=== PATIENT | male | born 1970 | race Caucasian/White ===

== ENCOUNTER 2016-07-23 12:21 | Inpatient (IN) | payer OTHER ==
[~2016-07-23] VITALS: Ht 167.6 cm; Wt 62.0 kg
[~2016-07-23 12:21] MED LIST: ALBINS INH; ASPCH81 PO; CHOLTAB3 PO; LORA10TA5 PO
[2016-07-23] MEDS ORDERED: SODIUM CHLORIDE 0.9% 1000ML 1,000 ML IV ONE (13:20)
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
--- NOTE | 2016-07-23 13:47 | DIAGNOSTIC IMAGING REPORT ---
CHEST ONE VIEW PORTABLE CLINICAL HISTORY: Fever. Sepsis. COMPARISON STUDY: Chest radiograph March 19, 2016. FINDINGS: A tracheostomy tube is noted. The patient is rotated. There is no pneumothorax or pleural effusion. Cardiac size is normal. Mediastinal contours are likely stable when allowing for differences in technique. The left hemidiaphragm is obscured. There may be left basilar opacity. There is possible right infrahilar opacity. IMPRESSION: 1. Obscuration of the left hemidiaphragm which suggests left basilar opacity. This may reflect atelectasis or consolidation. Right hilar fullness and right infrahilar opacity which can assessed on subsequent chest radiographs. 2. Rotated study. 3. No evidence of pulmonary edema. Electronically signed by: Scott Garibay M.D. 07/23/2016 1:45 PM
[2016-07-23] MEDS ORDERED: AZEL1POW NAE (13:49)
[2016-07-23] MEDS ORDERED: IPRASOL4 INH (13:49)
[2016-07-23] MEDS ORDERED: PIPERACILLIN/TAZOBACTAM 4.5 GM/100ML D5W IV STA (14:02)
[2016-07-23 14:49] LABS: VEN BLD GAS O2 SATURATION 82.7 %; VEN BLOOD GAS BASE EXCESS 4.5 mmol/L
[2016-07-23 14:54] LABS: BASO % 0.2 %; BASO ABS # 0.02 K/uL (0-0.2); COMPLETE YES; EOS % 1.1 %; HEMATOCRIT 40.8 % (42-52); IG% 0.2 %; LYMPH % 12.7 %; LYMPH ABS # 1.58 K/uL (1.2-3.4); MEAN CELL VOLUME 90.5 fL (80-100); MEAN CORPUSCULAR HEMOGLOBIN 30.4 pg (25-34); MEAN CORPUSCULAR HGB CONC 33.6 g/dl (32-36); MONO % 5.9 %; NEUT % 79.9 %; PLATELET COUNT 334 K/uL (130-400); RED BLOOD COUNT 4.51 M/uL (4.7-6.1); WHITE BLOOD COUNT 12.41 K/uL (4.8-10.8)
[2016-07-23 15:01] LABS: PARTIAL THROMBOPLASTIN RATIO 1.1; PROTHROMBIN TIME (PATIENT) 10.7 SECONDS (9.0-12.0)
[2016-07-23 15:21] LABS: ALT/SGPT 23 U/L (12-78); BLOOD UREA NITROGEN 15 mg/dl (7-18); BUN/CREATININE RATIO 42.2 (10-20); C-REACTIVE PROTEIN 7.06 mg/dl (0-0.29); CALCIUM 9.9 mg/dl (8.5-10.1); CARBON DIOXIDE 28 mmol/L (21-32); CHLORIDE 103 mmol/L (98-107); CREATININE 0.36 mg/dl (0.60-1.40); GLUCOSE 91 mg/dl (70-99); MAGNESIUM 2.2 mg/dl (1.8-2.4); POTASSIUM 3.7 mmol/L (3.5-5.1); SODIUM 139 mmol/L (136-145)
[2016-07-23 15:24] LABS: ALB/GLOB RATIO 0.8 (0.9-2); ALKALINE PHOSPHATASE 97 U/L (45-117); AST/SGOT 18 U/L (15-37); CKMB/CK RATIO 2.9 (0-3.0)
[2016-07-23 15:56] LABS: URINE APPEARANCE CLOUDY (CLEAR); URINE BILIRUBIN NEG (NEG); URINE COLOR YELLOW; URINE NITRITE POS (NEG); URINE PH 7.5 (4.5-7.5); URINE SPECIFIC GRAVITY 1.003 (1.000-1.030); UROBILINOGEN NEG (NEG); ZZURINE CULT IF INDIC CATH YES
[2016-07-23 15:58] LABS: MANUAL MICROSCOPIC REQUIRED? NO; REVIEW REQ? NO
[2016-07-23] MEDS ORDERED: LORAZEPAM 0.5 MG TAB PO PRN (18:00)
[2016-07-23] MEDS ORDERED: LEVOFLOXACIN / D5W 750 MG IV STA (18:12)
[2016-07-23] MEDS ORDERED: PIPERACILL/TAZOBAC CONSULT ACTIVE PRN (18:15)
--- NOTE | 2016-07-23 19:52 | History and Physical ---
History & Physical H&P dictated # [id number].
[2016-07-23 20:00] VITALS: BP 137/87; PULSE 79; TEMP 36.6; O2SAT 90
[2016-07-23] MEDS: AZELASTINE HCL 30 ML INH NAE SCH (20:00)
[2016-07-23] MEDS: BACLOFEN TAB 20 MG TAB PO SCH (20:00)
[2016-07-23] MEDS: CHOLECALCIFEROL 400 INTER.UNIT TAB PO SCH (20:00)
[2016-07-23 20:45] VITALS: Ht 167.6 cm; Wt 62.0 kg
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
[2016-07-23] MEDS: DANTROLENE SODIUM 25 MG CAP PO SCH (22:00)
[2016-07-23] MEDS: ENOXAPARIN 40 MG/0.4 ML SYR SQ SCH (22:00)
[2016-07-23 22:18] VITALS: PULSE 84; O2SAT 96
[2016-07-23 22:24] VITALS: PULSE 88; O2SAT 96
[2016-07-23 23:37] VITALS: BP 124/82; PULSE 65; TEMP 36.6; O2SAT 98
[2016-07-23] MEDS: LEVOFLOXACIN / D5W 750 MG in PREMIXED IN D5W 150 ML IV SCH (23:45)
[2016-07-24] VITALS (9 sets, daily range): BP systolic 94–144; BP diastolic 61–92; PULSE 56–93; TEMP 36.5–36.9; O2SAT 91–99
[2016-07-24] MEDS: PIPERACILL/TAZOBAC IV 4.5 GM in DEXTROSE 5% 100ML 100 ML IV SCH ×2 (00:50→13:44)
[2016-07-24 07:53] LABS: BASO % 0.1 %; BASO ABS # 0.01 K/uL (0-0.2); COMPLETE YES; EOS % 2.6 %; HEMATOCRIT 41.9 % (42-52); IG% 0.4 %; LYMPH % 17.2 %; LYMPH ABS # 1.79 K/uL (1.2-3.4); MEAN CELL VOLUME 91.1 fL (80-100); MEAN CORPUSCULAR HEMOGLOBIN 30.4 pg (25-34); MEAN CORPUSCULAR HGB CONC 33.4 g/dl (32-36); MEAN PLATELET VOLUME 10.2 fL (7.4-10.4); MONO % 6.6 %; NEUT % 73.1 %; PLATELET COUNT 303 K/uL (130-400); WHITE BLOOD COUNT 10.39 K/uL (4.8-10.8)
[2016-07-24] MEDS: ALBUT/IPRATROP 3MG/0.5MG NEB 3 ML VIAL INH SCH ×5 (08:00→19:08)
[2016-07-24] MEDS: AZELASTINE HCL 30 ML INH NAE SCH ×2 (08:00→20:13)
[2016-07-24 08:16] LABS: BLOOD UREA NITROGEN 15 mg/dl (7-18); BUN/CREATININE RATIO 44.5 (10-20); CALCIUM 8.8 mg/dl (8.5-10.1); CARBON DIOXIDE 25 mmol/L (21-32); CHLORIDE 103 mmol/L (98-107); CREATININE 0.33 mg/dl (0.60-1.40); GLUCOSE 73 mg/dl (70-99); POTASSIUM 3.8 mmol/L (3.5-5.1); SODIUM 137 mmol/L (136-145)
[2016-07-24] MEDS: ASPIRIN 81 MG ECTAB PO SCH (09:11)
[2016-07-24] MEDS: LORATADINE 10 MG TAB PO SCH (09:11)
[2016-07-24] MEDS: CHOLECALCIFEROL 400 INTER.UNIT TAB PO SCH ×2 (09:12→20:15)
[2016-07-24] MEDS: BACLOFEN TAB 20 MG TAB PO SCH ×4 (09:12→20:14)
--- NOTE | 2016-07-24 12:44 | Hospitalist Progress Note ---
Hospitalist Progress Note Date of Service Jul 24, 2016. Subjective Pt evaluation today including: conversation w/ patient, physical exam, chart review, lab review, review of studies, review of inpatient medication list Patient reports feeling better by 60% this am. He normally does not use oxygen at home and requests that this be weaned to off if he is maintaining oxygenation. He has no new issues or concerns. Care givers were present he just finished bathing. Additional Comments: A 10 system review was performed and all were negative. Positives were placed in the subjective section. Objective Vital Signs Date Time Temp Pulse Resp B/P Pulse Ox O2 Delivery O2 Flow Rate FiO2 07/24/16 08:08 66 22 98 BiPAP/CPAP 40 07/24/16 08:00 99 BiPAP 2.0 07/24/16 08:00 36.5 62 20 143/83 99 BiPAP 2.0 07/24/16 02:01 56 98 40 07/24/16 00:01 99 Room Air BiPAP Trach Collar 07/23/16 23:37 36.6 65 18 124/82 98 Trach Collar 07/23/16 22:24 88 96 40 07/23/16 22:18 84 22 96 BiPAP/CPAP 40 07/23/16 20:45 Trach Collar 07/23/16 20:00 36.6 79 19 137/87 90 Room Air 07/23/16 18:41 78 26 130/82 96 Room Air 07/23/16 18:08 78 34 130/82 93 Room Air 07/23/16 16:11 82 24 128/85 94 Room Air 07/23/16 14:50 93 Room Air 07/23/16 14:30 79 24 132/79 93 Room Air 07/23/16 14:03 79 Physical Exam Notes: GEN: Awake, alert, and oriented x 3. Not in acute distress HEENT: Tm's intact, no inflammation, EOMI, PERRLA, MMM Neck: Soft, supple Lungs: CTA b/l, no crackles or wheezes. A few scattered rhonchi noted b/l. Heart: REG, nrl S1S2 without murmurs, rubs or gallops Abdomen: Soft, NT, ND, + BS EXT: No C/C/E NEURO: Paraplegia with paralysis from shoulders down. Skin: warm, dry, no rashes PSYCH: pleasant, cooperative, no signs of significant anxiety or depression. Laboratory Results Last 24 Hours Test 07/23/16 14:30 07/23/16 14:45 07/23/16 15:25 07/24/16 07:15 White Blood Count 12.41 K/uL 10.39 K/uL Red Blood Count 4.51 M/uL 4.60 M/uL Hemoglobin 13.7 g/dL 14.0 g/dL Hematocrit 40.8 % 41.9 % Mean Corpuscular Volume 90.5 fL 91.1 fL Mean Corpuscular Hemoglobin 30.4 pg 30.4 pg Mean Corpuscular Hemoglobin Concent 33.6 g/dl 33.4 g/dl Platelet Count 334 K/uL 303 K/uL Mean Platelet Volume 10.0 fL 10.2 fL Neutrophils (%) (Auto) 79.9 % 73.1 % Lymphocytes (%) (Auto) 12.7 % 17.2 % Monocytes (%) (Auto) 5.9 % 6.6 % Eosinophils (%) (Auto) 1.1 % 2.6 % Basophils (%) (Auto) 0.2 % 0.1 % Neutrophils # (Auto) 9.91 K/uL 7.59 K/uL Lymphocytes # (Auto) 1.58 K/uL 1.79 K/uL Monocytes # (Auto) 0.73 K/uL 0.69 K/uL Eosinophils # (Auto) 0.14 K/uL 0.27 K/uL Basophils # (Auto) 0.02 K/uL 0.01 K/uL RDW Standard Deviation 42.1 fL 43.0 fL RDW Coefficient of Variation 12.8 % 12.9 % Immature Granulocyte % (Auto) 0.2 % 0.4 % Immature Granulocyte # (Auto) 0.03 K/uL 0.04 K/uL Erythrocyte Sedimentation Rate 55 mm/hr Prothrombin Time 10.7 SECONDS Prothromb Time International Ratio 1.0 Activated Partial Thromboplast Time 29.8 SECONDS Partial Thromboplastin Ratio 1.1 Venous Blood pH 7.44 Venous Blood Partial Pressure CO2 45 mmHg Venous Blood Partial Pressure O2 43 mmHg Venous Blood HCO3 29 mmol/L Venous Blood Oxygen Saturation 82.7 % Venous Blood Base Excess 4.5 mmol/L Sodium Level 139 mmol/L 137 mmol/L Potassium Level 3.7 mmol/L 3.8 mmol/L Chloride Level 103 mmol/L 103 mmol/L Carbon Dioxide Level 28 mmol/L 25 mmol/L Anion Gap 8.0 mmol/L 9.0 mmol/L Blood Urea Nitrogen 15 mg/dl 15 mg/dl Creatinine 0.36 mg/dl 0.33 mg/dl Est Creatinine Clear Calc Drug Dose 222.5 ml/min 242.7 ml/min Estimated GFR () > 150.0 > 150.0 Estimated GFR (Non- 147.7 > 150.0 BUN/Creatinine Ratio 42.2 44.5 Random Glucose 91 mg/dl 73 mg/dl Calcium Level 9.9 mg/dl 8.8 mg/dl Magnesium Level 2.2 mg/dl Total Bilirubin 0.5 mg/dl Aspartate Amino Transf (AST/SGOT) 18 U/L Alanine Aminotransferase (ALT/SGPT) 23 U/L Alkaline Phosphatase 97 U/L Total Creatine Kinase 95 U/L Creatine Kinase MB 2.8 ng/ml Creatine Kinase MB Ratio 2.9 Troponin I 0.016 ng/ml C-Reactive Protein 7.06 mg/dl Pro-B-Type Natriuretic Peptide 126 pg/ml Total Protein 8.3 gm/dl Albumin 3.7 gm/dl Globulin 4.6 gm/dl Albumin/Globulin Ratio 0.8 Bedside Lactic Acid Venous 0.89 mmol/L Urine Color YELLOW Urine Appearance CLOUDY Urine pH 7.5 Urine Specific [place] 1.003 Urine Protein NEG Urine Glucose (UA) NEG Urine Ketones NEG Urine Occult Blood NEG Urine Nitrite POS Urine Bilirubin NEG Urine Urobilinogen NEG Urine Leukocyte Esterase TRACE Urine WBC (Auto) 1-5 /hpf Urine RBC (Auto) >30 /hpf Urine Hyaline Casts (Auto) 0 /lpf Urine Epithelial Cells (Auto) 10-20 /lpf Urine Bacteria (Auto) 4+ Assessment and Plan 1) Pneumonia - On IV Zosyn and IV Levaquin. Levaquin was ordered due to his history of pseudomonas pneumonia. Looking fairly good today. Will wean oxygen to off if tolerated. Await pulmonology consult. 2) Bacteruria - with chronic knott will expect colonization, cultures pending. 3) Quadriplegia - Air bed. Requests daily bath. 4) Anxiety - stable, has prn Ativan ordered. DVT prophylaxis - TEDs, SCDs, Sub-q lovenox. Continued [facility] stay due to: multiple IV medications needed Discharge planning: home with home health
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
[2016-07-24] MEDS: PIPERACILL/TAZOBAC IV 3.375 GM in DEXTROSE 5% 100ML IV SCH ×2 (16:18→23:58)
[2016-07-24] MEDS: DANTROLENE SODIUM 25 MG CAP PO SCH (20:14)
[2016-07-24] MEDS: ENOXAPARIN 40 MG/0.4 ML SYR SQ SCH (20:15)
[2016-07-24] MEDS: LEVOFLOXACIN / D5W 750 MG in PREMIXED IN D5W 150 ML IV SCH (23:57)
[2016-07-25] VITALS (9 sets, daily range): BP systolic 114–135; BP diastolic 75–83; PULSE 51–88; TEMP 36.3–36.9; O2SAT 40–100
[2016-07-25 06:42] LABS: BASO % 0.3 %; BASO ABS # 0.02 K/uL (0-0.2); COMPLETE YES; EOS % 2.7 %; HEMATOCRIT 44.7 % (42-52); IG% 0.1 %; LYMPH % 21.6 %; LYMPH ABS # 1.66 K/uL (1.2-3.4); MEAN CELL VOLUME 92.5 fL (80-100); MEAN CORPUSCULAR HEMOGLOBIN 31.5 pg (25-34); MEAN PLATELET VOLUME 9.8 fL (7.4-10.4); MONO % 9.2 %; NEUT % 66.1 %; PLATELET COUNT 310 K/uL (130-400); RED BLOOD COUNT 4.83 M/uL (4.7-6.1); WHITE BLOOD COUNT 7.69 K/uL (4.8-10.8)
[2016-07-25 07:07] LABS: BLOOD UREA NITROGEN 11 mg/dl (7-18); BUN/CREATININE RATIO 23.3 (10-20); CALCIUM 8.8 mg/dl (8.5-10.1); CARBON DIOXIDE 31 mmol/L (21-32); CHLORIDE 100 mmol/L (98-107); CREATININE 0.48 mg/dl (0.60-1.40); GLUCOSE 91 mg/dl (70-99); POTASSIUM 4.2 mmol/L (3.5-5.1); SODIUM 138 mmol/L (136-145)
[2016-07-25] MEDS: ALBUT/IPRATROP 3MG/0.5MG NEB 3 ML VIAL INH SCH ×4 (07:28→19:40)
[2016-07-25] MEDS: PIPERACILL/TAZOBAC IV 3.375 GM in DEXTROSE 5% 100ML IV SCH ×2 (07:34→16:17)
[2016-07-25] MEDS: AZELASTINE HCL 30 ML INH NAE SCH ×2 (08:00→21:19)
[2016-07-25] MEDS: LORATADINE 10 MG TAB PO SCH (08:38)
[2016-07-25] MEDS: CHOLECALCIFEROL 400 INTER.UNIT TAB PO SCH ×2 (08:38→21:19)
[2016-07-25] MEDS: ASPIRIN 81 MG ECTAB PO SCH (08:38)
[2016-07-25] MEDS: BACLOFEN TAB 20 MG TAB PO SCH ×4 (08:39→21:19)
--- NOTE | 2016-07-25 09:54 | Progress Note ---
Subjective Date of Service: Jul 25, 2016. Problem List Medical Problems: (1) PNA (pneumonia) Status: Acute (2) Pneumonia Status: Acute (3) Productive cough Status: Acute (4) Ulcer of right heel Status: Acute Objective Vital Signs Date Time Temp Pulse Resp B/P Pulse Ox O2 Delivery O2 Flow Rate FiO2 07/25/16 07:34 36.3 63 18 135/81 97 BiPAP 2.5 07/25/16 07:28 62 28 98 BiPAP/CPAP 07/25/16 00:41 36.5 51 18 114/75 100 Room Air 07/25/16 00:00 BiPAP 07/24/16 21:43 97 40 07/24/16 19:16 79 32 97 Nasal Cannula 3.0 07/24/16 16:00 Nasal Cannula 3.0 07/24/16 15:33 36.9 73 20 94/61 97 Nasal Cannula 3.0 07/24/16 15:22 71 32 97 Nasal Cannula 3.0 40 07/24/16 10:40 93 32 91 Nasal Cannula 3.0 Laboratory Results Last 24 Hours Test 07/25/16 06:30 White Blood Count 7.69 K/uL Red Blood Count 4.83 M/uL Hemoglobin 15.2 g/dL Hematocrit 44.7 % Mean Corpuscular Volume 92.5 fL Mean Corpuscular Hemoglobin 31.5 pg Mean Corpuscular Hemoglobin Concent 34.0 g/dl Platelet Count 310 K/uL Mean Platelet Volume 9.8 fL Neutrophils (%) (Auto) 66.1 % Lymphocytes (%) (Auto) 21.6 % Monocytes (%) (Auto) 9.2 % Eosinophils (%) (Auto) 2.7 % Basophils (%) (Auto) 0.3 % Neutrophils # (Auto) 5.08 K/uL Lymphocytes # (Auto) 1.66 K/uL Monocytes # (Auto) 0.71 K/uL Eosinophils # (Auto) 0.21 K/uL Basophils # (Auto) 0.02 K/uL RDW Standard Deviation 43.6 fL RDW Coefficient of Variation 12.8 % Immature Granulocyte % (Auto) 0.1 % Immature Granulocyte # (Auto) 0.01 K/uL Sodium Level 138 mmol/L Potassium Level 4.2 mmol/L Chloride Level 100 mmol/L Carbon Dioxide Level 31 mmol/L Anion Gap 7.0 mmol/L Blood Urea Nitrogen 11 mg/dl Creatinine 0.48 mg/dl Est Creatinine Clear Calc Drug Dose 166.8 ml/min Estimated GFR () > 150.0 Estimated GFR (Non- 131.2 BUN/Creatinine Ratio 23.3 Random Glucose 91 mg/dl Calcium Level 8.8 mg/dl Assessment and Plan 1) Pneumonia - On IV Zosyn and IV Levaquin. Levaquin was ordered due to his history of pseudomonas pneumonia. Looking fairly good today. Will wean oxygen to off if tolerated. Await pulmonology consult. 2) Bacteruria - with chronic knott will expect colonization, cultures pending. 3) Quadriplegia - Air bed. Requests daily bath. 4) Anxiety - stable, has prn Ativan ordered. DVT prophylaxis - TEDs, SCDs, Sub-q lovenox. Continued [facility] stay due to: multiple IV medications needed Discharge planning: home with home health
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
--- NOTE | 2016-07-25 12:29 | Clinical Documentation Query ---
YESI Venegas : CLINICAL DOCUMENTATION QUERY Patient is a 45 year old male admitted with recurrent pneumonia in the setting of quadriplegia. Patient noted to have an E.Coli UTI. Documentation also makes note of chronic indwelling West catheter. As appropriate, consider documentation as below as this directly affects DRG assignment. Thank you. In your clinical opinion is this patient being managed for: ( x ) E.Coli UTI due to indwelling West catheter ( ) Other explanation of clinical findings (Please Explain) ( ) Unable to determine (Please Define) ( ) Need to Discuss ( ) Not Agree The medical record reflects the following clinical findings, treatment, and risk factors. Clinical Indicators: As above Treatment: IV antibiotics Risk Factors: Chronic indwelling West catheter Please clarify and document your clinical opinion in the progress notes and discharge summary. Terms such as "probable", "suspected", "likely", "questionable", "possible", or "still to be ruled out" are acceptable. IF IN AGREEMENT, YOU MUST DOCUMENT ABOVE DIAGNOSTIC STATEMENT IN DAILY PROGRESS NOTES AND DISCHARGE SUMMARY. This document is not part of the patient's record. Thank You, Vishal Mac, GABRIEL [phone]
[2016-07-25] MEDS ORDERED: ALBUTEROL 0.083% NEBU SOLN 3 ML VIAL INH PRN (14:45)
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
[2016-07-25] MEDS: ENOXAPARIN 40 MG/0.4 ML SYR SQ SCH (21:20)
[2016-07-25] MEDS: DANTROLENE SODIUM 25 MG CAP PO SCH (21:20)
[2016-07-26] VITALS (10 sets, daily range): BP systolic 94–111; BP diastolic 60–70; PULSE 56–83; TEMP 36.4–37; O2SAT 95–100
[2016-07-26] MEDS: PIPERACILL/TAZOBAC IV 3.375 GM in DEXTROSE 5% 100ML IV SCH (00:30)
[2016-07-26 06:33] LABS: BASO % 0.2 %; BASO ABS # 0.02 K/uL (0-0.2); COMPLETE YES; EOS % 2.3 %; IG% 0.2 %; LYMPH % 18.8 %; LYMPH ABS # 1.76 K/uL (1.2-3.4); MEAN CELL VOLUME 93.3 fL (80-100); MEAN CORPUSCULAR HEMOGLOBIN 30.4 pg (25-34); MEAN CORPUSCULAR HGB CONC 32.6 g/dl (32-36); MEAN PLATELET VOLUME 9.9 fL (7.4-10.4); MONO % 7.4 %; NEUT % 71.1 %; PLATELET COUNT 291 K/uL (130-400); WHITE BLOOD COUNT 9.38 K/uL (4.8-10.8)
[2016-07-26 07:26] LABS: BLOOD UREA NITROGEN 14 mg/dl (7-18); BUN/CREATININE RATIO 32.3 (10-20); CALCIUM 8.8 mg/dl (8.5-10.1); CARBON DIOXIDE 28 mmol/L (21-32); CHLORIDE 101 mmol/L (98-107); CREATININE 0.43 mg/dl (0.60-1.40); GLUCOSE 84 mg/dl (70-99); POTASSIUM 3.8 mmol/L (3.5-5.1); SODIUM 139 mmol/L (136-145)
[2016-07-26] MEDS: ALBUT/IPRATROP 3MG/0.5MG NEB 3 ML VIAL INH SCH ×4 (07:45→20:09)
[2016-07-26] MEDS: AZELASTINE HCL 30 ML INH NAE SCH ×2 (07:52→21:18)
[2016-07-26] MEDS: CHOLECALCIFEROL 400 INTER.UNIT TAB PO SCH ×2 (08:24→21:19)
[2016-07-26] MEDS: ASPIRIN 81 MG ECTAB PO SCH (08:24)
[2016-07-26] MEDS: LORATADINE 10 MG TAB PO SCH (08:25)
[2016-07-26] MEDS: BACLOFEN TAB 20 MG TAB PO SCH ×4 (08:25→21:20)
[2016-07-26] MEDS ORDERED: CEFTRIAXONE SOD INJ 1 GM in DEXTROSE 5% ADD-VANTAGE 50ML 50 ML IV SCH (09:00)
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
[2016-07-26] MEDS ORDERED: SOD PHOSPHATE/SOD BIPHOSPHATE ENEMA 132 ML BTL PR STA (09:55)
--- NOTE | 2016-07-26 14:40 | PULMONARY PROGRESS NOTE ---
DATE: 07/26/2016 DATE: 07/26/2016. TIME: 2:10 p.m. SUBJECTIVE: The patient is feeling a little better. He thinks his breathing is better. He feels less congestion in the chest. He did not sleep well last night. He states the room felt hot to him. Also, he has been nasally stuffy. OBJECTIVE: GENERAL: The patient looks in no distress, although he is breathing fast. He uses his accessory muscles of respiration in the neck area. This is related to his neuromuscular disorder. He is afebrile. The trach is in place. It has the adapter on the end so that he can verbalize. Respiratory rate is 30 breaths per minute. HEART: Rate is 83 beats per minute. Blood pressure 111/66. LUNGS: Esposito revealed mild rhonchi today. It was better than it had been previously. ABDOMEN: Soft. Bowel sounds are present. There was no tenderness to palpation. EXTREMITIES: Show no cyanosis, clubbing or edema. The patient cannot move the lower extremities at all and he can move the upper extremities only slightly in the area of the hands. LABORATORY DATA: White count today is 9.38. Hemoglobin 13.7. Platelets are 291,000. Sodium 139, potassium 3.8, chloride 101, bicarb 28. BUN 14, creatinine 0.43. IMPRESSIONS: 1. Pneumonia secondary to Streptococcus pneumoniae. 2. Quadriplegia with neuromuscular weakness. 3. Urinary tract infection with Escherichia coli and pseudomonas. COMMENTS AND RECOMMENDATIONS: The patient clinically is somewhat better. Yesterday we had concerns that he was not receiving enough suctioning, but he feels well with it today. The patient indicates he thinks he is being suctioned often enough. We will do a repeat chest x-ray tomorrow to see if the infiltrates have improved at all. I would continue with the neb treatments as current.
[2016-07-26] MEDS: AMOXICILLIN/CLAVULANATE TAB 875 MG TAB PO SCH (16:51)
[2016-07-26] MEDS: ENOXAPARIN 40 MG/0.4 ML SYR SQ SCH (21:19)
[2016-07-26] MEDS: DANTROLENE SODIUM 25 MG CAP PO SCH (21:20)
[2016-07-27 03:48] VITALS: PULSE 46; O2SAT 100
--- NOTE | 2016-07-27 07:15 | DIAGNOSTIC IMAGING REPORT ---
CHEST ONE VIEW PORTABLE CLINICAL HISTORY: Follow-up pneumonia. Cough. COMPARISON STUDY: Chest radiograph July 23, 2016. FINDINGS: A tracheostomy tube is in place. There is no pneumothorax. No definite pleural effusion is identified. Obscuration of the left hemidiaphragm is noted. There is also mild right lower lung opacity. There is no evidence of pulmonary edema. Right lower lung airspace opacity is slightly improved. IMPRESSION: Persistent bilateral lower lung opacities. Slight improvement since prior exam. The findings could reflect consolidation or atelectasis. Electronically signed by: Scott Garibay M.D. 07/27/2016 7:13 AM Dictated Date/Time: 07/27/2016 7:11 AM
[2016-07-27 07:19] VITALS: BP 123/79; PULSE 55; TEMP 36.4; O2SAT 100
[2016-07-27] MEDS: ALBUT/IPRATROP 3MG/0.5MG NEB 3 ML VIAL INH SCH (08:09)
[2016-07-27 08:10] VITALS: PULSE 60; O2SAT 100
[2016-07-27 08:18] VITALS: PULSE 60; O2SAT 100
[2016-07-27 09:05] VITALS: BP 123/79; PULSE 60; TEMP 36.4; O2SAT 100
[2016-07-27] MEDS ORDERED: IPRASOL4 INH (09:07)
[2016-07-27] MEDS ORDERED: AMOX1TAB43 PO (09:07)
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
[2016-07-27] MEDS: CHOLECALCIFEROL 400 INTER.UNIT TAB PO SCH (09:58)
[2016-07-27] MEDS: AZELASTINE HCL 30 ML INH NAE SCH (09:58)
[2016-07-27] MEDS: ASPIRIN 81 MG ECTAB PO SCH (09:59)
[2016-07-27] MEDS: LORATADINE 10 MG TAB PO SCH (09:59)
[2016-07-27] MEDS: BACLOFEN TAB 20 MG TAB PO SCH (09:59)
[2016-07-27] MEDS: AMOXICILLIN/CLAVULANATE TAB 875 MG TAB PO SCH (09:59)
[2016-09-14] MEDS ORDERED: LVQ750 PO ×2 (08:19→09:33)
[2016-11-01] MEDS ORDERED: DANT100C PO (11:29)
[2016-11-01] MEDS ORDERED: CHOL400T PO (11:45)
[2016-11-01] MEDS ORDERED: LORA-741 PO (13:03)
[2016-11-01] MEDS ORDERED: ALBINS/ NEB (13:03)
[2016-11-01] MEDS ORDERED: MULT-506 PO (13:03)
[2016-11-01] MEDS ORDERED: ASCO10003 PO (13:03)
[2016-11-01] MEDS ORDERED: BOTU200I SQ (13:56)
[2017-02-21] MEDS ORDERED: CEPH500C PO (10:22)
[2017-04-09] MEDS ORDERED: TYLOTC500 PO (11:29)
[2017-04-09] MEDS ORDERED: BACL20TA PO (11:29)
[2017-04-09] MEDS ORDERED: ALEN70TA4 PO (11:29)
[2017-04-09] MEDS ORDERED: LORA-741 PO ×2 (13:18→19:31)
[2017-04-09] MEDS ORDERED: CLR10 PO (13:18)
[2017-04-09] MEDS ORDERED: CALC1CHW2 PO (13:18)
[2017-04-09] MEDS ORDERED: IPRA0.03 NAE (13:18)
[2017-04-09] MEDS ORDERED: BISA10SU3 PR (13:49)
[2017-04-09] MEDS ORDERED: IBUP-1277 PO (14:23)
[2017-04-09] MEDS ORDERED: MULT-922 PO (14:46)
[2017-04-09] MEDS ORDERED: ASCO500C43 PO (14:49)
[2017-04-09] MEDS ORDERED: LACTTAB7 PO (14:49)
[2017-04-09] MEDS ORDERED: ASPI81TA28 PO (16:42)
== END 2016-07-27 10:27 | disposition home health service (06) | DRG 193 ==
LOC: ENRESERVTM → ENRESERVDT → EDBD 12:21 → C.EDC 12:23 → C.MS4W 17:38
PROVIDERS: ADMIT Hospitalist; ATTEND Hospitalist
DX: J13 Pneumonia due to Streptococcus pneumoniae (principal); G82.50 Quadriplegia, unspecified; T83.511A Infection and inflammatory reaction due to indwelling urethral catheter, initial encounter; N39.0 Urinary tract infection, site not specified; Y84.6 Urinary catheterization as the cause of abnormal reaction of the patient, or of later complication, without mention of misadventure at the time of the procedure; F41.9 Anxiety disorder, unspecified; Z93.0 Tracheostomy status; K59.00 Constipation, unspecified; B96.5 Pseudomonas (aeruginosa) (mallei) (pseudomallei) as the cause of diseases classified elsewhere; J01.90 Acute sinusitis, unspecified; B96.20 Unspecified Escherichia coli [E. coli] as the cause of diseases classified elsewhere; Z79.899 Other long term (current) drug therapy; Z79.82 Long term (current) use of aspirin

== ENCOUNTER 2016-08-07 10:57 | Emergency (ER) | payer OTHER ==
[~2016-08-07] VITALS: Ht 170.2 cm; Wt 63.8 kg
[~2016-08-07 10:57] MED LIST changes: -ALBINS INH; +AMOX1TAB43 PO; +AZEL1POW NAE; +IPRASOL4 INH
[2016-08-07 11:06] VITALS: Ht 170.2 cm; Wt 63.8 kg
[2016-08-07] MEDS ORDERED: ASPCH81X PO (11:45)
[2016-08-07 12:12] VITALS: O2SAT 95
--- NOTE | 2016-08-07 12:33 | DIAGNOSTIC IMAGING REPORT ---
CHEST ONE VIEW PORTABLE CLINICAL HISTORY: SOB COMPARISON STUDY: 07/27/2016 FINDINGS: The heart is normal in size. A tracheostomy tube is again visualized. There is nonspecific increased density of the right hilum. There are persistent airspace opacities in both medial lung bases..[ IMPRESSION: 1. Persistent airspace opacities at both medial lung bases 2. Nonspecific increased density of the right hilum Electronically signed by: Austin Bhatt M.D. 08/07/2016 12:31 PM Dictated Date/Time: 08/07/2016 12:29 PM
[2016-08-07] MEDS ORDERED: VANCOMYCIN INJ 1,000 MG in SODIUM CHLORIDE 0.9% 250ML 250 ML IV STA (12:36)
[2016-08-07] MEDS ORDERED: PIPERACILLIN/TAZOBACTAM 4.5 GM/100ML D5W IV STA (12:36)
[2016-08-07] MEDS ORDERED: LEVAQUIN 750MG / 150ML D5W IV ONE (12:45)
[2016-08-07] MEDS ORDERED: ALBUT/IPRATROP 3MG/0.5MG NEB 3 ML VIAL INH ONE (12:45)
[2016-08-07 13:21] VITALS: PULSE 78; O2SAT 95
[2016-08-07 13:24] LABS: BASO % 0.2 %; BASO ABS # 0.02 K/uL (0-0.2); COMPLETE YES; EOS % 1.7 %; HEMATOCRIT 42.7 % (42-52); IG% 0.2 %; LYMPH ABS # 1.65 K/uL (1.2-3.4); MEAN CELL VOLUME 92.2 fL (80-100); MEAN CORPUSCULAR HEMOGLOBIN 30.9 pg (25-34); MEAN CORPUSCULAR HGB CONC 33.5 g/dl (32-36); MEAN PLATELET VOLUME 10.4 fL (7.4-10.4); MONO % 5.3 %; NEUT % 77.6 %; PLATELET COUNT 271 K/uL (130-400); RED BLOOD COUNT 4.63 M/uL (4.7-6.1); WHITE BLOOD COUNT 11.01 K/uL (4.8-10.8)
[2016-08-07] MEDS ORDERED: BACLOFEN TAB 20 MG TAB PO STA (13:27)
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
[2016-08-07 13:33] LABS: PARTIAL THROMBOPLASTIN RATIO 1.1; PROTHROMBIN TIME (PATIENT) 10.7 SECONDS (9.0-12.0)
[2016-08-07 13:44] LABS: ALT/SGPT 21 U/L (12-78); AST/SGOT 16 U/L (15-37); BLOOD UREA NITROGEN 19 mg/dl (7-18); BUN/CREATININE RATIO 45.5 (10-20); CALCIUM 9.4 mg/dl (8.5-10.1); CARBON DIOXIDE 28 mmol/L (21-32); CHLORIDE 103 mmol/L (98-107); CREATININE 0.42 mg/dl (0.60-1.40); GLUCOSE 81 mg/dl (70-99); SODIUM 140 mmol/L (136-145)
[2016-08-07 13:49] LABS: ALB/GLOB RATIO 0.9 (0.9-2); ALKALINE PHOSPHATASE 84 U/L (45-117); CKMB/CK RATIO 2.3 (0-3.0)
[2016-08-07] MEDS ORDERED: LEVO-366 PO (14:34)
[2016-08-07 14:52] LABS: INFLUENZA A PCR Neg for Influ A (NEG); INFLUENZA B PCR Neg for Influ B (NEG)
[2016-08-07 14:53] VITALS: TEMP 36.7
[2016-08-07 19:37] VITALS: BP 111/75; PULSE 72; O2SAT 98
[2016-09-14] MEDS ORDERED: LVQ750 PO ×2 (08:19→09:33)
[2016-11-01] MEDS ORDERED: DANT100C PO (11:29)
[2016-11-01] MEDS ORDERED: CHOL400T PO (11:45)
[2016-11-01] MEDS ORDERED: LORA-741 PO (13:03)
[2016-11-01] MEDS ORDERED: ASCO10003 PO (13:03)
[2016-11-01] MEDS ORDERED: ALBINS/ NEB (13:03)
[2016-11-01] MEDS ORDERED: MULT-506 PO (13:03)
[2016-11-01] MEDS ORDERED: BOTU200I SQ (13:56)
[2017-02-21] MEDS ORDERED: CEPH500C PO (10:22)
[2017-04-09] MEDS ORDERED: TYLOTC500 PO (11:29)
[2017-04-09] MEDS ORDERED: ALEN70TA4 PO (11:29)
[2017-04-09] MEDS ORDERED: BACL20TA PO (11:29)
[2017-04-09] MEDS ORDERED: CALC1CHW2 PO (13:18)
[2017-04-09] MEDS ORDERED: LORA-741 PO ×2 (13:18→19:31)
[2017-04-09] MEDS ORDERED: CLR10 PO (13:18)
[2017-04-09] MEDS ORDERED: IPRA0.03 NAE (13:18)
[2017-04-09] MEDS ORDERED: BISA10SU3 PR (13:49)
[2017-04-09] MEDS ORDERED: IBUP-1277 PO (14:23)
[2017-04-09] MEDS ORDERED: MULT-922 PO (14:46)
[2017-04-09] MEDS ORDERED: LACTTAB7 PO (14:49)
[2017-04-09] MEDS ORDERED: ASCO500C43 PO (14:49)
[2017-04-09] MEDS ORDERED: ASPI81TA28 PO (16:42)
== END 2016-08-07 19:39 | disposition home or self-care (01) ==
LOC: EDBD 10:57 → C.EDC 10:59
DX: J18.9 Pneumonia, unspecified organism (principal); G82.50 Quadriplegia, unspecified; Z93.0 Tracheostomy status; F41.9 Anxiety disorder, unspecified; Z87.01 Personal history of pneumonia (recurrent); Z90.49 Acquired absence of other specified parts of digestive tract; Z83.3 Family history of diabetes mellitus; Z79.82 Long term (current) use of aspirin; Z79.899 Other long term (current) drug therapy

== ENCOUNTER 2016-09-10 12:40 | Inpatient (IN) | payer OTHER ==
[~2016-09-10] VITALS: Ht 170.2 cm; Wt 59.0 kg
[~2016-09-10 12:40] MED LIST changes: -AMOX1TAB43 PO; -ASPCH81 PO; +ASPCH81X PO; -CHOLTAB3 PO
[2016-09-10] MEDS ORDERED: VBRT100 PO (13:03)
[2016-09-10] MEDS ORDERED: MONT1TAB3 PO (13:03)
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
[2016-09-10 14:45] LABS: BASO % 0.2 %; BASO ABS # 0.02 K/uL (0-0.2); COMPLETE YES; EOS % 1.9 %; HEMATOCRIT 42.1 % (42-52); IG% 0.3 %; LYMPH % 12.2 %; LYMPH ABS # 1.49 K/uL (1.2-3.4); MEAN CORPUSCULAR HEMOGLOBIN 29.8 pg (25-34); MEAN CORPUSCULAR HGB CONC 33.5 g/dl (32-36); MEAN PLATELET VOLUME 10.5 fL (7.4-10.4); MONO % 7.2 %; NEUT % 78.2 %; PLATELET COUNT 269 K/uL (130-400); RED BLOOD COUNT 4.73 M/uL (4.7-6.1); WHITE BLOOD COUNT 12.23 K/uL (4.8-10.8)
[2016-09-10 14:53] LABS: BLOOD UREA NITROGEN 14 mg/dl (7-18); BUN/CREATININE RATIO 36.3 (10-20); CALCIUM 9.3 mg/dl (8.5-10.1); CARBON DIOXIDE 28 mmol/L (21-32); CHLORIDE 100 mmol/L (98-107); CREATININE 0.38 mg/dl (0.60-1.40); GLUCOSE 82 mg/dl (70-99); SODIUM 137 mmol/L (136-145)
[2016-09-10] MEDS ORDERED: PIPERACILLIN/TAZOBACTAM 4.5 GM/100ML D5W IV STA (15:54)
--- NOTE | 2016-09-10 15:55 | DIAGNOSTIC IMAGING REPORT ---
CHEST ONE VIEW PORTABLE CLINICAL HISTORY: Chest pain. COMPARISON STUDY: Chest radiograph August 07, 2016. FINDINGS: A tracheostomy tube is in place. There is no pneumothorax or evidence of pulmonary edema. No pleural effusion is present. Bibasilar opacities, left greater than right, persist. IMPRESSION: Persistent bibasilar opacities, left greater than right, which have been shown on multiple prior exams. This could reflect atelectasis or consolidation Electronically signed by: Scott Garibay M.D. 09/10/2016 3:53 PM Dictated Date/Time: 09/10/2016 3:52 PM
[2016-09-10] MEDS ORDERED: ONDANSETRON INJ 2 MG/ML 2 ML VIAL IV PRN (17:00)
[2016-09-10] MEDS ORDERED: MAGNESIUM HYDROXIDE SUSP 30 ML UDC PO PRN (17:00)
[2016-09-10] MEDS ORDERED: ACETAMINOPHEN 325 MG TAB PO PRN (17:00)
[2016-09-10] MEDS ORDERED: POLYETHYLENE (MIRALAX) 17 GM PACK PO PRN (17:00)
[2016-09-10] MEDS ORDERED: ALUMINUM/MAGNESIUM/SIMETH (MAALOX MAX) 30 ML UDC PO PRN (17:00)
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
[2016-09-10] MEDS ORDERED: LEVOFLOXACIN CONSULT ACTIVE PRN (17:45)
[2016-09-10] MEDS ORDERED: PIPERACILL/TAZOBAC CONSULT ACTIVE PRN (17:45)
[2016-09-10] MEDS ORDERED: LEVOFLOXACIN / D5W 750 MG in PREMIXED IN D5W 150 ML IV ONE (18:00)
[2016-09-10] MEDS: ALBUTEROL 0.083% NEBU SOLN 3 ML VIAL INH SCH (20:00)
[2016-09-10] MEDS: ASCORBIC ACID 500 MG TAB PO SCH (21:00)
[2016-09-10] MEDS: BACLOFEN TAB 20 MG TAB PO SCH (21:00)
[2016-09-10] MEDS: DANTROLENE SODIUM 25 MG CAP PO SCH (21:00)
[2016-09-10 21:30] VITALS: BP 112/80; PULSE 76; TEMP 36.9; O2SAT 96; Ht 170.2 cm; Wt 59.0 kg
[2016-09-10 22:56] VITALS: BP 112/80; PULSE 68; TEMP 36.9; O2SAT 95
[2016-09-10] MEDS: PIPERACILL/TAZOBAC IV 3.375 GM in DEXTROSE 5% 100ML 100 ML IV SCH (23:28)
[2016-09-11] VITALS (12 sets, daily range): BP systolic 110–134; BP diastolic 75–88; PULSE 64–84; TEMP 36.4–37.3; O2SAT 93–100
[2016-09-11] MEDS: PIPERACILL/TAZOBAC IV 3.375 GM in DEXTROSE 5% 100ML 100 ML IV SCH ×3 (05:56→20:53)
[2016-09-11 07:01] LABS: PROTHROMBIN TIME (PATIENT) 11.2 SECONDS (9.0-12.0)
[2016-09-11 07:26] LABS: BLOOD UREA NITROGEN 12 mg/dl (7-18); BUN/CREATININE RATIO 27.2 (10-20); CALCIUM 8.8 mg/dl (8.5-10.1); CARBON DIOXIDE 23 mmol/L (21-32); CHLORIDE 99 mmol/L (98-107); CREATININE 0.45 mg/dl (0.60-1.40); GLUCOSE 60 mg/dl (70-99); POTASSIUM 4.1 mmol/L (3.5-5.1); SODIUM 134 mmol/L (136-145)
[2016-09-11] MEDS: ASPIRIN 81 MG ECTAB PO SCH (07:50)
[2016-09-11] MEDS: BACLOFEN TAB 20 MG TAB PO SCH ×4 (07:51→20:53)
[2016-09-11] MEDS: MULTIVITAMIN TAB PO SCH (07:52)
[2016-09-11] MEDS: MONTELUKAST SOD 10 MG TAB PO SCH (07:52)
[2016-09-11] MEDS: CHOLECALCIFEROL 1000 INTER.UNIT TAB PO SCH (07:53)
[2016-09-11] MEDS: ALBUTEROL 0.083% NEBU SOLN 3 ML VIAL INH SCH ×4 (08:00→19:38)
[2016-09-11] MEDS: LORAZEPAM 0.5 MG TAB PO SCH (08:02)
[2016-09-11 09:23] LABS: BASO % 0.2 %; BASO ABS # 0.02 K/uL (0-0.2); EOS % 2.5 %; HEMATOCRIT 42.5 % (42-52); IG% 0.2 %; LYMPH % 15.3 %; LYMPH ABS # 1.42 K/uL (1.2-3.4); MEAN CELL VOLUME 91.2 fL (80-100); MEAN CORPUSCULAR HEMOGLOBIN 30.7 pg (25-34); MEAN PLATELET VOLUME 10.3 fL (7.4-10.4); MONO % 5.3 %; NEUT % 76.5 %; PLATELET COUNT 245 K/uL (130-400); RED BLOOD COUNT 4.66 M/uL (4.7-6.1); WHITE BLOOD COUNT 9.31 K/uL (4.8-10.8)
[2016-09-11 09:29] LABS: COMPLETE YES; MEAN CORPUSCULAR HGB CONC 33.6 g/dl (32-36)
[2016-09-11] MEDS: ENOXAPARIN 40 MG/0.4 ML SYR SQ SCH (13:03)
[2016-09-11] MEDS: LEVOFLOXACIN / D5W 750 MG in PREMIXED IN D5W 150 ML IV SCH (17:58)
--- NOTE | 2016-09-11 18:41 | Progress Note ---
Subjective Subjective Date of Service: Sep 11, 2016. Pt evaluation today including: conversation w/ patient, physical exam, chart review, review of studies, review of inpatient medication list Problem List Medical Problems: (1) Paraplegia Status: Acute (2) PNA (pneumonia) Status: Acute (3) PNA (pneumonia) Status: Acute (4) Pneumonia Status: Acute (5) Pneumonia Status: Acute (6) Productive cough Status: Acute (7) Ulcer of right heel Status: Acute Review of Systems Constitutional: No fever ENT: No hearing loss Respiratory: No cough Abdomen: No pain Male : No dysuria Neurologic: No memory loss Psychiatric: No depression symptoms Endo: No fatigue Physical Exam Vital Signs Vital Signs Past 24 Hours: Date Time Temp Pulse Resp B/P Pulse Ox O2 Delivery O2 Flow Rate FiO2 09/11/16 16:00 Room Air 09/11/16 15:35 80 16 96 BiPAP/CPAP 09/11/16 15:06 37.3 74 18 124/80 95 Room Air Trach Collar 09/11/16 12:19 70 20 96 Room Air 09/11/16 11:07 37.0 70 18 110/75 97 Room Air 09/11/16 10:44 BiPAP 09/11/16 10:44 94 09/11/16 08:36 82 20 96 BiPAP/CPAP 3.0 09/11/16 08:34 77 94 21 09/11/16 07:27 36.4 64 18 134/88 97 Room Air Trach Collar 09/11/16 03:54 77 93 21 09/11/16 00:15 76 100 21 09/11/16 00:00 BiPAP 09/10/16 22:56 36.9 68 18 112/80 95 Trach Collar 09/10/16 21:30 36.9 76 20 112/80 96 BiPAP 09/10/16 20:55 74 20 113/74 95 09/10/16 20:00 90 21 121/86 95 Room Air Physical Exam: General Appearance: WD/WN, no apparent distress Eyes: bilateral eyes normal inspection ENT: hearing grossly normal, pharynx normal Neck: supple, no JVD Respiratory/Chest: chest non-tender, + decreased breath sounds, + crackles Cardiovascular: regular rate, rhythm Abdomen: normal bowel sounds Extremities: no calf tenderness, + pertinent finding (paralysed) Neurologic/Psychiatric: alert, normal mood/affect, + motor weakness (paralyzed) Skin: normal color, warm/dry Medications Medications: Current Inpatient Medications Medications (Trade) Dose Ordered Sig/Ashanti Route Start Time Stop Time Status Last Admin Dose Admin Levofloxacin 750 mg/Prmx 150 ml @ 100 mls/hr DAILY@1800 IV 09/11/16 18:00 09/16/16 19:29 09/11/16 17:58 100 MLS/HR Piperacillin Sod/ Tazobactam Sod/ Dextrose (Zosyn Iv/D5 100ml) 115 ml @ 28.75 mls/ hr Q8H IV 09/10/16 22:00 09/17/16 21:59 09/11/16 14:40 28.75 MLS/HR Enoxaparin Sodium (Lovenox Inj) 40 mg Q24H SQ 09/11/16 11:00 10/11/16 10:59 09/11/16 13:03 40 MG Al Hydrox/Mg Hydrox/Simethicone (Maalox Max Susp) 15 ml Q4H PRN PO 09/10/16 17:00 10/10/16 16:59 Magnesium Hydroxide (Milk Of Magnesia Susp) 30 ml Q6H PRN PO 09/10/16 17:00 10/10/16 16:59 Polyethylene (Miralax Powder Packet) 17 gm DAILY PRN PO 09/10/16 17:00 10/10/16 16:59 Ondansetron HCl (Zofran Inj) 4 mg Q6H PRN IV 09/10/16 17:00 10/10/16 16:59 Acetaminophen (Tylenol Tab) 1,000 mg Q6 PRN PO 09/10/16 17:15 10/10/16 17:14 Albuterol Sulfate (Ventolin 0.083% 2.5MG/3ML Neb) 2.5 mg QIDR INH 09/10/16 20:00 10/10/16 19:59 09/11/16 16:07 2.5 MG Aspirin (Ecotrin Tab) 81 mg DAILY PO 09/11/16 08:00 10/11/16 08:59 09/11/16 07:50 81 MG Baclofen (Lioresal Tab) 40 mg QID PO 09/10/16 21:00 10/10/16 20:59 09/11/16 17:42 40 MG Cholecalciferol (Vitamin D Tab) 2,000 inter.unit DAILY PO 09/11/16 08:00 10/11/16 08:59 09/11/16 07:53 2,000 INTER.UNIT Lorazepam (Ativan Tab) 0.5 mg DAILY PO 09/11/16 08:00 10/11/16 08:59 09/11/16 08:02 0.5 MG Montelukast Sodium (Singulair Tab) 10 mg QAM PO 09/11/16 08:00 10/11/16 08:59 09/11/16 07:52 10 MG Multivitamins (Multivitamin Tab) 1 tab DAILY PO 09/11/16 08:00 10/11/16 08:59 09/11/16 07:52 1 TAB Ascorbic Acid (Vitamin C Tab) 1,000 mg QPM PO 09/10/16 21:00 10/10/16 20:59 09/10/16 21:00 1,000 MG Dantrolene Sodium (Dantrium Cap) 100 mg HS PO 09/10/16 21:00 10/10/16 20:59 09/10/16 21:00 100 MG Miscellaneous Information (Order Awaiting Action) 1 ea QS N/A 09/11/16 00:00 10/11/16 00:00 Piperacillin Sod/ Tazobactam Sod (Consult) 1 ea UD PRN N/A 09/10/16 17:45 10/10/16 17:44 Levofloxacin (Consult) 1 ea UD PRN N/A 09/10/16 17:45 10/10/16 17:44 Laboratory Data Labs: Last 24 Hours Test 09/11/16 05:30 09/11/16 09:07 Prothrombin Time 11.2 SECONDS Prothromb Time International Ratio 1.0 Sodium Level 134 mmol/L Potassium Level 4.1 mmol/L Chloride Level 99 mmol/L Carbon Dioxide Level 23 mmol/L Anion Gap 12.0 mmol/L Blood Urea Nitrogen 12 mg/dl Creatinine 0.45 mg/dl Est Creatinine Clear Calc Drug Dose 169.4 ml/min Estimated GFR () > 150.0 Estimated GFR (Non- 134.8 BUN/Creatinine Ratio 27.2 Random Glucose 60 mg/dl Calcium Level 8.8 mg/dl White Blood Count 9.31 K/uL Red Blood Count 4.66 M/uL Hemoglobin 14.3 g/dL Hematocrit 42.5 % Mean Corpuscular Volume 91.2 fL Mean Corpuscular Hemoglobin 30.7 pg Mean Corpuscular Hemoglobin Concent 33.6 g/dl Platelet Count 245 K/uL Mean Platelet Volume 10.3 fL Neutrophils (%) (Auto) 76.5 % Lymphocytes (%) (Auto) 15.3 % Monocytes (%) (Auto) 5.3 % Eosinophils (%) (Auto) 2.5 % Basophils (%) (Auto) 0.2 % Neutrophils # (Auto) 7.13 K/uL Lymphocytes # (Auto) 1.42 K/uL Monocytes # (Auto) 0.49 K/uL Eosinophils # (Auto) 0.23 K/uL Basophils # (Auto) 0.02 K/uL RDW Standard Deviation 43.4 fL RDW Coefficient of Variation 13.0 % Immature Granulocyte % (Auto) 0.2 % Immature Granulocyte # (Auto) 0.02 K/uL Assessment and Plan 45M with a PMHx of quadriplegia presents with fevers and increased respiratory secretions. 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 Chest X-ray showed bibasilar opacities , left greater than right, persist. Pt was placed on Pseudomonas in the ER. MRSA swab negative in January, will repeat. Pt was started on Zosyn and Levoquin for double Pseudomonas coverage. Health care associated Pneumonia Negative MRSA swab in January of last year. Will repeat, if positive consider MRSA coverage. cont iv Zosyn Levaquin for double Pseudomonas coverage. Follow up Blood Cultures. cont Singular QAM and Albuterol QID PRN. 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 Constipation cont Polyethene Glycol PRN. anxiety cont Ativan 0.5mg PRN for agitation. DVT Proph: Lovenox SQ Dispo: Med Surg, Reg Diet, Discharge Planning Eval ordered, FULL CODE.
[2016-09-11] MEDS: DANTROLENE SODIUM 25 MG CAP PO SCH (20:54)
[2016-09-11] MEDS: ASCORBIC ACID 500 MG TAB PO SCH (20:54)
[2016-09-12] VITALS (14 sets, daily range): BP systolic 97–120; BP diastolic 62–79; PULSE 57–114; TEMP 36.3–36.9; O2SAT 93–97
[2016-09-12] MEDS: PIPERACILL/TAZOBAC IV 3.375 GM in DEXTROSE 5% 100ML 100 ML IV SCH ×3 (05:02→21:23)
[2016-09-12 06:37] LABS: BASO % 0.2 %; BASO ABS # 0.02 K/uL (0-0.2); COMPLETE YES; EOS % 3.4 %; HEMATOCRIT 43.6 % (42-52); IG% 0.2 %; LYMPH ABS # 1.84 K/uL (1.2-3.4); MEAN CELL VOLUME 91.8 fL (80-100); MEAN CORPUSCULAR HEMOGLOBIN 30.1 pg (25-34); MEAN CORPUSCULAR HGB CONC 32.8 g/dl (32-36); MEAN PLATELET VOLUME 10.6 fL (7.4-10.4); MONO % 8.8 %; NEUT % 67.4 %; PLATELET COUNT 236 K/uL (130-400); RED BLOOD COUNT 4.75 M/uL (4.7-6.1); WHITE BLOOD COUNT 9.21 K/uL (4.8-10.8)
[2016-09-12 06:57] LABS: BUN/CREATININE RATIO 26.3 (10-20); CALCIUM 8.5 mg/dl (8.5-10.1); CREATININE 0.52 mg/dl (0.60-1.40); POTASSIUM 3.9 mmol/L (3.5-5.1)
[2016-09-12] MEDS: ALBUTEROL 0.083% NEBU SOLN 3 ML VIAL INH SCH ×4 (07:57→19:54)
[2016-09-12] MEDS: CHOLECALCIFEROL 1000 INTER.UNIT TAB PO SCH (08:54)
[2016-09-12] MEDS: LORAZEPAM 0.5 MG TAB PO SCH (08:54)
[2016-09-12] MEDS: MONTELUKAST SOD 10 MG TAB PO SCH (08:55)
[2016-09-12] MEDS: ASPIRIN 81 MG ECTAB PO SCH (08:55)
[2016-09-12] MEDS: MULTIVITAMIN TAB PO SCH (08:55)
[2016-09-12] MEDS: BACLOFEN TAB 20 MG TAB PO SCH ×4 (08:55→19:40)
[2016-09-12] MEDS: ENOXAPARIN 40 MG/0.4 ML SYR SQ SCH (11:46)
--- NOTE | 2016-09-12 15:18 | Progress Note ---
Subjective Subjective Date of Service: Sep 12, 2016. Pt evaluation today including: conversation w/ patient, physical exam, chart review, review of studies, review of inpatient medication list Notes: sound better, denies complains, improving Problem List Medical Problems: (1) Paraplegia Status: Acute (2) PNA (pneumonia) Status: Acute (3) PNA (pneumonia) Status: Acute (4) Pneumonia Status: Acute (5) Pneumonia Status: Acute (6) Productive cough Status: Acute (7) Ulcer of right heel Status: Acute Review of Systems Constitutional: No fever ENT: No hearing loss Cardiac: No chest pain Abdomen: No pain Male : No dysuria Neurologic: No memory loss Psychiatric: No depression symptoms Heme: No abnormal bleeding/bruising Endo: No fatigue Physical Exam Vital Signs Vital Signs Past 24 Hours: Date Time Temp Pulse Resp B/P Pulse Ox O2 Delivery O2 Flow Rate FiO2 09/12/16 12:07 84 16 97 BiPAP/CPAP 09/12/16 12:07 66 97 09/12/16 11:39 36.4 70 18 111/73 95 Room Air 09/12/16 08:30 Room Air 09/12/16 08:30 97 Room Air 09/12/16 07:57 87 16 97 BiPAP/CPAP 09/12/16 07:57 66 97 21 09/12/16 07:36 36.4 63 16 120/79 96 BiPAP 09/12/16 07:30 BiPAP 09/12/16 05:55 62 95 21 09/12/16 01:54 57 95 09/12/16 00:20 36.9 67 20 97/62 94 09/12/16 00:00 BiPAP 09/11/16 22:56 74 98 09/11/16 19:15 84 16 96 BiPAP/CPAP 09/11/16 16:00 Room Air 09/11/16 15:35 80 16 96 BiPAP/CPAP Physical Exam: General Appearance: WD/WN, no apparent distress Eyes: bilateral eyes normal inspection ENT: hearing grossly normal Neck: supple Respiratory/Chest: + rales Cardiovascular: regular rate, rhythm Abdomen: normal bowel sounds Extremities: + pertinent finding (quadroplegia) Neurologic/Psychiatric: alert Skin: normal color Medications Medications: Current Inpatient Medications Medications (Trade) Dose Ordered Sig/Ashanti Route Start Time Stop Time Status Last Admin Dose Admin Levofloxacin 750 mg/Prmx 150 ml @ 100 mls/hr DAILY@1800 IV 09/11/16 18:00 09/16/16 19:29 09/11/16 17:58 100 MLS/HR Piperacillin Sod/ Tazobactam Sod/ Dextrose (Zosyn Iv/D5 100ml) 115 ml @ 28.75 mls/ hr Q8H IV 09/10/16 22:00 09/17/16 21:59 09/12/16 14:31 28.75 MLS/HR Enoxaparin Sodium (Lovenox Inj) 40 mg Q24H SQ 09/11/16 11:00 10/11/16 10:59 09/12/16 11:46 40 MG Al Hydrox/Mg Hydrox/Simethicone (Maalox Max Susp) 15 ml Q4H PRN PO 09/10/16 17:00 10/10/16 16:59 Magnesium Hydroxide (Milk Of Magnesia Susp) 30 ml Q6H PRN PO 09/10/16 17:00 10/10/16 16:59 Polyethylene (Miralax Powder Packet) 17 gm DAILY PRN PO 09/10/16 17:00 10/10/16 16:59 Ondansetron HCl (Zofran Inj) 4 mg Q6H PRN IV 09/10/16 17:00 10/10/16 16:59 Acetaminophen (Tylenol Tab) 1,000 mg Q6 PRN PO 09/10/16 17:15 10/10/16 17:14 Albuterol Sulfate (Ventolin 0.083% 2.5MG/3ML Neb) 2.5 mg QIDR INH 09/10/16 20:00 10/10/16 19:59 09/12/16 12:06 2.5 MG Aspirin (Ecotrin Tab) 81 mg DAILY PO 09/11/16 08:00 10/11/16 08:59 09/12/16 08:55 81 MG Baclofen (Lioresal Tab) 40 mg QID PO 09/10/16 21:00 10/10/16 20:59 09/12/16 11:45 40 MG Cholecalciferol (Vitamin D Tab) 2,000 inter.unit DAILY PO 09/11/16 08:00 10/11/16 08:59 09/12/16 08:54 2,000 INTER.UNIT Lorazepam (Ativan Tab) 0.5 mg DAILY PO 09/11/16 08:00 10/11/16 08:59 09/12/16 08:54 0.5 MG Montelukast Sodium (Singulair Tab) 10 mg QAM PO 09/11/16 08:00 10/11/16 08:59 09/12/16 08:55 10 MG Multivitamins (Multivitamin Tab) 1 tab DAILY PO 09/11/16 08:00 10/11/16 08:59 09/12/16 08:55 1 TAB Ascorbic Acid (Vitamin C Tab) 1,000 mg QPM PO 09/10/16 21:00 10/10/16 20:59 09/11/16 20:54 1,000 MG Dantrolene Sodium (Dantrium Cap) 100 mg HS PO 09/10/16 21:00 10/10/16 20:59 09/11/16 20:54 100 MG Miscellaneous Information (Order Awaiting Action) 1 ea QS N/A 09/11/16 00:00 10/11/16 00:00 Piperacillin Sod/ Tazobactam Sod (Consult) 1 ea UD PRN N/A 09/10/16 17:45 10/10/16 17:44 Levofloxacin (Consult) 1 ea UD PRN N/A 09/10/16 17:45 10/10/16 17:44 Laboratory Data Labs: Last 24 Hours Test 09/12/16 06:00 White Blood Count 9.21 K/uL Red Blood Count 4.75 M/uL Hemoglobin 14.3 g/dL Hematocrit 43.6 % Mean Corpuscular Volume 91.8 fL Mean Corpuscular Hemoglobin 30.1 pg Mean Corpuscular Hemoglobin Concent 32.8 g/dl Platelet Count 236 K/uL Mean Platelet Volume 10.6 fL Neutrophils (%) (Auto) 67.4 % Lymphocytes (%) (Auto) 20.0 % Monocytes (%) (Auto) 8.8 % Eosinophils (%) (Auto) 3.4 % Basophils (%) (Auto) 0.2 % Neutrophils # (Auto) 6.21 K/uL Lymphocytes # (Auto) 1.84 K/uL Monocytes # (Auto) 0.81 K/uL Eosinophils # (Auto) 0.31 K/uL Basophils # (Auto) 0.02 K/uL RDW Standard Deviation 43.9 fL RDW Coefficient of Variation 13.1 % Immature Granulocyte % (Auto) 0.2 % Immature Granulocyte # (Auto) 0.02 K/uL Sodium Level 131 mmol/L Potassium Level 3.9 mmol/L Chloride Level 96 mmol/L Carbon Dioxide Level 30 mmol/L Anion Gap 5.0 mmol/L Blood Urea Nitrogen 14 mg/dl Creatinine 0.52 mg/dl Est Creatinine Clear Calc Drug Dose 146.6 ml/min Estimated GFR () 147.2 Estimated GFR (Non- 127.0 BUN/Creatinine Ratio 26.3 Random Glucose 86 mg/dl Calcium Level 8.5 mg/dl Assessment and Plan 45M with a PMHx of quadriplegia presents with fevers and increased respiratory secretions. 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 Chest X-ray showed bibasilar opacities , left greater than right, persist. Pt was placed on Pseudomonas in the ER. MRSA swab negative in January, will repeat. Pt was started on Zosyn and Levoquin for double Pseudomonas coverage. Health care associated Pneumonia Negative MRSA swab in January of last year. Will repeat, if positive consider MRSA coverage. cont iv Zosyn/levaquin Levaquin for double Pseudomonas coverage. Blood Cultures neg. cont Singular QAM and Albuterol QID PRN. 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 Constipation cont Polyethylene Glycol PRN. hyponatremia, noted, check urine NA, check BMP in am anxiety cont Ativan 0.5mg PRN for agitation. DVT Proph: Lovenox SQ Dispo: Med Surg, Reg Diet, Discharge Planning Eval ordered, FULL CODE.
[2016-09-12] MEDS: LEVOFLOXACIN / D5W 750 MG in PREMIXED IN D5W 150 ML IV SCH (19:37)
[2016-09-12] MEDS: ASCORBIC ACID 500 MG TAB PO SCH (21:23)
[2016-09-12] MEDS: DANTROLENE SODIUM 25 MG CAP PO SCH (21:23)
[2016-09-13] VITALS (11 sets, daily range): BP systolic 118–125; BP diastolic 75–83; PULSE 61–84; TEMP 36.4–36.6; O2SAT 94–97
[2016-09-13] MEDS: ACETAMINOPHEN 500 MG TAB PO PRN ×3 (05:16→22:44)
[2016-09-13] MEDS: PIPERACILL/TAZOBAC IV 3.375 GM in DEXTROSE 5% 100ML 100 ML IV SCH ×3 (05:46→22:33)
[2016-09-13] MEDS: ALBUTEROL 0.083% NEBU SOLN 3 ML VIAL INH SCH ×4 (07:49→20:04)
[2016-09-13 08:30] LABS: BASO % 0.3 %; BASO ABS # 0.02 K/uL (0-0.2); COMPLETE YES; EOS % 3.2 %; HEMATOCRIT 41.8 % (42-52); IG% 0.3 %; LYMPH % 17.6 %; LYMPH ABS # 1.36 K/uL (1.2-3.4); MEAN CELL VOLUME 90.5 fL (80-100); MEAN CORPUSCULAR HEMOGLOBIN 29.9 pg (25-34); MONO % 6.3 %; NEUT % 72.3 %; PLATELET COUNT 216 K/uL (130-400); RED BLOOD COUNT 4.62 M/uL (4.7-6.1); WHITE BLOOD COUNT 7.72 K/uL (4.8-10.8)
[2016-09-13 09:00] LABS: BLOOD UREA NITROGEN 10 mg/dl (7-18); BUN/CREATININE RATIO 32.5 (10-20); CALCIUM 8.6 mg/dl (8.5-10.1); CARBON DIOXIDE 26 mmol/L (21-32); CHLORIDE 96 mmol/L (98-107); CREATININE 0.32 mg/dl (0.60-1.40); GLUCOSE 87 mg/dl (70-99); SODIUM 130 mmol/L (136-145)
[2016-09-13] MEDS: ASPIRIN 81 MG ECTAB PO SCH (09:43)
[2016-09-13] MEDS: LORAZEPAM 0.5 MG TAB PO SCH (09:43)
[2016-09-13] MEDS: BACLOFEN TAB 20 MG TAB PO SCH ×4 (09:43→21:36)
[2016-09-13] MEDS: MONTELUKAST SOD 10 MG TAB PO SCH (09:43)
[2016-09-13] MEDS: CHOLECALCIFEROL 1000 INTER.UNIT TAB PO SCH (09:43)
[2016-09-13] MEDS: MULTIVITAMIN TAB PO SCH (09:43)
--- NOTE | 2016-09-13 10:42 | DIAGNOSTIC IMAGING REPORT ---
CHEST ONE VIEW PORTABLE HISTORY: Edema. Short of breath. COMPARISON: Chest 09/10/2016. FINDINGS: Tracheostomy tube is unchanged in position. Left basilar airspace opacity persists. The heart remains enlarged. There is a tortuous thoracic aorta. Patient is slightly rotated on this study. No pneumothorax. No evidence for pulmonary edema. No pleural effusions. The right lung is clear. IMPRESSION: 1. No change in the left basilar airspace opacity. This could represent a pneumonia. Recommend follow-up to ensure resolution. 2. No evidence for pulmonary edema at this time. Electronically signed by: Anselmo Hawley M.D. 09/13/2016 10:40 AM Dictated Date/Time: 09/13/2016 10:39 AM
--- NOTE | 2016-09-13 11:13 | Progress Note ---
Subjective Date of Service: Sep 13, 2016. (Gabriela Kemp PA-C) Date of Service: 09/13/16 agree with PA note pt improved (Ilan Garcia MD) Subjective Pt evaluation today including: conversation w/ patient, physical exam, chart review, lab review, review of studies, review of inpatient medication list Patient seen and evaluated. No acute events overnight. Patient is resting supine in bed with no complaints. Feels that respiratory secretions improved. Does require frequent suctioning. (Gabriela Kemp PA-C) Problem List Medical Problems: (1) Paraplegia Status: Acute (2) PNA (pneumonia) Status: Acute (3) PNA (pneumonia) Status: Acute (4) Pneumonia Status: Acute (5) Pneumonia Status: Acute (6) Productive cough Status: Acute (7) Ulcer of right heel Status: Acute (Gabriela Kemp PA-C) Review of Systems Constitutional: No chills, No fever Respiratory: + sputum, No cough, No shortness of breath Cardiac: No chest pain Abdomen: No nausea, No pain, No vomiting Male : No dysuria Endo: No fatigue (Gabriela Kemp PA-C) Constitutional: No fever ENT: No hearing loss Respiratory: No cough Cardiac: No chest pain Abdomen: No pain Male : No dysuria Psychiatric: No depression symptoms Endo: No fatigue (Ilan Garcia MD) Medications Current Inpatient Medications Medications (Trade) Dose Ordered Sig/Ashanti Route Start Time Stop Time Status Last Admin Dose Admin Levofloxacin 750 mg/Prmx 150 ml @ 100 mls/hr DAILY@1800 IV 09/11/16 18:00 09/16/16 19:29 09/12/16 19:37 100 MLS/HR Piperacillin Sod/ Tazobactam Sod/ Dextrose (Zosyn Iv/D5 100ml) 115 ml @ 28.75 mls/ hr Q8H IV 09/10/16 22:00 09/17/16 21:59 09/13/16 05:46 28.75 MLS/HR Enoxaparin Sodium (Lovenox Inj) 40 mg Q24H SQ 09/11/16 11:00 10/11/16 10:59 09/12/16 11:46 40 MG Al Hydrox/Mg Hydrox/Simethicone (Maalox Max Susp) 15 ml Q4H PRN PO 09/10/16 17:00 10/10/16 16:59 Magnesium Hydroxide (Milk Of Magnesia Susp) 30 ml Q6H PRN PO 09/10/16 17:00 10/10/16 16:59 Polyethylene (Miralax Powder Packet) 17 gm DAILY PRN PO 09/10/16 17:00 10/10/16 16:59 Ondansetron HCl (Zofran Inj) 4 mg Q6H PRN IV 09/10/16 17:00 10/10/16 16:59 Acetaminophen (Tylenol Tab) 1,000 mg Q6 PRN PO 09/10/16 17:15 10/10/16 17:14 09/13/16 05:16 1,000 MG Albuterol Sulfate (Ventolin 0.083% 2.5MG/3ML Neb) 2.5 mg QIDR INH 09/10/16 20:00 10/10/16 19:59 09/13/16 07:49 2.5 MG Aspirin (Ecotrin Tab) 81 mg DAILY PO 09/11/16 08:00 10/11/16 08:59 09/13/16 09:43 81 MG Baclofen (Lioresal Tab) 40 mg QID PO 09/10/16 21:00 10/10/16 20:59 09/13/16 09:43 40 MG Cholecalciferol (Vitamin D Tab) 2,000 inter.unit DAILY PO 09/11/16 08:00 10/11/16 08:59 09/13/16 09:43 2,000 INTER.UNIT Lorazepam (Ativan Tab) 0.5 mg DAILY PO 09/11/16 08:00 10/11/16 08:59 09/13/16 09:43 0.5 MG Montelukast Sodium (Singulair Tab) 10 mg QAM PO 09/11/16 08:00 10/11/16 08:59 09/13/16 09:43 10 MG Multivitamins (Multivitamin Tab) 1 tab DAILY PO 09/11/16 08:00 10/11/16 08:59 09/13/16 09:43 1 TAB Ascorbic Acid (Vitamin C Tab) 1,000 mg QPM PO 09/10/16 21:00 10/10/16 20:59 09/12/16 21:23 1,000 MG Dantrolene Sodium (Dantrium Cap) 100 mg HS PO 09/10/16 21:00 10/10/16 20:59 09/12/16 21:23 100 MG Miscellaneous Information (Order Awaiting Action) 1 ea QS N/A 09/11/16 00:00 10/11/16 00:00 Piperacillin Sod/ Tazobactam Sod (Consult) 1 ea UD PRN N/A 09/10/16 17:45 10/10/16 17:44 Levofloxacin 1 ea 1 ea UD PRN N/A 09/10/16 17:45 10/10/16 17:44 Sodium Chloride (Nss 1000ml) 1,000 ml @ 100 mls/hr Q10H IV 09/13/16 11:15 09/13/16 21:14 (Gabriela Kemp PA-C) Objective Vital Signs Date Time Temp Pulse Resp B/P Pulse Ox O2 Delivery O2 Flow Rate FiO2 09/13/16 08:30 Room Air 09/13/16 08:30 96 Room Air 09/13/16 07:49 84 16 97 BiPAP/CPAP 09/13/16 07:49 72 97 09/13/16 07:48 36.5 61 20 118/80 95 09/13/16 02:34 72 95 21 09/13/16 00:14 68 95 21 09/12/16 23:43 36.7 63 20 104/73 97 BiPAP 09/12/16 22:35 76 96 21 09/12/16 20:00 Room Air 09/12/16 19:55 84 16 97 BiPAP/CPAP 09/12/16 17:55 Room Air 09/12/16 16:25 81 97 21 09/12/16 16:11 81 16 96 BiPAP/CPAP 09/12/16 15:53 36.3 71 20 99/62 93 Room Air 09/12/16 12:07 84 16 97 BiPAP/CPAP 09/12/16 12:07 66 97 21 09/12/16 11:39 36.4 70 18 111/73 95 Room Air (Gabriela Kemp PA-C) Physical Exam General Appearance: WD/WN, no apparent distress, + thin Eyes: sclerae normal ENT: hearing grossly normal Neck: supple, no JVD, + pertinent finding (tracheostomy at midline) Respiratory/Chest: no respiratory distress, + rales (L base), + pertinent finding (utilizes upper respiratory muscles for breathing) Cardiovascular: regular rate, rhythm, no gallop, no murmur Abdomen: normal bowel sounds, non tender, soft Neurologic/Psychiatric: alert, oriented x 3 Skin: normal color, warm/dry (Gabriela Kemp, PA-C) General Appearance: no apparent distress Eyes: normal inspection ENT: hearing grossly normal Neck: supple Respiratory/Chest: + rales Cardiovascular: regular rate, rhythm Abdomen: normal bowel sounds Extremities: normal range of motion Neurologic/Psychiatric: alert (Ilan Garcia MD) Laboratory Results Last 24 Hours Test 09/12/16 18:10 09/13/16 08:20 Urine Random Sodium 16 mEq/L White Blood Count 7.72 K/uL Red Blood Count 4.62 M/uL Hemoglobin 13.8 g/dL Hematocrit 41.8 % Mean Corpuscular Volume 90.5 fL Mean Corpuscular Hemoglobin 29.9 pg Mean Corpuscular Hemoglobin Concent 33.0 g/dl Platelet Count 216 K/uL Mean Platelet Volume 10.0 fL Neutrophils (%) (Auto) 72.3 % Lymphocytes (%) (Auto) 17.6 % Monocytes (%) (Auto) 6.3 % Eosinophils (%) (Auto) 3.2 % Basophils (%) (Auto) 0.3 % Neutrophils # (Auto) 5.58 K/uL Lymphocytes # (Auto) 1.36 K/uL Monocytes # (Auto) 0.49 K/uL Eosinophils # (Auto) 0.25 K/uL Basophils # (Auto) 0.02 K/uL RDW Standard Deviation 42.5 fL RDW Coefficient of Variation 12.8 % Immature Granulocyte % (Auto) 0.3 % Immature Granulocyte # (Auto) 0.02 K/uL Sodium Level 130 mmol/L Potassium Level 4.0 mmol/L Chloride Level 96 mmol/L Carbon Dioxide Level 26 mmol/L Anion Gap 8.0 mmol/L Blood Urea Nitrogen 10 mg/dl Creatinine 0.32 mg/dl Est Creatinine Clear Calc Drug Dose 238.2 ml/min Estimated GFR () > 150.0 Estimated GFR (Non- > 150.0 BUN/Creatinine Ratio 32.5 Random Glucose 87 mg/dl Calcium Level 8.6 mg/dl (Gabriela Kemp PA-C) Assessment and Plan 45M with a PMHx of quadriplegia presents with fevers and increased respiratory secretions. Pt was on Doxycycline BOTTOM CAGER. Chest X-ray showed bibasilar opacities , left greater than right, persist. Pt was placed on Pseudomonas coverage in the ER. MRSA swab negative. Pt was started on Zosyn and Levaquin for double Pseudomonas coverage. 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 Anxiety: cont Ativan 0.5mg PRN for agitation. DVT Proph: Lovenox 40 mg SC daily Code Status: FULL RESUSCITATION Disposition: - Possible D/C tomorrow - will update sister later today - Rx placed on chart for new nebulizer (Gabriela Kemp PA-C) 45M with a PMHx of quadriplegia presents with fevers and increased respiratory secretions. Pt was on Doxycycline BOTTOM CAGER. Chest X-ray showed bibasilar opacities , left greater than right, persist. Pt was placed on Pseudomonas coverage in the ER. MRSA swab negative. Pt was started on Zosyn and Levaquin for double Pseudomonas coverage. 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
[2016-09-13] MEDS ORDERED: SODIUM CHLORIDE 0.9% 1000ML 1,000 ML IV SCH (11:15)
[2016-09-13] MEDS: ENOXAPARIN 40 MG/0.4 ML SYR SQ SCH (11:47)
--- NOTE | 2016-09-13 12:24 | Clinical Documentation Query ---
MS. JARQUINEDUARDO : CLINICAL DOCUMENTATION QUERY Patient is a 45 year old male admitted with healthcare associated pneumonia. Patient noted to be continued on IV Zosyn and IV Levaquin "for double Pseudomonas coverage". 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 Please clarify as clinically appropriate to avoid confusion at time of discharge. Thank you. In your clinical opinion is this patient being managed for: ( x ) (Possible/Suspected) Pneumonia Pseudomonas/other gram-negative bacteria ( ) Other explanation of clinical findings (Please Explain) ( ) Unable to determine (Please Define) ( ) Need to Discuss ( ) Not Agree The medical record reflects the following clinical findings, treatment, and risk factors. Clinical Indicators: As above Treatment: IV Levaquin, IV Zosyn Risk Factors: Quadriplegia, recent hospitalization, Doxycycline likely covered gram positives prior to admission. Please clarify and document your clinical opinion in the progress notes and discharge summary. Terms such as "probable", "suspected", "likely", "questionable", "possible", or "still to be ruled out" are acceptable. IF IN AGREEMENT, YOU MUST DOCUMENT ABOVE DIAGNOSTIC STATEMENT IN DAILY PROGRESS NOTES AND DISCHARGE SUMMARY. This document is not part of the patient's record. Thank You, Vishal Mac RN [phone]
[2016-09-13] MEDS: LEVOFLOXACIN / D5W 750 MG in PREMIXED IN D5W 150 ML IV SCH (17:42)
[2016-09-13] MEDS ORDERED: NURSING VERBAL MED ORDER ONE (18:45)
[2016-09-13] MEDS ORDERED: BISACODYL 10 MG SUPP PR SCH (20:00)
[2016-09-13] MEDS: ASCORBIC ACID 500 MG TAB PO SCH (21:35)
[2016-09-13] MEDS: DANTROLENE SODIUM 25 MG CAP PO SCH (21:36)
[2016-09-14 04:15] VITALS: PULSE 68; O2SAT 96
[2016-09-14 05:57] LABS: BASO % 0.1 %; BASO ABS # 0.01 K/uL (0-0.2); COMPLETE YES; EOS % 4.8 %; IG% 0.1 %; LYMPH % 25.1 %; LYMPH ABS # 1.78 K/uL (1.2-3.4); MEAN CELL VOLUME 89.2 fL (80-100); MEAN CORPUSCULAR HEMOGLOBIN 30.2 pg (25-34); MEAN CORPUSCULAR HGB CONC 33.8 g/dl (32-36); NEUT % 61.9 %; PLATELET COUNT 227 K/uL (130-400); RED BLOOD COUNT 4.37 M/uL (4.7-6.1)
[2016-09-14] MEDS: PIPERACILL/TAZOBAC IV 3.375 GM in DEXTROSE 5% 100ML 100 ML IV SCH (06:23)
[2016-09-14 06:37] LABS: BLOOD UREA NITROGEN 8 mg/dl (7-18); BUN/CREATININE RATIO 27.6 (10-20); CARBON DIOXIDE 27 mmol/L (21-32); CHLORIDE 100 mmol/L (98-107); CREATININE 0.28 mg/dl (0.60-1.40); GLUCOSE 86 mg/dl (70-99); POTASSIUM 3.8 mmol/L (3.5-5.1); SODIUM 135 mmol/L (136-145)
[2016-09-14 08:08] VITALS: PULSE 64; O2SAT 97
[2016-09-14] MEDS: ALBUTEROL 0.083% NEBU SOLN 3 ML VIAL INH SCH ×2 (08:08→11:15)
[2016-09-14 08:10] VITALS: BP 146/95; PULSE 62; TEMP 36.2; O2SAT 96
[2016-09-14] MEDS ORDERED: LVQ750 PO ×2 (08:19→09:33)
--- NOTE | 2016-09-14 08:26 | Discharge Instructions ---
Discharge Instructions Admission Reason for Admission: Pna, Quadriplegia, Unspecified Discharge Discharge Diagnosis / Problem: Healthcare Associated Pneumonia Discharge Goals Goal(s): Decrease discomfort, Improve function, Improve disease control Activity Recommendations Activity Limitations: resume your previous activity . Instructions / Follow-Up Instructions / Follow-Up Healthcare Associated Pneumonia: IMPROVING - You received antibiotics in the hospital for this pneumonia and will be continued on oral medications to finish out a 14 day course - Levofloxacin 750 mg daily for 10 more days - a prescription will be provided - You new nebulizer machine will be delivered to your home and you can use this as needed. Continue suctioning as previously scheduled at home. - Pneumonia can take some time to complete resolve and we would recommend following up with your family doctor in 7-10 days to monitor Hyponatremia: Low Salt - When you arrived your sodium level was low and this may be from some dehydration in the setting of your illness - This number has improved with hydration. Would recommend family doctor periodically monitoring this level Home Medications: - Continue home medications as prescribed. We did not make adjustments to them. - If you have any questions about your medications, please discuss with your family doctor Follow-Up: - Please see your family doctor in 7-10 days Current Hospital Diet Patient's current hospital diet: Regular Diet Discharge Diet Recommended Diet: Regular Diet Pending Studies Studies pending at discharge: no Medical Emergencies . Who to Call and When: Medical Emergencies: If at any time you feel your situation is an emergency, please call 911 immediately. . Non-Emergent Contact Non-Emergency issues call your: Primary Care Provider Call Non-Emergent contact if: you have a fever, you have any medication questions . . "Provider Documentation" section prepared by Gabriela Kemp. VTE Core Measure Inpt VTE Proph given/why not?: Enoxaparin (Lovenox)SQ
[2016-09-14] MEDS: LORAZEPAM 0.5 MG TAB PO SCH (09:20)
[2016-09-14] MEDS: MULTIVITAMIN TAB PO SCH (09:21)
[2016-09-14] MEDS: CHOLECALCIFEROL 1000 INTER.UNIT TAB PO SCH (09:21)
[2016-09-14] MEDS: BACLOFEN TAB 20 MG TAB PO SCH ×2 (09:21→12:35)
[2016-09-14] MEDS: ASPIRIN 81 MG ECTAB PO SCH (09:22)
[2016-09-14] MEDS: MONTELUKAST SOD 10 MG TAB PO SCH (09:22)
[2016-09-14 11:15] VITALS: PULSE 79; O2SAT 93
[2016-09-14] MEDS: ENOXAPARIN 40 MG/0.4 ML SYR SQ SCH (12:35)
[2016-09-14 13:03] VITALS: BP 146/95; PULSE 79; TEMP 36.2; O2SAT 93
--- NOTE | 2016-09-14 14:56 | Discharge Summary ---
Discharge Summary Date of Service Sep 14, 2016. Discharge Summary Admission Date: Sep 10, 2016 at 17:03 Discharge Date: Sep 14, 2016 Discharge Disposition: Home with services Principal Diagnosis: Healthcare Associated Pneumonia Immunizations: Have You Had Influenza Vaccine: Yes Influenza Vaccine Date: May 03, 2010 History of Tetanus Vaccine?: No History of Pneumococcal: YES 1998 History of Hepatitis B Vaccine: No Procedures: CHEST ONE VIEW PORTABLE HISTORY: Edema. Short of breath. COMPARISON: Chest 09/10/2016. FINDINGS: Tracheostomy tube is unchanged in position. Left basilar airspace opacity persists. The heart remains enlarged. There is a tortuous thoracic aorta. Patient is slightly rotated on this study. No pneumothorax. No evidence for pulmonary edema. No pleural effusions. The right lung is clear. IMPRESSION: 1. No change in the left basilar airspace opacity. This could represent a pneumonia. Recommend follow-up to ensure resolution. 2. No evidence for pulmonary edema at this time. Medication Reconciliation New Medications: Levofloxacin (Levofloxacin) 750 Mg Tab 750 MG PO DAILY, #10 TAB Start today (09/14) Continued Medications: Acetaminophen (Tylenol) 500 Mg Tab 1000 MG PO Q6 PRN for Pain, TAB do not exceed 3000mg in a day Albuterol Sulf (Proventil 0.083% 2.5MG/3ML) 2.5 Mg/3 Ml Nebu 2.5 MG INH QID, EA Alendronate Sodium (Fosamax) 70 Mg Tab 70 MG PO WK, #4 MON Ascorbic Acid (Vitamin C) 1,000 Mg Tab 1000 MG PO QPM AT 4PM Aspirin (Aspirin Chewable) 81 Mg Chew 81 MG PO DAILY Azelastine HCl (Bulk) (Azelastine HCl) 1 Pow Pow 1-2 SPRAYS URBAN BID Baclofen (Lioresal) 20 Mg Tab 40 MG PO QID, #240 Bisacodyl (Dulcolax) 10 Mg Sup 1 SUPP [place] 2XWK, SUP TUESDAYS AND FRIDAYS Cholecalciferol (Vitamin D) 400 Unit Tab 600 UNIT PO BID Dantrolene Sodium (Dantrolene Sodium) 100 Mg Cap 100 MG PO HS, #30 Lorazepam (Ativan) 0.5 Mg Tab 0.5 MG PO DAILY for Anxiety, TAB Montelukast Sodium (Singulair) 10 Mg Tab 10 MG PO QAM, TAB Multivitamin (Multivitamin) Tab 1 TAB PO DAILY, TAB Onabotulinumtoxina (Botox) 200 Unit Inj 600 UNITS SQ UD MUSCLE SPASMS Discontinued Medications: Doxycycline Hyclate (Doxycycline Hyclate) 100 Mg Tab 100 MG PO BID STARTED 09/07/16 FOR 7 DAYS Discharge Exam Review of Systems: Constitutional: No chills, No fever ENT: No nasal symptoms Respiratory: No shortness of breath, No sputum Cardiovascular: No chest pain Abdomen: No constipation, No diarrhea, No nausea, No vomiting Neurologic: + paralysis Endocrine: No fatigue Integumentary: No rash Physical Exam: General Appearance: no apparent distress, + cachetic Eyes: sclerae normal ENT: hearing grossly normal Neck: supple, no JVD, + pertinent finding (midline tracheostomy present) Respiratory/Chest: no respiratory distress, no accessory muscle use Cardiovascular: regular rate, rhythm, no gallop, no murmur Abdomen / GI: normal bowel sounds, non tender, soft Neurologic/Psychiatric: alert, oriented x 3 Skin: normal color, warm/dry Hospital Course ADMISSION: 45M with a PMHx of Quadraplegia presents to the ER for increased respiratory secretions and fevers, refractive to Doxycycline. The patient has had increased respiratory secretions beginning 1 week ago and has been taking PO doxycycline. Pt has had fevers for the past two days and according to his care givers he has been feeling hot. THe caregivers suction the pt's lung via a trach and have been getting 7-12 full tubes several times per day. Patient has had 3 respiratory infections in the past 3 months. Patient has no motor function of the LE and limited UE motor function. Patient's diaphragm doesn't move, pt uses the upper chest muscles to breath and has full speech ability but no coughing ability. Patient cannot lie on his left side for extended periods of time otherwise he will become tachycardic. Patient also has impaired thermoregulation and has intermittent fevers. The patient did receive the flu shot. HOSPITAL COURSE: Healthcare Associated Pneumonia Possible Pseudomonas: IMPROVING - CXR imaging with L > R bibasilar opacity that improved with repeat imaging however L opacity remained; no evidence of failure or pleural effusions - Utilized Zosyn IV per pharmacy dosing and Levaquin 750 mg IV daily for dual pseudomonas coverage -- Rx provided for Levaquin 750 mg po daily x 10 more days to finish a 14 day course and D/C'd home Doxycycline - MRSA swab negative and did therefore deferred Vancomycin use - Respiratory involved with suctioning and needs reduced as he improved. Hyponatremia: Dehydration - Urine Na at 16 and CXR without evidence of fluid overload with resolution with NSS x 1 L Home Medications: - All home medications continued without dosage adjustments. DVT Proph: Lovenox 40 mg SC daily Code Status: FULL RESUSCITATION Disposition: - Rx provided for home nebulizer and arrangements per case management for delivery - Patient with established caregivers setup prior to discharge home. - Recommend PCP follow-up in 7-10 days Total Time Spent: Greater than 30 minutes This includes examination of the patient, discharge planning, medication reconciliation, and communication with other providers. Discharge Instructions Please refer to the electronic Patient Visit Report (Discharge Instructions) for additional information. Additional Copies To Anna Blake MD
[2016-11-01] MEDS ORDERED: DANT100C PO (11:29)
[2016-11-01] MEDS ORDERED: CHOL400T PO (11:45)
[2016-11-01] MEDS ORDERED: ALBINS/ NEB (13:03)
[2016-11-01] MEDS ORDERED: MULT-506 PO (13:03)
[2016-11-01] MEDS ORDERED: ASCO10003 PO (13:03)
[2016-11-01] MEDS ORDERED: LORA-741 PO (13:03)
[2016-11-01] MEDS ORDERED: BOTU200I SQ (13:56)
[2017-02-21] MEDS ORDERED: CEPH500C PO (10:22)
[2017-04-09] MEDS ORDERED: BACL20TA PO (11:29)
[2017-04-09] MEDS ORDERED: TYLOTC500 PO (11:29)
[2017-04-09] MEDS ORDERED: ALEN70TA4 PO (11:29)
[2017-04-09] MEDS ORDERED: CLR10 PO (13:18)
[2017-04-09] MEDS ORDERED: CALC1CHW2 PO (13:18)
[2017-04-09] MEDS ORDERED: IPRA0.03 NAE (13:18)
[2017-04-09] MEDS ORDERED: LORA-741 PO ×2 (13:18→19:31)
[2017-04-09] MEDS ORDERED: BISA10SU3 PR (13:49)
[2017-04-09] MEDS ORDERED: IBUP-1277 PO (14:23)
[2017-04-09] MEDS ORDERED: MULT-922 PO (14:46)
[2017-04-09] MEDS ORDERED: ASCO500C43 PO (14:49)
[2017-04-09] MEDS ORDERED: LACTTAB7 PO (14:49)
[2017-04-09] MEDS ORDERED: ASPI81TA28 PO (16:42)
== END 2016-09-14 14:40 | disposition home or self-care (01) | DRG 177 ==
LOC: ENRESERVDT → ENRESERVTM → EDBD 12:40 → C.EDC 12:42 → C.4E 17:03
PROVIDERS: ADMIT Family Medicine; ATTEND Hospitalist
DX: J15.6 Pneumonia due to other Gram-negative bacteria (principal); G82.50 Quadriplegia, unspecified; E87.1 Hypo-osmolality and hyponatremia; E86.0 Dehydration; F41.9 Anxiety disorder, unspecified; K59.00 Constipation, unspecified; Z90.49 Acquired absence of other specified parts of digestive tract; Z83.3 Family history of diabetes mellitus; Z79.82 Long term (current) use of aspirin; Z79.899 Other long term (current) drug therapy

== ENCOUNTER → 2016-10-23 | Outpatient (CLI) | payer OTHER ==
[~2016-10-23] MED LIST changes: +ALBINS/ NEB; +ALEN70TA4 PO; +AMOX1TAB43 PO; +AMOX875T PO; +ASCO10003 PO; +ASCO500C43 PO; +ASPI81TA28 PO; +ASTN NAE; +ATV1 PO; +Artificial Tears OPB; +BACL20TA PO; +BISA10SU3 PR; +BOTU200I SQ; +CALC1CHW2 PO; +CEPH500C PO; +CFP2IV IV; +CHOL400T PO; +CLR10 PO; +DANT100C PO; +EMOLOIN3 TOP; +FLNIN; +GUAI1LIQ PO; +IBUP-1277 PO; +IPRA0.03 NAE; +KFL500 PO; +LACTTAB7 PO; +LEVO1TAB33 PO; +LEVO1TAB35 PO; +LORA-741 PO; -LORA10TA5 PO; +LVQ750 PO; +MONT1TAB5 PO; +MULT-506 PO; +MULT-922 PO; +NYST80OI TOP; +TYLOTC500 PO; +ZYR10 PO
--- NOTE | 2016-10-23 14:55 | DIAGNOSTIC IMAGING REPORT ---
RENAL ULTRASOUND HISTORY: Pain. Neurogenic bladder. N31.9 Neurogenic bladder F/u to neurogenic bladder. R/o hydro nep COMPARISON: 06/10/2013 FINDINGS: Right kidney: Maximum dimension 9.0 cm. No evidence for hydronephrosis. Normal corticomedullary differentiation and cortical thickness. Left kidney: Maximum dimension 10.1 cm. No evidence for hydronephrosis. Normal corticomedullary differentiation and cortical thickness. Bladder: Several bladder diverticuli IMPRESSION: Normal renal ultrasound. Several bladder diverticuli Electronically signed by: Geraldo Rosario M.D. 10/23/2016 2:54 PM Dictated Date/Time: 10/23/2016 2:53 PM
== END | disposition home or self-care (01) ==
LOC: C.ULTR 13:40
PROVIDERS: ATTEND Family Medicine
DX: N31.9 Neuromuscular dysfunction of bladder, unspecified (principal)

== ENCOUNTER 2016-11-01 15:36 | Emergency (ER) | payer OTHER ==
[~2016-11-01] VITALS: Ht 170.2 cm; Wt 59.8 kg
[~2016-11-01 15:36] MED LIST changes: -ALEN70TA4 PO; -AMOX1TAB43 PO; -AMOX875T PO; -ASCO500C43 PO; -ASPI81TA28 PO; -ASTN NAE; -ATV1 PO; -Artificial Tears OPB; -BACL20TA PO; -BISA10SU3 PR; -CALC1CHW2 PO; -CEPH500C PO; -CFP2IV IV; -CLR10 PO; -EMOLOIN3 TOP; -FLNIN; -GUAI1LIQ PO; -IBUP-1277 PO; -IPRA0.03 NAE; -IPRASOL4 INH; -KFL500 PO; -LACTTAB7 PO; -LEVO1TAB33 PO; -LEVO1TAB35 PO; -MONT1TAB5 PO; -MULT-922 PO; -NYST80OI TOP; -TYLOTC500 PO; -ZYR10 PO
[2016-11-01 15:46] VITALS: TEMP 36.8; Ht 170.2 cm; Wt 59.8 kg
[2016-11-01] MEDS: SODIUM CHLORIDE 0.9% 1000ML 1,000 ML IV SCH ×2 (16:30→17:14)
[2016-11-01 16:42] LABS: BASO % 0.2 %; BASO ABS # 0.02 K/uL (0-0.2); COMPLETE YES; EOS % 3.4 %; HEMATOCRIT 45.7 % (42-52); IG% 0.3 %; LYMPH % 13.4 %; LYMPH ABS # 1.59 K/uL (1.2-3.4); MEAN CELL VOLUME 88.7 fL (80-100); MEAN CORPUSCULAR HEMOGLOBIN 29.7 pg (25-34); MEAN CORPUSCULAR HGB CONC 33.5 g/dl (32-36); MEAN PLATELET VOLUME 10.2 fL (7.4-10.4); MONO % 5.8 %; NEUT % 76.9 %; PLATELET COUNT 252 K/uL (130-400); RED BLOOD COUNT 5.15 M/uL (4.7-6.1); WHITE BLOOD COUNT 11.89 K/uL (4.8-10.8)
[2016-11-01] MEDS ORDERED: LACTTAB7 PO (16:42)
[2016-11-01] MEDS ORDERED: ASTN NAE (16:42)
[2016-11-01 16:50] LABS: BLOOD UREA NITROGEN 17 mg/dl (7-18); BUN/CREATININE RATIO 39.6 (10-20); CALCIUM 9.3 mg/dl (8.5-10.1); CARBON DIOXIDE 31 mmol/L (21-32); CHLORIDE 103 mmol/L (98-107); CREATININE 0.43 mg/dl (0.60-1.40); GLUCOSE 82 mg/dl (70-99); POTASSIUM 4.2 mmol/L (3.5-5.1); SODIUM 139 mmol/L (136-145)
--- NOTE | 2016-11-01 16:52 | EMERGENCY ROOM VISIT NOTE ---
History First contact with patient: 16:01 Chief Complaint: CONGESTION Stated Complaint: FEVER/ CHEST CONGESTION Nursing Triage Summary: pt arrives via EMS reports chest congestion and fever X 3 days , denies sob or NV reports hx of sci in [address] History of Present Illness The patient is a 45 year old male BIBA w/ hx of quadriplegia s/p tracheostomy , with multiple recent admissions for Pneumonia ( Aug, , January) who presents to the Emergency Room with Lathe Setup Operator with complaints of increased tracheal secretion requiring suctioning, fatigue, episode of difficuluty breathing day before arrival. Per industrial boilermaker , she turned him over and gave him back percussion to clear his lungs. His breathing improved after pulmonary toilette. Pool saw Dr. Blake today who evaluated him and recommended he go directly to Emergency Dept. He reports getting Prevnar 13 and Influenza vaccinations. During Admission in August, He was given Zosyn, Levaquin, sent home with Levaquin. MRSA swab negative Review of Systems See HPI for pertinent positives & negatives. A total of 10 systems reviewed and were otherwise negative. Past Medical/Surgical History Medical Problems: (1) Acute And Chronic Respiratory Failure (2) Anxiety disorder (3) Chronic complete flaccid quadriplegia (4) Fb Trach/Bronch/Lung Nec (5) Hydronephrosis (6) Left lower lobe pneumonia (7) Quadriplegia, unspecified Surgical Problems: (1) H/O tracheostomy (2) History of cholecystectomy (3) History of herniorrhaphy Family History Cancer Diabetes mellitus Gallbladder disease Heart disease Social History Smoking Status: Never Smoker Drug Use: none Marital Status: single Housing Status: lives with family Occupation Status: disabled Current/Historical Medications Scheduled Albuterol Sulf (Proventil 0.083% 2.5MG/3ML), 2.5 MG NEB QID Alendronate Sodium (Fosamax), 70 MG PO WK Ascorbic Acid (Vitamin C), 1,000 MG PO QPM Aspirin (Aspirin Ec), 81 MG PO DAILY Baclofen (Lioresal), 40 MG PO QID Bisacodyl (Dulcolax), 1 SUPP [place] 2XWK Cholecalciferol (Vitamin D), 600 UNIT PO BID Dantrolene Sodium (Dantrolene Sodium), 100 MG PO HS Lactobacillus (Acidophilus), 1 TAB PO DAILY Levofloxacin (Levaquin), 750 MG PO DAILY Multivitamin (Multivitamin), 1 TAB PO DAILY Onabotulinumtoxina (Botox), 600 UNITS SQ Q3 MONTHS Scheduled PRN Acetaminophen (Tylenol), 1,000 MG PO Q6H PRN for Pain Azelastine Hcl (Astelin Nasal [place]), 1-2 SPRAYS URBAN BID PRN for Nasal Congestion Ibuprofen (Advil), 400-600 MG PO Q8 PRN for Pain or Fever Lorazepam (Ativan), 0.5 MG PO DAILY PRN for Anxiety Allergies Coded Allergies: Clarithromycin (Verified Allergy, Mild, 10/15/16) Sulfa Antibiotics (Verified Allergy, Unknown, ., 10/15/16) Physical Exam Vital Signs Date Time Temp Pulse Resp B/P Pulse Ox O2 Delivery O2 Flow Rate FiO2 11/01/16 19:45 84 20 133/88 95 11/01/16 19:02 88 20 134/89 96 Room Air 11/01/16 17:14 81 18 122/86 95 Room Air 11/01/16 16:21 82 11/01/16 15:46 36.8 79 20 135/91 95 Room Air Physical Exam GENERAL: alert, thin, quadriplegic, EYE EXAM: normal conjunctiva, PERRL and EOM's grossly intact OROPHARYNX: no exudate, no erythema, lips, buccal mucosa, and tongue normal and mucous membranes are moist NECK: supple, no nuchal rigidity, no adenopathy, non-tender, tracheostomy in place LUNGS:coarse breath sounds saqib, rhonchi at lung bases HEART: no murmurs, S1 normal and S2 normal ABDOMEN: abdomen soft, non-tender, normo-active bowel sounds, no masses, no rebound or guarding. BACK: Back is symmetrical on inspection and there is no deformity, no midline tenderness, SKIN: no rashes and no bruising UPPER EXTREMITIES: upper extremities are grossly normal. LOWER EXTREMITIES: No pitting edema. NEURO EXAM: Paraplegia with paralysis from shoulders down. Medical Decision & Procedures ER Provider Diagnostic Interpretation: SINGLE VIEW CHEST CLINICAL HISTORY: Increased tracheal secretions. FINDINGS: An AP, portable, upright chest radiograph is compared to study dated 09/13/2016. Correlation is made with chest CT dated 04/13/2007. The examination is significantly degraded by portable technique and patient rotation. A tracheostomy is unchanged in position. The heart is top normal in size and there is atherosclerotic calcification of the thoracic aorta. The pulmonary vasculature is noncongested. There is chronic and dense left basilar consolidation. This is been seen on prior examinations dating back to 2006. The left upper lobe and the right lung appear clear. There is no large pleural effusion or pneumothorax. The skeletal structures are osteopenic. Degenerative change is noted throughout the thoracic spine and in the shoulders. IMPRESSION: 1. Chronic left basilar consolidation has not significantly changed as compared to prior studies dating back to 2006 and likely corresponds to segmental atelectasis. Correlate clinically for evidence of superimposed pneumonia. 2. The lungs are otherwise clear. Laboratory Results 11/01/16 16:00 Red Blood Count 5.15, Mean Corpuscular Volume 88.7, Mean Corpuscular Hemoglobin 29.7, Mean Corpuscular Hemoglobin Concent 33.5, Mean Platelet Volume 10.2, Neutrophils (%) (Auto) 76.9, Lymphocytes (%) (Auto) 13.4, Monocytes (%) (Auto) 5.8, Eosinophils (%) (Auto) 3.4, Basophils (%) (Auto) 0.2, Neutrophils # (Auto) 9.16, Lymphocytes # (Auto) 1.59, Monocytes # (Auto) 0.69, Eosinophils # (Auto) 0.40, Basophils # (Auto) 0.02 11/01/16 16:00 Test 11/01/16 16:00 11/01/16 17:10 White Blood Count 11.89 K/uL (4.8-10.8) Red Blood Count 5.15 M/uL (4.7-6.1) Hemoglobin 15.3 g/dL (14.0-18.0) Hematocrit 45.7 % (42-52) Mean Corpuscular Volume 88.7 fL (80-100) Mean Corpuscular Hemoglobin 29.7 pg (25-34) Mean Corpuscular Hemoglobin Concent 33.5 g/dl (32-36) Platelet Count 252 K/uL (130-400) Mean Platelet Volume 10.2 fL (7.4-10.4) Neutrophils (%) (Auto) 76.9 % Lymphocytes (%) (Auto) 13.4 % Monocytes (%) (Auto) 5.8 % Eosinophils (%) (Auto) 3.4 % Basophils (%) (Auto) 0.2 % Neutrophils # (Auto) 9.16 K/uL (1.4-6.5) Lymphocytes # (Auto) 1.59 K/uL (1.2-3.4) Monocytes # (Auto) 0.69 K/uL (0.11-0.59) Eosinophils # (Auto) 0.40 K/uL (0-0.5) Basophils # (Auto) 0.02 K/uL (0-0.2) RDW Standard Deviation 43.3 fL (36.4-46.3) RDW Coefficient of Variation 13.2 % (11.5-14.5) Immature Granulocyte % (Auto) 0.3 % Immature Granulocyte # (Auto) 0.03 K/uL (0.00-0.02) Anion Gap 5.0 mmol/L (3-11) Est Creatinine Clear Calc Drug Dose 179.6 ml/min Estimated GFR () > 150.0 Estimated GFR (Non- 137.3 BUN/Creatinine Ratio 39.6 (10-20) Calcium Level 9.3 mg/dl (8.5-10.1) Influenza Type A Antigen Neg for Influ A (NEG) Influenza Type B Antigen Neg for Influ B (NEG) Date/Time Source Procedure Growth Status 11/01/16 17:10 Sputum Trans Trach Needle Asp. Gram Stain - Final Complete 11/01/16 17:10 Sputum Culture - Final Escherichia Coli Complete Medications Administered Medications (Trade) Dose Ordered Sig/Ashanti Route Start Time Stop Time Status Last Admin Dose Admin Sodium Chloride (Nss 1000ml) 1,000 ml @ 999 mls/hr Q1H1M IV 11/01/16 16:30 11/01/16 20:21 DC 11/01/16 17:14 999 MLS/HR Levofloxacin (Levaquin Tab) 750 mg NOW STAT PO 11/01/16 18:10 11/01/16 18:11 DC 11/01/16 19:00 750 MG Medical Decision 45 year old male BIBA w/ hx of quadriplegia s/p tracheostomy, with multiple recent admissions for Pneumonia , p/w hx of increased secretions, nasal congestion, afebrile on arrival, VSS Differential diagnoses includes but is not limited to pneumonia, bronchitis, COPD/Asthma exacerbation, pneumothorax, pulmonary embolism, congestive heart failure, acute coronary syndrome CBC: White ct 11.89 BMP unremarkable Blood Cx pending Tracheal Aspiration Gram stain/cx pending CXR:Chronic left basilar consolidation has not significantly changed as compared to prior studies dating back to 2006 and likely corresponds to segmental atelectasis. Correlate clinically for evidence of superimposed pneumonia -Increased secretions likely secondary to Pneumonia evidenced on CXR, in addition to frequent hx of pneumonia. This would also explain mild leukocytosis. Patient was however stable enough to discharge -Given 750 mg of Levaquin in ED Upon reevaluation, the patient is feeling well enough to go home. I discussed the findings and the treatment plan with the patient. He verbalizes agreement and understanding. He was discharged home with Levaquin 750 mg x 7 days Impression Primary Impression: Left lower lobe pneumonia Departure Information Dispostion Home / Self-Care Condition GOOD Prescriptions Levofloxacin (Levaquin) 750 Mg Tab 750 MG PO DAILY for 7 Days, #7 TAB Prov: Feng Burroughs MD 11/01/16 Referrals Anna Blake MD (PCP) Patient Instructions ED Pneumonia, My [facility] Additional Instructions -Please take antibiotic (Levofloxacin) as prescribed -If you experience worsening secretions, shortness of breath, fever > 100.4 , chest pain, or you feel concerned, Please return to Emergency Dept. -Follow up with Primary care provider within 48 hrs Resident Tracking Resident Involvement: Resident Care Provided Care Provided: Adult ED
--- NOTE | 2016-11-01 16:56 | DIAGNOSTIC IMAGING REPORT ---
SINGLE VIEW CHEST CLINICAL HISTORY: Increased tracheal secretions. FINDINGS: An AP, portable, upright chest radiograph is compared to study dated 09/13/2016. Correlation is made with chest CT dated 04/13/2007. The examination is significantly degraded by portable technique and patient rotation. A tracheostomy is unchanged in position. The heart is top normal in size and there is atherosclerotic calcification of the thoracic aorta. The pulmonary vasculature is noncongested. There is chronic and dense left basilar consolidation. This is been seen on prior examinations dating back to 2006. The left upper lobe and the right lung appear clear. There is no large pleural effusion or pneumothorax. The skeletal structures are osteopenic. Degenerative change is noted throughout the thoracic spine and in the shoulders. IMPRESSION: 1. Chronic left basilar consolidation has not significantly changed as compared to prior studies dating back to 2006 and likely corresponds to segmental atelectasis. Correlate clinically for evidence of superimposed pneumonia. 2. The lungs are otherwise clear. Electronically signed by: Kane Pritchett M.D. 11/01/2016 4:54 PM Dictated Date/Time: 11/01/2016 4:50 PM
[2016-11-01] MEDS ORDERED: LEVO1TAB35 PO (18:00)
[2016-11-01] MEDS ORDERED: LEVOFLOXACIN 250 MG TAB PO STA (18:10)
[2016-11-01 19:45] VITALS: BP 133/88; PULSE 84; O2SAT 95
--- NOTE | 2016-11-01 19:53 | EMERGENCY ROOM VISIT NOTE ---
History Report prepared by Sivakumar: Yahir Khan Under the Supervision of: Dr. Quan Lewis M.D. First contact with patient: 16:01 Chief Complaint: CONGESTION Stated Complaint: FEVER/ CHEST CONGESTION Nursing Triage Summary: pt arrives via EMS reports chest congestion and fever X 3 days , denies sob or NV reports hx of sci in [address] History of Present Illness The patient is a 45 year old male with a history of quadriplegia with a tracheostomy who presents to the Emergency Room via EMS with complaints of worsening chest congestion that started 5 days ago. He has had multiple admissions in the past for pneumonia, his last one being in August. The patient saw Dr. Blake [place] and was then brought here. Per the patient's assistive technology specialist, the patient has had increased nasal congestion and drainage over the past few days with increased mucous coloration from the tracheal aspirate. The patient had an episode of shortness of breath yesterday , and the assistive technology specialist had to perform pulmonary toilet, which helped the patient. The patient is also noted to have decreased appetite and thirst over the past few days. He has had a low-grade temperature, the highest being 99.9. The patient denies vomiting or abdominal pain. Source of History: patient, caregiver Onset: 5 days ago Position: chest (congestion) Timing: worsening Associated Symptoms: + SOB (episode yesterday), + fevers, No abdominal pain , No vomiting Note: Associated symptoms: Increased nasal congestion and drainage with increased mucous coloration. Decreased appetite and thirst. Review of Systems See HPI for pertinent positives & negatives. A total of 10 systems reviewed and were otherwise negative. Past Medical & Surgical Medical Problems: (1) Acute And Chronic Respiratory Failure (2) Anxiety disorder (3) Chronic complete flaccid quadriplegia (4) Fb Trach/Bronch/Lung Nec (5) Hydronephrosis (6) Left lower lobe pneumonia (7) Quadriplegia, unspecified Surgical Problems: (1) H/O tracheostomy (2) History of cholecystectomy (3) History of herniorrhaphy Family History Cancer Diabetes mellitus Gallbladder disease Heart disease Social History Smoking Status: Never Smoker Drug Use: none Marital Status: single Housing Status: lives with family Occupation Status: disabled Current/Historical Medications Scheduled Albuterol Sulf (Proventil 0.083% 2.5MG/3ML), 2.5 MG NEB QID Alendronate Sodium (Fosamax), 70 MG PO WK Ascorbic Acid (Vitamin C), 1,000 MG PO QPM Aspirin (Aspirin Ec), 81 MG PO DAILY Baclofen (Lioresal), 40 MG PO QID Bisacodyl (Dulcolax), 1 SUPP [place] 2XWK Cholecalciferol (Vitamin D), 600 UNIT PO BID Dantrolene Sodium (Dantrolene Sodium), 100 MG PO HS Lactobacillus (Acidophilus), 1 TAB PO DAILY Levofloxacin (Levaquin), 750 MG PO DAILY Multivitamin (Multivitamin), 1 TAB PO DAILY Onabotulinumtoxina (Botox), 600 UNITS SQ Q3 MONTHS Scheduled PRN Acetaminophen (Tylenol), 1,000 MG PO Q6H PRN for Pain Azelastine Hcl (Astelin Nasal [place]), 1-2 SPRAYS URBAN BID PRN for Nasal Congestion Ibuprofen (Advil), 400-600 MG PO Q8 PRN for Pain or Fever Lorazepam (Ativan), 0.5 MG PO DAILY PRN for Anxiety Allergies Coded Allergies: Clarithromycin (Verified Allergy, Mild, 10/15/16) Sulfa Antibiotics (Verified Allergy, Unknown, ., 10/15/16) Physical Exam Vital Signs Date Time Temp Pulse Resp B/P Pulse Ox O2 Delivery O2 Flow Rate FiO2 11/01/16 19:02 88 20 134/89 96 Room Air 11/01/16 17:14 81 18 122/86 95 Room Air 11/01/16 16:21 82 11/01/16 15:46 36.8 79 20 135/91 95 Room Air Physical Exam Constitutional: Vital signs reviewed. Eyes: Pupils are equal round reactive to light. Conjunctiva are noninjected. ENT: Has a tracheostomy. No erythema or discharge from stoma. Pharynx is clear without erythema or exudate. Mucous membranes are moist. Neck supple without meningeal signs. Respiratory: Breath sounds are equal bilaterally. Scattered rhonchi. Cardiovascular: Regular rate and rhythm. No rubs or gallops. GI: Soft, nondistended and nontender. Bowel sounds are present. Musculoskeletal: No peripheral edema. No lower extremity tenderness. Integumentary: No cyanosis. Neurological: The patient is awake and alert. Quadriplegic. Psychiatric: Normal affect. Medical Decision & Procedures ER Provider Diagnostic Interpretation: X-ray results as stated below per interpretation by me and the radiologist: SINGLE VIEW CHEST CLINICAL HISTORY: Increased tracheal secretions. FINDINGS: An AP, portable, upright chest radiograph is compared to study dated 09/13/2016. Correlation is made with chest CT dated 04/13/2007. The examination is significantly degraded by portable technique and patient rotation. A tracheostomy is unchanged in position. The heart is top normal in size and there is atherosclerotic calcification of the thoracic aorta. The pulmonary vasculature is noncongested. There is chronic and dense left basilar consolidation. This is been seen on prior examinations dating back to 2006. The left upper lobe and the right lung appear clear. There is no large pleural effusion or pneumothorax. The skeletal structures are osteopenic. Degenerative change is noted throughout the thoracic spine and in the shoulders. IMPRESSION: 1. Chronic left basilar consolidation has not significantly changed as compared to prior studies dating back to 2006 and likely corresponds to segmental atelectasis. Correlate clinically for evidence of superimposed pneumonia. 2. The lungs are otherwise clear. Electronically signed by: Kane Pritchett M.D. 11/01/2016 4:54 PM Dictated Date/Time: 11/01/2016 4:50 PM Laboratory Results 11/01/16 16:00 Red Blood Count 5.15, Mean Corpuscular Volume 88.7, Mean Corpuscular Hemoglobin 29.7, Mean Corpuscular Hemoglobin Concent 33.5, Mean Platelet Volume 10.2, Neutrophils (%) (Auto) 76.9, Lymphocytes (%) (Auto) 13.4, Monocytes (%) (Auto) 5.8, Eosinophils (%) (Auto) 3.4, Basophils (%) (Auto) 0.2, Neutrophils # (Auto) 9.16, Lymphocytes # (Auto) 1.59, Monocytes # (Auto) 0.69, Eosinophils # (Auto) 0.40, Basophils # (Auto) 0.02 11/01/16 16:00 Test 11/01/16 16:00 11/01/16 17:10 White Blood Count 11.89 K/uL (4.8-10.8) Red Blood Count 5.15 M/uL (4.7-6.1) Hemoglobin 15.3 g/dL (14.0-18.0) Hematocrit 45.7 % (42-52) Mean Corpuscular Volume 88.7 fL (80-100) Mean Corpuscular Hemoglobin 29.7 pg (25-34) Mean Corpuscular Hemoglobin Concent 33.5 g/dl (32-36) Platelet Count 252 K/uL (130-400) Mean Platelet Volume 10.2 fL (7.4-10.4) Neutrophils (%) (Auto) 76.9 % Lymphocytes (%) (Auto) 13.4 % Monocytes (%) (Auto) 5.8 % Eosinophils (%) (Auto) 3.4 % Basophils (%) (Auto) 0.2 % Neutrophils # (Auto) 9.16 K/uL (1.4-6.5) Lymphocytes # (Auto) 1.59 K/uL (1.2-3.4) Monocytes # (Auto) 0.69 K/uL (0.11-0.59) Eosinophils # (Auto) 0.40 K/uL (0-0.5) Basophils # (Auto) 0.02 K/uL (0-0.2) RDW Standard Deviation 43.3 fL (36.4-46.3) RDW Coefficient of Variation 13.2 % (11.5-14.5) Immature Granulocyte % (Auto) 0.3 % Immature Granulocyte # (Auto) 0.03 K/uL (0.00-0.02) Anion Gap 5.0 mmol/L (3-11) Est Creatinine Clear Calc Drug Dose 179.6 ml/min Estimated GFR () > 150.0 Estimated GFR (Non- 137.3 BUN/Creatinine Ratio 39.6 (10-20) Calcium Level 9.3 mg/dl (8.5-10.1) Influenza Type A Antigen Neg for Influ A (NEG) Influenza Type B Antigen Neg for Influ B (NEG) Laboratory results as reviewed by me. Medications Administered Medications (Trade) Dose Ordered Sig/Ashanti Route Start Time Stop Time Status Last Admin Dose Admin Sodium Chloride (Nss 1000ml) 1,000 ml @ 999 mls/hr Q1H1M IV 11/01/16 16:30 12/01/16 16:29 11/01/16 17:14 999 MLS/HR Levofloxacin (Levaquin Tab) 750 mg NOW STAT PO 11/01/16 18:10 11/01/16 18:11 DC 11/01/16 19:00 750 MG ECG Indication: other (congestion) Rate (beats per minute): 76 Rhythm: normal sinus Findings: no acute ischemic change, no ectopy ED Course 1629: The patient was evaluated in room C1A. A complete history and physical exam was performed. 1630: Ordered NSS 1000 ml @ 999 mls/hr IV. 1800: Upon reevaluation, the patient appeared to have improvement of his symptoms. I discussed tonight's findings with him. He verbalized agreement of the treatment plan. He will be discharged home. Medical Decision This is a 45-year-old male who presents with cough and fever. Differential diagnosis includes bronchitis, pneumonia, sepsis, URI, mucous plug. I did perform a limited focused review of portions of the patient's old chart on the electronic medical record. The patient was admitted in August for pneumonia and was discharged on Levaquin. Resident Physician Supervision Note: I did evaluate and examine this patient myself. I did guide management for the patient. I agree with the resident's ( ) assessment as discussed. Please see the resident's dictation for further details. I did evaluate the patient as noted above. IV access was established. I did personally review the patient's 12-lead EKG and chest x-ray as described above. There is a questionable infiltrate on the left side. I did review the patient's blood work as noted in the electronic medical record. His white count is slightly elevated. Influenza swab is negative. The test results were discussed with the patient. He is not hypoxic or short of breath. We will treat him as an outpatient with antibiotics. He was discharged with a prescription and given his first dose here. Impression Primary Impression: Pneumonia Scribe Attestation The scribe's documentation has been prepared under my direct and personally reviewed by me in its entirety. I confirm that the note above accurately reflects all work, treatment, procedures, and medical decision making performed by me. Departure Information Dispostion Home / Self-Care Prescriptions Levofloxacin (Levaquin) 750 Mg Tab 750 MG PO DAILY for 7 Days, #7 TAB Prov: Feng Burroughs MD 11/01/16 Referrals Anna Blake MD (PCP) Forms HOME CARE DOCUMENTATION FORM, IMPORTANT VISIT INFORMATION Patient Instructions ED Pneumonia, My [facility] Additional Instructions -Please take antibiotic (Levofloxacin) as prescribed -If you experience worsening secretions, shortness of breath, fever > 100.4 , chest pain, or you feel concerned, Please return to Emergency Dept. -Follow up with Primary care provider within 48 hrs Problem Qualifiers Primary Impression: Pneumonia Pneumonia type: due to unspecified organism Laterality: left Lung location : unspecified part of lung Qualified Codes: J18.9 - Pneumonia, unspecified organism
[2017-02-21] MEDS ORDERED: CEPH500C PO (10:22)
[2017-04-09] MEDS ORDERED: TYLOTC500 PO (11:29)
[2017-04-09] MEDS ORDERED: ALEN70TA4 PO (11:29)
[2017-04-09] MEDS ORDERED: BACL20TA PO (11:29)
[2017-04-09] MEDS ORDERED: CLR10 PO (13:18)
[2017-04-09] MEDS ORDERED: CALC1CHW2 PO (13:18)
[2017-04-09] MEDS ORDERED: LORA-741 PO ×2 (13:18→19:31)
[2017-04-09] MEDS ORDERED: IPRA0.03 NAE (13:18)
[2017-04-09] MEDS ORDERED: BISA10SU3 PR (13:49)
[2017-04-09] MEDS ORDERED: IBUP-1277 PO (14:23)
[2017-04-09] MEDS ORDERED: MULT-922 PO (14:46)
[2017-04-09] MEDS ORDERED: LACTTAB7 PO (14:49)
[2017-04-09] MEDS ORDERED: ASCO500C43 PO (14:49)
[2017-04-09] MEDS ORDERED: ASPI81TA28 PO (16:42)
== END 2016-11-01 19:45 | disposition home or self-care (01) ==
LOC: EDBD 15:36 → C.EDC 15:38
DX: J18.9 Pneumonia, unspecified organism (principal); G82.50 Quadriplegia, unspecified; Z93.0 Tracheostomy status; J96.20 Acute and chronic respiratory failure, unspecified whether with hypoxia or hypercapnia; F41.9 Anxiety disorder, unspecified; N13.30 Unspecified hydronephrosis; Z80.9 Family history of malignant neoplasm, unspecified; Z83.3 Family history of diabetes mellitus; Z83.79 Family history of other diseases of the digestive system; Z82.49 Family history of ischemic heart disease and other diseases of the circulatory system; Z79.82 Long term (current) use of aspirin; Z79.899 Other long term (current) drug therapy

== ENCOUNTER 2016-12-04 13:55 | Inpatient (IN) | payer OTHER ==
[2016-12-04] VITALS (7 sets, daily range): BP systolic 146; BP diastolic 87–105; PULSE 56–86; TEMP 35.9–36.7; O2SAT 93–96; Ht 170.2 cm; Wt 63.5 kg
[~2016-12-04] VITALS: Ht 170.2 cm; Wt 63.5 kg
[~2016-12-04 13:55] MED LIST changes: -ASPCH81X PO; +ASTN NAE; -AZEL1POW NAE; +LACTTAB7 PO; -LVQ750 PO
[2016-12-04] MEDS ORDERED: SODIUM CHLORIDE 0.9% 1000ML 1,000 ML IV STA (14:38)
[2016-12-04] MEDS ORDERED: SODIUM CHLORIDE 0.9% 1000ML 250 ML IV STA (14:38)
[2016-12-04] MEDS ORDERED: PIPERACILLIN/TAZOBACTAM 4.5 GM/100ML D5W IV STA (14:38)
[2016-12-04] MEDS ORDERED: VANCOMYCIN INJ 1,400 MG in SODIUM CHLORIDE 0.9% 500ML 500 ML IV STA (14:52)
[2016-12-04 15:25] LABS: BASO % 0.1 %; BASO ABS # 0.01 K/uL (0-0.2); COMPLETE YES; EOS % 2.3 %; HEMATOCRIT 44.9 % (42-52); IG% 0.1 %; LYMPH % 13.6 %; LYMPH ABS # 1.29 K/uL (1.2-3.4); MEAN CELL VOLUME 91.6 fL (80-100); MEAN CORPUSCULAR HEMOGLOBIN 30.4 pg (25-34); MEAN CORPUSCULAR HGB CONC 33.2 g/dl (32-36); MEAN PLATELET VOLUME 10.3 fL (7.4-10.4); MONO % 6.7 %; NEUT % 77.2 %; PLATELET COUNT 256 K/uL (130-400); WHITE BLOOD COUNT 9.46 K/uL (4.8-10.8)
--- NOTE | 2016-12-04 15:25 | DIAGNOSTIC IMAGING REPORT ---
CHEST ONE VIEW PORTABLE CLINICAL HISTORY: Respiratory distress COMPARISON STUDY: 11/01/2016 FINDINGS: The cardiac and mediastinal contours remain stable. Tracheostomy tube is again visualized. There are stable left basilar airspace opacities. The upper lung zones appear clear. There is no failure.[ No pleural effusions are visualized. IMPRESSION: Persistent left basilar airspace opacities. No evidence of failure. Electronically signed by: Austin Bhatt M.D. 12/04/2016 3:24 PM Dictated Date/Time: 12/04/2016 3:00 PM
[2016-12-04] MEDS ORDERED: MONT1TAB5 PO (15:26)
[2016-12-04] MEDS ORDERED: LEVO1TAB33 PO (15:26)
[2016-12-04 15:33] LABS: ARTERIAL BLD GAS O2 SATURATION 93.2 % (90-95); ARTERIAL BLOOD GAS BASE EXCESS 3.7 mEq/L (-9-1.8); ARTERIAL BLOOD GAS HCO3 30 mmol/L (19-24); ARTERIAL BLOOD GAS PO2 69 mm/Hg (80-95); ARTERIAL BLOOD GAS pH 7.37 (7.35-7.45)
[2016-12-04 15:34] LABS: BLOOD UREA NITROGEN 15 mg/dl (7-18); BUN/CREATININE RATIO 38.1 (10-20); CALCIUM 9.3 mg/dl (8.5-10.1); CARBON DIOXIDE 33 mmol/L (21-32); CHLORIDE 103 mmol/L (98-107); CREATININE 0.39 mg/dl (0.60-1.40); GLUCOSE 94 mg/dl (70-99); POTASSIUM 4.5 mmol/L (3.5-5.1); SODIUM 140 mmol/L (136-145)
[2016-12-04 15:34] LABS: ALLEN TEST POS (POS); O2 ADMINISTRATION 2 L
[2016-12-04 15:36] LABS: PARTIAL THROMBOPLASTIN RATIO 1.1; PROTHROMBIN TIME (PATIENT) 10.3 SECONDS (9.0-12.0)
[2016-12-04] MEDS ORDERED: AZITHROMYCIN 500 MG / D5W 250 ML IV STA ×2 (15:50)
[2016-12-04 16:32] LABS: URINE APPEARANCE CLEAR (CLEAR); URINE BILIRUBIN NEG (NEG); URINE COLOR YELLOW; URINE NITRITE POS (NEG); UROBILINOGEN NEG (NEG); ZZUR CULT IF INDIC CLEAN CATCH YES
[2016-12-04 16:34] LABS: MANUAL MICROSCOPIC REQUIRED? NO; REVIEW REQ? NO
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
[2016-12-04] MEDS ORDERED: MAGNESIUM HYDROXIDE SUSP 30 ML UDC PO PRN (17:15)
[2016-12-04] MEDS ORDERED: ONDANSETRON INJ 2 MG/ML 2 ML VIAL IV PRN (17:15)
[2016-12-04] MEDS ORDERED: ACETAMINOPHEN 325 MG TAB PO PRN (17:15)
[2016-12-04] MEDS ORDERED: ALUMINUM/MAGNESIUM/SIMETH (MAALOX MAX) 30 ML UDC PO PRN (17:15)
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
[2016-12-04] MEDS ORDERED: ALBUT/IPRATROP 3MG/0.5MG NEB 3 ML VIAL INH PRN (17:30)
[2016-12-04] MEDS ORDERED: ALBUT/IPRATROP 3MG/0.5MG NEB 3 ML VIAL INH ONE (17:45)
[2016-12-04] MEDS ORDERED: VANCOMYCIN CONSULT ACTIVE PRN (18:30)
[2016-12-04] MEDS ORDERED: PIPERACILL/TAZOBAC CONSULT ACTIVE PRN (18:30)
[2016-12-04] MEDS: ALBUT/IPRATROP 3MG/0.5MG NEB 3 ML VIAL INH SCH (19:10)
--- NOTE | 2016-12-04 19:18 | Pharmacy Progress Note ---
Pharmacy Abx Initial Consult Date of Service December 04, 2016. Pharmacy Dosing Scope Date of Consult: 12/04/16 Consultation requested by: Gabriela Ortiz PA-C Pharmacy is consulted to initiate Vancomycin IV dosing therapy, order appropriate labs and adjust drug dose/frequency. Subjective The patient is a 45 year old male admitted on 12/04/16 with worsening respiratory function/suspected pneumonia. Objective Height (Feet): 5 Height (Inches): 7.00 Weight (Kilograms): 58.700 Vital Signs (Past 12Hrs) Vital Signs Past 12 Hours Date Time Temp Pulse Resp B/P Pulse Ox O2 Delivery O2 Flow Rate FiO2 12/04/16 18:49 86 22 95 12/04/16 17:45 86 22 131/94 95 Nasal Cannula 4.0 12/04/16 17:07 Nasal Cannula 4.0 12/04/16 15:44 93 20 160/99 90 Room Air 12/04/16 15:42 Nasal Cannula 4.0 12/04/16 15:41 89 Nasal Cannula 4.0 12/04/16 14:07 91 12/04/16 14:06 92 Room Air Trach Collar 12/04/16 14:06 36.7 90 24 143/113 92 Room Air 12/04/16 14:06 92 Room Air Lab Results (24Hrs) Test 12/04/16 15:00 12/04/16 15:07 12/04/16 15:30 White Blood Count 9.46 K/uL (4.8-10.8) Red Blood Count 4.90 M/uL (4.7-6.1) Hemoglobin 14.9 g/dL (14.0-18.0) Hematocrit 44.9 % (42-52) Mean Corpuscular Volume 91.6 fL (80-100) Mean Corpuscular Hemoglobin 30.4 pg (25-34) Mean Corpuscular Hemoglobin Concent 33.2 g/dl (32-36) Platelet Count 256 K/uL (130-400) Mean Platelet Volume 10.3 fL (7.4-10.4) Neutrophils (%) (Auto) 77.2 % Lymphocytes (%) (Auto) 13.6 % Monocytes (%) (Auto) 6.7 % Eosinophils (%) (Auto) 2.3 % Basophils (%) (Auto) 0.1 % Neutrophils # (Auto) 7.30 K/uL (1.4-6.5) Lymphocytes # (Auto) 1.29 K/uL (1.2-3.4) Monocytes # (Auto) 0.63 K/uL (0.11-0.59) Eosinophils # (Auto) 0.22 K/uL (0-0.5) Basophils # (Auto) 0.01 K/uL (0-0.2) RDW Standard Deviation 45.5 fL (36.4-46.3) RDW Coefficient of Variation 13.5 % (11.5-14.5) Immature Granulocyte % (Auto) 0.1 % Immature Granulocyte # (Auto) 0.01 K/uL (0.00-0.02) Prothrombin Time 10.3 SECONDS (9.0-12.0) Prothromb Time International Ratio 1.0 (0.9-1.1) Activated Partial Thromboplast Time 29.5 SECONDS (21.0-31.0) Partial Thromboplastin Ratio 1.1 Sodium Level 140 mmol/L (136-145) Potassium Level 4.5 mmol/L (3.5-5.1) Chloride Level 103 mmol/L (98-107) Carbon Dioxide Level 33 mmol/L (21-32) Anion Gap 4.0 mmol/L (3-11) Blood Urea Nitrogen 15 mg/dl (7-18) Creatinine 0.39 mg/dl (0.60-1.40) Est Creatinine Clear Calc Drug Dose 194.4 ml/min Estimated GFR () > 150.0 Estimated GFR (Non- 142.9 BUN/Creatinine Ratio 38.1 (10-20) Random Glucose 94 mg/dl (70-99) Calcium Level 9.3 mg/dl (8.5-10.1) Troponin I < 0.015 ng/ml (0-0.045) Arterial Blood pH 7.37 (7.35-7.45) Arterial Blood Partial Pressure CO2 53 mmHg (35-46) Arterial Blood Partial Pressure O2 69 mm/Hg (80-95) Arterial Blood HCO3 30 mmol/L (19-24) Arterial Blood Oxygen Saturation 93.2 % (90-95) Arterial Blood Base Excess 3.7 mEq/L (-9-1.8) Arterial Blood Gas Delivery 2 L Robel Test POS (POS) Urine Color YELLOW Urine Appearance CLEAR (CLEAR) Urine pH 7.0 (4.5-7.5) Urine Specific [place] 1.010 (1.000-1.030) Urine Protein NEG (NEG) Urine Glucose (UA) NEG (NEG) Urine Ketones NEG (NEG) Urine Occult Blood NEG (NEG) Urine Nitrite POS (NEG) Urine Bilirubin NEG (NEG) Urine Urobilinogen NEG (NEG) Urine Leukocyte Esterase TRACE (NEG) Urine WBC (Auto) 1-5 /hpf (0-5) Urine RBC (Auto) 0-4 /hpf (0-4) Urine Hyaline Casts (Auto) 1-5 /lpf (0-5) Urine Epithelial Cells (Auto) 5-10 /lpf (0-5) Urine Bacteria (Auto) 2+ (NEG) Micro Results Date/Time Source Procedure Growth Status 12/04/16 15:07 Blood Blood Culture Pending Received 12/04/16 15:00 Blood Blood Culture Pending Received 12/04/16 16:00 Sputum Trans Trach Needle Asp. Gram Stain Pending Received 12/04/16 16:00 Sputum Trans Trach Needle Asp. Sputum Culture Pending Received 12/04/16 15:30 Urine , Clean Catch Urine Culture Pending Received Risk Factors for Resistance * Hospitalization for 48 hours or more within the past 90 days * History of infection with a multidrug-resistant organism: E. coli/sputum/R to FLQ's/ * Antimicrobial use within the last 90 days: Levaquin and Augmentin PO for E. Coli Assessment & Plan Assessment 45 year old male admitted with suspected pneumonia, initiated on broad spectrum antibiotics: Vancomycin, Zosyn, Levaquin IV PMH: Quadriplegia, chronic trach, recent antibiotic use, recent hospital admission, h/o MRSA infection (wound/bacteremia during previous admissions) Avoiding Levaquin this admission due to FLQ resistant E Coli from October 2016. Blood cultures, sputum, urine pending. MRSA nasal swab added to aid in deescalation of antibiotics, dependent on clinical status. Plan Vancomycin IV * Loading dose: 1400 mg (~24 mg/kg) * Maintenance dose: 1000 mg IV (17 mg/kg) every 8 hours * Goal trough level for pneumonia : 15 to 20 mcg/mL * Trough level ordered for 12/06/16 @0730 prior to the 0800 dose * Renal function difficult to assess in quadriplegic patients. Literature recommends using a correction factor of 0.6 in tetraplegics. If using this method, estimated CrCl for drug dosing would be ~120 mL/min. This would put the patient in a Q8 hour dosing interval which I believe is appropriate. I would prefer to use a higher than traditional mg/kg dose due to the possibility that I am evaluating the interval incorrectly. Piperacillin/tazobactam * 3.375 g bolus administered over 30 minutes, then 3.375 g IV extended infusion every 8 hours for CrCl greater than 20 mL/min Azithromycin * 500 mg IV X 1, then 250 mg IV every 24 hours Pharmacy will continue to follow and will adjust dose/frequency as necessary. Thank you.
[2016-12-04] MEDS: PIPERACILL/TAZOBAC IV 3.375 GM in DEXTROSE 5% 100ML 100 ML IV SCH (21:14)
[2016-12-04] MEDS: BACLOFEN TAB 20 MG TAB PO SCH (21:15)
[2016-12-04] MEDS: SODIUM CHLORIDE 0.9% 1000ML 1,000 ML IV SCH (21:15)
[2016-12-04] MEDS: DANTROLENE SODIUM 25 MG CAP PO SCH (21:15)
[2016-12-05] VITALS (24 sets, daily range): BP systolic 91–198; BP diastolic 55–107; PULSE 49–84; TEMP 35.6–36.9; O2SAT 95–100
[2016-12-05] MEDS: VANCOMYCIN INJ 1,000 MG in SODIUM CHLORIDE 0.9% 250ML 250 ML IV SCH ×3 (00:25→16:20)
[2016-12-05] MEDS: LORAZEPAM 0.5 MG TAB PO PRN (01:18)
[2016-12-05] MEDS: SODIUM CHLORIDE 0.9% 1000ML 1,000 ML IV SCH (05:27)
[2016-12-05] MEDS: PIPERACILL/TAZOBAC IV 3.375 GM in DEXTROSE 5% 100ML 100 ML IV SCH ×3 (05:27→22:22)
[2016-12-05 06:41] LABS: HEMATOCRIT 42.9 % (42-52); MEAN CELL VOLUME 93.3 fL (80-100); MEAN CORPUSCULAR HEMOGLOBIN 28.9 pg (25-34); MEAN PLATELET VOLUME 10.1 fL (7.4-10.4); PLATELET COUNT 213 K/uL (130-400); WHITE BLOOD COUNT 6.92 K/uL (4.8-10.8)
[2016-12-05 07:24] LABS: BLOOD UREA NITROGEN 8 mg/dl (7-18); BUN/CREATININE RATIO 31.1 (10-20); CALCIUM 8.4 mg/dl (8.5-10.1); CARBON DIOXIDE 30 mmol/L (21-32); CHLORIDE 102 mmol/L (98-107); CREATININE 0.27 mg/dl (0.60-1.40); GLUCOSE 68 mg/dl (70-99); POTASSIUM 4.2 mmol/L (3.5-5.1); SODIUM 138 mmol/L (136-145)
[2016-12-05] MEDS: ALBUT/IPRATROP 3MG/0.5MG NEB 3 ML VIAL INH SCH ×4 (07:25→19:51)
[2016-12-05] MEDS: BACLOFEN TAB 20 MG TAB PO SCH ×4 (08:39→21:08)
[2016-12-05] MEDS: MULTIVITAMIN TAB PO SCH (08:39)
[2016-12-05] MEDS: LACTOBACILLUS ACIDOPHILUS (FLORANEX) TAB PO SCH (08:40)
[2016-12-05] MEDS: MONTELUKAST SOD 10 MG TAB PO SCH (08:40)
[2016-12-05] MEDS: ASPIRIN 81 MG ECTAB PO SCH (08:40)
--- NOTE | 2016-12-05 09:11 | Clinical Documentation Query ---
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 This represents the third admission this calendar year for the same. He maintains a history of Pseudomonal pneumonia. In your clinical opinion is this patient being managed for: ( xx) (Possible/Suspected) Pseudomonal pneumonia ( ) Other explanation of clinical findings (Please Explain) ( ) Unable to determine (Please Define) ( ) Need to Discuss ( ) Not Agree The medical record reflects the following clinical findings, treatment, and risk factors. Clinical Indicators: Treatment: IV Zosyn, cultures, PiPAP, IVF, nebulizers, pulmonary consultation Risk Factors: Age, recent and recurrent hospitalizations, recent and recurrent antibiotic use, diaphragmatic paralysis, recurrent pneumonias QUERY 2 OF 2 Clinical documentation includes a diagnosis of: Acute Respiratory Failure. Documentation notes a history of chronic respiratory failure. ED provider notes "no acute distress". H&P notes "no respiratory distress" and notes "accessory muscle use" but notes "chronically utilizes upper chest and neck muscles for breathing 2/2 diaphragmatic paralysis" suggesting this to be only chronic in nature. An isolated SpO2 of 89% was documented and shortly improved without increase in O2. Due to stringent requirements by our coding department, multiple clinical indicators associated with this diagnosis must be present in order for this to be coded/captured within the medical record. If appropriate, please document 2 or more of the following clinical indicators in daily progress notes and the discharge summary. If you feel the diagnosis of acute respiratory failure was made in error, or do not agree with it, simply discontinue documentation thereof. Acute Respiratory Failure indicators include: * Respirations >28 * Air hunger * Use of accessory muscles of respiration * Inability to speak in full sentences * Cyanosis * Pulse ox <90% RA or <95% on O2 *pH <7.35 or >7.45 * pO2 < 60 mm Hg (or 10mm below COPD patient's baseline) * pCO2 >50mm Hg (or 10mm above COPD patient's baseline) * mechanical ventilation * Increased work of breathing * Tachypnea Please clarify and document your clinical opinion in the progress notes and discharge summary. Terms such as "probable", "suspected", "likely", "questionable", "possible", or "still to be ruled out" are acceptable. IF IN AGREEMENT, YOU MUST DOCUMENT ABOVE DIAGNOSTIC STATEMENT IN DAILY PROGRESS NOTES AND DISCHARGE SUMMARY. This document is not part of the patient's record. Thank You, Vishal Mac RN [phone]
[2016-12-05] MEDS: HEPARIN SOD 5000 UNIT/0.5 ML CARP SQ SCH ×2 (09:14→21:14)
--- NOTE | 2016-12-05 10:02 | Procedure Note ---
Pre-Mod Sedation Assessment General Date of Moderate Sedation: December 05, 2016. Vital Signs: Vital Signs Past 12 Hours Date Time Temp Pulse Resp B/P Pulse Ox O2 Delivery O2 Flow Rate FiO2 12/05/16 09:18 60 97 40 12/05/16 08:00 Nasal Cannula 6.0 Trach Collar 12/05/16 07:44 36.3 63 16 161/94 97 BiPAP 40 Trach Collar 12/05/16 07:25 68 20 96 BiPAP/CPAP 12/05/16 04:00 97 BiPAP 40 Trach Collar 12/05/16 03:19 35.6 49 19 135/86 97 BiPAP 40 Trach Collar 12/05/16 01:55 60 96 40 12/04/16 23:59 96 BiPAP 40 Trach Collar 12/04/16 23:45 35.9 62 23 146/87 96 BiPAP 40 Trach Collar 12/04/16 23:37 56 96 40 Review Cardiovascular: regular rate, rhythm, no edema, no gallop, no JVD, no murmur, normal peripheral pulses Abdomen: normal bowel sounds, non tender, soft, no organomegaly, no pulsatile mass, normal rectal exam, occult blood negative Lungs: + pertinent finding (decreased BS L>R posterior basilar subsegments ) Airway Class: II Pre-Sedation Airway Assessment Oral Cavity: WNL Able to Visualize Vocal Cords: No Short Thick Neck: No Hx of Sleep Apnea: No Smoking Status: Never Smoker ASA Classification: Class III Procedure Planning Contraindications-for Mod Sed: None Yes Notes The planned sedation has been discussed with the patient and consent obtained. I have identified the patient, determined the appropriateness of sedation and have assessed the patient immediately prior to the procedure. All medicine(s) and interventions are by my order.
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
--- NOTE | 2016-12-05 13:18 | Bronchoscopy Procedure Note ---
Bronchoscopy Procedure Note Procedure: Bronchoscopy, conscious sedation, bronchial washing LLL Consent: Obtained through the patient placed into the chart Pre-procedural diagnosis: pneumonia of the LLL Post-procedural diagnosis: pneumonia of the LLL with associated atelectasis of the left mainstem Start time: 1203 End time: 1215 Total time: 12 minutes Analgesia: 2% liquid lidocaine: Via nebulizer 4% gel lidocaine: Via right naris 2% liquid lidocaine: Via bronchoscopy Sedation: Versed IV: 0 mg Fentanyl IV: 0 g Procedure: The Olympus video bronchoscope was used for this procedure and passed down through the patient's size 6 Shiley tracheostomy tube Trachea/Zeenat: Anatomically within normal limits with the tracheostomy tube notable 7cm above the level of the zeenat Right bronchial tree: Right mainstem bronchus: Anatomically within normal limits Right upper lobe: Anatomically within normal limits Bronchus intermedius: Anatomically within normal limits Right middle lobe: Anatomically within normal limits Right lower lobe: Anatomically within normal limits Findings: minimal secretions noted through the right bronchial tree Left bronchial tree: Left mainstem bronchus: Anatomically within normal limits but 100% occlusion of the distal bronchus just proximal to the secondary zeenat Left upper lobe: Anatomically within normal limits Lingula: Anatomically within normal limits Left lower lobe: Anatomically within normal limits Findings: diffuse mucus plugs greatest in the LLL with all proximal subsegment cleared Bronchial washincc with 30cc returned of the LLL EBL: none Complications: None Follow-up: return to his inpatient room [id number]
[2016-12-05] MEDS ORDERED: AZITHROMYCIN IV 250 MG in DEXTROSE 5% 250ML 250 ML IV SCH (16:00)
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
[2016-12-05] MEDS: DANTROLENE SODIUM 25 MG CAP PO SCH (21:10)
[2016-12-06] VITALS (18 sets, daily range): BP systolic 91–153; BP diastolic 54–95; PULSE 50–86; TEMP 36.4–36.9; O2SAT 96–100
[2016-12-06] MEDS: VANCOMYCIN INJ 1,000 MG in SODIUM CHLORIDE 0.9% 250ML 250 ML IV SCH ×2 (00:28→08:00)
[2016-12-06] MEDS: PIPERACILL/TAZOBAC IV 3.375 GM in DEXTROSE 5% 100ML 100 ML IV SCH ×3 (05:45→21:19)
[2016-12-06] MEDS: ALBUT/IPRATROP 3MG/0.5MG NEB 3 ML VIAL INH SCH ×4 (07:25→19:23)
[2016-12-06] MEDS ORDERED: VANCOMYCIN TROUGH SCH (07:30)
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
[2016-12-06] MEDS: LACTOBACILLUS ACIDOPHILUS (FLORANEX) TAB PO SCH (08:04)
[2016-12-06] MEDS: MONTELUKAST SOD 10 MG TAB PO SCH (08:04)
[2016-12-06 08:05] LABS: HEMATOCRIT 42.9 % (42-52); MEAN CELL VOLUME 92.9 fL (80-100); MEAN CORPUSCULAR HEMOGLOBIN 29.9 pg (25-34); MEAN CORPUSCULAR HGB CONC 32.2 g/dl (32-36); MEAN PLATELET VOLUME 9.9 fL (7.4-10.4); PLATELET COUNT 248 K/uL (130-400); RED BLOOD COUNT 4.62 M/uL (4.7-6.1); WHITE BLOOD COUNT 7.81 K/uL (4.8-10.8)
[2016-12-06] MEDS: MULTIVITAMIN TAB PO SCH (08:05)
[2016-12-06] MEDS: BACLOFEN TAB 20 MG TAB PO SCH ×4 (08:05→21:20)
[2016-12-06] MEDS: ASPIRIN 81 MG ECTAB PO SCH (08:05)
[2016-12-06] MEDS: HEPARIN SOD 5000 UNIT/0.5 ML CARP SQ SCH ×2 (08:23→21:36)
[2016-12-06 08:32] LABS: BLOOD UREA NITROGEN 9 mg/dl (7-18); BUN/CREATININE RATIO 32.6 (10-20); CARBON DIOXIDE 32 mmol/L (21-32); CHLORIDE 98 mmol/L (98-107); CREATININE 0.27 mg/dl (0.60-1.40); GLUCOSE 77 mg/dl (70-99); POTASSIUM 4.2 mmol/L (3.5-5.1); SODIUM 136 mmol/L (136-145)
[2016-12-06 09:00] LABS: CALCIUM 8.8 mg/dl (8.5-10.1)
[2016-12-06] MEDS: LORAZEPAM 0.5 MG TAB PO PRN (10:03)
[2016-12-06] MEDS ORDERED: BISACODYL 10 MG SUPP PR PRN (10:15)
[2016-12-06] MEDS ORDERED: NURSING VERBAL MED ORDER ONE (10:15)
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
[2016-12-06] MEDS: SODIUM CHLORIDE 0.9% 1000ML 1,000 ML IV SCH (19:30)
[2016-12-06] MEDS: DANTROLENE SODIUM 25 MG CAP PO SCH (21:20)
[2016-12-07] VITALS (15 sets, daily range): BP systolic 107–137; BP diastolic 68–88; PULSE 53–89; TEMP 36.4–37.1; O2SAT 76–100
[2016-12-07] MEDS: PIPERACILL/TAZOBAC IV 3.375 GM in DEXTROSE 5% 100ML 100 ML IV SCH ×3 (05:36→21:38)
[2016-12-07] MEDS: ALBUT/IPRATROP 3MG/0.5MG NEB 3 ML VIAL INH SCH ×4 (06:50→19:45)
[2016-12-07 07:53] LABS: HEMATOCRIT 42.1 % (42-52); MEAN CELL VOLUME 92.1 fL (80-100); MEAN CORPUSCULAR HEMOGLOBIN 30.2 pg (25-34); MEAN CORPUSCULAR HGB CONC 32.8 g/dl (32-36); PLATELET COUNT 208 K/uL (130-400); RED BLOOD COUNT 4.57 M/uL (4.7-6.1); WHITE BLOOD COUNT 6.66 K/uL (4.8-10.8)
[2016-12-07 08:08] LABS: BLOOD UREA NITROGEN 8 mg/dl (7-18); BUN/CREATININE RATIO 30.4 (10-20); CALCIUM 8.1 mg/dl (8.5-10.1); CARBON DIOXIDE 30 mmol/L (21-32); CHLORIDE 103 mmol/L (98-107); CREATININE 0.27 mg/dl (0.60-1.40); GLUCOSE 87 mg/dl (70-99); POTASSIUM 4.2 mmol/L (3.5-5.1); SODIUM 140 mmol/L (136-145)
[2016-12-07] MEDS: MONTELUKAST SOD 10 MG TAB PO SCH (08:12)
[2016-12-07] MEDS: SODIUM CHLORIDE 0.9% 1000ML 1,000 ML IV SCH ×3 (08:12→21:39)
[2016-12-07] MEDS: ASPIRIN 81 MG ECTAB PO SCH (08:13)
[2016-12-07] MEDS: MULTIVITAMIN TAB PO SCH (08:13)
[2016-12-07] MEDS: BACLOFEN TAB 20 MG TAB PO SCH ×4 (08:13→20:23)
[2016-12-07] MEDS: LACTOBACILLUS ACIDOPHILUS (FLORANEX) TAB PO SCH (08:14)
[2016-12-07] MEDS: HEPARIN SOD 5000 UNIT/0.5 ML CARP SQ SCH ×2 (08:17→20:40)
[2016-12-07] MEDS: LORAZEPAM 0.5 MG TAB PO PRN (09:03)
--- NOTE | 2016-12-07 13:14 | DIAGNOSTIC IMAGING REPORT ---
CHEST ONE VIEW PORTABLE CLINICAL HISTORY: LLL collapse dyspnea COMPARISON STUDY: 12/04/2016 FINDINGS: Tracheostomy tube in good position. Mild persistent prominence of the pulmonary vasculature. Left subdiaphragmatic lucency felt to represent interposed gastric air bubble. Mild atelectasis left base slightly improved. IMPRESSION: Mild improvement in atelectasis left lung base. Mild stable cardiomegaly. Electronically signed by: Geraldo Rosario M.D. 12/07/2016 1:13 PM Dictated Date/Time: 12/07/2016 1:12 PM
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
[2016-12-07] MEDS: DANTROLENE SODIUM 25 MG CAP PO SCH (20:24)
[2016-12-08] VITALS (13 sets, daily range): BP systolic 108–156; BP diastolic 75–97; PULSE 59–80; TEMP 36.3–37.6; O2SAT 95–100
[2016-12-08] MEDS: PIPERACILL/TAZOBAC IV 3.375 GM in DEXTROSE 5% 100ML 100 ML IV SCH ×3 (06:09→21:44)
[2016-12-08] MEDS: ALBUT/IPRATROP 3MG/0.5MG NEB 3 ML VIAL INH SCH ×4 (07:06→19:37)
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
[2016-12-08] MEDS: MONTELUKAST SOD 10 MG TAB PO SCH (08:27)
[2016-12-08] MEDS: LACTOBACILLUS ACIDOPHILUS (FLORANEX) TAB PO SCH (08:27)
[2016-12-08] MEDS: ASPIRIN 81 MG ECTAB PO SCH (08:27)
[2016-12-08] MEDS: BACLOFEN TAB 20 MG TAB PO SCH ×4 (08:27→21:41)
[2016-12-08] MEDS: MULTIVITAMIN TAB PO SCH (08:28)
[2016-12-08] MEDS: HEPARIN SOD 5000 UNIT/0.5 ML CARP SQ SCH ×2 (08:33→21:43)
[2016-12-08] MEDS: SODIUM CHLORIDE 0.9% 1000ML 1,000 ML IV SCH ×2 (09:03→21:42)
[2016-12-08] MEDS: DANTROLENE SODIUM 25 MG CAP PO SCH (21:41)
[2016-12-09] VITALS (13 sets, daily range): BP systolic 104–148; BP diastolic 69–99; PULSE 52–78; TEMP 36.5–36.8; O2SAT 91–96
[2016-12-09] MEDS: PIPERACILL/TAZOBAC IV 3.375 GM in DEXTROSE 5% 100ML 100 ML IV SCH ×2 (06:00→13:24)
[2016-12-09] MEDS ORDERED: ALENDRONATE SODIUM 70 MG TAB PO SCH (07:00)
[2016-12-09] MEDS: ALBUT/IPRATROP 3MG/0.5MG NEB 3 ML VIAL INH SCH ×3 (07:37→17:10)
[2016-12-09] MEDS: ASPIRIN 81 MG ECTAB PO SCH (08:19)
[2016-12-09] MEDS: LACTOBACILLUS ACIDOPHILUS (FLORANEX) TAB PO SCH (08:19)
[2016-12-09] MEDS: MONTELUKAST SOD 10 MG TAB PO SCH (08:20)
[2016-12-09] MEDS: MULTIVITAMIN TAB PO SCH (08:20)
[2016-12-09] MEDS: BACLOFEN TAB 20 MG TAB PO SCH ×3 (08:20→16:57)
[2016-12-09] MEDS: HEPARIN SOD 5000 UNIT/0.5 ML CARP SQ SCH (08:22)
[2016-12-09] MEDS: SODIUM CHLORIDE 0.9% 1000ML 1,000 ML IV SCH (10:00)
--- NOTE | 2016-12-09 10:29 | Progress Note ---
Subjective Date of Service: December 09, 2016. Subjective pt on day #6 zosyn for uti with e coli and pseudomonas, all other abx stopped. tolerating abx. afebrile. blood and bronch cultures negative. afebrile. wbc 6.6. pseudomonas is resistant to quinolones, both sensitive to zosyn. Problem List Medical Problems: (1) Hypoxia Status: Acute (2) Paraplegia Status: Acute (3) PNA (pneumonia) Status: Acute (4) PNA (pneumonia) Status: Acute (5) Pneumonia Status: Acute (6) Pneumonia Status: Acute (7) Pneumonia Status: Acute (8) Pneumonia Status: Acute (9) Productive cough Status: Acute (10) Quadriplegia Status: Acute (11) SOB (shortness of breath) Status: Acute (12) Ulcer of right heel Status: Acute Objective Vital Signs Date Time Temp Pulse Resp B/P Pulse Ox O2 Delivery O2 Flow Rate FiO2 12/09/16 08:00 94 Room Air 12/09/16 07:38 66 20 93 Nasal Cannula 12/09/16 07:35 36.5 59 18 148/99 94 Trach Collar 12/09/16 05:25 67 91 21 12/09/16 04:00 BiPAP 21 12/09/16 03:44 36.6 63 16 104/69 92 CPAP 12/09/16 01:30 64 91 21 12/09/16 00:00 BiPAP 12/08/16 23:49 36.6 68 16 108/75 95 BiPAP 12/08/16 22:02 73 95 21 12/08/16 20:00 Nasal Cannula 0.5 12/08/16 19:37 74 20 97 Nasal Cannula 0.5 12/08/16 19:30 36.9 74 18 128/88 100 Nasal Cannula 0.5 12/08/16 16:27 76 20 96 Nasal Cannula 0.5 12/08/16 16:00 Nasal Cannula 1.0 Trach Collar 12/08/16 15:02 37.6 78 18 131/86 98 Nasal Cannula 2.0 12/08/16 12:42 36.9 80 18 147/97 98 Trach Collar 12/08/16 12:00 Nasal Cannula 0.5 Trach Collar 12/08/16 11:20 74 20 95 Nasal Cannula 0.5 Laboratory Results Item Value Date Time Gram Stain - Final Complete 12/04/16 1600 Sputum Trans Trach Needle Asp. Gram Stain - Final Complete 12/05/16 0000 Bronchial Washings Left Lower Lobe Blood Culture - Preliminary Resulted 12/04/16 1507 Blood NO GROWTH TO DATE. Blood Culture - Preliminary Resulted 12/04/16 1500 Blood NO GROWTH TO DATE. Urine Culture - Final Complete 12/04/16 1530 Urine , Clean Catch Escherichia Coli Assessment and Plan (1) UTI (urinary tract infection) Assessment & Plan: will need 7 days total zosyn. issue with continuous infusion at home, will only need to complete abx today and tomorrow. can stop after tomorrow's doses. No contraindication to d/c if able to finish abx at home. alternative is to complete therapy in hospital and d/c tomorrow. no po options available, unfortunately.
--- NOTE | 2016-12-09 11:24 | Discharge Instructions ---
Discharge Instructions Date of Service December 09, 2016. Admission Reason for Admission: Pneumonia Discharge Discharge Diagnosis / Problem: Pneumonia, urinary tract infection Discharge Goals Goal(s): Decrease discomfort, Improve function, Diagnostic testing, Therapeutic intervention Activity Recommendations Activity Limitations: resume your previous activity . Instructions / Follow-Up Instructions / Follow-Up You were admitted to the hospital after presenting with worsening shortness of breath and chest congestion. Pulmonology was consulted on your case. You underwent a bronchoscopy which did show diffuse mucus plugs in the left lower lobe, which was the area affected by the pneumonia. Cultures taken from the procedure were negative. The pathology report on samples from the procedure showed acute inflammation but did not show any malignant cells. Your sputum culture this admission was also negative. It is unclear if the pneumonia seen on admission is a new infection or if your previous infection persisted. You were also found to have a urinary tract infection that was positive for 2 different organisms. You were treated with IV antibiotics which did help to improve your symptoms. As your breathing has returned to baseline, you are now medically stable for discharge. Medications: *You will complete a 7 day course of IV Zosyn as an outpatient. This has been set up with your home health agency. The last day of your course is tomorrow, . *Please continue your other home medications as prescribed. Follow up: *Please follow up with your primary care provider within 1 week regarding your hospital stay. Please seek medical attention if you experience fevers, chills, sweats, chest pain, shortness of breath/difficulty breathing, lightheadedness, loss of consciousness, nausea, or vomiting. Current Hospital Diet Patient's current hospital diet: Regular Diet Discharge Diet Recommended Diet: Regular Diet Procedures Procedures Performed: Bronchoscopy Pending Studies Studies pending at discharge: no Medical Emergencies . Who to Call and When: Medical Emergencies: If at any time you feel your situation is an emergency, please call 911 immediately. . Non-Emergent Contact Non-Emergency issues call your: Primary Care Provider Call Non-Emergent contact if: you have a fever, you have any medication questions . Past History Medical & Surgical History: (1) Acute And Chronic Respiratory Failure (2) Pneumonia (3) UTI (urinary tract infection) . "Provider Documentation" section prepared by Lainey Ray. . VTE Core Measure Inpt VTE Proph given/why not?: Unfractionated heparin SQ, SCD's
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
[2016-12-09 14:27] LABS: ISTAT ALLEN TEST Pass; ISTAT ARTERIAL BLOOD GAS HCO3 33 meq/L (19-24); ISTAT ARTERIAL BLOOD GAS PCO2 42 mmHg (35-46); ISTAT ARTERIAL BLOOD GAS PO2 87 mmHg (80-95); ISTAT CARBON DIOXIDE 34 mEq/l (24-31); ISTAT DELIVERY SYSTEM Room Air; ISTAT SITE L Radial
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
[2016-12-09] MEDS ORDERED: LIDOCAINE HCL 2% LOCAL 50ML VIAL INFIL ONE (17:59)
[2016-12-09] MEDS ORDERED: LIDOCAINE 4% INH SOLN 4 ML BTL ONE (17:59)
[2017-02-21] MEDS ORDERED: CEPH500C PO (10:22)
[2017-04-09] MEDS ORDERED: ALEN70TA4 PO (11:29)
[2017-04-09] MEDS ORDERED: BACL20TA PO (11:29)
[2017-04-09] MEDS ORDERED: TYLOTC500 PO (11:29)
[2017-04-09] MEDS ORDERED: IPRA0.03 NAE (13:18)
[2017-04-09] MEDS ORDERED: CLR10 PO (13:18)
[2017-04-09] MEDS ORDERED: LORA-741 PO ×2 (13:18→19:31)
[2017-04-09] MEDS ORDERED: CALC1CHW2 PO (13:18)
[2017-04-09] MEDS ORDERED: BISA10SU3 PR (13:49)
[2017-04-09] MEDS ORDERED: IBUP-1277 PO (14:23)
[2017-04-09] MEDS ORDERED: MULT-922 PO (14:46)
[2017-04-09] MEDS ORDERED: LACTTAB7 PO (14:49)
[2017-04-09] MEDS ORDERED: ASCO500C43 PO (14:49)
[2017-04-09] MEDS ORDERED: ASPI81TA28 PO (16:42)
== END 2016-12-09 18:00 | disposition home health service (06) | DRG 177 ==
LOC: ENRESERVTM → ENRESERVDT → EDBD 13:55 → C.EDB 13:55 → EDBEDREQSVC 17:41 → C.2T 17:42
PROVIDERS: ADMIT Internal Medicine; ATTEND Family Medicine
PROC: 3E1F88X Irrigation of Respiratory Tract using Irrigating Substance, Via Natural or Artificial Opening Endoscopic, Diagnostic (ICD-10-PCS; principal; 2016-12-05)
PROC: 0BCB8ZZ Extirpation of Matter from Left Lower Lobe Bronchus, Via Natural or Artificial Opening Endoscopic (ICD-10-PCS; principal; 2016-12-05)
DX: J15.1 Pneumonia due to Pseudomonas (principal); J96.21 Acute and chronic respiratory failure with hypoxia; G82.50 Quadriplegia, unspecified; N39.0 Urinary tract infection, site not specified; B96.20 Unspecified Escherichia coli [E. coli] as the cause of diseases classified elsewhere; B96.5 Pseudomonas (aeruginosa) (mallei) (pseudomallei) as the cause of diseases classified elsewhere; S12.100S Unspecified displaced fracture of second cervical vertebra, sequela; V99.XXXS Unspecified transport accident, sequela; J98.6 Disorders of diaphragm; R19.7 Diarrhea, unspecified; F41.9 Anxiety disorder, unspecified; Z93.0 Tracheostomy status; Z87.01 Personal history of pneumonia (recurrent); Z51.81 Encounter for therapeutic drug level monitoring; Z79.899 Other long term (current) drug therapy; Z79.82 Long term (current) use of aspirin; Z83.3 Family history of diabetes mellitus; Z82.49 Family history of ischemic heart disease and other diseases of the circulatory system

== ENCOUNTER → 2016-12-19 | Day surgery (SDC) | payer OTHER ==
[~2016-12-19] VITALS: Ht 170.2 cm; Wt 62.0 kg
[~2016-12-19] MED LIST changes: +ALEN70TA4 PO; +AMOX1TAB43 PO; +AMOX875T PO; +ASCO500C43 PO; +ASPI81TA28 PO; +ATV1 PO; +Artificial Tears OPB; +BACL20TA PO; +BISA10SU3 PR; +CALC1CHW2 PO; +CEPH500C PO; +CFP2IV IV; +CLR10 PO; +EMOLOIN3 TOP; +FLNIN; +GUAI1LIQ PO; +IBUP-1277 PO; +IPRA0.03 NAE; +IPRASOL4 INH; +KFL500 PO; +MONT1TAB5 PO; +MULT-922 PO; +NYST80OI TOP; +TYLOTC500 PO; +ZYR10 PO
[2016-12-19 11:54] VITALS: BP 101/67; PULSE 62; TEMP 36.6; O2SAT 96; Ht 170.2 cm; Wt 62.0 kg
== END | disposition home or self-care (01) ==
LOC: C.MTU 11:44
PROVIDERS: ATTEND Internal Medicine Infectious Disease
DX: N39.0 Urinary tract infection, site not specified (principal)

== ENCOUNTER 2016-12-31 16:41 | Inpatient (IN) | payer OTHER ==
[~2016-12-31] VITALS: Ht 170.2 cm; Wt 58.4 kg
[~2016-12-31 16:41] MED LIST changes: -ALEN70TA4 PO; -AMOX1TAB43 PO; -AMOX875T PO; -ASCO500C43 PO; -ASPI81TA28 PO; -ATV1 PO; -Artificial Tears OPB; -BACL20TA PO; -BISA10SU3 PR; -BOTU200I SQ; -CALC1CHW2 PO; -CEPH500C PO; -CFP2IV IV; -CLR10 PO; -EMOLOIN3 TOP; -FLNIN; -GUAI1LIQ PO; -IBUP-1277 PO; -IPRA0.03 NAE; -IPRASOL4 INH; -KFL500 PO; -MULT-922 PO; -NYST80OI TOP; -TYLOTC500 PO; -ZYR10 PO
[2016-12-31] MEDS ORDERED: BOTU200I SQ (17:02)
[2016-12-31] MEDS ORDERED: ATV1 PO (17:02)
[2016-12-31] MEDS ORDERED: IPRATROPIUM BROMIDE NEB SOLN 0.02% 2.5 ML VIAL INH ONE (17:15)
[2016-12-31] MEDS ORDERED: LEVALBUTEROL 1.25MG/0.5ML NEB INH ONE (17:15)
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
[2016-12-31] MEDS ORDERED: PIPERACILLIN/TAZOBACTAM 4.5 GM/100ML D5W IV STA (17:33)
[2016-12-31 18:00] LABS: BASO % 0.3 %; BASO ABS # 0.03 K/uL (0-0.2); COMPLETE YES; EOS % 3.2 %; HEMATOCRIT 41.8 % (42-52); IG% 0.1 %; LYMPH ABS # 1.22 K/uL (1.2-3.4); MEAN CELL VOLUME 93.3 fL (80-100); MEAN CORPUSCULAR HEMOGLOBIN 30.6 pg (25-34); MEAN CORPUSCULAR HGB CONC 32.8 g/dl (32-36); MEAN PLATELET VOLUME 10.6 fL (7.4-10.4); MONO % 5.4 %; PLATELET COUNT 189 K/uL (130-400); RED BLOOD COUNT 4.48 M/uL (4.7-6.1); WHITE BLOOD COUNT 8.71 K/uL (4.8-10.8)
[2016-12-31 18:02] VITALS: PULSE 66; O2SAT 91
[2016-12-31 18:03] VITALS: PULSE 66; O2SAT 99
[2016-12-31 18:09] LABS: PARTIAL THROMBOPLASTIN RATIO 1.1; PROTHROMBIN TIME (PATIENT) 10.4 SECONDS (9.0-12.0)
[2016-12-31 18:15] LABS: POINT OF CARE PRO-BNP 76 pg/ml (0-450); POINT OF CARE TROPONIN I < 0.030 ng/ml (0-0.045)
[2016-12-31 18:22] LABS: ALT/SGPT 23 U/L (12-78); AST/SGOT 19 U/L (15-37); BLOOD UREA NITROGEN 20 mg/dl (7-18); BUN/CREATININE RATIO 59.3 (10-20); CALCIUM 8.6 mg/dl (8.5-10.1); CARBON DIOXIDE 29 mmol/L (21-32); CHLORIDE 104 mmol/L (98-107); CREATININE 0.34 mg/dl (0.60-1.40); GLUCOSE 94 mg/dl (70-99); POTASSIUM 3.9 mmol/L (3.5-5.1); SODIUM 140 mmol/L (136-145)
[2016-12-31 18:25] LABS: ALKALINE PHOSPHATASE 75 U/L (45-117)
[2016-12-31] MEDS ORDERED: ONDANSETRON INJ 2 MG/ML 2 ML VIAL IV PRN (18:30)
[2016-12-31] MEDS ORDERED: BISACODYL 10 MG SUPP PR PRN (18:30)
[2016-12-31] MEDS ORDERED: ACETAMINOPHEN 325 MG TAB PO PRN (18:30)
[2016-12-31] MEDS ORDERED: POLYETHYLENE (MIRALAX) 17 GM PACK PO PRN (18:30)
[2016-12-31] MEDS ORDERED: MAGNESIUM HYDROXIDE SUSP 30 ML UDC PO PRN (18:30)
[2016-12-31] MEDS ORDERED: ALUMINUM/MAGNESIUM/SIMETH (MAALOX MAX) 30 ML UDC PO PRN (18:30)
--- NOTE | 2016-12-31 18:54 | History and Physical ---
History & Physical Date & Time of Service: Dec 31, 2016 at 18:41 Chief Complaint: SOB Primary Care Physician: Anna Blake MD History of Present Illness 45 y/o male Hx of C2 quadriplegia and diaphragmatic paralysis with a tracheostomy who presents to the ED for worsening SOB/hypoxia. Recently the pt has had issues with pneumonias and mucous plugging. Suction and PT was tried in the outpt setting prior to presenting to the ER however he remained hypoxic. He was additionally suctioned on arrival, received a breathing treatment and percussion and has moderately improved. He denies a new productive cough, CP or fevers. The pt required a bronchoscopy for similar symptoms during a recent admission. Past Medical/Surgical History Medical Problems: (1) Acute And Chronic Respiratory Failure Status: Chronic (2) Anxiety disorder Status: Chronic (3) Fb Trach/Bronch/Lung Nec Status: Chronic (4) Hydronephrosis Status: Chronic (5) Quadriplegia, unspecified Status: Chronic Surgical Problems: (1) H/O tracheostomy Status: Resolved (2) History of cholecystectomy Status: Resolved (3) History of herniorrhaphy Status: Resolved Family History Cancer Diabetes mellitus Gallbladder disease Heart disease Social History Smoking Status: Never Smoker Drug Use: none Marital Status: single Occupational Status: disabled Immunizations History of Influenza Vaccine: Yes Influenza Vaccine Date: May 03, 2010 History of Tetanus Vaccine?: No History of Pneumococcal: YES 1998 History of Hepatitis B Vaccine: No Multi-Drug Resistant Organisms History of MDRO: No Allergies Coded Allergies: Sulfa Antibiotics (Verified Allergy, Unknown, ., 12/31/16) Clarithromycin (Verified Adverse Reaction, Mild, "Confusion, Psych problems" per [facility] records, 12/31/16) Confirmed with patient that he had confusion w/ Biaxin but he state he can take Biaxin XL without problem. Denies ever having a rash, pruritis. Home Medications Scheduled Albuterol Sulf (Proventil 0.083% 2.5MG/3ML), 2.5 MG NEB QID Alendronate Sodium (Fosamax), 70 MG PO WK Ascorbic Acid (Vitamin C), 1,000 MG PO QPM Aspirin (Aspirin Ec), 81 MG PO DAILY Baclofen (Lioresal), 40 MG PO QID Bisacodyl (Dulcolax), 1 SUPP CA 2XWK Cholecalciferol (Vitamin D), 600 UNIT PO BID Dantrolene Sodium (Dantrolene Sodium), 100 MG PO HS Lactobacillus (Acidophilus), 1 TAB PO DAILY Montelukast Sodium (Montelukast Sodium), 1 TAB PO DAILY Multivitamin (Multivitamin), 1 TAB PO DAILY Onabotulinumtoxina (Botox), 600 UNITS SQ [id number] Scheduled PRN Acetaminophen (Tylenol), 1,000 MG PO Q6H PRN for Pain Azelastine Hcl (Astelin Nasal [place]), 1-2 SPRAYS URBAN BID PRN for Nasal Congestion Ibuprofen (Advil), 400-600 MG PO Q8 PRN for Pain or Fever Lorazepam (Lorazepam), 1 MG PO DAILY PRN for Anxiety Review of Systems Constitutional: No fever, No chills, No sweats Eyes: No worsening of vision, No eye pain ENT: No hearing loss, No nasal symptoms Respiratory: + sputum, + shortness of breath, + dyspnea on exertion, + dyspnea at rest, No cough, No wheezing Cardiovascular: No chest pain, No orthopnea, No PND Abdomen: No pain, No nausea, No vomiting Musculoskeletal: + muscle pain (spasms are chronic), No joint pain Genitourinary - Male: + problem reported (chronic [place]), No hematuria, No dysuria Neurologic: + paralysis (chronic), No memory loss Psychiatric: No depression symptoms Endocrine: No fatigue Hematologic / Lymphatic: No abnormal bleeding/bruising Integumentary: No rash Allergic / Immunologic: No environmental allergies Physical Exam Vital Signs Date Time Temp Pulse Resp B/P (MAP) Pulse Ox O2 Delivery O2 Flow Rate FiO2 12/31/16 18:03 66 99 35 12/31/16 18:02 66 18 91 Nasal Cannula 6.0 12/31/16 17:59 74 26 153/95 97 BiPAP 12/31/16 17:16 75 12/31/16 16:53 Room Air 12/31/16 16:47 36.5 73 20 139/98 96 Room Air General Appearance: WD/WN, no apparent distress Head: normocephalic Eyes: normal inspection, PERRL, EOMI ENT: normal ENT inspection, pharynx normal Neck: supple, no JVD Respiratory/Chest: chest non-tender, + pertinent finding (decreased air at R base may be positional - no crackles or wheezing appreciated) Cardiovascular: regular rate, rhythm, no edema, no gallop Abdomen/GI: normal bowel sounds, non tender, soft Back: + pertinent finding (chronic sensory loss) Extremities/Musculoskelatal: + pertinent finding (chronic flaccid paralysis) Neurologic/Psych: oriented x 3 Skin: normal color, warm/dry, no rash Diagnostics Laboratory Results Results Past 24 Hours Test 12/31/16 17:45 12/31/16 17:53 12/31/16 17:55 Range/Units White Blood Count 8.71 4.8-10.8 K/uL Red Blood Count 4.48 4.7-6.1 M/uL Hemoglobin 13.7 14.0-18.0 g/dL Hematocrit 41.8 42-52 % Mean Corpuscular Volume 93.3 80-100 fL Mean Corpuscular Hemoglobin 30.6 25-34 pg Mean Corpuscular Hemoglobin Concent 32.8 32-36 g/dl Platelet Count 189 130-400 K/uL Mean Platelet Volume 10.6 7.4-10.4 fL Neutrophils (%) (Auto) 77.0 % Lymphocytes (%) (Auto) 14.0 % Monocytes (%) (Auto) 5.4 % Eosinophils (%) (Auto) 3.2 % Basophils (%) (Auto) 0.3 % Neutrophils # (Auto) 6.70 1.4-6.5 K/uL Lymphocytes # (Auto) 1.22 1.2-3.4 K/uL Monocytes # (Auto) 0.47 0.11-0.59 K/uL Eosinophils # (Auto) 0.28 0-0.5 K/uL Basophils # (Auto) 0.03 0-0.2 K/uL RDW Standard Deviation 46.8 36.4-46.3 fL RDW Coefficient of Variation 13.6 11.5-14.5 % Immature Granulocyte % (Auto) 0.1 % Immature Granulocyte # (Auto) 0.01 0.00-0.02 K/uL Prothrombin Time 10.4 9.0-12.0 SECONDS Prothromb Time International Ratio 1.0 0.9-1.1 Activated Partial Thromboplast Time 28.5 21.0-31.0 SECONDS Partial Thromboplastin Ratio 1.1 Sodium Level 140 136-145 mmol/L Potassium Level 3.9 3.5-5.1 mmol/L Chloride Level 104 98-107 mmol/L Carbon Dioxide Level 29 21-32 mmol/L Anion Gap 7.0 3-11 mmol/L Blood Urea Nitrogen 20 7-18 mg/dl Creatinine 0.34 0.60-1.40 mg/dl Est Creatinine Clear Calc Drug Dose 227.4 ml/min Estimated GFR () > 150.0 Estimated GFR (Non- > 150.0 BUN/Creatinine Ratio 59.3 10-20 Random Glucose 94 70-99 mg/dl Calcium Level 8.6 8.5-10.1 mg/dl Total Bilirubin 0.6 0.2-1 mg/dl Direct Bilirubin 0.2 0-0.2 mg/dl Aspartate Amino Transf (AST/SGOT) 19 15-37 U/L Alanine Aminotransferase (ALT/SGPT) 23 12-78 U/L Alkaline Phosphatase 75 45-117 U/L Total Protein 7.5 6.4-8.2 gm/dl Albumin 3.7 3.4-5.0 gm/dl Lipase 178 73-393 U/L Bedside Lactic Acid Venous < 0.30 0.90-1.70 mmol/L Bedside Troponin I < 0.030 0-0.045 ng/ml [id number] Natriuretic Peptide 76 0-450 pg/ml Microbiology Results 12/31/16 Blood Culture, Received Pending 12/31/16 Blood Culture, Received Pending Diagnostic Radiology CXR 1. Stable left lower lobe atelectasis/consolidation 2. Suspected mild pulmonary venous hypertension. Impression Assessment and Plan 45 y/o male Hx of C2 quadriplegia and diaphragmatic paralysis with a tracheostomy who presents to the ED for worsening SOB/hypoxia. Recently the pt has had issues with pneumonias and mucous plugging. Suction and PT was tried in the outpt setting prior to presenting to the ER however he remained hypoxic. He was additionally suctioned on arrival, received a breathing treatment and percussion and has moderately improved. 1) Mucous plugging, hypoxia - possible pneumonia - Pt received Zosyn in the ER and cultures were obtained. We will admit to telemetry and consult pulmonology as he may need an additional bronch to clear his secretions. Suction will be provided PRN in the interim. He will be placed on aspiration coverage with Unasyn however coverage should be broadened if he develops fevers. We will request a swallow eval as he does have some difficulty swallowing. 2) Quadriplegia - cont supportive treatment and prescribed medications. Full code - Heparin prophylaxis Total time for this admit including review of labs, meds, imaging - discussion with pt and ER attending 38 min Level of Care Telemetry Resuscitation Status FULL RESUSCITATION VTE Prophylaxis VTE Risk Assessment Done? Y/N: Yes Risk Level: Moderate Given or contraindicated: Unfractionated heparin SQ
[2016-12-31 19:57] VITALS: PULSE 70; O2SAT 97
[2016-12-31 20:05] VITALS: BP 151/96; PULSE 87; TEMP 36.4; O2SAT 98; Ht 170.2 cm; Wt 58.4 kg
[2016-12-31] MEDS ORDERED: D5NSS + 20MEQ KCL 1,000 ML IV SCH (20:30)
[2016-12-31 21:05] VITALS: PULSE 66; O2SAT 100
[2016-12-31] MEDS: BACLOFEN TAB 20 MG TAB PO SCH (21:46)
[2016-12-31] MEDS: HEPARIN SOD 5000 UNIT/0.5 ML CARP SQ SCH (21:47)
[2016-12-31 22:58] VITALS: BP 136/88; PULSE 75; TEMP 36.4; O2SAT 99
[2016-12-31] MEDS: LORAZEPAM 1 MG TAB PO PRN (23:17)
[2016-12-31] MEDS: AMPICILLIN/SULBACTAM SOD INJ 3,000 MG in SODIUM CHLORIDE 0.9% 100ML 100 ML IV SCH (23:17)
[2017-01-01] VITALS (16 sets, daily range): BP systolic 112–198; BP diastolic 64–108; PULSE 53–87; TEMP 36.2–36.8; O2SAT 93–100
[2017-01-01] MEDS: AMPICILLIN/SULBACTAM SOD INJ 3,000 MG in SODIUM CHLORIDE 0.9% 100ML 100 ML IV SCH ×3 (05:54→17:37)
[2017-01-01] MEDS: HEPARIN SOD 5000 UNIT/0.5 ML CARP SQ SCH ×3 (05:54→20:04)
[2017-01-01] MEDS: BACLOFEN TAB 20 MG TAB PO SCH ×4 (07:47→20:01)
[2017-01-01] MEDS: LACTOBACILLUS ACIDOPHILUS (FLORANEX) TAB PO SCH (07:48)
[2017-01-01] MEDS: ASPIRIN 81 MG ECTAB PO SCH (07:48)
--- NOTE | 2017-01-01 08:07 | Clinical Documentation Query ---
STEPHANIE Heredia : CLINICAL DOCUMENTATION QUERY Documentation includes: "Mucous plugging, hypoxia - possible pneumonia - Pt received Zosyn in the ER and cultures were obtained. We will admit to telemetry and consult pulmonology as he may need an additional bronch to clear his secretions. Suction will be provided PRN in the interim. He will be placed on aspiration coverage with Unasyn however coverage should be broadened if he develops fevers." In your clinical opinion is this patient being managed for: (x ) (Possible) Aspiration pneumonia ( ) Other explanation of clinical findings (Please Explain) ( ) Unable to determine (Please Define) ( ) Need to Discuss ( ) Not Agree The medical record reflects the following clinical findings, treatment, and risk factors. Please clarify and document your clinical opinion in the progress notes and discharge summary. Terms such as "probable", "suspected", "likely", "questionable", "possible", or "still to be ruled out" are acceptable. IF IN AGREEMENT, YOU MUST DOCUMENT ABOVE DIAGNOSTIC STATEMENT IN DAILY PROGRESS NOTES AND DISCHARGE SUMMARY. This document is not part of the patient's record. Thank You, Vishal Mac, GABRIEL [phone]
--- NOTE | 2017-01-01 08:08 | Clinical Documentation Query ---
Yesica MILKAEDUARDO : CLINICAL DOCUMENTATION QUERY Documentation includes: "Mucous plugging, hypoxia - possible pneumonia - Pt received Zosyn in the ER and cultures were obtained. We will admit to telemetry and consult pulmonology as he may need an additional bronch to clear his secretions. Suction will be provided PRN in the interim. He will be placed on aspiration coverage with Unasyn however coverage should be broadened if he develops fevers." In your clinical opinion is this patient being managed for: ( x ) (Possible) Aspiration pneumonia ( ) Other explanation of clinical findings (Please Explain) ( ) Unable to determine (Please Define) ( ) Need to Discuss ( ) Not Agree The medical record reflects the following clinical findings, treatment, and risk factors. Please clarify and document your clinical opinion in the progress notes and discharge summary. Terms such as "probable", "suspected", "likely", "questionable", "possible", or "still to be ruled out" are acceptable. IF IN AGREEMENT, YOU MUST DOCUMENT ABOVE DIAGNOSTIC STATEMENT IN DAILY PROGRESS NOTES AND DISCHARGE SUMMARY. This document is not part of the patient's record. Thank You, Vishal Mac, GABRIEL [phone]
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
[2017-01-01] MEDS: DORNASE ALFA (2500U) 2.5MG/2.5ML INH SCH ×2 (11:10→19:49)
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
[2017-01-01] MEDS: ALBUT/IPRATROP 3MG/0.5MG NEB 3 ML VIAL INH SCH ×3 (11:18→19:49)
[2017-01-01] MEDS: DANTROLENE SODIUM 25 MG CAP PO SCH (20:02)
[2017-01-01] MEDS: MONTELUKAST SOD 10 MG TAB PO SCH (20:03)
[2017-01-02] VITALS (12 sets, daily range): BP systolic 119–136; BP diastolic 79–85; PULSE 60–84; TEMP 36.5–36.7; O2SAT 95–100
[2017-01-02] MEDS: AMPICILLIN/SULBACTAM SOD INJ 3,000 MG in SODIUM CHLORIDE 0.9% 100ML 100 ML IV SCH ×4 (00:44→18:00)
[2017-01-02] MEDS: HEPARIN SOD 5000 UNIT/0.5 ML CARP SQ SCH ×3 (06:00→22:25)
[2017-01-02 06:21] LABS: HEMATOCRIT 39.9 % (42-52); MEAN CELL VOLUME 92.1 fL (80-100); MEAN CORPUSCULAR HGB CONC 32.6 g/dl (32-36); MEAN PLATELET VOLUME 10.2 fL (7.4-10.4); PLATELET COUNT 201 K/uL (130-400); RED BLOOD COUNT 4.33 M/uL (4.7-6.1); WHITE BLOOD COUNT 8.64 K/uL (4.8-10.8)
[2017-01-02 06:57] LABS: BLOOD UREA NITROGEN 10 mg/dl (7-18); BUN/CREATININE RATIO 33.2 (10-20); CALCIUM 8.2 mg/dl (8.5-10.1); CARBON DIOXIDE 28 mmol/L (21-32); CHLORIDE 103 mmol/L (98-107); CREATININE 0.29 mg/dl (0.60-1.40); GLUCOSE 72 mg/dl (70-99); POTASSIUM 4.2 mmol/L (3.5-5.1); SODIUM 137 mmol/L (136-145)
[2017-01-02] MEDS: DORNASE ALFA (2500U) 2.5MG/2.5ML INH SCH ×2 (07:34→19:37)
[2017-01-02] MEDS: ALBUT/IPRATROP 3MG/0.5MG NEB 3 ML VIAL INH SCH ×4 (07:34→19:37)
[2017-01-02] MEDS: BACLOFEN TAB 20 MG TAB PO SCH ×4 (08:13→22:24)
[2017-01-02] MEDS: ASPIRIN 81 MG ECTAB PO SCH (08:13)
[2017-01-02] MEDS: LACTOBACILLUS ACIDOPHILUS (FLORANEX) TAB PO SCH (08:13)
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
--- NOTE | 2017-01-02 12:06 | Hospitalist Progress Note ---
Hospitalist Progress Note Date of Service Jan 02, 2017. Subjective Pt evaluation today including: conversation w/ patient, physical exam, chart review, lab review, review of inpatient medication list Patient seen and evaluated. No acute events overnight. Did remove some mucus plugging on suctioning. Feels at baseline. Verbalizes no other complaints Constitutional: No fever, No chills Respiratory: + sputum (with suctioning) Cardiovascular: No chest pain Abdomen: No pain, No nausea, No vomiting, No diarrhea, No constipation Male : No dysuria Neurologic: + paralysis (paraplegic) Medications Current Inpatient Medications Medications (Trade) Dose Ordered Sig/Ashanti Route Start Time Stop Time Status Last Admin Dose Admin Aspirin (Ecotrin Tab) 81 mg DAILY PO 01/01/17 09:00 01/31/17 08:59 01/02/17 08:13 81 MG Baclofen (Lioresal Tab) 40 mg QID PO 12/31/16 21:00 01/30/17 20:59 01/02/17 08:13 40 MG Bisacodyl (Dulcolax Supp) 10 mg DAILY PRN [place] 12/31/16 18:30 01/30/17 18:29 Lactobacillus Acidophilus (Floranex Tab) 1 tab DAILY PO 01/01/17 09:00 01/31/17 08:59 01/02/17 08:13 1 TAB Lorazepam (Ativan Tab) 1 mg DAILY PRN PO 12/31/16 18:30 01/30/17 18:29 12/31/16 23:17 1 MG Montelukast Sodium (Singulair Tab) 10 mg HS PO 01/01/17 21:00 01/31/17 20:59 01/01/17 20:03 10 MG Dantrolene Sodium (Dantrium Cap) 100 mg HS PO 01/01/17 21:00 01/31/17 20:59 01/01/17 20:02 100 MG Heparin Sodium (Porcine) (Heparin Sq 5000 Unit/0.5ml) 5,000 unit Q8 SQ 12/31/16 22:00 01/30/17 21:59 01/02/17 06:00 5,000 UNIT Acetaminophen (Tylenol Tab) 650 mg Q4H PRN PO 12/31/16 18:30 01/30/17 18:29 Al Hydrox/Mg Hydrox/Simethicone (Maalox Max Susp) 15 ml Q4H PRN PO 12/31/16 18:30 01/30/17 18:29 Magnesium Hydroxide (Milk Of Magnesia Susp) 30 ml Q12H PRN PO 12/31/16 18:30 01/30/17 18:29 Ondansetron HCl (Zofran Inj) 4 mg Q6H PRN IV 12/31/16 18:30 01/30/17 18:29 Polyethylene (Miralax Powder Packet) 17 gm DAILY PRN PO 12/31/16 18:30 01/30/17 18:29 Ampicillin Sodium/ Sulbactam Sodium 3000 mg/Sodium Chloride 108 ml @ 200 mls/hr Q6H IV 01/01/17 00:00 01/08/17 00:00 01/02/17 06:02 200 MLS/HR Albuterol/ Ipratropium (Duoneb) 3 ml QIDR INH 01/01/17 12:00 01/31/17 11:59 01/02/17 11:26 3 ML Dornase Brayden (Pulmozyme Inhalation Soln 2.5ml Amp) 2.5 ml BIDR INH 01/01/17 09:00 01/31/17 08:59 01/02/17 07:34 2.5 ML Objective Vital Signs Date Time Temp Pulse Resp B/P (MAP) Pulse Ox O2 Delivery O2 Flow Rate FiO2 01/02/17 11:27 69 95 30 01/02/17 11:26 69 35 95 BiPAP/CPAP 01/02/17 07:50 36.5 63 20 126/83 (97) 97 01/02/17 07:35 62 30 96 BiPAP/CPAP 01/02/17 07:30 62 96 30 01/02/17 00:15 36.6 60 18 119/79 (92) 95 Room Air 01/02/17 00:00 BiPAP 01/01/17 20:00 72 98 30 01/01/17 19:49 78 20 95 Room Air 01/01/17 16:28 36.8 87 112/76 (88) 01/01/17 16:10 97 Room Air 01/01/17 15:40 78 30 93 Room Air 01/01/17 15:07 36.8 75 18 198/92 (127) 95 Room Air 01/01/17 13:50 Room Air 01/01/17 13:33 36.4 78 20 173/108 (129) 96 01/01/17 12:00 Room Air Physical Exam General Appearance: no apparent distress, + thin Eyes: sclerae normal ENT: hearing grossly normal Neck: supple, no JVD, trachea midline (tracheostomy present) Respiratory/Chest: lungs clear, no respiratory distress, no accessory muscle use, + decreased breath sounds Cardiovascular: regular rate, rhythm, no gallop, no murmur Abdomen: normal bowel sounds, non tender, soft Extremities: no pedal edema, + pertinent finding (mildly contractured) Neurologic/Psychiatric: alert, oriented x 3 Skin: normal color, warm/dry Laboratory Results Last 24 Hours Test 01/02/17 05:49 White Blood Count 8.64 K/uL Red Blood Count 4.33 M/uL Hemoglobin 13.0 g/dL Hematocrit 39.9 % Mean Corpuscular Volume 92.1 fL Mean Corpuscular Hemoglobin 30.0 pg Mean Corpuscular Hemoglobin Concent 32.6 g/dl RDW Standard Deviation 45.4 fL RDW Coefficient of Variation 13.4 % Platelet Count 201 K/uL Mean Platelet Volume 10.2 fL Sodium Level 137 mmol/L Potassium Level 4.2 mmol/L Chloride Level 103 mmol/L Carbon Dioxide Level 28 mmol/L Anion Gap 6.0 mmol/L Blood Urea Nitrogen 10 mg/dl Creatinine 0.29 mg/dl Est Creatinine Clear Calc Drug Dose 257.3 ml/min Estimated GFR () > 150.0 Estimated GFR (Non- > 150.0 BUN/Creatinine Ratio 33.2 Random Glucose 72 mg/dl Calcium Level 8.2 mg/dl Assessment and Plan Mr. Rai is a 45 y/o male with C2 Quadriplegia and Diaphragmatic Paralysis with Tracheostomy presenting for worsening SOB/Hypoxia. Previous admissions with pneumonias and mucous plugging and underwent bronchoscopy last admission. Acute Respiratory Failure 2/2 Likely Mucous Plugging vs Pneumonia vs Possible Aspiration PNA: IMPROVING - Received Zosyn in ED and currently on Unasyn 3 g IV Q6H - plan to convert to Augmentin tomorrow - DAY #3/-7 - [facility] - Speech therapy consultation - resume normal diet - no evidence of aspiration - Pulmonology following - recommendations reviewed C2 Quadriplegia and Diaphragmatic Paralysis S/P Tracheostomy: STABLE - Baclofen 40 mg QID DVT Prophylaxis: Heparin 5000 units SC Q8H Code Status: FULL RESUSCITATION Disposition: From home with 10/02 caregivers - plan for D/C tomorrow on oral Abx Continued [facility] stay due to: multiple IV medications needed Discharge planning: home
[2017-01-02] MEDS: LORAZEPAM 1 MG TAB PO PRN (14:00)
[2017-01-02] MEDS ORDERED: NURSING VERBAL MED ORDER ONE (22:00)
[2017-01-02] MEDS ORDERED: LORAZEPAM 1 MG TAB PO PRN (22:15)
[2017-01-02] MEDS: MONTELUKAST SOD 10 MG TAB PO SCH (22:25)
[2017-01-02] MEDS: DANTROLENE SODIUM 25 MG CAP PO SCH (22:25)
[2017-01-03] MEDS: AMPICILLIN/SULBACTAM SOD INJ 3,000 MG in SODIUM CHLORIDE 0.9% 100ML 100 ML IV SCH ×2 (00:07→06:27)
[2017-01-03] MEDS: HEPARIN SOD 5000 UNIT/0.5 ML CARP SQ SCH (06:27)
[2017-01-03 07:05] VITALS: PULSE 68; O2SAT 100
[2017-01-03 07:32] VITALS: BP 165/90; PULSE 63; TEMP 36.5; O2SAT 100
[2017-01-03 07:36] VITALS: PULSE 74; O2SAT 100
[2017-01-03] MEDS: DORNASE ALFA (2500U) 2.5MG/2.5ML INH SCH (07:40)
[2017-01-03] MEDS: ALBUT/IPRATROP 3MG/0.5MG NEB 3 ML VIAL INH SCH ×2 (07:40→11:23)
--- NOTE | 2017-01-03 07:53 | Discharge Instructions ---
Discharge Instructions Date of Service Jan 03, 2017. Admission Reason for Admission: Hypoxemia, Mucus Plugging Of Bronchi Discharge Discharge Diagnosis / Problem: Hypoxia Discharge Goals Goal(s): Decrease discomfort, Learn about illness, Therapeutic intervention Activity Recommendations Activity Limitations: resume your previous activity . Instructions / Follow-Up Instructions / Follow-Up Hypoxia (Low Oxygen Levels): - Continue antibiotics as prescribed. Take until completed even if you are feeling better. - Continue your home regimen with breathing treatments and suctioning as needed. -- Be mindful of over-suctioning as this can cause trauma to the lungs and cause swelling of the tissue - Use the pulse ox machine (oxygen levels) to help determine needs for suctioning. - If you develop shortness of breath or feel like there is more mucus you can use your BiPAP which can help with safe pressure in the lungs to help move secretions and keep the small airways open Follow-Up: - Please see your family doctor in 7-10 days for ongoing monitoring Current Hospital Diet Patient's current hospital diet: Regular Diet Discharge Diet Recommended Diet: Regular Diet Pending Studies Studies pending at discharge: no Medical Emergencies . Who to Call and When: Medical Emergencies: If at any time you feel your situation is an emergency, please call 911 immediately. . Non-Emergent Contact Non-Emergency issues call your: Primary Care Provider Call Non-Emergent contact if: you have a fever, your pain is concerning you, you have any medication questions . . "Provider Documentation" section prepared by Gabriela Kemp. . VTE Core Measure Inpt VTE Proph given/why not?: Unfractionated heparin SQ
[2017-01-03] MEDS ORDERED: AMOX1TAB43 PO (07:58)
[2017-01-03] MEDS ORDERED: AMOXICILLIN/CLAVULANATE TAB 875 MG TAB PO SCH (08:00)
[2017-01-03] MEDS: BACLOFEN TAB 20 MG TAB PO SCH ×2 (09:11→11:41)
[2017-01-03] MEDS: LACTOBACILLUS ACIDOPHILUS (FLORANEX) TAB PO SCH (09:11)
[2017-01-03] MEDS: ASPIRIN 81 MG ECTAB PO SCH (09:11)
[2017-01-03 11:23] VITALS: PULSE 76; O2SAT 100
[2017-01-03 11:31] VITALS: BP 165/90; PULSE 76; TEMP 36.5; O2SAT 100
--- NOTE | 2017-01-03 14:18 | Discharge Summary ---
Discharge Summary Date of Service Jan 03, 2017. Discharge Summary Admission Date: Dec 31, 2016 at 18:37 Discharge Date: Jan 03, 2017 Discharge Disposition: Home Principal Diagnosis: Hypoxia - Acute Respiratory Failure Problems/Secondary Diagnoses: 1. Quadriplegia 2. Diaphragmatic Paralysis S/P Tracheostomy Immunizations: Have You Had Influenza Vaccine: Yes Influenza Vaccine Date: May 03, 2010 History of Tetanus Vaccine?: No History of Pneumococcal: YES 1998 History of Hepatitis B Vaccine: No Procedures: 1. CHEST ONE VIEW PORTABLE FINDINGS: The cardiac and mediastinal contours remain stable. A tracheostomy tube is again visualized. There is mild prominence of the central pulmonary vasculature. Mild pulmonary venous hypertension is suspected. There is left lower lobe atelectasis/consolidation similar to the prior study.[ No pleural effusions are visualized. There is mild elevation left hemidiaphragm. IMPRESSION: 1. Stable left lower lobe atelectasis/consolidation 2. Suspected mild pulmonary venous hypertension. Consultations: 1. Pulmonology - Dr. Ervin and Estefany Hillman PA-C Medication Reconciliation New Medications: Amoxicillin & Pot Clavulanate (Amoxicillin/Clavulanate P) 1 Tab Tab 875 MG PO BIDM, #7 TAB Take one dose evening of 01/03 then resume twice a day on 01/04 Continued Medications: Acetaminophen (Tylenol) 500 Mg Tab 1000 MG PO Q6H PRN for Pain, TAB DO NOT EXCEED 3000 MG/DAY Albuterol Sulf (Proventil 0.083% 2.5MG/3ML) 2.5 Mg/3 Ml Nebu 2.5 MG NEB QID, EA Alendronate Sodium (Fosamax) 70 Mg Tab 70 MG PO WK TAKE THIS MEDICATION EVERY FRIDAY Ascorbic Acid (Vitamin C) 1,000 Mg Tab 1000 MG PO QPM Aspirin (Aspirin Ec) 81 Mg Tab 81 MG PO DAILY Azelastine Hcl (Astelin Nasal Downs) 200 Sprays/30 Ml Downs 1-2 SPRAYS URBAN BID PRN for Nasal Congestion, BTL Baclofen (Lioresal) 20 Mg Tab 40 MG PO QID Bisacodyl (Dulcolax) 10 Mg Sup [address] 2XWK, SUP ADMINISTER EVERY FRIDAY AND FRIDAY Cholecalciferol (Vitamin D) 400 Unit Tab 600 UNIT PO BID Dantrolene Sodium (Dantrolene Sodium) 100 Mg Cap 100 MG PO HS Ibuprofen (Advil) 200 Mg Tab 400-600 MG PO Q8 PRN for Pain or Fever, TAB Lactobacillus (Acidophilus) 1 Tab Tab 1 TAB PO DAILY Lorazepam (Lorazepam) 1 Mg Tab 1 MG PO DAILY PRN for Anxiety Montelukast Sodium (Montelukast Sodium) 10 Mg Tab 1 TAB PO DAILY for 30 Days, #30 TAB 5 Refills Multivitamin (Multivitamin) Tab 1 TAB PO DAILY, TAB Onabotulinumtoxina (Botox) 200 Unit Inj 600 UNITS SQ [id number] Discharge Exam REVIEW OF SYSTEMS Constitutional: No fever, No chills Respiratory: + sputum (with suctioning); Reports "rattling" secretions around trach Cardiovascular: No chest pain Abdomen: No pain, No nausea, No vomiting, No diarrhea, No constipation Male : No dysuria Neurologic: + paralysis (paraplegic) Physical Exam General Appearance: no apparent distress, + thin Eyes: sclerae normal ENT: hearing grossly normal Neck: supple, no JVD, trachea midline (tracheostomy present) currently closed without BiPAP use Respiratory/Chest: lungs clear, no respiratory distress, no accessory muscle use, + decreased breath sounds Cardiovascular: regular rate, rhythm, no gallop, no murmur Abdomen: normal bowel sounds, non tender, soft Extremities: no pedal edema, + pertinent finding (mildly contractured) Neurologic/Psychiatric: alert, oriented x 3 Skin: normal color, warm/dry Hospital Course ADMISSION: 45 y/o male Hx of C2 quadriplegia and diaphragmatic paralysis with a tracheostomy who presents to the ED for worsening SOB/hypoxia. Recently the pt has had issues with pneumonias and mucous plugging. Suction and PT was tried in the outpt setting prior to presenting to the ER however he remained hypoxic. He was additionally suctioned on arrival, received a breathing treatment and percussion and has moderately improved. He denies a new productive cough, CP or fevers. The pt required a bronchoscopy for similar symptoms during a recent admission. HOSPITAL COURSE: Mr. Patrick was admitted for acute respiratory failure with hypoxia that was unresponsive to his home routine of nebulizers and suctioning. He was initially placed on BiPAP which helped saturations. Pressure gradients assisted in a couple mucus plug removals during routine suctioning. He was weaned from supplemental O2 and placed on BiPAP at night which is his baseline. He was initially placed on Unasyn for concern of an aspiration component. Speech evaluations did not reveal aspiration. He was converted to Augmentin to complete a 7 day course of antibiotics. Pulmonology evaluated patient and no bronchoscopy was necessary during this admission. Of note, patient requests frequent suctioning and deep suctioning. Concern for barotrauma and too frequent suctioning at home. He does report getting anxious when he notices "rattling" in his chest and instantly wants suctioned. He also frequently asks to know his pulse ox saturations and multiple lung auscultation evaluations. He is afebrile, oxygenating adequately on room air, and is hemodynamically stable. He is optimal for D/C home with caregivers and outpatient follow-up. Total Time Spent: Greater than 30 minutes This includes examination of the patient, discharge planning, medication reconciliation, and communication with other providers. Discharge Instructions Please refer to the electronic Patient Visit Report (Discharge Instructions) for additional information. Additional Copies To Anna Blake MD
[2017-02-21] MEDS ORDERED: CEPH500C PO (10:22)
[2017-04-09] MEDS ORDERED: BACL20TA PO (11:29)
[2017-04-09] MEDS ORDERED: TYLOTC500 PO (11:29)
[2017-04-09] MEDS ORDERED: ALEN70TA4 PO (11:29)
[2017-04-09] MEDS ORDERED: CALC1CHW2 PO (13:18)
[2017-04-09] MEDS ORDERED: CLR10 PO (13:18)
[2017-04-09] MEDS ORDERED: LORA-741 PO ×2 (13:18→19:31)
[2017-04-09] MEDS ORDERED: IPRA0.03 NAE (13:18)
[2017-04-09] MEDS ORDERED: BISA10SU3 PR (13:49)
[2017-04-09] MEDS ORDERED: IBUP-1277 PO (14:23)
[2017-04-09] MEDS ORDERED: MULT-922 PO (14:46)
[2017-04-09] MEDS ORDERED: ASCO500C43 PO (14:49)
[2017-04-09] MEDS ORDERED: LACTTAB7 PO (14:49)
[2017-04-09] MEDS ORDERED: ASPI81TA28 PO (16:42)
== END 2017-01-03 12:51 | disposition home health service (06) | DRG 177 ==
LOC: EDBD 16:41 → C.EDC 16:42 → C.2T 18:37 → ENRESERV 18:49 → C.4E 01-01 13:27
PROVIDERS: ADMIT Internal Medicine; ATTEND Internal Medicine
DX: J69.0 Pneumonitis due to inhalation of food and vomit (principal); J96.21 Acute and chronic respiratory failure with hypoxia; G82.50 Quadriplegia, unspecified; F41.9 Anxiety disorder, unspecified; J39.8 Other specified diseases of upper respiratory tract; J98.6 Disorders of diaphragm; N31.9 Neuromuscular dysfunction of bladder, unspecified; Z86.14 Personal history of Methicillin resistant Staphylococcus aureus infection; Z93.0 Tracheostomy status; Z90.49 Acquired absence of other specified parts of digestive tract; Z88.2 Allergy status to sulfonamides; Z88.1 Allergy status to other antibiotic agents; Z79.82 Long term (current) use of aspirin; Z79.899 Other long term (current) drug therapy; Z80.9 Family history of malignant neoplasm, unspecified; Z83.3 Family history of diabetes mellitus; Z82.49 Family history of ischemic heart disease and other diseases of the circulatory system; Z83.79 Family history of other diseases of the digestive system

== ENCOUNTER 2017-01-22 12:27 | Emergency (ER) | payer OTHER ==
[~2017-01-22] VITALS: Ht 170.2 cm; Wt 57.0 kg
[~2017-01-22 12:27] MED LIST changes: +AMOX1TAB43 PO; +ATV1 PO; +BOTU200I SQ; -LORA-741 PO
[2017-01-22 12:36] VITALS: TEMP 37; Ht 170.2 cm; Wt 57.0 kg
[2017-01-22] MEDS ORDERED: NYST80OI TOP (13:18)
[2017-01-22] MEDS ORDERED: GUAI1LIQ PO (13:18)
[2017-01-22] MEDS ORDERED: EMOLOIN3 TOP (13:18)
--- NOTE | 2017-01-22 13:36 | EMERGENCY ROOM VISIT NOTE ---
ED Visit Note First contact with patient: 13:01 I have seen and examined this patient with Aliza Jacob and generally agree with the treatment plan as discussed. Problem List Medical Problems: (1) Acute And Chronic Respiratory Failure Status: Chronic (2) Anxiety disorder Status: Chronic (3) Fb Trach/Bronch/Lung Nec Status: Chronic (4) Hydronephrosis Status: Chronic (5) Quadriplegia, unspecified Status: Chronic Surgical Problems: (1) H/O tracheostomy Status: Resolved (2) History of cholecystectomy Status: Resolved (3) History of herniorrhaphy Status: Resolved Current/Historical Medications Scheduled Albuterol Sulf (Proventil 0.083% 2.5MG/3ML), 2.5 MG NEB QID Alendronate Sodium (Fosamax), 70 MG PO WK Aspirin (Aspirin Ec), 81 MG PO DAILY Baclofen (Lioresal), 40 MG PO QID Bisacodyl (Dulcolax), 1 SUPP NE 2XWK Calcium Carbonate-Vitamin D (Caltrate 600+D 600-400 mg-Unit), 1 TAB PO BID Dantrolene Sodium (Dantrolene Sodium), 100 MG PO HS Emollient (Aquaphor), 1 APPLN TOP NEEDED Nystatin (Topical) (Nystatin), 1 APPLN TOP BID Scheduled PRN Acetaminophen (Tylenol), 1,000 MG PO Q6H PRN for Pain Guaifenesin (Robitussin Mucus+Chest Co), 200-400 MG PO Q4H PRN for Cough Ibuprofen (Advil), 400-600 MG PO Q8 PRN for Pain or Fever Ipratropium [place] (Nasal) (Ipratropium [place]), 2 SPRAYS URBAN TID PRN for UNDECIDED Loratadine (Claritin), 10 MG PO DAILY PRN for ALLERGY SYMPTOMS Lorazepam (Ativan), 0.5 MG PO DAILY PRN for Anxiety Allergies Coded Allergies: Sulfa Antibiotics (Verified Allergy, Unknown, ., 12/31/16) Clarithromycin (Verified Adverse Reaction, Mild, "Confusion, Psych problems[facility] Confirmed with patient that he had confusion w/ Biaxin but he state he can take Biaxin XL without problem. Denies ever having a rash, pruritis. Vital Signs Date Time Temp Pulse Resp B/P (MAP) Pulse Ox O2 Delivery O2 Flow Rate FiO2 01/22/17 12:36 37.0 87 22 117/82 94 Room Air Departure Information Referrals Anna Blake MD (PCP) Patient Instructions My [facility]
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
[2017-01-22] MEDS ORDERED: OPTIRAY 320 IV PRN (14:00)
--- NOTE | 2017-01-22 14:00 | DIAGNOSTIC IMAGING REPORT ---
CHEST ONE VIEW PORTABLE CLINICAL HISTORY: increased secretions r/o PNA COMPARISON STUDY: 12/31/2016 FINDINGS: The study is mildly rotated. The tracheostomy tube is again visualized. The heart is the upper limits of normal in size. There is persistent left lower lobe atelectasis/consolidation. Bony venous hypertension is again suspected. There are possible lower lobe bronchiectatic changes of the right.[ IMPRESSION: 1. Persistent left lower lobe atelectasis/consolidation 2. Possible right lower lobe bronchiectasis 3. Stable pulmonary venous hypertension Electronically signed by: Austin Bhatt M.D. 01/22/2017 1:59 PM Dictated Date/Time: 01/22/2017 1:57 PM
[2017-01-22 14:37] LABS: BASO % 0.2 %; BASO ABS # 0.02 K/uL (0-0.2); COMPLETE YES; EOS % 2.8 %; HEMATOCRIT 42.8 % (42-52); IG% 0.2 %; LYMPH % 10.7 %; MEAN CORPUSCULAR HEMOGLOBIN 29.9 pg (25-34); MEAN CORPUSCULAR HGB CONC 32.5 g/dl (32-36); MONO % 5.4 %; NEUT % 80.7 %; PLATELET COUNT 244 K/uL (130-400); RED BLOOD COUNT 4.65 M/uL (4.7-6.1); WHITE BLOOD COUNT 12.13 K/uL (4.8-10.8)
[2017-01-22 14:58] LABS: BLOOD UREA NITROGEN 24 mg/dl (7-18); BUN/CREATININE RATIO 59.2 (10-20); CALCIUM 9.4 mg/dl (8.5-10.1); CARBON DIOXIDE 27 mmol/L (21-32); CHLORIDE 107 mmol/L (98-107); GLUCOSE 86 mg/dl (70-99); POTASSIUM 4.3 mmol/L (3.5-5.1); SODIUM 140 mmol/L (136-145)
--- NOTE | 2017-01-22 15:35 | DIAGNOSTIC IMAGING REPORT ---
CT PELVIS W/IV CONT ONLY (CT) CT DOSE: 695.78 mGycm CLINICAL HISTORY: Sacral wound. Possible abscess. TECHNIQUE: The patient was scanned in a dynamic helical fashion during intravenous administration of 117 cc of Optiray 320. COMPARISON STUDY: None. FINDINGS: There is a markedly trabeculated bladder. Several bladder diverticula are visualized. No free intraperitoneal air is visualized within the pelvis. There is no evidence of pathologic adenopathy. There are no fluid collections to indicate an abscess. The bones are severely osteopenic. No acute fractures are visualized. There is a midline sacral decubitus ulcer. There is absence of the sacrum distal to the fourth sacral segment. The findings could be secondary to either a prior sacral resection, or be secondary to sequela of osteomyelitis. Correlation with prior sacral surgery is recommended. If there is clinical concern of acute osteomyelitis, an MRI would be of benefit in follow-up. There is a 22 mm stippled sclerotic lesion within the proximal left femur, likely representing a chondroid lesion. There is partial ankylosis of the SI joints. IMPRESSION: 1. Markedly trabeculated bladder with bladder diverticula 2. Severe osteopenia 3. Sacral decubitus ulcer. No evidence of abscess 4. Absence of the sacrum distal to the fourth sacral segment. Diagnostic considerations include prior sacral resection, developmental absence, or the sequela of osteomyelitis. 5. Correlation with history of prior sacral surgery is recommended 6. If there is clinical concern over the presence of osteomyelitis, an MRI could be obtained in follow-up. Electronically signed by: Austin Bhatt M.D. 01/22/2017 3:34 PM Dictated Date/Time: 01/22/2017 3:24 PM
[2017-01-22 19:56] VITALS: BP 110/79; PULSE 68; O2SAT 95
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
[2017-02-21] MEDS ORDERED: CEPH500C PO (10:22)
[2017-04-09] MEDS ORDERED: BACL20TA PO (11:29)
[2017-04-09] MEDS ORDERED: TYLOTC500 PO (11:29)
[2017-04-09] MEDS ORDERED: ALEN70TA4 PO (11:29)
[2017-04-09] MEDS ORDERED: LORA-741 PO ×2 (13:18→19:31)
[2017-04-09] MEDS ORDERED: CALC1CHW2 PO (13:18)
[2017-04-09] MEDS ORDERED: CLR10 PO (13:18)
[2017-04-09] MEDS ORDERED: IPRA0.03 NAE (13:18)
[2017-04-09] MEDS ORDERED: BISA10SU3 PR (13:49)
[2017-04-09] MEDS ORDERED: IBUP-1277 PO (14:23)
[2017-04-09] MEDS ORDERED: MULT-922 PO (14:46)
[2017-04-09] MEDS ORDERED: LACTTAB7 PO (14:49)
[2017-04-09] MEDS ORDERED: ASCO500C43 PO (14:49)
[2017-04-09] MEDS ORDERED: ASPI81TA28 PO (16:42)
== END 2017-01-22 19:57 | disposition home or self-care (01) ==
LOC: EDBD 12:27 → C.EDB 12:28
DX: L89.159 Pressure ulcer of sacral region, unspecified stage (principal); G82.50 Quadriplegia, unspecified; Z87.01 Personal history of pneumonia (recurrent); Z87.440 Personal history of urinary (tract) infections; Z93.0 Tracheostomy status; Z90.49 Acquired absence of other specified parts of digestive tract; Z98.890 Other specified postprocedural states; Z83.3 Family history of diabetes mellitus; Z79.82 Long term (current) use of aspirin

== ENCOUNTER → 2017-02-13 | Outpatient (CLI) | payer OTHER ==
[~2017-02-13] MED LIST changes: +ALEN70TA4 PO; -AMOX1TAB43 PO; +AMOX875T PO; -ASCO10003 PO; +ASCO500C43 PO; +ASPI81TA28 PO; -ASTN NAE; -ATV1 PO; +BACL20TA PO; +BISA10SU3 PR; -BOTU200I SQ; +CALC1CHW2 PO; +CEPH500C PO; +CFP2IV IV; -CHOL400T PO; +CLR10 PO; +EMOLOIN3 TOP; +GUAI1LIQ PO; +IBUP-1277 PO; +IPRA0.03 NAE; +IPRASOL4 INH; +LORA-741 PO; -MONT1TAB5 PO; -MULT-506 PO; +MULT-922 PO; +NYST80OI TOP; +TYLOTC500 PO
--- NOTE | 2017-02-13 13:26 | DIAGNOSTIC IMAGING REPORT ---
Study: Fusion CT of the sinuses. HISTORY:: Recurrent sinusitis. FINDINGS: All major sinuses are clear. Hypertrophic change of the nasal turbinates. There is a component of nasal occlusive change. The ostiomeatal units are patent bilaterally. No evidence for bony destructive process. Mild nasal septal displacement to the left. IMPRESSION: 1. Hypertrophic change of the nasal turbinates creating components of nasal occlusive change. 2. All major sinuses are clear with the ostiomeatal units patent. 3. No evidence for bony destructive process. Electronically signed by: Geraldo Rosario M.D. 02/13/2017 1:25 PM Dictated Date/Time: 02/13/2017 1:23 PM
== END | disposition home or self-care (01) ==
LOC: C.CTS 12:45
DX: J01.91 Acute recurrent sinusitis, unspecified (principal)

== ENCOUNTER 2017-03-02 14:15 | Emergency (ER) | payer OTHER ==
[~2017-03-02] VITALS: Ht 170.2 cm; Wt 60.9 kg
[~2017-03-02 14:15] MED LIST changes: -ALEN70TA4 PO; -AMOX875T PO; -ASCO500C43 PO; -ASPI81TA28 PO; -BACL20TA PO; -BISA10SU3 PR; -CALC1CHW2 PO; -CFP2IV IV; -CLR10 PO; -IBUP-1277 PO; -IPRA0.03 NAE; -IPRASOL4 INH; -LACTTAB7 PO; -LORA-741 PO; -MULT-922 PO; -TYLOTC500 PO
[2017-03-02 14:23] VITALS: TEMP 36.8; Ht 170.2 cm; Wt 60.9 kg
[2017-03-02] MEDS ORDERED: IPRASOL4 INH (14:55)
--- NOTE | 2017-03-02 15:13 | DIAGNOSTIC IMAGING REPORT ---
ADDENDUM Addendum: Note is made of apparent lateral mid right thigh soft tissue swelling, a nonspecific finding. Electronically signed by: Scott Garibay M.D. 03/02/2017 3:25 PM Dictated Date/Time: 03/02/2017 3:24 PM ORIGINAL REPORT RIGHT FEMUR 2 VIEWS ROUTINE CLINICAL HISTORY: Right femur pain. COMPARISON: CT of the pelvis January 22, 2017. FINDINGS: Osteopenia is noted. There is no acute fracture or suspicious osseous lesion within the right femur. There is mild joint space narrowing and moderate osteophytosis of the right hip. There is no right knee joint effusion. Chronic deformity of the proximal right tibia is noted. IMPRESSION: 1. No acute fracture, osseous lesion or evidence of osteomyelitis within the right femur. 2. Moderate osteoarthritis of the right hip. 3. Osteopenia. 4. Chronic deformity of the proximal right tibia. Electronically signed by: Scott Garibay M.D. 03/02/2017 3:12 PM Dictated Date/Time: 03/02/2017 3:10 PM
--- NOTE | 2017-03-02 15:18 | DIAGNOSTIC IMAGING REPORT ---
RIGHT KNEE 1 OR 2 VIEWS ROUTINE CLINICAL HISTORY: Right knee swelling. COMPARISON: None FINDINGS: There is no right knee joint effusion. No acute fracture is present. Osteopenia is noted. There is chronic deformity of the proximal right tibia, most pronounced within the lateral metaphysis which suggests an old, healed fracture. IMPRESSION: 1. No acute fracture or joint effusion of the right knee. 2. Osteopenia and mild to moderate arthritis right knee. 3. Chronic deformity of the proximal right tibia which suggests an old, healed fracture. Electronically signed by: Scott Garibay M.D. 03/02/2017 3:16 PM Dictated Date/Time: 03/02/2017 3:12 PM
--- NOTE | 2017-03-02 16:51 | DIAGNOSTIC IMAGING REPORT ---
RIGHT LOWER EXTREMITY VENOUS DOPPLER CLINICAL HISTORY: Right lower extremity swelling. COMPARISON STUDY: Bilateral lower extremity venous Doppler July 03, 2010. TECHNIQUE: Sonography of the deep venous system of the right lower extremity was performed. Compression and augmentation were evaluated. FINDINGS: The right common femoral, superficial femoral and popliteal veins were compressible. Augmentation was normal. Flow was shown within the deep calf vessels. Sonography of the tissues adjacent to the right knee demonstrated no abnormality. IMPRESSION: No evidence of deep venous thrombus within the right lower extremity. Electronically signed by: Scott Garibay M.D. 03/02/2017 4:49 PM Dictated Date/Time: 03/02/2017 4:49 PM
[2017-03-02 18:00] VITALS: BP 174/112; PULSE 65; O2SAT 95
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
[2017-04-09] MEDS ORDERED: ALEN70TA4 PO (11:29)
[2017-04-09] MEDS ORDERED: TYLOTC500 PO (11:29)
[2017-04-09] MEDS ORDERED: BACL20TA PO (11:29)
[2017-04-09] MEDS ORDERED: CALC1CHW2 PO (13:18)
[2017-04-09] MEDS ORDERED: CLR10 PO (13:18)
[2017-04-09] MEDS ORDERED: IPRA0.03 NAE (13:18)
[2017-04-09] MEDS ORDERED: LORA-741 PO ×2 (13:18→19:31)
[2017-04-09] MEDS ORDERED: BISA10SU3 PR (13:49)
[2017-04-09] MEDS ORDERED: IBUP-1277 PO (14:23)
[2017-04-09] MEDS ORDERED: MULT-922 PO (14:46)
[2017-04-09] MEDS ORDERED: LACTTAB7 PO (14:49)
[2017-04-09] MEDS ORDERED: ASCO500C43 PO (14:49)
[2017-04-09] MEDS ORDERED: ASPI81TA28 PO (16:42)
== END 2017-03-02 18:00 | disposition home or self-care (01) ==
LOC: EDBD 14:15 → C.EDC 14:16
DX: M79.89 Other specified soft tissue disorders (principal); F41.9 Anxiety disorder, unspecified; G82.51 Quadriplegia, C1-C4 complete; Z83.3 Family history of diabetes mellitus; Z82.49 Family history of ischemic heart disease and other diseases of the circulatory system; Z79.82 Long term (current) use of aspirin

== ENCOUNTER 2017-03-26 13:22 | Emergency (ER) | payer OTHER ==
[~2017-03-26] VITALS: Ht 170.2 cm; Wt 62.7 kg
[~2017-03-26 13:22] MED LIST changes: -CEPH500C PO; +IPRASOL4 INH
[2017-03-26] MEDS ORDERED: SODIUM CHLORIDE 0.9% 1000ML 1,000 ML IV ONE (13:35)
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
[2017-03-26 13:42] VITALS: Ht 170.2 cm; Wt 62.7 kg
[2017-03-26 13:58] LABS: BASO % 0.2 %; BASO ABS # 0.02 K/uL (0-0.2); COMPLETE YES; EOS % 3.9 %; HEMATOCRIT 43.3 % (42-52); IG% 0.1 %; LYMPH % 14.3 %; LYMPH ABS # 1.18 K/uL (1.2-3.4); MEAN CELL VOLUME 91.9 fL (80-100); MEAN CORPUSCULAR HEMOGLOBIN 29.9 pg (25-34); MEAN CORPUSCULAR HGB CONC 32.6 g/dl (32-36); MEAN PLATELET VOLUME 10.5 fL (7.4-10.4); MONO % 6.5 %; PLATELET COUNT 201 K/uL (130-400); RED BLOOD COUNT 4.71 M/uL (4.7-6.1); WHITE BLOOD COUNT 8.28 K/uL (4.8-10.8)
[2017-03-26 14:04] VITALS: O2SAT 94
[2017-03-26 14:07] LABS: PARTIAL THROMBOPLASTIN RATIO 1.1; PROTHROMBIN TIME (PATIENT) 10.4 SECONDS (9.0-12.0)
--- NOTE | 2017-03-26 14:11 | DIAGNOSTIC IMAGING REPORT ---
CHEST ONE VIEW PORTABLE CLINICAL HISTORY: Sepsis dyspnea COMPARISON STUDY: 01/22/2017 FINDINGS: Mild improvement in cardiac size. Tracheostomy tube remains in good position. Pulmonary vasculature prominence is somewhat diminished. IMPRESSION: 1. Improved exam. 2. Mild improvement in the pulmonary vascular congestion as well as left basilar infiltrative change. The above report was generated using voice recognition software. It may contain grammatical, syntax or spelling errors. Electronically signed by: Geraldo Rosario M.D. 03/26/2017 2:10 PM Dictated Date/Time: 03/26/2017 2:09 PM
[2017-03-26 14:13] LABS: ALT/SGPT 23 U/L (12-78); AST/SGOT 15 U/L (15-37); BLOOD UREA NITROGEN 20 mg/dl (7-18); BUN/CREATININE RATIO 45.3 (10-20); CALCIUM 9.1 mg/dl (8.5-10.1); CARBON DIOXIDE 30 mmol/L (21-32); CHLORIDE 105 mmol/L (98-107); CREATININE 0.45 mg/dl (0.60-1.40); GLUCOSE 100 mg/dl (70-99); MAGNESIUM 2.2 mg/dl (1.8-2.4); POTASSIUM 3.9 mmol/L (3.5-5.1); SODIUM 140 mmol/L (136-145)
[2017-03-26 14:21] LABS: ALB/GLOB RATIO 0.9 (0.9-2); ALKALINE PHOSPHATASE 91 U/L (45-117); C-REACTIVE PROTEIN 3.44 mg/dl (0-0.29); CKMB/CK RATIO 2.4 (0-3.0)
[2017-03-26 15:11] LABS: URINE APPEARANCE CLEAR (CLEAR); URINE BILIRUBIN NEG (NEG); URINE COLOR YELLOW; URINE NITRITE NEG (NEG); URINE SPECIFIC GRAVITY 1.014 (1.000-1.030); UROBILINOGEN NEG (NEG); ZZUR CULT IF INDIC CLEAN CATCH YES
[2017-03-26 15:12] LABS: MANUAL MICROSCOPIC REQUIRED? NO; REVIEW REQ? NO
[2017-03-26 15:22] LABS: VEN BLOOD GAS BASE EXCESS 1.4 mEq/L
[2017-03-26] MEDS ORDERED: AMPICILLIN/SULBACTAM SOD INJ 3,000 MG in SODIUM CHLORIDE 0.9% 100ML 100 ML IV ONE (15:45)
[2017-03-26] MEDS ORDERED: AMOX875T PO (16:02)
[2017-03-26 17:02] VITALS: BP 124/89; PULSE 77; TEMP 36.9; O2SAT 93
[2017-04-09] MEDS ORDERED: BACL20TA PO (11:29)
[2017-04-09] MEDS ORDERED: ALEN70TA4 PO (11:29)
[2017-04-09] MEDS ORDERED: TYLOTC500 PO (11:29)
[2017-04-09] MEDS ORDERED: LORA-741 PO ×2 (13:18→19:31)
[2017-04-09] MEDS ORDERED: CALC1CHW2 PO (13:18)
[2017-04-09] MEDS ORDERED: CLR10 PO (13:18)
[2017-04-09] MEDS ORDERED: IPRA0.03 NAE (13:18)
[2017-04-09] MEDS ORDERED: BISA10SU3 PR (13:49)
[2017-04-09] MEDS ORDERED: IBUP-1277 PO (14:23)
[2017-04-09] MEDS ORDERED: MULT-922 PO (14:46)
[2017-04-09] MEDS ORDERED: ASCO500C43 PO (14:49)
[2017-04-09] MEDS ORDERED: LACTTAB7 PO (14:49)
[2017-04-09] MEDS ORDERED: ASPI81TA28 PO (16:42)
== END 2017-03-26 19:10 | disposition home or self-care (01) ==
LOC: EDBD 13:22 → C.EDC 13:24
DX: J40 Bronchitis, not specified as acute or chronic (principal); J18.9 Pneumonia, unspecified organism; G82.50 Quadriplegia, unspecified; Z87.440 Personal history of urinary (tract) infections; Z93.0 Tracheostomy status; Z80.9 Family history of malignant neoplasm, unspecified; Z83.79 Family history of other diseases of the digestive system; Z82.49 Family history of ischemic heart disease and other diseases of the circulatory system; Z83.3 Family history of diabetes mellitus; Z79.82 Long term (current) use of aspirin; Z79.899 Other long term (current) drug therapy

== ENCOUNTER → 2017-04-03 | Outpatient (CLI) | payer OTHER ==
[~2017-04-03] MED LIST changes: +ALEN70TA4 PO; +AMOX875T PO; +ASCO500C43 PO; +ASPI81TA28 PO; +BACL20TA PO; +BISA10SU3 PR; +CALC1CHW2 PO; +CFP2IV IV; +CLR10 PO; -EMOLOIN3 TOP; -GUAI1LIQ PO; +IBUP-1277 PO; +IPRA0.03 NAE; -IPRASOL4 INH; +LACTTAB7 PO; +LORA-741 PO; +MULT-922 PO; -NYST80OI TOP; +TYLOTC500 PO
== END | disposition home or self-care (01) ==
LOC: C.LABSPEC 10:25
PROVIDERS: ATTEND Physician Assistant
DX: J18.9 Pneumonia, unspecified organism (principal)

== ENCOUNTER 2017-04-09 17:27 | Inpatient (IN) | payer OTHER ==
[~2017-04-09] VITALS: Ht 170.2 cm; Wt 61.0 kg
[~2017-04-09 17:27] MED LIST changes: -AMOX875T PO; -CFP2IV IV
[2017-04-09] MEDS ORDERED: PIPERACILLIN/TAZOBACTAM 4.5 GM/100ML D5W IV STA (18:12)
[2017-04-09] MEDS ORDERED: SODIUM CHLORIDE 0.9% 1000ML 1,000 ML IV STA (18:12)
--- NOTE | 2017-04-09 18:14 | EMERGENCY ROOM VISIT NOTE ---
History Report prepared by Sivakumar: Rosa Castro Under the Supervision of: Dr. Josef Worthy M.D. First contact with patient: 17:32 Stated Complaint: FLUID IN LUNGS History of Present Illness The patient is a 46 year old white male with a past medical history of pneumonia , quadriplegia, tracheostomy, decubitus ulcers who presents to the ED with a cc of worsening pneumonia beginning 1 week ago. He was referred to the ED by his doctor. Positive thick yellow sputum. Negative bleeding, fever, chills. He has been on an antibiotic for the past week for pneumonia. Source of History: patient Onset: 1 week ago Position: other (global) Quality: other (pneumonia) Timing: worsening Associated Symptoms: No fevers, No chills Note: Pt reports think yellow sputum from tracheostomy. Review of Systems See HPI for pertinent positives and negatives. A total of ten systems were reviewed and were otherwise negative. Past Medical & Surgical Medical Problems: (1) Acute And Chronic Respiratory Failure (2) Anxiety disorder (3) Bacterial infection due to Pseudomonas (4) Chronic complete flaccid quadriplegia (5) Fb Trach/Bronch/Lung Nec (6) Hydronephrosis (7) Left lower lobe pneumonia (8) Mucus plugging of bronchi (9) Quadriplegia, unspecified (10) Tracheostomy complication, unspecified (11) UTI (urinary tract infection) Surgical Problems: (1) H/O tracheostomy (2) History of cholecystectomy (3) History of herniorrhaphy Family History Cancer Diabetes mellitus Gallbladder disease Heart disease Social History Smoking Status: Never Smoker Drug Use: none Marital Status: single Housing Status: lives alone Occupation Status: disabled Current/Historical Medications Scheduled Alendronate Sodium (Fosamax), 70 MG PO WK Amoxicillin & Pot Clavulanate (Augmentin 875-125 mg), 1 TAB PO BID Ascorbic Acid (Vitamin C 500 mg), 1,000 MG PO 1600 Aspirin (Aspirin Ec), 81 MG PO QAM Baclofen (Lioresal), 40 MG PO QID Bisacodyl (Dulcolax), 1 SUPP NE 2XWK Calcium Carbonate-Vitamin D (Caltrate 600+D 600-400 mg-Unit), 1 TAB PO BID Dantrolene Sodium (Dantrolene Sodium), 100 MG PO QPM Ipratropium [place] (Nasal) (Ipratropium [place]), 2 SPRAYS URBAN TID Lactobacillus (Acidophilus), 1 TAB PO 1200 Loratadine (Claritin), 10 MG PO QAM Lorazepam (Ativan), 0.5 MG PO QAM Multiple Vitamins W/ Minerals (Multivitamin Adults), 1 TAB PO 1200 Scheduled PRN Acetaminophen (Tylenol), 1,000 MG PO Q6H PRN for Pain Albuterol Sulf (Proventil 0.083% 2.5MG/3ML), 2.5 MG NEB QID PRN for Wheezing Ibuprofen (Advil), 400-600 MG PO Q8 PRN for Pain or Fever Lorazepam (Ativan), 0.5 MG PO DAILY PRN for Anxiety Allergies Coded Allergies: Amoxicillin (Verified Allergy, Unknown, UNKNOWN, 04/09/17) Macrolides and Ketolides (Verified Allergy, Unknown, UNKNOWN, 04/09/17) Sulfa Antibiotics (Verified Allergy, Unknown, ., 03/26/17) Clarithromycin (Verified Adverse Reaction, Mild, "Confusion, Psych problems" per [facility] records, 03/26/17) Confirmed with patient that he had confusion w/ Biaxin but he state he can take Biaxin XL without problem. Denies ever having a rash, pruritis. Physical Exam Vital Signs Date Time Temp Pulse Resp B/P (MAP) Pulse Ox O2 Delivery O2 Flow Rate FiO2 04/09/17 20:11 71 21 135/98 96 Room Air 04/09/17 18:58 81 14 124/76 95 Room Air 04/09/17 17:36 37.1 78 14 147/92 93 Room Air Physical Exam GENERAL: Awake, alert, well-appearing, NAD, urinary catheter in place. HENT: Normocephalic, atraumatic. EYES: Normal conjunctiva. Sclera non-icteric. NECK: Supple. No nuchal rigidity. FROM. RESPIRATORY: CTAB, no rhonchi, wheezing, crackles, mildly tachypneic, 6 jordanian Shiley in anterior neck currently capped. CARDIAC: RRR, no MRG ABDOMEN: Soft, NTND, BS+ MSK: No chest wall TTP, no LE edema NEURO: GCS 15, CN 2-12 intact, moves all 4s on command SKIN: No rash or jaundice noted. No sacral decubitus ulcers. Medical Decision & Procedures ER Provider Diagnostic Interpretation: Radiology results as stated below per my review and radiologist interpretation: CHEST ONE VIEW PORTABLE CLINICAL HISTORY: Respiratory failure. Purulent sputum. COMPARISON STUDY: 03/26/2017 FINDINGS: The heart is borderline enlarged. A tracheostomy tube is again visualized. There is no overt failure. There are left basal airspace opacities, possibly representing a pneumonitis.[ No pleural effusions are visualized. IMPRESSION: Left basilar airspace opacities, possibly representing a pneumonitis. Electronically signed by: Austin Bhatt M.D. 04/09/2017 7:18 PM Dictated Date/Time: 04/09/2017 7:17 PM Laboratory Results 04/09/17 18:31 Red Blood Count 4.85, Mean Corpuscular Volume 92.4, Mean Corpuscular Hemoglobin 29.5, Mean Corpuscular Hemoglobin Concent 31.9, Mean Platelet Volume 10.8, Neutrophils (%) (Auto) 78.3, Lymphocytes (%) (Auto) 13.4, Monocytes (%) (Auto) 4.3, Eosinophils (%) (Auto) 3.4, Basophils (%) (Auto) 0.3, Neutrophils # (Auto) 7.71, Lymphocytes # (Auto) 1.32, Monocytes # (Auto) 0.42, Eosinophils # (Auto) 0.33, Basophils # (Auto) 0.03 04/09/17 18:31 Test 04/09/17 18:31 04/09/17 18:48 White Blood Count 9.84 K/uL (4.8-10.8) Red Blood Count 4.85 M/uL (4.7-6.1) Hemoglobin 14.3 g/dL (14.0-18.0) Hematocrit 44.8 % (42-52) Mean Corpuscular Volume 92.4 fL (80-100) Mean Corpuscular Hemoglobin 29.5 pg (25-34) Mean Corpuscular Hemoglobin Concent 31.9 g/dl (32-36) Platelet Count 245 K/uL (130-400) Mean Platelet Volume 10.8 fL (7.4-10.4) Neutrophils (%) (Auto) 78.3 % Lymphocytes (%) (Auto) 13.4 % Monocytes (%) (Auto) 4.3 % Eosinophils (%) (Auto) 3.4 % Basophils (%) (Auto) 0.3 % Neutrophils # (Auto) 7.71 K/uL (1.4-6.5) Lymphocytes # (Auto) 1.32 K/uL (1.2-3.4) Monocytes # (Auto) 0.42 K/uL (0.11-0.59) Eosinophils # (Auto) 0.33 K/uL (0-0.5) Basophils # (Auto) 0.03 K/uL (0-0.2) RDW Standard Deviation 45.8 fL (36.4-46.3) RDW Coefficient of Variation 13.5 % (11.5-14.5) Immature Granulocyte % (Auto) 0.3 % Immature Granulocyte # (Auto) 0.03 K/uL (0.00-0.02) Anion Gap 3.0 mmol/L (3-11) Est Creatinine Clear Calc Drug Dose 172.8 ml/min Estimated GFR () > 150.0 Estimated GFR (Non- 132.6 BUN/Creatinine Ratio 41.9 (10-20) Calcium Level 9.0 mg/dl (8.5-10.1) Venous Blood pH 7.36 (7.36-7.41) Venous Blood Partial Pressure CO2 57 mmHg (38.0-50.0) Venous Blood Partial Pressure O2 34 mmHg Venous Blood HCO3 32 mmol/L Venous Blood Oxygen Saturation 64.7 % Venous Blood Base Excess 4.6 mEq/L Laboratory results reviewed by me Medications Administered Medications (Trade) Dose Ordered Sig/Ashanti Route Start Time Stop Time Status Last Admin Dose Admin Sodium Chloride 1,000 ml @ 999 mls/hr Q1H1M STAT IV 04/09/17 18:12 04/09/17 19:12 DC 04/09/17 18:53 999 MLS/HR Cefepime HCl 2000 mg/Dextrose 112.5 ml @ 200 mls/hr ONE STAT IV 04/09/17 18:16 04/09/17 18:49 DC 04/09/17 18:51 200 MLS/HR ECG Indication: SOB/dyspnea Rate (beats per minute): 80 Rhythm: normal sinus Findings: other (normal intervals, no STS changes or TWI, right axis deviation) ED Course 1756: The patient was evaluated in room C10. A complete history and physical exam was performed. 1933: I discussed the patient's case with Dr. Middleton [facility] hospital[facility]. The patient will be evaluated for further treatment and disposition. 1950: Upon reexamination, the patient was stable. I discussed the test results and treatment plan with him. The patient will be evaluated for further management. Medical Decision Differential diagnosis: Etiologies such as infections, reactive airway disease, pneumonia, pneumothorax , COPD, CHF, cardiac ischemia, pulmonary embolism, musculoskeletal, gastrointestinal, as well as others were entertained. The patient is a 46 year old white male with a past medical history of pneumonia , quadriplegia, tracheostomy, decubitus ulcers who presents to the ED with a cc of worsening pneumonia beginning 1 week ago. Patient was seen and evaluated at the bedside. Patient had been having more productive.-appearing sputum when suctioned. Patient does have 24-hour care. Patient has complained of some mild increases in difficulty with breathing. Patient does see his primary loss prevention representative to call them and told her to return to the ER. Upon further evaluation of the electronic medical record patient did have a recent Pseudomonas positive Gram stain and culture. This was sensitive to cefepime as this was initiated. Patient's white blood cell count was 9000. Patient's lactate was within normal limits. Patient's gas fairly unremarkable. Patient was given IV fluids and was admitted to the medicine service. Medication Reconcilliation Current Medication List: was personally reviewed by me Blood Pressure Screening Patient's blood pressure: Normal blood pressure Blood pressure disposition: Did not require urgent referral Consults Time Called: 1929 Consulting Physician: Dr. Middleton [facility] hospitalist Returned Call: [phone] Discussed the patient's case. The patient will be evaluated for further treatment and disposition. Impression Primary Impression: Pneumonia Scribe Attestation The scribe's documentation has been prepared under my direction and personally reviewed by me in its entirety. I confirm that the note above accurately reflects all work, treatment, procedures, and medical decision making performed by me. Departure Information Dispostion Being Evaluated By Hospitalist Referrals Anna Blake MD (PCP) Problem Qualifiers Primary Impression: Pneumonia Pneumonia type: due to Pseudomonas Laterality: left Lung location: unspecified part of lung Qualified Codes: J15.1 - Pneumonia due to Pseudomonas
[2017-04-09] MEDS ORDERED: LEVAQUIN 750MG / 150ML D5W IV ONE (18:15)
[2017-04-09] MEDS ORDERED: CEFEPIME IV 2,000 MG in DEXTROSE 5% 100ML 100 ML IV STA (18:16)
[2017-04-09] MEDS ORDERED: DANT100C PO (18:48)
[2017-04-09 18:53] LABS: BASO % 0.3 %; BASO ABS # 0.03 K/uL (0-0.2); COMPLETE YES; EOS % 3.4 %; HEMATOCRIT 44.8 % (42-52); IG% 0.3 %; LYMPH % 13.4 %; LYMPH ABS # 1.32 K/uL (1.2-3.4); MEAN CELL VOLUME 92.4 fL (80-100); MEAN CORPUSCULAR HEMOGLOBIN 29.5 pg (25-34); MEAN CORPUSCULAR HGB CONC 31.9 g/dl (32-36); MEAN PLATELET VOLUME 10.8 fL (7.4-10.4); MONO % 4.3 %; NEUT % 78.3 %; PLATELET COUNT 245 K/uL (130-400); RED BLOOD COUNT 4.85 M/uL (4.7-6.1); WHITE BLOOD COUNT 9.84 K/uL (4.8-10.8)
[2017-04-09 19:00] LABS: VEN BLD GAS O2 SATURATION 64.7 %; VEN BLOOD GAS BASE EXCESS 4.6 mEq/L
[2017-04-09 19:13] LABS: BLOOD UREA NITROGEN 19 mg/dl (7-18); BUN/CREATININE RATIO 41.9 (10-20); CARBON DIOXIDE 32 mmol/L (21-32); CHLORIDE 103 mmol/L (98-107); CREATININE 0.46 mg/dl (0.60-1.40); GLUCOSE 92 mg/dl (70-99); POTASSIUM 4.1 mmol/L (3.5-5.1); SODIUM 138 mmol/L (136-145)
--- NOTE | 2017-04-09 19:19 | DIAGNOSTIC IMAGING REPORT ---
CHEST ONE VIEW PORTABLE CLINICAL HISTORY: Respiratory failure. Purulent sputum. COMPARISON STUDY: 03/26/2017 FINDINGS: The heart is borderline enlarged. A tracheostomy tube is again visualized. There is no overt failure. There are left basal airspace opacities, possibly representing a pneumonitis.[ No pleural effusions are visualized. IMPRESSION: Left basilar airspace opacities, possibly representing a pneumonitis. Electronically signed by: Austin Bhatt M.D. 04/09/2017 7:18 PM Dictated Date/Time: 04/09/2017 7:17 PM
[2017-04-09] MEDS ORDERED: AMOX875T PO (19:29)
[2017-04-09] MEDS ORDERED: LORA-741 PO (19:31)
[2017-04-09] MEDS ORDERED: ONDANSETRON INJ 2 MG/ML 2 ML VIAL IV PRN (20:15)
--- NOTE | 2017-04-09 20:20 | History and Physical ---
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 He was having increased secretions over the last week, saw his Transport Tank Technician Dr Goode, and was placed on Augmentin. He felt somewhat better, but still has lots of secretions. He denies fevers, chest pain, or worsening shortness of breath. He wears BiPAP at nighttime and uses nebulizers frequently. He is coping at home ok, but his sister requests extra help from home health nurses to evaluate his lung status more often. Past Medical/Surgical History Medical Problems: (1) Acute And Chronic Respiratory Failure Status: Chronic (2) Anxiety disorder Status: Chronic (3) Fb Trach/Bronch/Lung Nec Status: Chronic (4) Hydronephrosis Status: Chronic (5) Quadriplegia, unspecified Status: Chronic Surgical Problems: (1) H/O tracheostomy Status: Resolved (2) History of cholecystectomy Status: Resolved (3) History of herniorrhaphy Status: Resolved Family History Cancer Diabetes mellitus Gallbladder disease Heart disease Social History Smoking Status: Never Smoker Smokeless Tobacco Use: No Alcohol Use: none Drug Use: none Marital Status: single Occupational Status: disabled Immunizations History of Influenza Vaccine: Yes Influenza Vaccine Date: May 03, 2010 History of Tetanus Vaccine?: No History of Pneumococcal: YES 1998 History of Hepatitis B Vaccine: No Multi-Drug Resistant Organisms History of MDRO: No Allergies Coded Allergies: Amoxicillin (Verified Allergy, Unknown, UNKNOWN, 04/09/17) Macrolides and Ketolides (Verified Allergy, Unknown, UNKNOWN, 04/09/17) Sulfa Antibiotics (Verified Allergy, Unknown, ., 03/26/17) Clarithromycin (Verified Adverse Reaction, Mild, "Confusion, Psych problems" per [facility] records, 03/26/17) Confirmed with patient that he had confusion w/ Biaxin but he state he can take Biaxin XL without problem. Denies ever having a rash, pruritis. Home Medications Scheduled Alendronate Sodium (Fosamax), 70 MG PO WK Amoxicillin & Pot Clavulanate (Augmentin 875-125 mg), 1 TAB PO BID Ascorbic Acid (Vitamin C 500 mg), 1,000 MG PO 1600 Aspirin (Aspirin Ec), 81 MG PO QAM Baclofen (Lioresal), 40 MG PO QID Bisacodyl (Dulcolax), 1 SUPP DC 2XWK Calcium Carbonate-Vitamin D (Caltrate 600+D 600-400 mg-Unit), 1 TAB PO BID Dantrolene Sodium (Dantrolene Sodium), 100 MG PO QPM Ipratropium [place] (Nasal) (Ipratropium [place]), 2 SPRAYS URBAN TID Lactobacillus (Acidophilus), 1 TAB PO 1200 Loratadine (Claritin), 10 MG PO QAM Lorazepam (Ativan), 0.5 MG PO QAM Multiple Vitamins W/ Minerals (Multivitamin Adults), 1 TAB PO 1200 Scheduled PRN Acetaminophen (Tylenol), 1,000 MG PO Q6H PRN for Pain Albuterol Sulf (Proventil 0.083% 2.5MG/3ML), 2.5 MG NEB QID PRN for Wheezing Ibuprofen (Advil), 400-600 MG PO Q8 PRN for Pain or Fever Lorazepam (Ativan), 0.5 MG PO DAILY PRN for Anxiety Review of Systems See HPI for pertinent positives & negatives. A total of 10 systems reviewed and were otherwise negative. Physical Exam Vital Signs Date Time Temp Pulse Resp B/P (MAP) Pulse Ox O2 Delivery O2 Flow Rate FiO2 04/09/17 20:11 71 21 135/98 96 Room Air 04/09/17 18:58 81 14 124/76 95 Room Air 04/09/17 17:36 37.1 78 14 147/92 93 Room Air General Appearance: WD/WN, no apparent distress, + thin Head: normocephalic, atraumatic Eyes: normal inspection ENT: hearing grossly normal Neck: supple, no JVD Respiratory/Chest: + accessory muscle use, + pertinent finding (tracheostomy in place. able to speak in full sentences. intermittent wheeze.) Cardiovascular: regular rate, rhythm, no murmur, normal peripheral pulses Abdomen/GI: non tender, soft Back: no CVA tenderness, no muscle spasm Extremities/Musculoskelatal: no calf tenderness, no pedal edema, + pertinent finding (legs thin, flexed ) Neurologic/Psych: alert, normal mood/affect Skin: no rash Diagnostics Laboratory Results Results Past 24 Hours Test 04/09/17 18:31 04/09/17 18:48 Range/Units White Blood Count 9.84 4.8-10.8 K/uL Red Blood Count 4.85 4.7-6.1 M/uL Hemoglobin 14.3 14.0-18.0 g/dL Hematocrit 44.8 42-52 % Mean Corpuscular Volume 92.4 80-100 fL Mean Corpuscular Hemoglobin 29.5 25-34 pg Mean Corpuscular Hemoglobin Concent 31.9 32-36 g/dl Platelet Count 245 130-400 K/uL Mean Platelet Volume 10.8 7.4-10.4 fL Neutrophils (%) (Auto) 78.3 % Lymphocytes (%) (Auto) 13.4 % Monocytes (%) (Auto) 4.3 % Eosinophils (%) (Auto) 3.4 % Basophils (%) (Auto) 0.3 % Neutrophils # (Auto) 7.71 1.4-6.5 K/uL Lymphocytes # (Auto) 1.32 1.2-3.4 K/uL Monocytes # (Auto) 0.42 0.11-0.59 K/uL Eosinophils # (Auto) 0.33 0-0.5 K/uL Basophils # (Auto) 0.03 0-0.2 K/uL RDW Standard Deviation 45.8 36.4-46.3 fL RDW Coefficient of Variation 13.5 11.5-14.5 % Immature Granulocyte % (Auto) 0.3 % Immature Granulocyte # (Auto) 0.03 0.00-0.02 K/uL Sodium Level 138 136-145 mmol/L Potassium Level 4.1 3.5-5.1 mmol/L Chloride Level 103 98-107 mmol/L Carbon Dioxide Level 32 21-32 mmol/L Anion Gap 3.0 3-11 mmol/L Blood Urea Nitrogen 19 7-18 mg/dl Creatinine 0.46 0.60-1.40 mg/dl Est Creatinine Clear Calc Drug Dose 172.8 ml/min Estimated GFR () > 150.0 Estimated GFR (Non- 132.6 BUN/Creatinine Ratio 41.9 10-20 Random Glucose 92 70-99 mg/dl Calcium Level 9.0 8.5-10.1 mg/dl Venous Blood pH 7.36 7.36-7.41 Venous Blood Partial Pressure CO2 57 38.0-50.0 mmHg Venous Blood Partial Pressure O2 34 mmHg Venous Blood HCO3 32 mmol/L Venous Blood Oxygen Saturation 64.7 % Venous Blood Base Excess 4.6 mEq/L Microbiology Results 04/09/17 Blood Culture, Received Pending 04/09/17 Blood Culture, Received Pending Diagnostic Radiology CXR IMPRESSION: Left basilar airspace opacities, possibly representing a pneumonitis. Impression Assessment and Plan 46 yo patient s/p tracheostomy with increased secretions, found to have pseudomonas in his sputum Pseudomonas pneumonia Cefepime Vancomycin Pulm consulted [place] BiPAP at night Quadriplegia Continue Baclofen Case Mx consult for extra help at home Dispo: Tele Full code Attending Addendum: I have physically seen and examined this patient, have directed the resident's medical activities, and agree with the H&P as noted above with the following exceptions as noted. The patient is awake, alert and oriented 3, normocephalic and atraumatic, lying in bed and in no acute distress. HEENT--PERRL, EOMI, mucous membranes and oropharynx moist. Neck--supple, no JVD or bruits, thyroid normal, trached. no adenopathy. Heart--normal S1 and S2, no extra beats, no murmurs, rubs or gallops. Lungs-- few coarse breath sounds with scattered wheezes, decreased breath sounds left base, mild respiratory distress with accessory muscle use. Abdomen--normal bowel sounds and soft, nontender and nondistended, no hernias or masses, no organomegaly. Extremities--no cyanosis, clubbing or edema. There are good distal pulses b/l. Dermatologic--normal skin turgor, normal color, warm and dry, no abnormal lymph nodes, no rash. Neurologic--cranial nerves II through XII grossly intact. Rheumatologic--expected wasting, with flexion. Psychiatric--normal affect. Assessment and Plan: Left lower lobe pneumonia/history of Pseudomonas-- Admit to the telemetry unit for close oxygen monitoring and trach care. Vancomycin IV, cefepime IV. Duonebs every 4 hours while awake and every 2 hours when necessary. BiPAP at bedtime. Consult Dr. Goode his sales development manager. Quadriplegia-- Continue usual medications. Level of Care Telemetry Advanced Directives Existing Advance Directive: No Resuscitation Status FULL RESUSCITATION VTE Prophylaxis VTE Risk Assessment Done? Y/N: Yes Risk Level: Moderate Given or contraindicated: Contraindicated Resident Tracking Resident Involvement: Resident Care Provided Care Provided: Adult Hospital Medicine
[2017-04-09] MEDS ORDERED: VANCOMYCIN INJ 1,000 MG in SODIUM CHLORIDE 0.9% 250ML 250 ML IV SCH (21:00)
[2017-04-09] MEDS ORDERED: VANCOMYCIN CONSULT ACTIVE PRN (21:15)
[2017-04-09] MEDS ORDERED: VANCOMYCIN INJ 1,500 MG in SODIUM CHLORIDE 0.9% 500ML 500 ML IV SCH (21:30)
[2017-04-09 21:45] VITALS: BP 170/67; PULSE 79; TEMP 36.7; O2SAT 94; Ht 170.2 cm; Wt 61.0 kg
[2017-04-09 21:48] VITALS: PULSE 89; O2SAT 98
--- NOTE | 2017-04-09 21:51 | Pharmacy Progress Note ---
Pharmacy Abx Initial Consult Date of Service Apr 09, 2017. Pharmacy Dosing Scope Date of Consult: 04/09/17 Consultation requested by: Dr. Middleton Pharmacy is consulted to initiate Vancomycin IV dosing therapy for pneumonia in quadriplegic patient, order appropriate labs and adjust drug dose/frequency. Subjective The patient is a 46 year old male admitted on Apr 09, 2017 at 20:20. Objective Height (Feet): 5 Height (Inches): 7.00 Weight (Kilograms): 62.200 Vital Signs (Past 12Hrs) Vital Signs Past 12 Hours Date Time Temp Pulse Resp B/P (MAP) Pulse Ox O2 Delivery O2 Flow Rate FiO2 04/09/17 20:57 82 27 135/98 93 04/09/17 20:45 82 24 135/98 93 Room Air 04/09/17 20:11 71 21 135/98 96 Room Air 04/09/17 18:58 81 14 124/76 95 Room Air 04/09/17 17:36 37.1 78 14 147/92 93 Room Air Lab Results (24Hrs) Laboratory Tests (24 Hours) Test 04/09/17 18:31 White Blood Count 9.84 K/uL (4.8-10.8) Red Blood Count 4.85 M/uL (4.7-6.1) Hemoglobin 14.3 g/dL (14.0-18.0) Hematocrit 44.8 % (42-52) Mean Corpuscular Volume 92.4 fL (80-100) Mean Corpuscular Hemoglobin 29.5 pg (25-34) Mean Corpuscular Hemoglobin Concent 31.9 g/dl (32-36) L Platelet Count 245 K/uL (130-400) Mean Platelet Volume 10.8 fL (7.4-10.4) H Neutrophils (%) (Auto) 78.3 % Lymphocytes (%) (Auto) 13.4 % Monocytes (%) (Auto) 4.3 % Eosinophils (%) (Auto) 3.4 % Basophils (%) (Auto) 0.3 % Neutrophils # (Auto) 7.71 K/uL (1.4-6.5) H Lymphocytes # (Auto) 1.32 K/uL (1.2-3.4) Monocytes # (Auto) 0.42 K/uL (0.11-0.59) Eosinophils # (Auto) 0.33 K/uL (0-0.5) Basophils # (Auto) 0.03 K/uL (0-0.2) Micro Results Date/Time Source Procedure Growth Status 04/09/17 18:49 Blood Blood Culture Pending Received 04/09/17 18:31 Blood Blood Culture Pending Received Assessment & Plan Assessment 46 year old quadriplegic male Plan Pharmacy has been consulted for treatment of pneumonia Vancomycin IV * Loading dose: 1500 mg (25 mg/kg) * Maintenance dose: 1000 mg IV (15 mg/kg) every 12 hours * Goal trough level for pneumonia : 15 to 20 mcg/mL * Trough level ordered for 04/11/17 ~30 minutes before the 4th maintenance dose Pharmacy will continue to follow and will adjust dose/frequency as necessary. Thank you.
[2017-04-09] MEDS: DANTROLENE SODIUM 25 MG CAP PO SCH (22:09)
[2017-04-09] MEDS: BACLOFEN TAB 20 MG TAB PO SCH (22:09)
[2017-04-09] MEDS: IPRATROPIUM BROMIDE NASAL SPRAY 0.06% 15ML INH SCH (22:10)
[2017-04-09] MEDS: ALBUT/IPRATROP 3MG/0.5MG NEB 3 ML VIAL INH SCH (22:41)
[2017-04-09 22:42] VITALS: PULSE 74; O2SAT 99
[2017-04-10] VITALS (13 sets, daily range): BP systolic 92–155; BP diastolic 59–85; PULSE 54–80; TEMP 36.5–37.1; O2SAT 93–100
[2017-04-10] MEDS: CEFEPIME IV 2,000 MG in DEXTROSE 5% 100ML 100 ML IV SCH ×3 (01:52→18:17)
[2017-04-10 07:16] LABS: CREATININE 0.27 mg/dl (0.60-1.40)
[2017-04-10] MEDS: ALBUT/IPRATROP 3MG/0.5MG NEB 3 ML VIAL INH SCH ×4 (07:19→19:42)
[2017-04-10] MEDS: VANCOMYCIN INJ 1,000 MG in SODIUM CHLORIDE 0.9% 250ML 250 ML IV SCH ×2 (09:00→22:15)
[2017-04-10] MEDS: LORAZEPAM 0.5 MG TAB PO SCH (09:01)
[2017-04-10] MEDS: IPRATROPIUM BROMIDE NASAL SPRAY 0.06% 15ML INH SCH ×3 (09:01→22:21)
[2017-04-10] MEDS: LORATADINE 10 MG TAB PO SCH (09:03)
[2017-04-10] MEDS: ASPIRIN 81 MG ECTAB PO SCH (09:03)
[2017-04-10] MEDS: BACLOFEN TAB 20 MG TAB PO SCH ×4 (09:05→22:21)
[2017-04-10] MEDS: LACTOBACILLUS ACIDOPHILUS (FLORANEX) TAB PO SCH (11:52)
[2017-04-10] MEDS: CEROVITE ADV FORMULA TAB PO SCH (11:52)
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
--- NOTE | 2017-04-10 13:29 | Hospitalist Progress Note ---
Hospitalist Progress Note Date of Service Apr 10, 2017. Subjective Pt evaluation today including: conversation w/ patient, physical exam, chart review, lab review, review of studies, review of inpatient medication list Patient seen and evaluated. No acute events overnight. Reporting already having improvement in secretions. Oxygenating adequately. Expiratory wheezes noted. No fevers documented. Verbalizes no other issues. Constitutional: No fever, No chills Respiratory: + sputum, No shortness of breath Cardiovascular: No chest pain Abdomen: No pain, No nausea, No vomiting Medications Current Inpatient Medications Medications (Trade) Dose Ordered Sig/Ashanti Route Start Time Stop Time Status Last Admin Dose Admin Acetaminophen (Tylenol Tab) 650 mg Q4H PRN PO 04/09/17 20:15 05/09/17 20:14 Ondansetron HCl (Zofran Inj) 4 mg Q6H PRN IV 04/09/17 20:15 05/09/17 20:14 Acetaminophen (Tylenol Tab) 1,000 mg Q6H PRN PO 04/09/17 20:15 05/09/17 20:14 Aspirin (Ecotrin Tab) 81 mg QAM PO 04/10/17 09:00 05/10/17 08:59 04/10/17 09:03 81 MG Baclofen (Lioresal Tab) 40 mg QID PO 04/09/17 21:00 05/09/17 20:59 04/10/17 11:53 40 MG Ibuprofen (Advil Tab) 400 mg Q8 PRN PO 04/09/17 20:15 05/09/17 20:14 Lactobacillus Acidophilus (Floranex Tab) 4 tab 1200 PO 04/10/17 12:00 05/10/17 11:59 04/10/17 11:52 4 TAB Loratadine (Claritin Tab) 10 mg QAM PO 04/10/17 09:00 05/10/17 08:59 04/10/17 09:03 10 MG Lorazepam (Ativan Tab) 0.5 mg DAILY PRN PO 04/09/17 20:15 05/09/17 20:14 Lorazepam (Ativan Tab) 0.5 mg QAM PO 04/10/17 09:00 05/10/17 08:59 04/10/17 09:01 0.5 MG Multivitamins/ Minerals (Multivitamin W/ Minerals Tab) 1 tab 1200 PO 04/10/17 12:00 05/10/17 11:59 04/10/17 11:52 1 TAB Dantrolene Sodium (Dantrium Cap) 100 mg QPM PO 04/09/17 22:00 05/09/17 21:59 04/09/17 22:09 100 MG Ipratropium [place] (Atrovent Nasal [place] 0.06%) 2 sprays TID INH 04/09/17 22:00 05/09/17 21:59 04/10/17 09:01 2 SPRAYS Cefepime HCl 2000 mg/Dextrose 112.5 ml @ 200 mls/hr Q8H IV 04/10/17 02:00 04/16/17 17:59 04/10/17 11:47 200 MLS/HR Vancomycin HCl (Consult) 1 ea UD PRN N/A 04/09/17 21:15 05/09/17 21:14 Vancomycin HCl 1000 mg/Sodium Chloride 270 ml @ 125 mls/hr Q12H IV 04/10/17 08:00 04/16/17 19:59 04/10/17 09:00 125 MLS/HR Albuterol/ Ipratropium (Duoneb) 3 ml QIDR INH 04/10/17 08:00 05/10/17 07:59 04/10/17 11:22 3 ML Objective Vital Signs Date Time Temp Pulse Resp B/P (MAP) Pulse Ox O2 Delivery O2 Flow Rate FiO2 04/10/17 11:22 80 24 94 Room Air 30 04/10/17 09:00 Room Air 04/10/17 08:00 97 Room Air 04/10/17 07:22 68 31 98 BiPAP/CPAP 30 04/10/17 04:00 98 Room Air 30 04/10/17 04:00 36.5 59 22 155/85 (108) 98 BiPAP 04/10/17 00:00 36.8 69 22 130/83 (99) 99 BiPAP 30 04/10/17 00:00 99 Room Air 30 04/09/17 22:42 74 28 99 BiPAP/CPAP 30 04/09/17 21:48 89 98 30 04/09/17 21:45 36.7 79 18 170/67 94 BiPAP 04/09/17 20:57 82 27 135/98 93 04/09/17 20:45 82 24 135/98 93 Room Air 04/09/17 20:11 71 21 135/98 96 Room Air 04/09/17 18:58 81 14 124/76 95 Room Air 04/09/17 17:36 37.1 78 14 147/92 93 Room Air Physical Exam General Appearance: no apparent distress, + thin Eyes: sclerae normal ENT: hearing grossly normal Neck: supple, no JVD, trachea midline Respiratory/Chest: no respiratory distress, + wheezing (expiratory), + pertinent finding (Utilizes neck to assist with breathing - baseline) Cardiovascular: regular rate, rhythm, no gallop, no murmur Abdomen: normal bowel sounds, non tender, soft Extremities: no pedal edema Neurologic/Psychiatric: alert, oriented x 3 Skin: normal color, warm/dry Laboratory Results Last 24 Hours Test 04/09/17 18:31 04/09/17 18:48 04/10/17 06:30 04/10/17 12:05 White Blood Count 9.84 K/uL Red Blood Count 4.85 M/uL Hemoglobin 14.3 g/dL Hematocrit 44.8 % Mean Corpuscular Volume 92.4 fL Mean Corpuscular Hemoglobin 29.5 pg Mean Corpuscular Hemoglobin Concent 31.9 g/dl Platelet Count 245 K/uL Mean Platelet Volume 10.8 fL Neutrophils (%) (Auto) 78.3 % Lymphocytes (%) (Auto) 13.4 % Monocytes (%) (Auto) 4.3 % Eosinophils (%) (Auto) 3.4 % Basophils (%) (Auto) 0.3 % Neutrophils # (Auto) 7.71 K/uL Lymphocytes # (Auto) 1.32 K/uL Monocytes # (Auto) 0.42 K/uL Eosinophils # (Auto) 0.33 K/uL Basophils # (Auto) 0.03 K/uL RDW Standard Deviation 45.8 fL RDW Coefficient of Variation 13.5 % Immature Granulocyte % (Auto) 0.3 % Immature Granulocyte # (Auto) 0.03 K/uL Sodium Level 138 mmol/L Potassium Level 4.1 mmol/L Chloride Level 103 mmol/L Carbon Dioxide Level 32 mmol/L Anion Gap 3.0 mmol/L Blood Urea Nitrogen 19 mg/dl Creatinine 0.46 mg/dl 0.27 mg/dl Est Creatinine Clear Calc Drug Dose 172.8 ml/min 288.7 ml/min Estimated GFR () > 150.0 > 150.0 Estimated GFR (Non- 132.6 > 150.0 BUN/Creatinine Ratio 41.9 Random Glucose 92 mg/dl Calcium Level 9.0 mg/dl Venous Blood pH 7.36 Venous Blood Partial Pressure CO2 57 mmHg Venous Blood Partial Pressure O2 34 mmHg Venous Blood HCO3 32 mmol/L Venous Blood Oxygen Saturation 64.7 % Venous Blood Base Excess 4.6 mEq/L Assessment and Plan 46 yo patient s/p tracheostomy with increased secretions, found to have pseudomonas in his sputum Pseudomonas Pneumonia: - Cefepime 2 g IV Q8H and Vancomycin - Duonebs and Atrovent - Pulmonary consultation - await recommendations Quadriplegia: - Baclofen 40 mg QID DVT Prophylaxis: SCDs Code Status: FULL RESUSCITATION Disposition: - Await pulmonary recommendations - Case Management following for [facility] - [facility] D/C 1-2 days Continued [facility] [place] stay due to: multiple IV medications needed Discharge planning: home with home health
[2017-04-10] MEDS: DANTROLENE SODIUM 25 MG CAP PO SCH (22:21)
[2017-04-11] VITALS (10 sets, daily range): BP systolic 127–152; BP diastolic 74–91; PULSE 50–81; TEMP 36.4–36.8; O2SAT 92–100
[2017-04-11] MEDS: CEFEPIME IV 2,000 MG in DEXTROSE 5% 100ML 100 ML IV SCH ×3 (02:47→17:31)
[2017-04-11] MEDS: ALBUT/IPRATROP 3MG/0.5MG NEB 3 ML VIAL INH SCH ×4 (07:16→19:29)
[2017-04-11 07:27] LABS: HEMATOCRIT 39.8 % (42-52); MEAN CELL VOLUME 92.8 fL (80-100); MEAN CORPUSCULAR HEMOGLOBIN 30.8 pg (25-34); MEAN CORPUSCULAR HGB CONC 33.2 g/dl (32-36); MEAN PLATELET VOLUME 10.8 fL (7.4-10.4); PLATELET COUNT 186 K/uL (130-400); RED BLOOD COUNT 4.29 M/uL (4.7-6.1); WHITE BLOOD COUNT 6.27 K/uL (4.8-10.8)
[2017-04-11 08:00] LABS: BLOOD UREA NITROGEN 13 mg/dl (7-18); BUN/CREATININE RATIO 46.2 (10-20); CALCIUM 8.7 mg/dl (8.5-10.1); CARBON DIOXIDE 29 mmol/L (21-32); CHLORIDE 103 mmol/L (98-107); CREATININE 0.29 mg/dl (0.60-1.40); GLUCOSE 76 mg/dl (70-99); SODIUM 136 mmol/L (136-145)
[2017-04-11] MEDS: ASPIRIN 81 MG ECTAB PO SCH (08:55)
[2017-04-11] MEDS: LORAZEPAM 0.5 MG TAB PO SCH (08:56)
[2017-04-11] MEDS: BACLOFEN TAB 20 MG TAB PO SCH ×4 (08:56→20:43)
[2017-04-11] MEDS: LORATADINE 10 MG TAB PO SCH (08:56)
--- NOTE | 2017-04-11 10:50 | Pulmonology Progress Note ---
Pulmonary Progress Note Date of Service Apr 11, 2017. Attending Dr. Goode Subjective Patient is feeling much improved today. He states that his breathing is much easier this morning. MRSA nasal swab was negative, so Vancomycin was stopped. Patient continues on Cefepime. He states that his secretions as less, and he is hoping to go home soon. Labs reviewed 04/11: WBC 6.27 Hgb 13.2 Creatinine stable 0.29 BUN 13 Calcium 8.7 Flu negative Blood cultures showing NGTD. MRSA swab negative Objective General Appearance: thin, other (quadriplegic) Head: NORMOCEPHALIC Eyes: NO DISCHARGE, EOMI, SCLERAE NORMAL ENT: other (hearing intact) Neck: other (tracheostomy site) Respiratory: Decrease BS's right base. Better air movement today in left lung. Wheezes/coarse breath sounds heard slightly in right lower lobe Cardiovasular: REGULAR RATE/RHYTHM Lower Extremities: NO EDEMA Neuro: ALERT, ORIENTED x 3 Psychiatric: NORMAL AFFECT Assessment & Plan Probable Pseudomonas Pneumonia Quadriplegia Chronic tracheostomy -Patient is feeling improved since admission. He is breathing much easier and has had less secretions. -Discussed patient with Gabriela Kemp PA-C -Feel that patient would benefit from completion of at least 7 days of IV abx therapy. Will need at home IV abx to complete 7 days. -Feel patient would also benefit from at home Chest PT vest if able to get for him -Continue aggressive pulmonary toilet upon discharge -Patient is otherwise OK for discharge from a pulmonary standpoint. Pulm will sign off. He should follow up with me in the office next week. Thank you Patient seen and case reviewed agree with current plan. Data Medications: Current Inpatient Medications Medications (Trade) Dose Ordered Sig/[place] Route Start Time Stop Time Status Last Admin Dose Admin Acetaminophen (Tylenol Tab) 650 mg Q4H PRN PO 04/09/17 20:15 05/09/17 20:14 Ondansetron HCl (Zofran Inj) 4 mg Q6H PRN IV 04/09/17 20:15 05/09/17 20:14 Acetaminophen (Tylenol Tab) 1,000 mg Q6H PRN PO 04/09/17 20:15 05/09/17 20:14 Aspirin (Ecotrin Tab) 81 mg QAM PO 04/10/17 09:00 05/10/17 08:59 04/11/17 08:55 81 MG Baclofen (Lioresal Tab) 40 mg QID PO 04/09/17 21:00 05/09/17 20:59 04/11/17 08:56 40 MG Ibuprofen (Advil Tab) 400 mg Q8 PRN PO 04/09/17 20:15 05/09/17 20:14 Lactobacillus Acidophilus (Floranex Tab) 4 tab 1200 PO 04/10/17 12:00 05/10/17 11:59 04/10/17 11:52 4 TAB Loratadine (Claritin Tab) 10 mg QAM PO 04/10/17 09:00 05/10/17 08:59 04/11/17 08:56 10 MG Lorazepam (Ativan Tab) 0.5 mg DAILY PRN PO 04/09/17 20:15 05/09/17 20:14 Lorazepam (Ativan Tab) 0.5 mg QAM PO 04/10/17 09:00 05/10/17 08:59 04/11/17 08:56 0.5 MG Multivitamins/ Minerals (Multivitamin W/ Minerals Tab) 1 tab 1200 PO 04/10/17 12:00 05/10/17 11:59 04/10/17 11:52 1 TAB Dantrolene Sodium (Dantrium Cap) 100 mg QPM PO 04/09/17 22:00 05/09/17 21:59 04/10/17 22:21 100 MG Ipratropium [place] (Atrovent Nasal [place] 0.06%) 2 sprays TID INH 04/09/17 22:00 05/09/17 21:59 04/10/17 22:21 2 SPRAYS Cefepime HCl 2000 mg/Dextrose 112.5 ml @ 200 mls/hr Q8H IV 04/10/17 02:00 04/16/17 17:59 04/11/17 02:47 200 MLS/HR Albuterol/ Ipratropium (Duoneb) 3 ml QIDR INH 04/10/17 08:00 05/10/17 07:59 04/11/17 07:16 3 ML Vital Signs: Date Time Temp Pulse Resp B/P (MAP) Pulse Ox O2 Delivery O2 Flow Rate FiO2 04/11/17 08:00 97 Room Air Trach Collar 04/11/17 07:30 36.4 52 18 152/91 (111) 100 BiPAP 30 Trach Collar 04/11/17 07:16 50 22 100 BiPAP/CPAP 30 04/11/17 01:55 81 98 30 04/11/17 00:00 Room Air 04/10/17 23:05 36.6 54 18 107/69 (82) 100 Room Air 04/10/17 21:32 76 97 30 04/10/17 20:00 Room Air 04/10/17 19:43 76 24 97 Room Air 04/10/17 16:00 Room Air 04/10/17 14:55 37.0 80 18 110/70 (83) 96 Room Air 04/10/17 14:50 37.1 64 26 97 04/10/17 14:28 64 26 97 Room Air 04/10/17 14:02 Room Air Trach Collar 04/10/17 13:46 37.1 73 24 94/62 (73) 96 Nasal Cannula 92/59 (70) 04/10/17 12:00 93 Room Air 04/10/17 11:22 80 24 94 Room Air Laboratory Results: Last 24 Hours Test 04/10/17 12:05 04/11/17 06:52 Influenza Type A Antigen Neg for Influ A Influenza Type B Antigen Neg for Influ B White Blood Count 6.27 K/uL Red Blood Count 4.29 M/uL Hemoglobin 13.2 g/dL Hematocrit 39.8 % Mean Corpuscular Volume 92.8 fL Mean Corpuscular Hemoglobin 30.8 pg Mean Corpuscular Hemoglobin Concent 33.2 g/dl RDW Standard Deviation 45.4 fL RDW Coefficient of Variation 13.5 % Platelet Count 186 K/uL Mean Platelet Volume 10.8 fL Sodium Level 136 mmol/L Potassium Level 4.0 mmol/L Chloride Level 103 mmol/L Carbon Dioxide Level 29 mmol/L Anion Gap 4.0 mmol/L Blood Urea Nitrogen 13 mg/dl Creatinine 0.29 mg/dl Est Creatinine Clear Calc Drug Dose 268.8 ml/min Estimated GFR () > 150.0 Estimated GFR (Non- > 150.0 BUN/Creatinine Ratio 46.2 Random Glucose 76 mg/dl Calcium Level 8.7 mg/dl
[2017-04-11] MEDS ORDERED: CFP2IV IV (12:01)
--- NOTE | 2017-04-11 12:05 | Discharge Instructions ---
Discharge Instructions Date of Service Apr 11, 2017. Admission Reason for Admission: Bacterial Infection Due To Pseudomonas Discharge Discharge Diagnosis / Problem: Pseudomonas Pneumonia Discharge Goals Goal(s): Decrease discomfort, Improve disease control, Therapeutic intervention Activity Recommendations Activity Limitations: resume your previous activity . Instructions / Follow-Up Instructions / Follow-Up Pseudomonas Pneumonia: - You will complete Cefepime 2 g by your IV line to complete 6 more days of therapy - Follow-up with Pulmonology in 1 week - they will help set up to get you a vibratory vest - Continue your normal respiratory regimen with suctioning and chest therapy with breathing treatments Current Hospital Diet Patient's current hospital diet: Regular Diet Discharge Diet Recommended Diet: Regular Diet Pending Studies Studies pending at discharge: no Medical Emergencies . Who to Call and When: Medical Emergencies: If at any time you feel your situation is an emergency, please call 911 immediately. . Non-Emergent Contact Non-Emergency issues call your: Primary Care Provider Call Non-Emergent contact if: you have a fever, your pain is concerning you, you have any medication questions . . "Provider Documentation" section prepared by Gabriela Kemp. . VTE Core Measure Inpt VTE Proph given/why not?: Contraindicated
[2017-04-11] MEDS ORDERED: BISACODYL 10 MG SUPP PR SCH (12:15)
--- NOTE | 2017-04-11 12:28 | Hospitalist Progress Note ---
Hospitalist Progress Note Date of Service Apr 11, 2017. Subjective Pt evaluation today including: conversation w/ patient, physical exam, chart review, lab review, review of studies, review of inpatient medication list Patient seen and evaluated. No acute events overnight. Patient reporting less effort to breath and feeling baseline. Discussed with Mary Lawrence who recommends total [address] U/S guided peripheral line to do home medications. Discussed with Gomez Garvin PA-C that they will help arrange vibratory vest for home use. Constitutional: No fever, No chills Respiratory: + sputum, No shortness of breath Cardiovascular: No chest pain, No palpitations Abdomen: No pain, No nausea, No vomiting Heme: No abnormal bleeding/bruising Medications Current Inpatient Medications Medications (Trade) Dose Ordered Sig/Ashanti Route Start Time Stop Time Status Last Admin Dose Admin Acetaminophen (Tylenol Tab) 650 mg Q4H PRN PO 04/09/17 20:15 05/09/17 20:14 Ondansetron HCl (Zofran Inj) 4 mg Q6H PRN IV 04/09/17 20:15 05/09/17 20:14 Acetaminophen (Tylenol Tab) 1,000 mg Q6H PRN PO 04/09/17 20:15 05/09/17 20:14 Aspirin (Ecotrin Tab) 81 mg QAM PO 04/10/17 09:00 05/10/17 08:59 04/11/17 08:55 81 MG Baclofen (Lioresal Tab) 40 mg QID PO 04/09/17 21:00 05/09/17 20:59 04/11/17 08:56 40 MG Ibuprofen (Advil Tab) 400 mg Q8 PRN PO 04/09/17 20:15 05/09/17 20:14 Lactobacillus Acidophilus (Floranex Tab) 4 tab 1200 PO 04/10/17 12:00 05/10/17 11:59 04/10/17 11:52 4 TAB Loratadine (Claritin Tab) 10 mg QAM PO 04/10/17 09:00 05/10/17 08:59 04/11/17 08:56 10 MG Lorazepam (Ativan Tab) 0.5 mg DAILY PRN PO 04/09/17 20:15 05/09/17 20:14 Lorazepam (Ativan Tab) 0.5 mg QAM PO 04/10/17 09:00 05/10/17 08:59 04/11/17 08:56 0.5 MG Multivitamins/ Minerals (Multivitamin W/ Minerals Tab) 1 tab 1200 PO 04/10/17 12:00 05/10/17 11:59 04/10/17 11:52 1 TAB Dantrolene Sodium (Dantrium Cap) 100 mg QPM PO 04/09/17 22:00 05/09/17 21:59 04/10/17 22:21 100 MG Ipratropium Organ (Atrovent Nasal [place] 0.06%) 2 sprays TID INH 04/09/17 22:00 05/09/17 21:59 04/10/17 22:21 2 SPRAYS Cefepime HCl 2000 mg/Dextrose 112.5 ml @ 200 mls/hr Q8H IV 04/10/17 02:00 04/16/17 17:59 04/11/17 11:03 200 MLS/HR Albuterol/ Ipratropium (Duoneb) 3 ml QIDR INH 04/10/17 08:00 05/10/17 07:59 04/11/17 11:14 3 ML Bisacodyl (Dulcolax Supp) 10 mg TODAY@1215 [place] 04/11/17 12:15 04/11/17 14:00 Objective Vital Signs Date Time Temp Pulse Resp B/P (MAP) Pulse Ox O2 Delivery O2 Flow Rate FiO2 04/11/17 11:21 68 22 97 Room Air 04/11/17 08:00 97 Room Air Trach Collar 04/11/17 07:30 36.4 52 18 152/91 (111) 100 BiPAP 30 Trach Collar 04/11/17 07:16 50 22 100 BiPAP/CPAP 30 04/11/17 01:55 81 98 30 04/11/17 00:00 Room Air 04/10/17 23:05 36.6 54 18 107/69 (82) 100 Room Air 04/10/17 21:32 76 97 30 04/10/17 20:00 Room Air 04/10/17 19:43 76 24 97 Room Air 04/10/17 16:00 Room Air 04/10/17 14:55 37.0 80 18 110/70 (83) 96 Room Air 04/10/17 14:50 37.1 64 26 97 04/10/17 14:28 64 26 97 Room Air 04/10/17 14:02 Room Air Trach Collar 04/10/17 13:46 37.1 73 24 94/62 (73) 96 Nasal Cannula 92/59 (70) Physical Exam General Appearance: no apparent distress, + thin Eyes: sclerae normal ENT: hearing grossly normal Neck: supple, no JVD, trachea midline Respiratory/Chest: lungs clear, no respiratory distress, no accessory muscle use, + decreased breath sounds (diminished at bases ) Cardiovascular: regular rate, rhythm, no gallop, no murmur Abdomen: normal bowel sounds, non tender, soft Extremities: no pedal edema, no calf tenderness Neurologic/Psychiatric: alert, oriented x 3 Skin: normal color, warm/dry Laboratory Results Last 24 Hours Test 04/11/17 06:52 White Blood Count 6.27 K/uL Red Blood Count 4.29 M/uL Hemoglobin 13.2 g/dL Hematocrit 39.8 % Mean Corpuscular Volume 92.8 fL Mean Corpuscular Hemoglobin 30.8 pg Mean Corpuscular Hemoglobin Concent 33.2 g/dl RDW Standard Deviation 45.4 fL RDW Coefficient of Variation 13.5 % Platelet Count 186 K/uL Mean Platelet Volume 10.8 fL Sodium Level 136 mmol/L Potassium Level 4.0 mmol/L Chloride Level 103 mmol/L Carbon Dioxide Level 29 mmol/L Anion Gap 4.0 mmol/L Blood Urea Nitrogen 13 mg/dl Creatinine 0.29 mg/dl Est Creatinine Clear Calc Drug Dose 268.8 ml/min Estimated GFR () > 150.0 Estimated GFR (Non- > 150.0 BUN/Creatinine Ratio 46.2 Random Glucose 76 mg/dl Calcium Level 8.7 mg/dl Assessment and Plan 46 yo patient s/p tracheostomy with increased secretions, found to have pseudomonas in his sputum Pseudomonas Pneumonia: - Cefepime 2 g IV Q8H - will transition to BID dosing for ease at home - will have U/S guided peripheral line placed - Amauri - Pulmonary consultation - discussed with Mary herzog for D/C from their perspective with Cefepime for 7 total days and follow-up in one week Quadriplegia: - Baclofen 40 mg QID DVT Prophylaxis: SCDs Code Status: FULL RESUSCITATION Disposition: - If home Abx can be arranged he can be D/Cd today with follow-up in 1 week with Pulmonology Discharge planning: home with home health
[2017-04-11] MEDS: CEROVITE ADV FORMULA TAB PO SCH (13:46)
[2017-04-11] MEDS: LACTOBACILLUS ACIDOPHILUS (FLORANEX) TAB PO SCH (13:46)
[2017-04-11] MEDS ORDERED: VANCOMYCIN TROUGH SCH (19:30)
[2017-04-11] MEDS: IPRATROPIUM BROMIDE NASAL SPRAY 0.06% 15ML INH SCH ×2 (20:00→20:44)
[2017-04-11] MEDS: DANTROLENE SODIUM 25 MG CAP PO SCH (20:43)
[2017-04-12] VITALS (11 sets, daily range): BP systolic 104–123; BP diastolic 68–79; PULSE 55–96; TEMP 36.2–36.8; O2SAT 95–100
[2017-04-12] MEDS: CEFEPIME IV 2,000 MG in DEXTROSE 5% 100ML 100 ML IV SCH ×3 (02:16→17:32)
[2017-04-12] MEDS: ALBUT/IPRATROP 3MG/0.5MG NEB 3 ML VIAL INH SCH ×4 (07:13→19:18)
[2017-04-12] MEDS: LORATADINE 10 MG TAB PO SCH (08:35)
[2017-04-12] MEDS: ASPIRIN 81 MG ECTAB PO SCH (08:35)
[2017-04-12] MEDS: IPRATROPIUM BROMIDE NASAL SPRAY 0.06% 15ML INH SCH ×3 (08:36→20:12)
[2017-04-12] MEDS: BACLOFEN TAB 20 MG TAB PO SCH ×4 (08:36→20:11)
[2017-04-12] MEDS: LORAZEPAM 0.5 MG TAB PO SCH (08:39)
[2017-04-12] MEDS: CEROVITE ADV FORMULA TAB PO SCH (11:33)
[2017-04-12] MEDS: LACTOBACILLUS ACIDOPHILUS (FLORANEX) TAB PO SCH (11:33)
--- NOTE | 2017-04-12 15:45 | Progress Note ---
Subjective Date of Service: Apr 12, 2017. Subjective Pt evaluation today including: conversation w/ patient, physical exam, chart review, lab review, review of studies, review of inpatient medication list Patient is seen and examined. No acute events overnight. pt denies cp, sob, palpitation, nausea, vomiting and diarrhea. U/S guided peripheral line pending Problem List Medical Problems: (1) Bronchitis Status: Acute (2) Hypoxemia Status: Acute (3) Hypoxia Status: Acute (4) Knee pain, acute Status: Acute (5) Mucus plugging of bronchi Status: Acute (6) Paraplegia Status: Acute (7) PNA (pneumonia) Status: Acute (8) PNA (pneumonia) Status: Acute (9) Pneumonia Status: Acute (10) Pneumonia Status: Acute (11) Pneumonia Status: Acute (12) Pneumonia Status: Acute (13) Pneumonia Status: Acute (14) Pneumonia Status: Acute (15) Productive cough Status: Acute (16) Quadriplegia Status: Acute (17) Sacral decubitus ulcer Status: Acute (18) SOB (shortness of breath) Status: Acute (19) SOB (shortness of breath) Status: Acute (20) Ulcer of right heel Status: Acute Review of Systems Constitutional: No fever, No chills Respiratory: + sputum, No shortness of breath Cardiovascular: No chest pain, No palpitations Abdomen: No pain, No nausea, No vomiting Heme: No abnormal bleeding/bruising Objective Vital Signs Date Time Temp Pulse Resp B/P (MAP) Pulse Ox O2 Delivery O2 Flow Rate FiO2 04/12/17 15:35 Room Air Trach Collar 04/12/17 15:19 70 20 95 Room Air 04/12/17 11:27 72 20 96 Room Air 04/12/17 08:53 36.5 60 18 122/79 (93) 97 Room Air 04/12/17 08:00 97 Room Air Trach Collar 04/12/17 07:18 96 20 97 Room Air 04/12/17 00:19 36.8 55 24 104/68 (80) 100 Room Air 04/12/17 00:00 100 Ambu-Bag 04/11/17 19:30 76 96 30 04/11/17 19:29 76 20 96 Room Air 04/11/17 16:50 92 Room Air Trach Collar 04/11/17 15:43 36.8 70 20 127/74 (91) 96 Trach Collar Physical Exam Comments: General Appearance: no apparent distress, + thin Eyes: sclerae normal ENT: hearing grossly normal Neck: supple, no JVD, trachea midline Respiratory/Chest: lungs clear, no respiratory distress, no accessory muscle use, + decreased breath sounds (diminished at bases ) Cardiovascular: regular rate, rhythm, no gallop, no murmur Abdomen: normal bowel sounds, non tender, soft Extremities: no pedal edema, no calf tenderness Neurologic/Psychiatric: alert, oriented x 3 Skin: normal color, warm/dry Laboratory Results Last 24 Hours Test 04/12/17 07:49 Creatinine 0.30 mg/dl Est Creatinine Clear Calc Drug Dose 259.8 ml/min Estimated GFR () > 150.0 Estimated GFR (Non- > 150.0 Assessment and Plan Pt is cleared for discharge by pulmonary with vibratory vest and Cefepime IV for a week -- CM was arranging for home antibiotics -- family raised concerns that they could no longer care for patient at home even with aides, requested SNF placement -- CM tried to place but unable to do so on short notice - Pneumonia, pseudomonas: treat with Cefepime for total of 7days MRSA swab negative, will d/c Vanco vibratory vest set up for discharge and should continue indefinitely was set up for home discharge but family cannot take care of patient at home any longer will be here over the weekend to look for SNF placement Continued [facility] stay due to: multiple IV medications needed Discharge planning: home with home health
[2017-04-12] MEDS: DANTROLENE SODIUM 25 MG CAP PO SCH (20:11)
[2017-04-13] VITALS (14 sets, daily range): BP systolic 120–141; BP diastolic 62–91; PULSE 46–82; TEMP 36.6–36.9; O2SAT 95–100
[2017-04-13] MEDS: CEFEPIME IV 2,000 MG in DEXTROSE 5% 100ML 100 ML IV SCH ×3 (02:07→18:03)
[2017-04-13] MEDS: ALBUT/IPRATROP 3MG/0.5MG NEB 3 ML VIAL INH SCH ×4 (07:03→19:03)
[2017-04-13] MEDS: ASPIRIN 81 MG ECTAB PO SCH (08:37)
[2017-04-13] MEDS: LORATADINE 10 MG TAB PO SCH (08:37)
[2017-04-13] MEDS: IPRATROPIUM BROMIDE NASAL SPRAY 0.06% 15ML INH SCH ×3 (08:37→20:57)
[2017-04-13] MEDS: BACLOFEN TAB 20 MG TAB PO SCH ×4 (08:38→20:57)
[2017-04-13] MEDS: LORAZEPAM 0.5 MG TAB PO SCH (08:40)
[2017-04-13] MEDS: LACTOBACILLUS ACIDOPHILUS (FLORANEX) TAB PO SCH (11:51)
[2017-04-13] MEDS: CEROVITE ADV FORMULA TAB PO SCH (11:51)
--- NOTE | 2017-04-13 12:53 | Progress Note ---
Subjective Date of Service: Apr 13, 2017. Subjective Pt evaluation today including: conversation w/ patient, physical exam, chart review, review of inpatient medication list Pain: none Voiding: knott catheter in place pt is seen and examined by me. Pt is stable, and states he feels very good. pt denies cp, sob,dizziness, palpitation and LOC. Problem List Medical Problems: (1) Bronchitis Status: Acute (2) Hypoxemia Status: Acute (3) Hypoxia Status: Acute (4) Knee pain, acute Status: Acute (5) Mucus plugging of bronchi Status: Acute (6) Paraplegia Status: Acute (7) PNA (pneumonia) Status: Acute (8) PNA (pneumonia) Status: Acute (9) Pneumonia Status: Acute (10) Pneumonia Status: Acute (11) Pneumonia Status: Acute (12) Pneumonia Status: Acute (13) Pneumonia Status: Acute (14) Pneumonia Status: Acute (15) Productive cough Status: Acute (16) Quadriplegia Status: Acute (17) Sacral decubitus ulcer Status: Acute (18) SOB (shortness of breath) Status: Acute (19) SOB (shortness of breath) Status: Acute (20) Ulcer of right heel Status: Acute Review of Systems All Other Systems: Reviewed and Negative Objective Vital Signs Date Time Temp Pulse Resp B/P (MAP) Pulse Ox O2 Delivery O2 Flow Rate FiO2 04/13/17 11:38 72 95 30 04/13/17 11:37 72 20 95 BiPAP/CPAP 30 04/13/17 08:00 96 Room Air Trach Collar 04/13/17 07:11 36.6 53 18 141/91 (108) 99 Trach Collar 04/13/17 07:06 57 97 30 04/13/17 07:03 57 20 97 BiPAP/CPAP 30 04/13/17 00:00 100 BiPAP 04/12/17 23:08 36.8 67 19 123/77 (92) 100 Room Air 04/12/17 21:05 76 95 30 04/12/17 19:51 80 20 95 Room Air 04/12/17 16:17 36.2 73 18 119/77 (91) 96 Room Air 73 04/12/17 15:35 Room Air Trach Collar 04/12/17 15:19 70 20 95 Room Air Physical Exam Comments: General Appearance: no apparent distress, + thin Eyes: sclerae normal ENT: hearing grossly normal Neck: supple, no JVD, trachea midline Respiratory/Chest: lungs clear, no respiratory distress, no accessory muscle use, + decreased breath sounds (diminished at bases ) Cardiovascular: regular rate, rhythm, no gallop, no murmur Abdomen: normal bowel sounds, non tender, soft Extremities: no pedal edema, no calf tenderness Neurologic/Psychiatric: alert, oriented x 3 Skin: normal color, warm/dry Assessment and Plan Pt is cleared for discharge by pulmonary with vibratory vest and Cefepime IV for a week -- CM was arranging for home antibiotics -- family raised concerns that they could no longer care for patient at home even with aides, requested SNF placement -- CM tried to place but unable to do so on short notice - Pneumonia, pseudomonas: treat with Cefepime for total of 7days MRSA swab negative, will d/c Vanco vibratory vest set up for discharge and should continue indefinitely was set up for home discharge but family cannot take care of patient at home any longer will be here over the weekend to look for SNF placement Continued [facility] stay due to: multiple IV medications needed Discharge planning: home with home health
[2017-04-13] MEDS: DANTROLENE SODIUM 25 MG CAP PO SCH (20:57)
[2017-04-14] VITALS (8 sets, daily range): BP systolic 124–134; BP diastolic 74–87; PULSE 50–80; TEMP 36.4–36.9; O2SAT 93–100
[2017-04-14] MEDS: CEFEPIME IV 2,000 MG in DEXTROSE 5% 100ML 100 ML IV SCH ×3 (02:03→17:41)
[2017-04-14] MEDS: ALBUT/IPRATROP 3MG/0.5MG NEB 3 ML VIAL INH SCH ×4 (07:14→19:06)
[2017-04-14] MEDS: ASPIRIN 81 MG ECTAB PO SCH (08:31)
[2017-04-14] MEDS: LORATADINE 10 MG TAB PO SCH (08:33)
[2017-04-14] MEDS: IPRATROPIUM BROMIDE NASAL SPRAY 0.06% 15ML INH SCH ×3 (08:33→20:06)
[2017-04-14] MEDS: BACLOFEN TAB 20 MG TAB PO SCH ×4 (08:33→20:06)
[2017-04-14] MEDS: LORAZEPAM 0.5 MG TAB PO SCH (08:34)
[2017-04-14] MEDS: CEROVITE ADV FORMULA TAB PO SCH (12:35)
[2017-04-14] MEDS: LACTOBACILLUS ACIDOPHILUS (FLORANEX) TAB PO SCH (12:36)
--- NOTE | 2017-04-14 13:36 | Hospitalist Progress Note ---
Hospitalist Progress Note Date of Service Apr 14, 2017. (Zahra Godoy ., APOLLOC) Subjective Pt evaluation today including: conversation w/ patient, physical exam, lab review, review of studies, review of inpatient medication list Voiding: knott catheter in place Patient feeling well. Eating and drinking OK. Patient denies any fever, chills, sweats, lightheadedness, dizziness, vision changes, CP, palpitations, edema, SOB, wheezing, cough, abdominal pain, nausea, vomiting, diarrhea, urinary symptoms, melena, numbness/tingling, muscle/joint pain, anxiety/depression, active bleeding, or new skin discoloration/changes. Per RN, patient was unaware plan for SNF. Sisters were keeping it from him until he was accepted. He is refusing SNF placement. Sisters will be in later this evening to discuss. (Zahra Godoy ., APOLLOC) Medications Current Inpatient Medications Medications (Trade) Dose Ordered Sig/Ashanti Route Start Time Stop Time Status Last Admin Dose Admin Acetaminophen (Tylenol Tab) 650 mg Q4H PRN PO 04/09/17 20:15 05/09/17 20:14 Ondansetron HCl (Zofran Inj) 4 mg Q6H PRN IV 04/09/17 20:15 05/09/17 20:14 Acetaminophen (Tylenol Tab) 1,000 mg Q6H PRN PO 04/09/17 20:15 05/09/17 20:14 Aspirin (Ecotrin Tab) 81 mg QAM PO 04/10/17 09:00 05/10/17 08:59 04/14/17 08:31 81 MG Baclofen (Lioresal Tab) 40 mg QID PO 04/09/17 21:00 05/09/17 20:59 04/14/17 12:35 40 MG Ibuprofen (Advil Tab) 400 mg Q8 PRN PO 04/09/17 20:15 05/09/17 20:14 Lactobacillus Acidophilus (Floranex Tab) 4 tab 1200 PO 04/10/17 12:00 05/10/17 11:59 04/14/17 12:36 4 TAB Loratadine (Claritin Tab) 10 mg QAM PO 04/10/17 09:00 05/10/17 08:59 04/14/17 08:33 10 MG Lorazepam (Ativan Tab) 0.5 mg DAILY PRN PO 04/09/17 20:15 05/09/17 20:14 Lorazepam (Ativan Tab) 0.5 mg QAM PO 04/10/17 09:00 05/10/17 08:59 04/14/17 08:34 0.5 MG Multivitamins/ Minerals (Multivitamin W/ Minerals Tab) 1 tab 1200 PO 04/10/17 12:00 05/10/17 11:59 04/14/17 12:35 1 TAB Dantrolene Sodium (Dantrium Cap) 100 mg QPM PO 04/09/17 22:00 05/09/17 21:59 04/13/17 20:57 100 MG Ipratropium [place] (Atrovent Nasal [place] 0.06%) 2 sprays TID INH 04/09/17 22:00 05/09/17 21:59 04/14/17 08:33 2 SPRAYS Cefepime HCl 2000 mg/Dextrose 112.5 ml @ 200 mls/hr Q8H IV 04/10/17 02:00 04/16/17 17:59 04/14/17 09:59 200 MLS/HR Albuterol/ Ipratropium (Duoneb) 3 ml QIDR INH 04/10/17 08:00 05/10/17 07:59 04/14/17 11:11 3 ML (Zahra Godoy, PA-C) Objective Vital Signs Date Time Temp Pulse Resp B/P (MAP) Pulse Ox O2 Delivery O2 Flow Rate FiO2 04/14/17 11:12 62 20 97 Room Air 04/14/17 08:30 Room Air 04/14/17 07:38 36.4 57 16 134/87 (103) 100 Trach Collar 04/14/17 07:18 50 20 100 BiPAP/CPAP 30 04/14/17 00:00 100 BiPAP 04/13/17 22:31 36.9 46 20 120/62 (81) 99 04/13/17 21:36 68 97 30 04/13/17 19:14 82 20 97 BiPAP/CPAP 30 04/13/17 16:13 67 96 30 04/13/17 16:08 67 20 96 BiPAP/CPAP 30 04/13/17 15:45 96 Room Air Trach Collar 04/13/17 15:29 36.8 79 16 138/84 (102) 97 Room Air (Zahra Godoy, CAROLYN-C) Physical Exam General Appearance: no apparent distress Eyes: normal inspection, PERRL ENT: hearing grossly normal, + pertinent finding (trach site ) Neck: supple Respiratory/Chest: lungs clear, no respiratory distress, no accessory muscle use, + decreased breath sounds Cardiovascular: regular rate, rhythm Abdomen: normal bowel sounds, non tender, soft Extremities: no pedal edema, no calf tenderness Neurologic/Psychiatric: alert, normal mood/affect, oriented x 3 Skin: normal color, warm/dry, no rash (Zahra Godoy, CAROLYN-C) Laboratory Results Last 24 Hours Test 04/14/17 06:33 Creatinine 0.40 mg/dl Est Creatinine Clear Calc Drug Dose 194.9 ml/min Estimated GFR () > 150.0 Estimated GFR (Non- 140.5 (Zahra Godoy, CAROLYN-C) Assessment and Plan 46 y/o patient s/p tracheostomy with increased secretions, found to have pseudomonas in his sputum Pseudomonas Pneumonia- IMPROVING: - Cefepime 2 g IV Q8H- last day of treatment 04/16 - Continue Floranex - DuoNebs and Atrovent - IV Ativan PRN - BCx and MRSA swab negative - Pulmonary consultation, appreciate recommendations -- Cefepime for 7 total days and follow-up in one week -- Vibratory vest set-up for discharge and should continue indefinitely Quadriplegia: Baclofen 40 mg QID, Dantrium 100 mg HS DVT Prophylaxis: SCDs Code Status: FULL RESUSCITATION Dispo: Medically stable for discharge pending SNF placement- social media executive consulted (Zahra Godoy, CAROLYN-C) I confirmed above history with patient after examining patient, and discussing case with APC. General Appearance: no apparent distress Eyes: normal inspection, PERRL ENT: hearing grossly normal, + pertinent finding (trach site ) Neck: supple Respiratory/Chest: lungs clear, no respiratory distress, no accessory muscle use, + decreased breath sounds Cardiovascular: regular rate, rhythm Abdomen: normal bowel sounds, non tender, soft Extremities: no pedal edema, no calf tenderness Neurologic/Psychiatric: alert, normal mood/affect, oriented x 3 Skin: normal color, warm/dry, no rash I agree with plan. (Krishan Lewis
[2017-04-14] MEDS: LORAZEPAM 0.5 MG TAB PO PRN (20:06)
[2017-04-14] MEDS: DANTROLENE SODIUM 25 MG CAP PO SCH (20:06)
[2017-04-15] VITALS (7 sets, daily range): BP systolic 104–154; BP diastolic 70–93; PULSE 60–74; TEMP 36.6–37.1; O2SAT 94–99
[2017-04-15] MEDS: CEFEPIME IV 2,000 MG in DEXTROSE 5% 100ML 100 ML IV SCH ×3 (01:44→17:16)
[2017-04-15] MEDS: ALBUT/IPRATROP 3MG/0.5MG NEB 3 ML VIAL INH SCH ×4 (07:16→19:45)
[2017-04-15] MEDS: LORATADINE 10 MG TAB PO SCH (08:45)
[2017-04-15] MEDS: BACLOFEN TAB 20 MG TAB PO SCH ×4 (08:45→21:06)
[2017-04-15] MEDS: ASPIRIN 81 MG ECTAB PO SCH (08:45)
[2017-04-15] MEDS: IPRATROPIUM BROMIDE NASAL SPRAY 0.06% 15ML INH SCH ×3 (08:46→21:03)
[2017-04-15] MEDS: LORAZEPAM 0.5 MG TAB PO SCH (08:48)
--- NOTE | 2017-04-15 10:41 | Progress Note ---
Progress Note Date of Service Apr 15, 2017. Progress Note Had discussion with family yesterday. His immediate family are his 3 sisters who were all present. They states that they can no longer take care of patient due to the large amount of work that is involved. Patient has been refusing going to SNF. Risks and benefits were discussed but paient still wants to go home. Family states hat patient mentioned that he would rather than to go to SNF. Family would like to a psych consult given his anxiey and possible depression as well as capacity for decision making. Consult placed.
[2017-04-15] MEDS: CEROVITE ADV FORMULA TAB PO SCH (13:01)
[2017-04-15] MEDS: LACTOBACILLUS ACIDOPHILUS (FLORANEX) TAB PO SCH (13:01)
--- NOTE | 2017-04-15 13:32 | Hospitalist Progress Note ---
Hospitalist Progress Note Date of Service Apr 15, 2017. (Zahra Godoy ., PA-C) Subjective Pt evaluation today including: conversation w/ patient, conversation w/ family (sisters- Lakeshia and Liana), physical exam, lab review, review of inpatient medication list Patient feeling well this AM. Eating and drinking OK. Patient denies any fever, chills, sweats, lightheadedness, dizziness, vision changes, CP, palpitations, edema, SOB, wheezing, cough, abdominal pain, nausea, vomiting, diarrhea, urinary symptoms, melena, numbness/tingling, weakness, muscle/joint pain, anxiety/depression, active bleeding, or new skin discoloration/changes. Per patient, he is not 100% against SNF placement, but would like to go home and further look into future options before making a quick decision here in the hospital. Spoke w/ Veronique in psychiatry- states patient is ultimately capable of making own decision. Recommends family meeting to compromise and come to a group decision. Spoke w/ sister Lakeshia, states the issue w/ patient coming home is that their caretakers are unreliable and her/her sister live roughly an hour away from patient so coming in to fill for absence caretakers frequently is difficulty. They have discussed moving patient to an apartment w/ caretakers, but again, they cannot find reliable caretakers. Agreeable to group meeting. Spoke w/ sister, Liana, again stress issues as stated w/ Lakeshia. Agreeable to group meeting. (Zahra Godoy ., PA-C) Medications Current Inpatient Medications Medications (Trade) Dose Ordered Sig/Ashanti Route Start Time Stop Time Status Last Admin Dose Admin Acetaminophen (Tylenol Tab) 650 mg Q4H PRN PO 04/09/17 20:15 05/09/17 20:14 Ondansetron HCl (Zofran Inj) 4 mg Q6H PRN IV 04/09/17 20:15 05/09/17 20:14 Acetaminophen (Tylenol Tab) 1,000 mg Q6H PRN PO 04/09/17 20:15 05/09/17 20:14 Aspirin (Ecotrin Tab) 81 mg QAM PO 04/10/17 09:00 05/10/17 08:59 04/15/17 08:45 81 MG Baclofen (Lioresal Tab) 40 mg QID PO 04/09/17 21:00 05/09/17 20:59 04/15/17 13:01 40 MG Ibuprofen (Advil Tab) 400 mg Q8 PRN PO 04/09/17 20:15 05/09/17 20:14 Lactobacillus Acidophilus (Floranex Tab) 4 tab 1200 PO 04/10/17 12:00 05/10/17 11:59 04/15/17 13:01 4 TAB Loratadine (Claritin Tab) 10 mg QAM PO 04/10/17 09:00 05/10/17 08:59 04/15/17 08:45 10 MG Lorazepam (Ativan Tab) 0.5 mg DAILY PRN PO 04/09/17 20:15 05/09/17 20:14 04/14/17 20:06 0.5 MG Lorazepam (Ativan Tab) 0.5 mg QAM PO 04/10/17 09:00 05/10/17 08:59 04/15/17 08:48 0.5 MG Multivitamins/ Minerals (Multivitamin W/ Minerals Tab) 1 tab 1200 PO 04/10/17 12:00 05/10/17 11:59 04/15/17 13:01 1 TAB Dantrolene Sodium (Dantrium Cap) 100 mg QPM PO 04/09/17 22:00 05/09/17 21:59 04/14/17 20:06 100 MG Ipratropium [place] (Atrovent Nasal [place] 0.06%) 2 sprays TID INH 04/09/17 22:00 05/09/17 21:59 04/15/17 13:01 2 SPRAYS Cefepime HCl 2000 mg/Dextrose 112.5 ml @ 200 mls/hr Q8H IV 04/10/17 02:00 04/16/17 17:59 04/15/17 10:04 200 MLS/HR Albuterol/ Ipratropium (Duoneb) 3 ml QIDR INH 04/10/17 08:00 05/10/17 07:59 04/15/17 11:30 3 ML (Zahra Godoy PA-C) Objective Vital Signs Date Time Temp Pulse Resp B/P (MAP) Pulse Ox O2 Delivery O2 Flow Rate FiO2 04/15/17 11:30 70 20 95 Room Air 04/15/17 08:00 Room Air 04/15/17 07:59 37.1 63 20 154/93 (113) 96 Room Air 04/15/17 07:16 60 24 99 BiPAP/CPAP 30 04/15/17 00:01 BiPAP 04/15/17 00:00 36.8 65 18 118/70 (86) 94 04/14/17 22:14 62 95 30 04/14/17 20:00 Room Air 04/14/17 19:06 80 35 96 BiPAP/CPAP 04/14/17 16:00 Room Air 04/14/17 15:32 64 34 96 BiPAP/CPAP 04/14/17 15:32 64 96 30 04/14/17 15:14 36.9 68 18 124/74 (91) 93 Room Air (Zahra Godoy, PA-C) Physical Exam General Appearance: no apparent distress Eyes: PERRL ENT: hearing grossly normal, + pertinent finding (trach site ) Neck: supple Respiratory/Chest: lungs clear, no respiratory distress, no accessory muscle use Cardiovascular: regular rate, rhythm Abdomen: normal bowel sounds, non tender, no organomegaly Extremities: no pedal edema Neurologic/Psychiatric: alert, normal mood/affect, oriented x 3 Skin: normal color, warm/dry, no rash (Zahra Godoy, PA-C) Assessment and Plan 46 y/o patient s/p tracheostomy with increased secretions, found to have pseudomonas in his sputum Pseudomonas Pneumonia- IMPROVING: - Cefepime 2 g IV Q8H x7 days- last day of treatment 04/16 -- sputum culture positive despite 4 days IV antibiotics- consult ID, appreciate recommendations - Continue Floranex - DuoNebs and Atrovent - IV Ativan PRN - BCx and MRSA swab negative - Pulmonary consultation, appreciate recommendations -- Cefepime for 7 total days and follow-up in one week -- Vibratory vest set-up for discharge and should continue indefinitely Quadriplegia: Baclofen 40 mg QID, Dantrium 100 mg HS DVT prophylaxis: SCDs Code Status: FULL RESUSCITATION Dispo: Medically stable for discharge pending placement issue- social professionals consulted - Group meeting w/ sisters and patient at 1500 today- if patient still still not agreeable, will have to have protective services thru county come in to make SNF placement decision (Zahra Godoy, PA-C) I confirmed above history with patient after examining patient, and discussing case with APC. General Appearance: no apparent distress Eyes: normal inspection, PERRL ENT: hearing grossly normal, + pertinent finding (trach site ) Neck: supple Respiratory/Chest: lungs clear, no respiratory distress, no accessory muscle use, Cardiovascular: regular rate, rhythm Abdomen: normal bowel sounds, non tender, soft Extremities: no pedal edema, no calf tenderness Neurologic/Psychiatric: alert, normal mood/affect, oriented x 3 Skin: normal color, warm/dry, no rash I agree with plan. (Krishan Lewis M.D.)
[2017-04-15] MEDS ORDERED: BISACODYL 10 MG SUPP PR SCH (13:45)
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
--- NOTE | 2017-04-15 14:44 | Progress Note ---
Progress Note Date of Service Apr 15, 2017. Progress Note ID Consult Dictated #[id number] A/P: 1.Tracheobronchitis - pseudomonas -Would agree with pulm cefepime x 7 days -Thank you
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
[2017-04-15] MEDS ORDERED: NURSING VERBAL MED ORDER ONE (15:00)
[2017-04-15] MEDS: DANTROLENE SODIUM 25 MG CAP PO SCH (21:06)
[2017-04-15] MEDS: ACETAMINOPHEN 325 MG TAB PO PRN (21:06)
[2017-04-16] VITALS (11 sets, daily range): BP systolic 90–141; BP diastolic 60–91; PULSE 53–71; TEMP 36.4–37; O2SAT 96–99
[2017-04-16] MEDS: CEFEPIME IV 2,000 MG in DEXTROSE 5% 100ML 100 ML IV SCH ×2 (01:56→09:21)
[2017-04-16 07:11] LABS: HEMATOCRIT 40.3 % (42-52); MEAN CELL VOLUME 90.6 fL (80-100); MEAN CORPUSCULAR HEMOGLOBIN 30.1 pg (25-34); MEAN CORPUSCULAR HGB CONC 33.3 g/dl (32-36); MEAN PLATELET VOLUME 10.7 fL (7.4-10.4); PLATELET COUNT 202 K/uL (130-400); RED BLOOD COUNT 4.45 M/uL (4.7-6.1); WHITE BLOOD COUNT 7.69 K/uL (4.8-10.8)
[2017-04-16] MEDS: ALBUT/IPRATROP 3MG/0.5MG NEB 3 ML VIAL INH SCH ×4 (07:21→20:11)
[2017-04-16 07:41] LABS: BLOOD UREA NITROGEN 13 mg/dl (7-18); BUN/CREATININE RATIO 47.8 (10-20); CALCIUM 9.1 mg/dl (8.5-10.1); CARBON DIOXIDE 29 mmol/L (21-32); CHLORIDE 97 mmol/L (98-107); CREATININE 0.27 mg/dl (0.60-1.40); GLUCOSE 83 mg/dl (70-99); POTASSIUM 4.1 mmol/L (3.5-5.1); SODIUM 133 mmol/L (136-145)
[2017-04-16] MEDS: ASPIRIN 81 MG ECTAB PO SCH (09:22)
[2017-04-16] MEDS: LORATADINE 10 MG TAB PO SCH (09:22)
[2017-04-16] MEDS: IPRATROPIUM BROMIDE NASAL SPRAY 0.06% 15ML INH SCH ×3 (09:23→20:43)
[2017-04-16] MEDS: BACLOFEN TAB 20 MG TAB PO SCH ×4 (09:23→20:42)
[2017-04-16] MEDS: LORAZEPAM 0.5 MG TAB PO SCH (09:25)
[2017-04-16] MEDS: ACETAMINOPHEN 500 MG TAB PO PRN (09:26)
--- NOTE | 2017-04-16 13:21 | Hospitalist Progress Note ---
Hospitalist Progress Note Date of Service Apr 16, 2017. (Zahra Godoy ., JITENDRA) Subjective Pt evaluation today including: conversation w/ patient, physical exam, lab review, review of studies, review of inpatient medication list Voiding: knott catheter in place Patient feeling well. Eating and drinking OK. Agreeable to SNF placement. Patient denies any fever, chills, sweats, lightheadedness, dizziness, vision changes, CP, palpitations, edema, SOB, wheezing, cough, abdominal pain, nausea, vomiting, diarrhea, urinary symptoms, melena, numbness/tingling, weakness, muscle/joint pain, anxiety/depression, active bleeding, or new skin discoloration/changes. (Zahra Godoy ., APOLLOC) Medications Current Inpatient Medications Medications (Trade) Dose Ordered Sig/Ashanti Route Start Time Stop Time Status Last Admin Dose Admin Acetaminophen (Tylenol Tab) 650 mg Q4H PRN PO 04/09/17 20:15 05/09/17 20:14 04/15/17 21:06 650 MG Ondansetron HCl (Zofran Inj) 4 mg Q6H PRN IV 04/09/17 20:15 05/09/17 20:14 Acetaminophen (Tylenol Tab) 1,000 mg Q6H PRN PO 04/09/17 20:15 05/09/17 20:14 04/16/17 09:26 1,000 MG Aspirin (Ecotrin Tab) 81 mg QAM PO 04/10/17 09:00 05/10/17 08:59 04/16/17 09:22 81 MG Baclofen (Lioresal Tab) 40 mg QID PO 04/09/17 21:00 05/09/17 20:59 04/16/17 09:23 40 MG Ibuprofen (Advil Tab) 400 mg Q8 PRN PO 04/09/17 20:15 05/09/17 20:14 Lactobacillus Acidophilus (Floranex Tab) 4 tab 1200 PO 04/10/17 12:00 05/10/17 11:59 04/15/17 13:01 4 TAB Loratadine (Claritin Tab) 10 mg QAM PO 04/10/17 09:00 05/10/17 08:59 04/16/17 09:22 10 MG Lorazepam (Ativan Tab) 0.5 mg DAILY PRN PO 04/09/17 20:15 05/09/17 20:14 04/14/17 20:06 0.5 MG Lorazepam (Ativan Tab) 0.5 mg QAM PO 04/10/17 09:00 05/10/17 08:59 04/16/17 09:25 0.5 MG Multivitamins/ Minerals (Multivitamin W/ Minerals Tab) 1 tab 1200 PO 04/10/17 12:00 05/10/17 11:59 04/15/17 13:01 1 TAB Dantrolene Sodium (Dantrium Cap) 100 mg QPM PO 04/09/17 22:00 05/09/17 21:59 04/15/17 21:06 100 MG Ipratropium [place] (Atrovent Nasal [place] 0.06%) 2 sprays TID INH 04/09/17 22:00 05/09/17 21:59 04/16/17 09:23 2 SPRAYS Cefepime HCl 2000 mg/Dextrose 112.5 ml @ 200 mls/hr Q8H IV 04/10/17 02:00 04/16/17 17:59 04/16/17 09:21 200 MLS/HR Albuterol/ Ipratropium (Duoneb) 3 ml QIDR INH 04/10/17 08:00 05/10/17 07:59 04/16/17 11:21 3 ML Bisacodyl (Dulcolax Supp) 10 mg TuFr@DAILY [place] 04/18/17 09:00 05/15/17 13:44 (Zahra Godoy, APOLLOC) Objective Vital Signs Date Time Temp Pulse Resp B/P (MAP) Pulse Ox O2 Delivery O2 Flow Rate FiO2 04/16/17 11:21 71 26 97 Room Air 04/16/17 07:29 37.0 57 16 141/91 (108) 99 BiPAP Trach Collar 04/16/17 07:24 56 97 30 04/16/17 07:22 56 27 97 BiPAP/CPAP 30 04/16/17 01:05 36.4 53 20 90/60 (70) 98 Room Air 04/16/17 00:05 Room Air Trach Collar 04/15/17 21:25 70 20 97 Room Air 04/15/17 16:28 36.6 74 20 104/71 (82) 96 Room Air 04/15/17 15:45 70 20 97 Room Air 04/15/17 15:25 Room Air (Zahra Godoy PA-C) Physical Exam General Appearance: no apparent distress Eyes: PERRL ENT: hearing grossly normal, + pertinent finding (trach site ) Neck: supple Respiratory/Chest: lungs clear, no respiratory distress, no accessory muscle use Cardiovascular: regular rate, rhythm Abdomen: normal bowel sounds, non tender, soft Extremities: no pedal edema Neurologic/Psychiatric: alert, normal mood/affect, oriented x 3 Skin: normal color, warm/dry, no rash (Zahra Godoy, CAROLYN-C) Laboratory Results Last 24 Hours Test 04/16/17 06:48 White Blood Count 7.69 K/uL Red Blood Count 4.45 M/uL Hemoglobin 13.4 g/dL Hematocrit 40.3 % Mean Corpuscular Volume 90.6 fL Mean Corpuscular Hemoglobin 30.1 pg Mean Corpuscular Hemoglobin Concent 33.3 g/dl RDW Standard Deviation 43.0 fL RDW Coefficient of Variation 13.0 % Platelet Count 202 K/uL Mean Platelet Volume 10.7 fL Sodium Level 133 mmol/L Potassium Level 4.1 mmol/L Chloride Level 97 mmol/L Carbon Dioxide Level 29 mmol/L Anion Gap 7.0 mmol/L Blood Urea Nitrogen 13 mg/dl Creatinine 0.27 mg/dl Est Creatinine Clear Calc Drug Dose 288.7 ml/min Estimated GFR () > 150.0 Estimated GFR (Non- > 150.0 BUN/Creatinine Ratio 47.8 Random Glucose 83 mg/dl Calcium Level 9.1 mg/dl (Zahra Godoy PA-C) Assessment and Plan 46 y/o patient s/p tracheostomy with increased secretions, found to have pseudomonas in his sputum Pseudomonas Pneumonia- IMPROVING: - Cefepime 2 g IV Q8H x7 days- last day of treatment 04/16 -- sputum culture growing pseudomonas and serratia marcescens- ID consulted, recommend continuing 7 day course - Continue Floranex - DuoNebs and Atrovent - IV Ativan PRN - BCx and MRSA swab negative - Pulmonary consultation, appreciate recommendations -- Cefepime for 7 total days and follow-up in one week -- Vibratory vest set-up for discharge and should continue indefinitely Mild hyponatremia at 133: Follow PRP Quadriplegia: Baclofen 40 mg QID, Dantrium 100 mg HS DVT prophylaxis: SCDs Code Status: FULL RESUSCITATION Dispo: Medically stable for discharge pending SNF placement- social research assistant consulted (Zahra Godoy, PA-C) I confirmed above history with patient after examining patient, and discussing case with APC. General Appearance: no apparent distress Eyes: normal inspection, PERRL ENT: hearing grossly normal, + pertinent finding (trach site ) Neck: supple Respiratory/Chest: lungs clear, no respiratory distress, no accessory muscle use, Cardiovascular: regular rate, rhythm Abdomen: normal bowel sounds, non tender, soft Extremities: no pedal edema, no calf tenderness Neurologic/Psychiatric: alert, normal mood/affect, oriented x 3 Skin: normal color, warm/dry, no rash I agree with plan. (Krishan Lewis M.D.)
[2017-04-16] MEDS: CEROVITE ADV FORMULA TAB PO SCH (13:32)
[2017-04-16] MEDS: LACTOBACILLUS ACIDOPHILUS (FLORANEX) TAB PO SCH (13:32)
[2017-04-16] MEDS: DANTROLENE SODIUM 25 MG CAP PO SCH (20:42)
[2017-04-17] VITALS (13 sets, daily range): BP systolic 106–135; BP diastolic 69–92; PULSE 52–81; TEMP 36.7–36.9; O2SAT 95–100
[2017-04-17 07:05] LABS: BLOOD UREA NITROGEN 14 mg/dl (7-18); BUN/CREATININE RATIO 49.1 (10-20); CALCIUM 9.2 mg/dl (8.5-10.1); CARBON DIOXIDE 30 mmol/L (21-32); CHLORIDE 99 mmol/L (98-107); CREATININE 0.28 mg/dl (0.60-1.40); GLUCOSE 86 mg/dl (70-99); POTASSIUM 4.2 mmol/L (3.5-5.1); SODIUM 135 mmol/L (136-145)
[2017-04-17] MEDS: ALBUT/IPRATROP 3MG/0.5MG NEB 3 ML VIAL INH SCH ×4 (07:17→20:14)
[2017-04-17] MEDS: IPRATROPIUM BROMIDE NASAL SPRAY 0.06% 15ML INH SCH ×2 (09:18→20:00)
[2017-04-17] MEDS: ASPIRIN 81 MG ECTAB PO SCH (09:18)
[2017-04-17] MEDS: CEROVITE ADV FORMULA TAB PO SCH (09:19)
[2017-04-17] MEDS: LORATADINE 10 MG TAB PO SCH (09:19)
[2017-04-17] MEDS: BACLOFEN TAB 20 MG TAB PO SCH ×4 (09:19→20:21)
[2017-04-17] MEDS: LORAZEPAM 0.5 MG TAB PO SCH (09:21)
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
[2017-04-17] MEDS: LACTOBACILLUS ACIDOPHILUS (FLORANEX) TAB PO SCH (12:54)
[2017-04-17] MEDS: LORAZEPAM 0.5 MG TAB PO PRN (19:06)
[2017-04-17] MEDS: DANTROLENE SODIUM 25 MG CAP PO SCH (20:21)
[2017-04-18] VITALS (7 sets, daily range): BP systolic 135–152; BP diastolic 88–90; PULSE 53–78; TEMP 36.6–36.9; O2SAT 95–99
[2017-04-18] MEDS: ALBUT/IPRATROP 3MG/0.5MG NEB 3 ML VIAL INH SCH ×4 (07:34→19:16)
[2017-04-18] MEDS: LORAZEPAM 0.5 MG TAB PO SCH (08:50)
[2017-04-18] MEDS: IPRATROPIUM BROMIDE NASAL SPRAY 0.06% 15ML INH SCH ×3 (08:51→20:43)
[2017-04-18] MEDS: LORATADINE 10 MG TAB PO SCH (08:51)
[2017-04-18] MEDS: BACLOFEN TAB 20 MG TAB PO SCH ×4 (08:52→20:42)
[2017-04-18] MEDS: ASPIRIN 81 MG ECTAB PO SCH (08:52)
[2017-04-18] MEDS: CEROVITE ADV FORMULA TAB PO SCH (12:17)
[2017-04-18] MEDS: LACTOBACILLUS ACIDOPHILUS (FLORANEX) TAB PO SCH (12:17)
--- NOTE | 2017-04-18 12:18 | Progress Note ---
Subjective Date of Service: Apr 18, 2017. Subjective Pt evaluation today including: conversation w/ patient, physical exam, chart review Patient reports doing well. He has no complaints. He reports his sputum production has continued to decrease. Problem List Medical Problems: (1) Bronchitis Status: Acute (2) Hypoxemia Status: Acute (3) Hypoxia Status: Acute (4) Knee pain, acute Status: Acute (5) Mucus plugging of bronchi Status: Acute (6) Paraplegia Status: Acute (7) PNA (pneumonia) Status: Acute (8) PNA (pneumonia) Status: Acute (9) Pneumonia Status: Acute (10) Pneumonia Status: Acute (11) Pneumonia Status: Acute (12) Pneumonia Status: Acute (13) Pneumonia Status: Acute (14) Pneumonia Status: Acute (15) Productive cough Status: Acute (16) Quadriplegia Status: Acute (17) Sacral decubitus ulcer Status: Acute (18) SOB (shortness of breath) Status: Acute (19) SOB (shortness of breath) Status: Acute (20) Ulcer of right heel Status: Acute Review of Systems Constitutional: No fever, No chills ENT: No hearing loss, No unusual epistaxis Respiratory: No wheezing, No shortness of breath, No dyspnea on exertion Cardiac: No chest pain, No orthopnea Abdomen: No pain, No nausea Neurologic: No memory loss, No paralysis Heme: No abnormal bleeding/bruising All Other Systems: Reviewed and Negative Medications Current Inpatient Medications Medications (Trade) Dose Ordered Sig/Ashanti Route Start Time Stop Time Status Last Admin Dose Admin Acetaminophen (Tylenol Tab) 650 mg Q4H PRN PO 04/09/17 20:15 05/09/17 20:14 04/15/17 21:06 650 MG Ondansetron HCl (Zofran Inj) 4 mg Q6H PRN IV 04/09/17 20:15 05/09/17 20:14 Acetaminophen (Tylenol Tab) 1,000 mg Q6H PRN PO 04/09/17 20:15 05/09/17 20:14 04/16/17 09:26 1,000 MG Aspirin (Ecotrin Tab) 81 mg QAM PO 04/10/17 09:00 05/10/17 08:59 04/18/17 08:52 81 MG Baclofen (Lioresal Tab) 40 mg QID PO 04/09/17 21:00 05/09/17 20:59 04/18/17 08:52 40 MG Ibuprofen (Advil Tab) 400 mg Q8 PRN PO 04/09/17 20:15 05/09/17 20:14 Lactobacillus Acidophilus (Floranex Tab) 4 tab 1200 PO 04/10/17 12:00 05/10/17 11:59 04/17/17 12:54 4 TAB Loratadine (Claritin Tab) 10 mg QAM PO 04/10/17 09:00 05/10/17 08:59 04/18/17 08:51 10 MG Lorazepam (Ativan Tab) 0.5 mg DAILY PRN PO 04/09/17 20:15 05/09/17 20:14 04/17/17 19:06 0.5 MG Lorazepam (Ativan Tab) 0.5 mg QAM PO 04/10/17 09:00 05/10/17 08:59 04/18/17 08:50 0.5 MG Multivitamins/ Minerals (Multivitamin W/ Minerals Tab) 1 tab 1200 PO 04/10/17 12:00 05/10/17 11:59 04/17/17 09:19 1 TAB Dantrolene Sodium (Dantrium Cap) 100 mg QPM PO 04/09/17 22:00 05/09/17 21:59 04/17/17 20:21 100 MG Ipratropium [place] (Atrovent Nasal [place] 0.06%) 2 sprays TID INH 04/09/17 22:00 05/09/17 21:59 04/18/17 08:51 2 SPRAYS Albuterol/ Ipratropium (Duoneb) 3 ml QIDR INH 04/10/17 08:00 05/10/17 07:59 04/18/17 11:31 3 ML Bisacodyl (Dulcolax Supp) 10 mg TuFr@DAILY [place] 04/18/17 09:00 05/15/17 13:44 Objective Vital Signs Date Time Temp Pulse Resp B/P (MAP) Pulse Ox O2 Delivery O2 Flow Rate FiO2 04/18/17 11:35 69 27 97 Room Air 04/18/17 08:00 Room Air 04/18/17 07:41 36.6 53 18 135/88 (104) 97 Room Air 04/18/17 07:40 63 98 30 04/18/17 07:40 63 32 98 BiPAP/CPAP 30 04/18/17 00:00 BiPAP Trach Collar 04/17/17 23:07 36.8 52 20 128/87 (101) 99 BiPAP 04/17/17 22:36 72 96 30 04/17/17 20:15 74 95 30 04/17/17 20:14 74 32 95 BiPAP/CPAP 30 04/17/17 16:00 96 Room Air 30 04/17/17 15:48 72 28 96 Room Air 04/17/17 15:11 36.9 73 18 106/69 (81) 96 Physical Exam Comments: General Appearance: no apparent distress Eyes: PERRL ENT: hearing grossly normal, + pertinent finding (trach site) Neck: supple Respiratory/Chest: lungs clear, no respiratory distress, no accessory muscle use Cardiovascular: regular rate, rhythm Abdomen: normal bowel sounds, non tender, soft Extremities: no pedal edema Neurologic/Psychiatric: alert, normal mood/affect, oriented x 3 Skin: normal color, warm/dry, no rash Assessment and Plan 46 y/o patient s/p tracheostomy with increased secretions, found to have pseudomonas in his sputum Pseudomonas Pneumonia- RESOLVED: - ID and pulm recommended IV Cefepime x7 days- treatment completed - Continue Floranex - DuoNebs and Atrovent - IV Ativan PRN - BCx and MRSA swab negative - Pulmonary consultation, appreciate recommendations -- Cefepime for 7 total days and follow-up in one week -- Vibratory vest set-up for discharge and should continue indefinitely Mild hyponatremia at 135- IMPROVING: Follow PRP in AM Quadriplegia: Baclofen 40 mg QID, Dantrium 100 mg HS DVT prophylaxis: SCDs Code Status: FULL RESUSCITATION Dispo: Medically stable for discharge pending SNF placement- drug abuse social worker consulted Continued [facility] stay due to: multiple IV medications needed Discharge planning: home with home health
[2017-04-18] MEDS: BISACODYL 10 MG SUPP PR SCH (14:47)
[2017-04-18] MEDS: DANTROLENE SODIUM 25 MG CAP PO SCH (20:42)
[2017-04-19] VITALS (11 sets, daily range): BP systolic 116–135; BP diastolic 68–88; PULSE 50–82; TEMP 36.5–36.8; O2SAT 94–100
[2017-04-19 07:02] LABS: BLOOD UREA NITROGEN 17 mg/dl (7-18); BUN/CREATININE RATIO 66.2 (10-20); CALCIUM 8.9 mg/dl (8.5-10.1); CARBON DIOXIDE 24 mmol/L (21-32); CHLORIDE 101 mmol/L (98-107); CREATININE 0.26 mg/dl (0.60-1.40); GLUCOSE 80 mg/dl (70-99); SODIUM 133 mmol/L (136-145)
[2017-04-19] MEDS: ALBUT/IPRATROP 3MG/0.5MG NEB 3 ML VIAL INH SCH ×4 (07:21→19:38)
[2017-04-19] MEDS: LORAZEPAM 0.5 MG TAB PO SCH (08:25)
[2017-04-19] MEDS: IPRATROPIUM BROMIDE NASAL SPRAY 0.06% 15ML INH SCH ×3 (08:25→20:30)
[2017-04-19] MEDS: LORATADINE 10 MG TAB PO SCH (08:25)
[2017-04-19] MEDS: ASPIRIN 81 MG ECTAB PO SCH (08:25)
[2017-04-19] MEDS: BACLOFEN TAB 20 MG TAB PO SCH ×4 (08:26→20:30)
[2017-04-19] MEDS: CEROVITE ADV FORMULA TAB PO SCH (12:05)
[2017-04-19] MEDS: LACTOBACILLUS ACIDOPHILUS (FLORANEX) TAB PO SCH (12:05)
--- NOTE | 2017-04-19 12:30 | Hospitalist Progress Note ---
Hospitalist Progress Note Date of Service Apr 19, 2017. (Zahra Godoy ., JITENDRA) Subjective Pt evaluation today including: conversation w/ patient, physical exam, review of inpatient medication list Voiding: knott catheter in place Patient feeling well. Less secretions and suctioning required. Eating and drinking OK. Manually disimpacted/suppository with BM on 04/18. Patient denies any fever, chills, sweats, lightheadedness, dizziness, vision changes, CP, palpitations, edema, SOB, wheezing, cough, abdominal pain, nausea, vomiting, diarrhea, urinary symptoms, melena, numbness/tingling, weakness, muscle/joint pain, anxiety/depression, active bleeding, or new skin discoloration/changes. (Zahra Godoy ., APOLLOC) Medications Current Inpatient Medications Medications (Trade) Dose Ordered Sig/Ashanti Route Start Time Stop Time Status Last Admin Dose Admin Acetaminophen (Tylenol Tab) 650 mg Q4H PRN PO 04/09/17 20:15 05/09/17 20:14 04/15/17 21:06 650 MG Ondansetron HCl (Zofran Inj) 4 mg Q6H PRN IV 04/09/17 20:15 05/09/17 20:14 Acetaminophen (Tylenol Tab) 1,000 mg Q6H PRN PO 04/09/17 20:15 05/09/17 20:14 04/16/17 09:26 1,000 MG Aspirin (Ecotrin Tab) 81 mg QAM PO 04/10/17 09:00 05/10/17 08:59 04/19/17 08:25 81 MG Baclofen (Lioresal Tab) 40 mg QID PO 04/09/17 21:00 05/09/17 20:59 04/19/17 12:04 40 MG Ibuprofen (Advil Tab) 400 mg Q8 PRN PO 04/09/17 20:15 05/09/17 20:14 Lactobacillus Acidophilus (Floranex Tab) 4 tab 1200 PO 04/10/17 12:00 05/10/17 11:59 04/19/17 12:05 4 TAB Loratadine (Claritin Tab) 10 mg QAM PO 04/10/17 09:00 05/10/17 08:59 04/19/17 08:25 10 MG Lorazepam (Ativan Tab) 0.5 mg DAILY PRN PO 04/09/17 20:15 05/09/17 20:14 04/17/17 19:06 0.5 MG Lorazepam (Ativan Tab) 0.5 mg QAM PO 04/10/17 09:00 05/10/17 08:59 04/19/17 08:25 0.5 MG Multivitamins/ Minerals (Multivitamin W/ Minerals Tab) 1 tab 1200 PO 04/10/17 12:00 05/10/17 11:59 04/19/17 12:05 1 TAB Dantrolene Sodium (Dantrium Cap) 100 mg QPM PO 04/09/17 22:00 05/09/17 21:59 04/18/17 20:42 100 MG Ipratropium [place] (Atrovent Nasal [place] 0.06%) 2 sprays TID INH 04/09/17 22:00 05/09/17 21:59 04/19/17 12:05 2 SPRAYS Albuterol/ Ipratropium (Duoneb) 3 ml QIDR INH 04/10/17 08:00 05/10/17 07:59 04/19/17 11:19 3 ML Bisacodyl (Dulcolax Supp) 10 mg TuFr@DAILY [place] 04/18/17 09:00 05/15/17 13:44 04/18/17 14:47 10 MG (Zahra Godoy, APOLLOC) Objective Vital Signs Date Time Temp Pulse Resp B/P (MAP) Pulse Ox O2 Delivery O2 Flow Rate FiO2 04/19/17 11:20 57 28 95 Room Air 04/19/17 08:00 Room Air Trach Collar 04/19/17 07:21 52 28 98 Room Air 04/19/17 04:54 66 98 30 04/19/17 00:30 59 98 30 04/19/17 00:27 36.8 58 20 135/88 (104) 100 Trach Collar 04/19/17 00:00 Room Air 04/18/17 21:06 78 98 30 04/18/17 20:00 Room Air 04/18/17 19:30 77 24 96 Room Air 04/18/17 16:00 Room Air 04/18/17 15:44 36.9 69 18 152/90 (110) 95 Room Air 04/18/17 15:33 77 24 99 Room Air (Zahra Godoy, PA-C) Physical Exam General Appearance: no apparent distress Eyes: PERRL ENT: hearing grossly normal, + pertinent finding (trach site) Neck: supple Respiratory/Chest: lungs clear, no respiratory distress, no accessory muscle use Cardiovascular: regular rate, rhythm Abdomen: normal bowel sounds, non tender, soft Extremities: no pedal edema Neurologic/Psychiatric: alert, normal mood/affect, oriented x 3 Skin: normal color, warm/dry, no rash (Zahra Godoy, PA-C) Laboratory Results Last 24 Hours Test 04/19/17 06:09 Sodium Level 133 mmol/L Potassium Level 4.0 mmol/L Chloride Level 101 mmol/L Carbon Dioxide Level 24 mmol/L Anion Gap 8.0 mmol/L Blood Urea Nitrogen 17 mg/dl Creatinine 0.26 mg/dl Est Creatinine Clear Calc Drug Dose 299.8 ml/min Estimated GFR () > 150.0 Estimated GFR (Non- > 150.0 BUN/Creatinine Ratio 66.2 Random Glucose 80 mg/dl Calcium Level 8.9 mg/dl (Zahra Godoy, PA-C) Assessment and Plan 46 y/o patient s/p tracheostomy with increased secretions, found to have pseudomonas in his sputum Pseudomonas Pneumonia- RESOLVED: - ID and pulm recommended IV Cefepime x7 days- treatment completed - Continue Floranex - DuoNebs and Atrovent - IV Ativan PRN - BCx and MRSA swab negative - Pulmonary consultation, appreciate recommendations -- follow-up in one week -- Vibratory vest set-up for discharge and should continue indefinitely Mild hyponatremia at 133- STABLE: Follow PRP Quadriplegia: Baclofen 40 mg QID, Dantrium 100 mg HS DVT prophylaxis: SCDs Code Status: FULL RESUSCITATION Dispo: Medically stable for discharge pending SNF placement- director of social services consulted (Zahra Godoy, PA-C) I confirmed above history with patient after examining patient, and discussing case with APC. General Appearance: no apparent distress Eyes: normal inspection, PERRL ENT: hearing grossly normal, + pertinent finding (trach site ) Neck: supple Respiratory/Chest: lungs clear, no respiratory distress, no accessory muscle use, Cardiovascular: regular rate, rhythm Abdomen: normal bowel sounds, non tender, soft Extremities: no pedal edema, no calf tenderness Neurologic/Psychiatric: alert, normal mood/affect, oriented x 3 Skin: normal color, warm/dry, no rash I agree with plan. (Krishan Lewis M.D.)
[2017-04-19] MEDS: LORAZEPAM 0.5 MG TAB PO PRN (16:59)
[2017-04-19] MEDS: DANTROLENE SODIUM 25 MG CAP PO SCH (20:30)
[2017-04-20] VITALS (10 sets, daily range): BP systolic 98–108; BP diastolic 63–73; PULSE 50–85; TEMP 36.5–36.8; O2SAT 95–100
[2017-04-20] MEDS: ALBUT/IPRATROP 3MG/0.5MG NEB 3 ML VIAL INH SCH ×4 (07:30→20:25)
[2017-04-20] MEDS: LORAZEPAM 0.5 MG TAB PO SCH (07:48)
[2017-04-20] MEDS: BACLOFEN TAB 20 MG TAB PO SCH ×4 (07:48→21:22)
[2017-04-20] MEDS: IPRATROPIUM BROMIDE NASAL SPRAY 0.06% 15ML INH SCH ×3 (07:48→21:24)
[2017-04-20] MEDS: LORATADINE 10 MG TAB PO SCH (07:49)
[2017-04-20] MEDS: ASPIRIN 81 MG ECTAB PO SCH (07:49)
[2017-04-20] MEDS: LACTOBACILLUS ACIDOPHILUS (FLORANEX) TAB PO SCH (12:09)
[2017-04-20] MEDS: CEROVITE ADV FORMULA TAB PO SCH (12:09)
--- NOTE | 2017-04-20 12:16 | Hospitalist Progress Note ---
Hospitalist Progress Note Date of Service Apr 20, 2017. (Zahra Godoy ., JITENDRA) Subjective Pt evaluation today including: conversation w/ patient, physical exam, review of inpatient medication list Voiding: knott catheter in place Patient states he is feeling well. Eating and drinking OK. Discussed SNF placement still pending. Patient denies any fever, chills, sweats, lightheadedness, dizziness, vision changes, CP, palpitations, edema, SOB, wheezing, cough, abdominal pain, nausea, vomiting, diarrhea, urinary symptoms, melena, numbness/tingling, weakness, muscle/joint pain, anxiety/depression, active bleeding, or new skin discoloration/changes. (Zahra Godoy, APOLLOC) Medications Current Inpatient Medications Medications (Trade) Dose Ordered Sig/Ashanti Route Start Time Stop Time Status Last Admin Dose Admin Acetaminophen (Tylenol Tab) 650 mg Q4H PRN PO 04/09/17 20:15 05/09/17 20:14 04/15/17 21:06 650 MG Ondansetron HCl (Zofran Inj) 4 mg Q6H PRN IV 04/09/17 20:15 05/09/17 20:14 Acetaminophen (Tylenol Tab) 1,000 mg Q6H PRN PO 04/09/17 20:15 05/09/17 20:14 04/16/17 09:26 1,000 MG Aspirin (Ecotrin Tab) 81 mg QAM PO 04/10/17 09:00 05/10/17 08:59 04/20/17 07:49 81 MG Baclofen (Lioresal Tab) 40 mg QID PO 04/09/17 21:00 05/09/17 20:59 04/20/17 12:09 40 MG Ibuprofen (Advil Tab) 400 mg Q8 PRN PO 04/09/17 20:15 05/09/17 20:14 Lactobacillus Acidophilus (Floranex Tab) 4 tab 1200 PO 04/10/17 12:00 05/10/17 11:59 04/20/17 12:09 4 TAB Loratadine (Claritin Tab) 10 mg QAM PO 04/10/17 09:00 05/10/17 08:59 04/20/17 07:49 10 MG Lorazepam (Ativan Tab) 0.5 mg DAILY PRN PO 04/09/17 20:15 05/09/17 20:14 04/19/17 16:59 0.5 MG Lorazepam (Ativan Tab) 0.5 mg QAM PO 04/10/17 09:00 05/10/17 08:59 04/20/17 07:48 0.5 MG Multivitamins/ Minerals (Multivitamin W/ Minerals Tab) 1 tab 1200 PO 04/10/17 12:00 05/10/17 11:59 04/20/17 12:09 1 TAB Dantrolene Sodium (Dantrium Cap) 100 mg QPM PO 04/09/17 22:00 05/09/17 21:59 04/19/17 20:30 100 MG Ipratropium [place] (Atrovent Nasal [place] 0.06%) 2 sprays TID INH 04/09/17 22:00 05/09/17 21:59 04/20/17 07:48 2 SPRAYS Albuterol/ Ipratropium (Duoneb) 3 ml QIDR INH 04/10/17 08:00 05/10/17 07:59 04/20/17 11:15 3 ML Bisacodyl (Dulcolax Supp) 10 mg TuFr@DAILY [place] 04/18/17 09:00 05/15/17 13:44 04/18/17 14:47 10 MG (Zahra Godoy, JITENDRA) Objective Vital Signs Date Time Temp Pulse Resp B/P (MAP) Pulse Ox O2 Delivery O2 Flow Rate FiO2 04/20/17 11:15 60 30 95 Room Air 04/20/17 08:32 36.5 53 20 108/73 (85) 100 Trach Collar 9.0 04/20/17 08:00 Room Air Trach Collar 04/20/17 07:37 50 24 98 BiPAP/CPAP 04/20/17 00:00 Room Air 04/19/17 23:39 36.5 50 18 116/73 (87) 100 Room Air 04/19/17 21:33 77 97 30 04/19/17 20:00 Room Air 04/19/17 19:40 77 97 30 04/19/17 19:38 77 33 97 BiPAP/CPAP 30.0 04/19/17 17:46 36.8 82 22 135/68 (90) 94 Room Air 04/19/17 16:00 Room Air Trach Collar 04/19/17 14:53 69 34 99 BiPAP/CPAP 30.0 04/19/17 14:53 69 99 30 (Zahra Godoy PA-C) Physical Exam General Appearance: no apparent distress Eyes: normal inspection, PERRL ENT: hearing grossly normal, + pertinent finding (trach site) Neck: supple Respiratory/Chest: lungs clear, no respiratory distress, no accessory muscle use Cardiovascular: regular rate, rhythm Abdomen: normal bowel sounds, non tender, soft Extremities: no pedal edema Neurologic/Psychiatric: alert, normal mood/affect, oriented x 3 Skin: normal color, warm/dry, no rash (Zahra Godoy, APOLLOC) Assessment and Plan 46 y/o patient s/p tracheostomy with increased secretions, found to have pseudomonas in his sputum Pseudomonas Pneumonia- RESOLVED: - ID and pulm recommended IV Cefepime x7 days- treatment completed - Continue Floranex - DuoNebs and Atrovent - IV Ativan PRN - BCx and MRSA swab negative - Pulmonary consultation, appreciate recommendations -- Follow-up in one week -- Vibratory vest set-up for discharge and should continue indefinitely Mild hyponatremia at 133- STABLE: Follow PRP Quadriplegia: Baclofen 40 mg QID, Dantrium 100 mg HS Chronic constipation: Continue outpatient regimen of suppository and manual disimpaction on and Fri. DVT prophylaxis: SCDs Code Status: FULL RESUSCITATION Dispo: Medically stable for discharge pending SNF placement- social services aide consulted (Zahra Godoy, APOLLOC) I confirmed above history with patient after examining patient, and discussing case with APC. General Appearance: no apparent distress Eyes: normal inspection, PERRL ENT: hearing grossly normal, + pertinent finding (trach site ) Neck: supple Respiratory/Chest: lungs clear, no respiratory distress, no accessory muscle use, Cardiovascular: regular rate, rhythm Abdomen: normal bowel sounds, non tender, soft Extremities: no pedal edema, no calf tenderness Neurologic/Psychiatric: alert, normal mood/affect, oriented x 3 Skin: normal color, warm/dry, no rash I agree with plan. (Krishan Lewis M.D.)
[2017-04-20] MEDS: DANTROLENE SODIUM 25 MG CAP PO SCH (21:24)
[2017-04-21] VITALS (11 sets, daily range): BP systolic 106–118; BP diastolic 70–78; PULSE 50–77; TEMP 36.5–36.8; O2SAT 95–100
[2017-04-21] MEDS: ALBUT/IPRATROP 3MG/0.5MG NEB 3 ML VIAL INH SCH ×4 (07:46→19:33)
[2017-04-21] MEDS: LORATADINE 10 MG TAB PO SCH (08:47)
[2017-04-21] MEDS: IPRATROPIUM BROMIDE NASAL SPRAY 0.06% 15ML INH SCH ×3 (08:47→20:00)
[2017-04-21] MEDS: BACLOFEN TAB 20 MG TAB PO SCH ×4 (08:47→20:55)
[2017-04-21] MEDS: CEROVITE ADV FORMULA TAB PO SCH (08:47)
[2017-04-21] MEDS: ASPIRIN 81 MG ECTAB PO SCH (08:48)
[2017-04-21] MEDS: LORAZEPAM 0.5 MG TAB PO SCH (08:49)
--- NOTE | 2017-04-21 13:13 | Progress Note ---
Subjective Date of Service: Apr 21, 2017. Subjective Pt evaluation today including: conversation w/ patient, physical exam Pain: no pain PO Intake: adequate Voiding: knott catheter in place patient doing well, breathing stable awaiting placement no acute issues Problem List Medical Problems: (1) Bronchitis Status: Acute (2) Hypoxemia Status: Acute (3) Hypoxia Status: Acute (4) Knee pain, acute Status: Acute (5) Mucus plugging of bronchi Status: Acute (6) Paraplegia Status: Acute (7) PNA (pneumonia) Status: Acute (8) PNA (pneumonia) Status: Acute (9) Pneumonia Status: Acute (10) Pneumonia Status: Acute (11) Pneumonia Status: Acute (12) Pneumonia Status: Acute (13) Pneumonia Status: Acute (14) Pneumonia Status: Acute (15) Productive cough Status: Acute (16) Quadriplegia Status: Acute (17) Sacral decubitus ulcer Status: Acute (18) SOB (shortness of breath) Status: Acute (19) SOB (shortness of breath) Status: Acute (20) Ulcer of right heel Status: Acute Review of Systems Respiratory: + cough Neurologic: + paralysis All Other Systems: Reviewed and Negative Medications Current Inpatient Medications Medications (Trade) Dose Ordered Sig/Ashanti Route Start Time Stop Time Status Last Admin Dose Admin Acetaminophen (Tylenol Tab) 650 mg Q4H PRN PO 04/09/17 20:15 05/09/17 20:14 04/15/17 21:06 650 MG Ondansetron HCl (Zofran Inj) 4 mg Q6H PRN IV 04/09/17 20:15 05/09/17 20:14 Acetaminophen (Tylenol Tab) 1,000 mg Q6H PRN PO 04/09/17 20:15 05/09/17 20:14 04/16/17 09:26 1,000 MG Aspirin (Ecotrin Tab) 81 mg QAM PO 04/10/17 09:00 05/10/17 08:59 04/21/17 08:48 81 MG Baclofen (Lioresal Tab) 40 mg QID PO 04/09/17 21:00 05/09/17 20:59 04/21/17 08:47 40 MG Ibuprofen (Advil Tab) 400 mg Q8 PRN PO 04/09/17 20:15 05/09/17 20:14 Lactobacillus Acidophilus (Floranex Tab) 4 tab 1200 PO 04/10/17 12:00 05/10/17 11:59 04/20/17 12:09 4 TAB Loratadine (Claritin Tab) 10 mg QAM PO 04/10/17 09:00 05/10/17 08:59 04/21/17 08:47 10 MG Lorazepam (Ativan Tab) 0.5 mg DAILY PRN PO 04/09/17 20:15 05/09/17 20:14 04/19/17 16:59 0.5 MG Lorazepam (Ativan Tab) 0.5 mg QAM PO 04/10/17 09:00 05/10/17 08:59 04/21/17 08:49 0.5 MG Multivitamins/ Minerals (Multivitamin W/ Minerals Tab) 1 tab 1200 PO 04/10/17 12:00 05/10/17 11:59 04/21/17 08:47 1 TAB Dantrolene Sodium (Dantrium Cap) 100 mg QPM PO 04/09/17 22:00 05/09/17 21:59 04/20/17 21:24 100 MG Ipratropium [place] (Atrovent Nasal [place] 0.06%) 2 sprays TID INH 04/09/17 22:00 05/09/17 21:59 04/21/17 08:47 2 SPRAYS Albuterol/ Ipratropium (Duoneb) 3 ml QIDR INH 04/10/17 08:00 05/10/17 07:59 04/21/17 11:19 3 ML Bisacodyl (Dulcolax Supp) 10 mg TuFr@DAILY [place] 04/18/17 09:00 05/15/17 13:44 04/18/17 14:47 10 MG Objective Vital Signs Date Time Temp Pulse Resp B/P (MAP) Pulse Ox O2 Delivery O2 Flow Rate FiO2 04/21/17 11:24 77 30 98 BiPAP/CPAP 30 04/21/17 08:45 100 Room Air Trach Collar 04/21/17 08:04 36.5 50 20 118/78 (91) 100 04/21/17 07:46 52 27 98 BiPAP/CPAP 30.0 04/21/17 05:46 68 98 30 04/21/17 02:14 71 96 30 04/21/17 00:09 36.5 52 18 118/76 (90) 98 Trach Collar 04/20/17 23:16 64 97 30 04/20/17 21:35 74 97 30 04/20/17 20:26 73 99 30 04/20/17 20:25 73 31 99 BiPAP/CPAP 30.0 04/20/17 20:00 Room Air Trach Collar 04/20/17 16:16 36.8 85 20 98/63 (75) 95 Room Air 04/20/17 15:14 79 95 30 04/20/17 15:12 80 30 95 BiPAP/CPAP 30.0 Physical Exam General Appearance: no apparent distress, + thin Eyes: normal inspection, EOMI, sclerae normal ENT: normal ENT inspection, hearing grossly normal, pharynx normal Neck: supple, no adenopathy, no JVD, trachea midline Respiratory/Chest: chest non-tender, lungs clear, normal breath sounds, no respiratory distress, no accessory muscle use Cardiovascular: regular rate, rhythm, no edema, no gallop, no JVD, no murmur Abdomen: normal bowel sounds, non tender, soft, no organomegaly Extremities: normal range of motion, non-tender, normal inspection, no pedal edema, no calf tenderness, pelvis stable Neurologic/Psychiatric: hall cleaner II-XII nml as tested, alert, normal mood/affect, oriented x 3, + motor weakness (chronic paralysis) Skin: normal color, warm/dry, no rash Assessment and Plan 46 y/o patient s/p tracheostomy with increased secretions, found to have pseudomonas in his sputum Pseudomonas Pneumonia- RESOLVED: - ID and pulm recommended IV Cefepime x7 days- treatment completed - Continue Floranex - DuoNebs and Atrovent - IV Ativan PRN - BCx and MRSA swab negative - Pulmonary consultation, appreciate recommendations -- Vibratory vest set-up for discharge and should continue indefinitely Mild hyponatremia at 133- STABLE Quadriplegia: Baclofen 40 mg QID, Dantrium 100 mg HS Chronic constipation: Continue outpatient regimen of suppository and manual disimpaction on Tues and Fri. DVT prophylaxis: SCDs Code Status: FULL RESUSCITATION Dispo: Medically stable for discharge pending SNF placement- delinquency prevention social worker consulted, looking into [facility], still awaiting decision Continued [facility] stay due to: multiple IV medications needed Discharge planning: home with home health
[2017-04-21] MEDS: LACTOBACILLUS ACIDOPHILUS (FLORANEX) TAB PO SCH (14:01)
--- NOTE | 2017-04-21 16:07 | Medical Student: [facility] ---
Med Student Progress Note Date of Service Apr 21, 2017. Subjective Pt evaluation today including: conversation w/ patient, physical exam, chart review, lab review Pt notes that he is feeling well today. Is still "confused" about placement. Unsure if he will got to SNF or back home into [facility]. Notes some increased secretions today. Review of Systems Constitutional: No fever, No chills, No sweats Respiratory: + cough, + sputum, No wheezing, No shortness of breath Cardiac: No chest pain, No palpitations Abdomen: No pain, No nausea, No vomiting, No diarrhea, No constipation Male : No dysuria, No urinary frequency Skin: No rash, No itch Objective Vital Signs Date Time Temp Pulse Resp B/P (MAP) Pulse Ox O2 Delivery O2 Flow Rate FiO2 04/21/17 15:29 70 26 96 Room Air 04/21/17 15:04 Room Air Trach Collar 04/21/17 11:24 77 30 98 BiPAP/CPAP 30 04/21/17 08:45 100 Room Air Trach Collar 04/21/17 08:04 36.5 50 20 118/78 (91) 100 04/21/17 07:46 52 27 98 BiPAP/CPAP 30.0 04/21/17 05:46 68 98 30 04/21/17 02:14 71 96 30 04/21/17 00:09 36.5 52 18 118/76 (90) 98 Trach Collar 04/20/17 23:16 64 97 30 04/20/17 21:35 74 97 30 04/20/17 20:26 73 99 30 04/20/17 20:25 73 31 99 BiPAP/CPAP 30.0 04/20/17 20:00 Room Air Trach Collar 04/20/17 16:16 36.8 85 20 98/63 (75) 95 Room Air Physical Exam General Appearance: no apparent distress, + thin ENT: hearing grossly normal Respiratory/Chest: normal breath sounds, + rhonchi Cardiovascular: regular rate, rhythm, no edema, no murmur Abdomen: non tender, soft, no organomegaly Neurologic/Psychiatric: alert, normal mood/affect, oriented x 3 Skin: normal color, warm/dry, no rash Assessment and Plan Assessment and Plan: Pt is 46 yo male who is quadriplegic s/p tracheostomy. He was admitted for increased secretions that eventually grew Pseudomonas. Psuedomonas PNA -RESOLVED - IV Cefepime x 7 days completed -Blood Cxs remain negative -Duonebs and Atrovent PRN -Continue with vibratory vest -ISB ordered today. Hyponatremia -Stable at 133 DVT prophylaxis: SCDs Code Status: FULL RESUSCITATION Dispo: Medically stable for discharge pending placement Continued [facility] stay due to: other Discharge planning: home with home health, jail facility
[2017-04-21] MEDS: DANTROLENE SODIUM 25 MG CAP PO SCH (20:55)
[2017-04-22] VITALS (10 sets, daily range): BP systolic 101–131; BP diastolic 68–83; PULSE 50–74; TEMP 36.5–37; O2SAT 95–100
[2017-04-22] MEDS: ALBUT/IPRATROP 3MG/0.5MG NEB 3 ML VIAL INH SCH ×4 (07:23→19:29)
[2017-04-22] MEDS: LORATADINE 10 MG TAB PO SCH (08:19)
[2017-04-22] MEDS: ASPIRIN 81 MG ECTAB PO SCH (08:19)
[2017-04-22] MEDS: BACLOFEN TAB 20 MG TAB PO SCH ×4 (08:19→19:09)
[2017-04-22] MEDS: IPRATROPIUM BROMIDE NASAL SPRAY 0.06% 15ML INH SCH ×3 (08:20→19:11)
[2017-04-22] MEDS: LORAZEPAM 0.5 MG TAB PO SCH (08:20)
[2017-04-22] MEDS: BISACODYL 10 MG SUPP PR SCH (08:21)
[2017-04-22] MEDS: LACTOBACILLUS ACIDOPHILUS (FLORANEX) TAB PO SCH (12:38)
[2017-04-22] MEDS: CEROVITE ADV FORMULA TAB PO SCH (12:38)
--- NOTE | 2017-04-22 15:56 | Progress Note ---
Subjective Date of Service: Apr 22, 2017. Subjective Pt evaluation today including: conversation w/ patient, physical exam, review of inpatient medication list Pain: no pain PO Intake: adequate Voiding: knott catheter in place no new changes discussed with CM, getting vest approved, awaiting acceptance to SNF Problem List Medical Problems: (1) Bronchitis Status: Acute (2) Hypoxemia Status: Acute (3) Hypoxia Status: Acute (4) Knee pain, acute Status: Acute (5) Mucus plugging of bronchi Status: Acute (6) Paraplegia Status: Acute (7) PNA (pneumonia) Status: Acute (8) PNA (pneumonia) Status: Acute (9) Pneumonia Status: Acute (10) Pneumonia Status: Acute (11) Pneumonia Status: Acute (12) Pneumonia Status: Acute (13) Pneumonia Status: Acute (14) Pneumonia Status: Acute (15) Productive cough Status: Acute (16) Quadriplegia Status: Acute (17) Sacral decubitus ulcer Status: Acute (18) SOB (shortness of breath) Status: Acute (19) SOB (shortness of breath) Status: Acute (20) Ulcer of right heel Status: Acute Review of Systems All Other Systems: Reviewed and Negative Medications Current Inpatient Medications Medications (Trade) Dose Ordered Sig/Ashanti Route Start Time Stop Time Status Last Admin Dose Admin Acetaminophen (Tylenol Tab) 650 mg Q4H PRN PO 04/09/17 20:15 05/09/17 20:14 04/15/17 21:06 650 MG Ondansetron HCl (Zofran Inj) 4 mg Q6H PRN IV 04/09/17 20:15 05/09/17 20:14 Acetaminophen (Tylenol Tab) 1,000 mg Q6H PRN PO 04/09/17 20:15 05/09/17 20:14 04/16/17 09:26 1,000 MG Aspirin (Ecotrin Tab) 81 mg QAM PO 04/10/17 09:00 05/10/17 08:59 04/22/17 08:19 81 MG Baclofen (Lioresal Tab) 40 mg QID PO 04/09/17 21:00 05/09/17 20:59 04/22/17 12:38 40 MG Ibuprofen (Advil Tab) 400 mg Q8 PRN PO 04/09/17 20:15 05/09/17 20:14 Lactobacillus Acidophilus (Floranex Tab) 4 tab 1200 PO 04/10/17 12:00 05/10/17 11:59 04/22/17 12:38 4 TAB Loratadine (Claritin Tab) 10 mg QAM PO 04/10/17 09:00 05/10/17 08:59 04/22/17 08:19 10 MG Lorazepam (Ativan Tab) 0.5 mg DAILY PRN PO 04/09/17 20:15 05/09/17 20:14 04/19/17 16:59 0.5 MG Lorazepam (Ativan Tab) 0.5 mg QAM PO 04/10/17 09:00 05/10/17 08:59 04/22/17 08:20 0.5 MG Multivitamins/ Minerals (Multivitamin W/ Minerals Tab) 1 tab 1200 PO 04/10/17 12:00 05/10/17 11:59 04/22/17 12:38 1 TAB Dantrolene Sodium (Dantrium Cap) 100 mg QPM PO 04/09/17 22:00 05/09/17 21:59 04/21/17 20:55 100 MG Ipratropium [place] (Atrovent Nasal [place] 0.06%) 2 sprays TID INH 04/09/17 22:00 05/09/17 21:59 04/22/17 12:38 2 SPRAYS Albuterol/ Ipratropium (Duoneb) 3 ml QIDR INH 04/10/17 08:00 05/10/17 07:59 04/22/17 15:27 3 ML Bisacodyl (Dulcolax Supp) 10 mg TuFr@DAILY CT 04/18/17 09:00 05/15/17 13:44 04/22/17 08:21 10 MG Objective Vital Signs Date Time Temp Pulse Resp B/P (MAP) Pulse Ox O2 Delivery O2 Flow Rate FiO2 04/22/17 14:42 37.0 71 18 131/83 (99) 95 Room Air 04/22/17 11:35 74 100 30 04/22/17 11:33 74 27 100 BiPAP/CPAP 30 04/22/17 09:30 Room Air Trach Collar 04/22/17 07:46 36.8 50 18 117/68 (84) 100 BiPAP 04/22/17 07:25 51 100 30 04/22/17 07:23 51 26 100 BiPAP/CPAP 30 04/22/17 01:45 36.5 50 18 101/70 (80) 100 BiPAP 04/22/17 01:30 Room Air Trach Collar 04/21/17 21:27 72 97 30 04/21/17 19:51 Room Air Trach Collar 04/21/17 19:36 68 26 95 Room Air 04/21/17 16:13 36.8 68 20 106/70 (82) 95 Room Air Physical Exam General Appearance: no apparent distress, + thin Eyes: normal inspection, EOMI, sclerae normal ENT: normal ENT inspection, hearing grossly normal, pharynx normal Respiratory/Chest: chest non-tender, lungs clear, normal breath sounds, no respiratory distress, no accessory muscle use Cardiovascular: regular rate, rhythm, no edema, no gallop, no JVD, no murmur Abdomen: normal bowel sounds, non tender, soft, no organomegaly Extremities: normal range of motion, non-tender, normal inspection, no pedal edema, no calf tenderness, pelvis stable Neurologic/Psychiatric: scrub woman II-XII nml as tested, alert, normal mood/affect, oriented x 3, + motor weakness Skin: normal color, warm/dry, no rash Assessment and Plan 46 y/o patient s/p tracheostomy with increased secretions, found to have pseudomonas in his sputum Pseudomonas Pneumonia- RESOLVED: - ID and pulm recommended IV Cefepime x7 days- treatment completed - Continue Floranex - DuoNebs and Atrovent - IV Ativan PRN - BCx and MRSA swab negative - Pulmonary consultation, appreciate recommendations -- Vibratory vest set-up for discharge and should continue indefinitely -- chest compressions not sufficient due to patient's immobility, needs the vest to prevent further infections Mild hyponatremia at 133 on 04/19- STABLE Quadriplegia: Baclofen 40 mg QID, Dantrium 100 mg HS Chronic constipation: Continue outpatient regimen of suppository and manual disimpaction on and Fri. DVT prophylaxis: SCDs Code Status: FULL RESUSCITATION Dispo: Medically stable for discharge pending SNF placement- social work therapist consulted, looking into [facility], still awaiting decision, getting vibratory vest approved Continued [facility] stay due to: other Discharge planning: home with home health, intermediate facility
[2017-04-22] MEDS: DANTROLENE SODIUM 25 MG CAP PO SCH (19:09)
[2017-04-23] VITALS (13 sets, daily range): BP systolic 94–133; BP diastolic 58–82; PULSE 52–73; TEMP 36.4–36.9; O2SAT 96–100
[2017-04-23] MEDS: ALBUT/IPRATROP 3MG/0.5MG NEB 3 ML VIAL INH SCH ×4 (07:35→20:17)
[2017-04-23] MEDS: ASPIRIN 81 MG ECTAB PO SCH (08:42)
[2017-04-23] MEDS: LORAZEPAM 0.5 MG TAB PO SCH (08:42)
[2017-04-23] MEDS: BACLOFEN TAB 20 MG TAB PO SCH ×4 (08:42→20:20)
[2017-04-23] MEDS: LORATADINE 10 MG TAB PO SCH (08:42)
[2017-04-23] MEDS: IPRATROPIUM BROMIDE NASAL SPRAY 0.06% 15ML INH SCH ×3 (08:43→20:19)
[2017-04-23] MEDS: LACTOBACILLUS ACIDOPHILUS (FLORANEX) TAB PO SCH (12:49)
[2017-04-23] MEDS: CEROVITE ADV FORMULA TAB PO SCH (12:49)
--- NOTE | 2017-04-23 12:54 | Progress Note ---
Subjective Date of Service: Apr 23, 2017. Subjective Pt evaluation today including: conversation w/ patient, physical exam, review of inpatient medication list Pain: no pain PO Intake: adeqaute Voiding: knott catheter in place patient really wants to go home discussed this with case coordinator there were extensive conversations held last week with family and patient, family cannot take him home explained this to patient several times awaiting vibratory vest to arrive at SNF and then staff would need trained how to use it Problem List Medical Problems: (1) Bronchitis Status: Acute (2) Hypoxemia Status: Acute (3) Hypoxia Status: Acute (4) Knee pain, acute Status: Acute (5) Mucus plugging of bronchi Status: Acute (6) Paraplegia Status: Acute (7) PNA (pneumonia) Status: Acute (8) PNA (pneumonia) Status: Acute (9) Pneumonia Status: Acute (10) Pneumonia Status: Acute (11) Pneumonia Status: Acute (12) Pneumonia Status: Acute (13) Pneumonia Status: Acute (14) Pneumonia Status: Acute (15) Productive cough Status: Acute (16) Quadriplegia Status: Acute (17) Sacral decubitus ulcer Status: Acute (18) SOB (shortness of breath) Status: Acute (19) SOB (shortness of breath) Status: Acute (20) Ulcer of right heel Status: Acute Review of Systems Neurologic: + paralysis All Other Systems: Reviewed and Negative Medications Current Inpatient Medications Medications (Trade) Dose Ordered Sig/Ashanti Route Start Time Stop Time Status Last Admin Dose Admin Acetaminophen (Tylenol Tab) 650 mg Q4H PRN PO 04/09/17 20:15 05/09/17 20:14 04/15/17 21:06 650 MG Ondansetron HCl (Zofran Inj) 4 mg Q6H PRN IV 04/09/17 20:15 05/09/17 20:14 Acetaminophen (Tylenol Tab) 1,000 mg Q6H PRN PO 04/09/17 20:15 05/09/17 20:14 04/16/17 09:26 1,000 MG Aspirin (Ecotrin Tab) 81 mg QAM PO 04/10/17 09:00 05/10/17 08:59 04/23/17 08:42 81 MG Baclofen (Lioresal Tab) 40 mg QID PO 04/09/17 21:00 05/09/17 20:59 04/23/17 08:42 40 MG Ibuprofen (Advil Tab) 400 mg Q8 PRN PO 04/09/17 20:15 05/09/17 20:14 Lactobacillus Acidophilus (Floranex Tab) 4 tab 1200 PO 04/10/17 12:00 05/10/17 11:59 04/22/17 12:38 4 TAB Loratadine (Claritin Tab) 10 mg QAM PO 04/10/17 09:00 05/10/17 08:59 04/23/17 08:42 10 MG Lorazepam (Ativan Tab) 0.5 mg DAILY PRN PO 04/09/17 20:15 05/09/17 20:14 04/19/17 16:59 0.5 MG Lorazepam (Ativan Tab) 0.5 mg QAM PO 04/10/17 09:00 05/10/17 08:59 04/23/17 08:42 0.5 MG Multivitamins/ Minerals (Multivitamin W/ Minerals Tab) 1 tab 1200 PO 04/10/17 12:00 05/10/17 11:59 04/22/17 12:38 1 TAB Dantrolene Sodium (Dantrium Cap) 100 mg QPM PO 04/09/17 22:00 05/09/17 21:59 04/22/17 19:09 100 MG Ipratropium [place] (Atrovent Nasal [place] 0.06%) 2 sprays TID INH 04/09/17 22:00 05/09/17 21:59 04/23/17 08:43 2 SPRAYS Albuterol/ Ipratropium (Duoneb) 3 ml QIDR INH 04/10/17 08:00 05/10/17 07:59 04/23/17 11:27 3 ML Bisacodyl (Dulcolax Supp) 10 mg TuFr@DAILY [place] 04/18/17 09:00 05/15/17 13:44 04/22/17 08:21 10 MG Objective Vital Signs Date Time Temp Pulse Resp B/P (MAP) Pulse Ox O2 Delivery O2 Flow Rate FiO2 04/23/17 11:27 57 26 97 Room Air 04/23/17 08:30 100 Room Air Trach Collar 04/23/17 07:48 36.4 52 16 133/82 (99) 100 BiPAP 04/23/17 07:35 52 24 99 BiPAP/CPAP 30 04/23/17 00:21 36.9 53 18 98/62 (74) 100 Room Air 04/23/17 00:00 BiPAP Trach Collar 04/22/17 20:00 BiPAP Trach Collar 04/22/17 19:30 74 100 30 04/22/17 19:29 74 28 97 Room Air 30 04/22/17 16:34 Room Air Trach Collar 04/22/17 15:30 70 27 97 Room Air 30 04/22/17 14:42 37.0 71 18 131/83 (99) 95 Room Air Physical Exam General Appearance: WD/WN, no apparent distress Eyes: normal inspection, EOMI, sclerae normal ENT: normal ENT inspection, hearing grossly normal, pharynx normal Neck: supple, no adenopathy, no JVD, trachea midline Respiratory/Chest: chest non-tender, lungs clear, normal breath sounds, no respiratory distress, no accessory muscle use Cardiovascular: regular rate, rhythm, no edema, no gallop, no JVD, no murmur Abdomen: normal bowel sounds, non tender, soft, no organomegaly Extremities: normal range of motion, non-tender, normal inspection, no pedal edema, no calf tenderness, pelvis stable Neurologic/Psychiatric: paleontological helper II-XII nml as tested, alert, normal mood/affect, oriented x 3, + motor weakness (quadriplegia) Skin: normal color, warm/dry, no rash Lymphatic: no adenopathy Assessment and Plan 46 y/o patient s/p tracheostomy with increased secretions, found to have pseudomonas in his sputum Pseudomonas Pneumonia- RESOLVED: - ID and pulm recommended IV Cefepime x7 days- treatment completed - Continue Floranex - DuoNebs and Atrovent - IV Ativan PRN - BCx and MRSA swab negative - Pulmonary consultation, appreciate recommendations -- Vibratory vest set-up for discharge and should continue indefinitely -- chest compressions not sufficient due to patient's immobility, needs the vest to prevent further infections Mild hyponatremia at 133 on 04/19- STABLE Quadriplegia: Baclofen 40 mg QID, Dantrium 100 mg HS Chronic constipation: Continue outpatient regimen of suppository and manual disimpaction on and Fri. DVT prophylaxis: SCDs Code Status: FULL RESUSCITATION Dispo: Medically stable for discharge pending SNF placement- social worker delinquency prevention consulted, looking into [facility], still awaiting decision, getting vibratory vest approved again, confirmed with case management today that family cannot take care of patient at home Continued [facility] stay due to: other Discharge planning: home with home health, nursing home facility
[2017-04-23] MEDS: DANTROLENE SODIUM 25 MG CAP PO SCH (20:20)
[2017-04-24] VITALS (10 sets, daily range): BP systolic 109–133; BP diastolic 71–82; PULSE 48–77; TEMP 36.4–37; O2SAT 95–99
[2017-04-24] MEDS: ALBUT/IPRATROP 3MG/0.5MG NEB 3 ML VIAL INH SCH ×4 (07:28→19:58)
[2017-04-24] MEDS: ASPIRIN 81 MG ECTAB PO SCH (08:23)
[2017-04-24] MEDS: IPRATROPIUM BROMIDE NASAL SPRAY 0.06% 15ML INH SCH ×3 (08:23→21:26)
[2017-04-24] MEDS: BACLOFEN TAB 20 MG TAB PO SCH ×4 (08:24→21:26)
[2017-04-24] MEDS: LORATADINE 10 MG TAB PO SCH (08:24)
[2017-04-24] MEDS: LACTOBACILLUS ACIDOPHILUS (FLORANEX) TAB PO SCH (08:25)
[2017-04-24] MEDS: LORAZEPAM 0.5 MG TAB PO SCH (08:25)
[2017-04-24] MEDS: CEROVITE ADV FORMULA TAB PO SCH (08:25)
--- NOTE | 2017-04-24 21:01 | Progress Note ---
Subjective Date of Service: Apr 24, 2017. Subjective Pt evaluation today including: conversation w/ patient, physical exam Pain: no pain PO Intake: adequate Voiding: knott catheter in place no changes overnight patient still interested in going home d/w CM, looking into [facility] Problem List Medical Problems: (1) Bronchitis Status: Acute (2) Hypoxemia Status: Acute (3) Hypoxia Status: Acute (4) Knee pain, acute Status: Acute (5) Mucus plugging of bronchi Status: Acute (6) Paraplegia Status: Acute (7) PNA (pneumonia) Status: Acute (8) PNA (pneumonia) Status: Acute (9) Pneumonia Status: Acute (10) Pneumonia Status: Acute (11) Pneumonia Status: Acute (12) Pneumonia Status: Acute (13) Pneumonia Status: Acute (14) Pneumonia Status: Acute (15) Productive cough Status: Acute (16) Quadriplegia Status: Acute (17) Sacral decubitus ulcer Status: Acute (18) SOB (shortness of breath) Status: Acute (19) SOB (shortness of breath) Status: Acute (20) Ulcer of right heel Status: Acute Review of Systems All Other Systems: Reviewed and Negative Medications Current Inpatient Medications Medications (Trade) Dose Ordered Sig/Ashanti Route Start Time Stop Time Status Last Admin Dose Admin Acetaminophen (Tylenol Tab) 650 mg Q4H PRN PO 04/09/17 20:15 05/09/17 20:14 04/15/17 21:06 650 MG Ondansetron HCl (Zofran Inj) 4 mg Q6H PRN IV 04/09/17 20:15 05/09/17 20:14 Acetaminophen (Tylenol Tab) 1,000 mg Q6H PRN PO 04/09/17 20:15 05/09/17 20:14 04/16/17 09:26 1,000 MG Aspirin (Ecotrin Tab) 81 mg QAM PO 04/10/17 09:00 05/10/17 08:59 04/24/17 08:23 81 MG Baclofen (Lioresal Tab) 40 mg QID PO 04/09/17 21:00 05/09/17 20:59 04/24/17 18:02 40 MG Ibuprofen (Advil Tab) 400 mg Q8 PRN PO 04/09/17 20:15 05/09/17 20:14 Lactobacillus Acidophilus (Floranex Tab) 4 tab 1200 PO 04/10/17 12:00 05/10/17 11:59 04/24/17 08:25 4 TAB Loratadine (Claritin Tab) 10 mg QAM PO 04/10/17 09:00 05/10/17 08:59 04/24/17 08:24 10 MG Lorazepam (Ativan Tab) 0.5 mg DAILY PRN PO 04/09/17 20:15 05/09/17 20:14 04/19/17 16:59 0.5 MG Lorazepam (Ativan Tab) 0.5 mg QAM PO 04/10/17 09:00 05/10/17 08:59 04/24/17 08:25 0.5 MG Multivitamins/ Minerals (Multivitamin W/ Minerals Tab) 1 tab 1200 PO 04/10/17 12:00 05/10/17 11:59 04/24/17 08:25 1 TAB Dantrolene Sodium (Dantrium Cap) 100 mg QPM PO 04/09/17 22:00 05/09/17 21:59 04/23/17 20:20 100 MG Ipratropium [place] (Atrovent Nasal [place] 0.06%) 2 sprays TID INH 04/09/17 22:00 05/09/17 21:59 04/24/17 12:20 2 SPRAYS Albuterol/ Ipratropium (Duoneb) 3 ml QIDR INH 04/10/17 08:00 05/10/17 07:59 04/24/17 19:58 3 ML Bisacodyl (Dulcolax Supp) 10 mg TuFr@DAILY [place] 04/18/17 09:00 05/15/17 13:44 04/22/17 08:21 10 MG Objective Vital Signs Date Time Temp Pulse Resp B/P (MAP) Pulse Ox O2 Delivery O2 Flow Rate FiO2 04/24/17 20:07 75 20 95 Room Air 04/24/17 16:00 Room Air 04/24/17 16:00 37.0 73 16 120/77 (91) 96 Room Air 04/24/17 15:20 70 22 95 Room Air 04/24/17 11:11 77 28 96 Room Air 04/24/17 10:31 Room Air Trach Collar 04/24/17 07:31 72 28 99 BiPAP/CPAP 04/24/17 07:28 36.8 48 16 133/82 (99) 99 BiPAP Trach Collar 04/24/17 05:34 50 98 30 04/24/17 02:07 54 98 30 04/24/17 00:00 BiPAP Trach Collar 04/23/17 23:57 36.6 56 18 95/68 (77) 99 Room Air 04/23/17 23:23 68 99 30 04/23/17 21:30 97 Room Air 30.0 30 Physical Exam General Appearance: WD/WN, no apparent distress Neck: supple, no adenopathy, no JVD, + pertinent finding (tracheostomy) Respiratory/Chest: chest non-tender, lungs clear, normal breath sounds, no respiratory distress, no accessory muscle use Cardiovascular: regular rate, rhythm, no edema, no gallop, no JVD, no murmur Abdomen: normal bowel sounds, non tender, soft, no organomegaly Extremities: non-tender, normal inspection, no pedal edema, no calf tenderness , pelvis stable Neurologic/Psychiatric: alert, normal mood/affect, oriented x 3, + motor weakness (paralysis) Skin: normal color, warm/dry, no rash Assessment and Plan 46 y/o patient s/p tracheostomy with increased secretions, found to have pseudomonas in his sputum Pseudomonas Pneumonia- RESOLVED: - ID and pulm recommended IV Cefepime x7 days- treatment completed - Continue Floranex - DuoNebs and Atrovent - IV Ativan PRN - BCx and MRSA swab negative - Pulmonary consultation, appreciate recommendations -- Vibratory vest set-up for discharge and should continue indefinitely -- chest compressions not sufficient due to patient's immobility, needs the vest to prevent further infections Mild hyponatremia at 133 on 04/19- STABLE Quadriplegia: Baclofen 40 mg QID, Dantrium 100 mg HS Chronic constipation: Continue outpatient regimen of suppository and manual disimpaction on and Fri. DVT prophylaxis: SCDs Code Status: FULL RESUSCITATION Dispo: Medically stable for discharge pending SNF placement- addiction social worker consulted, looking into [facility] now, still awaiting decision, getting vibratory vest approved family cannot take patient home Continued [facility] stay due to: other Discharge planning: home with home health, nursing home facility
[2017-04-24] MEDS: DANTROLENE SODIUM 25 MG CAP PO SCH (21:27)
[2017-04-25] VITALS (9 sets, daily range): BP systolic 107–114; BP diastolic 69–73; PULSE 50–77; TEMP 36.6–36.9; O2SAT 95–100
[2017-04-25] MEDS: ALBUT/IPRATROP 3MG/0.5MG NEB 3 ML VIAL INH SCH ×4 (07:37→20:14)
[2017-04-25] MEDS: BACLOFEN TAB 20 MG TAB PO SCH ×4 (08:03→20:26)
[2017-04-25] MEDS: CEROVITE ADV FORMULA TAB PO SCH (08:03)
[2017-04-25] MEDS: LACTOBACILLUS ACIDOPHILUS (FLORANEX) TAB PO SCH (08:03)
[2017-04-25] MEDS: LORATADINE 10 MG TAB PO SCH (08:03)
[2017-04-25] MEDS: IPRATROPIUM BROMIDE NASAL SPRAY 0.06% 15ML INH SCH ×3 (08:03→20:26)
[2017-04-25] MEDS: ASPIRIN 81 MG ECTAB PO SCH (08:03)
[2017-04-25] MEDS: BISACODYL 10 MG SUPP PR SCH (08:07)
[2017-04-25] MEDS: LORAZEPAM 0.5 MG TAB PO SCH (08:07)
[2017-04-25] MEDS: DANTROLENE SODIUM 25 MG CAP PO SCH (20:26)
[2017-04-26] VITALS (13 sets, daily range): BP systolic 93–143; BP diastolic 61–87; PULSE 47–75; TEMP 36.5–36.6; O2SAT 94–100
[2017-04-26] MEDS: ALBUT/IPRATROP 3MG/0.5MG NEB 3 ML VIAL INH SCH ×4 (07:58→19:32)
[2017-04-26] MEDS: ASPIRIN 81 MG ECTAB PO SCH (09:01)
[2017-04-26] MEDS: BACLOFEN TAB 20 MG TAB PO SCH ×4 (09:01→20:30)
[2017-04-26] MEDS: LORATADINE 10 MG TAB PO SCH (09:01)
[2017-04-26] MEDS: IPRATROPIUM BROMIDE NASAL SPRAY 0.06% 15ML INH SCH ×3 (09:01→20:29)
[2017-04-26] MEDS: LORAZEPAM 0.5 MG TAB PO SCH (09:03)
[2017-04-26] MEDS: CEROVITE ADV FORMULA TAB PO SCH (12:10)
[2017-04-26] MEDS: LACTOBACILLUS ACIDOPHILUS (FLORANEX) TAB PO SCH (12:10)
--- NOTE | 2017-04-26 13:35 | Progress Note ---
Subjective Date of Service: Apr 26, 2017. Subjective Pt evaluation today including: conversation w/ patient, physical exam, review of inpatient medication list Pain: no pain PO Intake: adequate Voiding: knott catheter in place no new issues, waiting to go to SNF on Friday Problem List Medical Problems: (1) Bronchitis Status: Acute (2) Hypoxemia Status: Acute (3) Hypoxia Status: Acute (4) Knee pain, acute Status: Acute (5) Mucus plugging of bronchi Status: Acute (6) Paraplegia Status: Acute (7) PNA (pneumonia) Status: Acute (8) PNA (pneumonia) Status: Acute (9) Pneumonia Status: Acute (10) Pneumonia Status: Acute (11) Pneumonia Status: Acute (12) Pneumonia Status: Acute (13) Pneumonia Status: Acute (14) Pneumonia Status: Acute (15) Productive cough Status: Acute (16) Quadriplegia Status: Acute (17) Sacral decubitus ulcer Status: Acute (18) SOB (shortness of breath) Status: Acute (19) SOB (shortness of breath) Status: Acute (20) Ulcer of right heel Status: Acute Review of Systems All Other Systems: Reviewed and Negative Medications Current Inpatient Medications Medications (Trade) Dose Ordered Sig/Ashanti Route Start Time Stop Time Status Last Admin Dose Admin Acetaminophen (Tylenol Tab) 650 mg Q4H PRN PO 04/09/17 20:15 05/09/17 20:14 04/15/17 21:06 650 MG Ondansetron HCl (Zofran Inj) 4 mg Q6H PRN IV 04/09/17 20:15 05/09/17 20:14 Acetaminophen (Tylenol Tab) 1,000 mg Q6H PRN PO 04/09/17 20:15 05/09/17 20:14 04/16/17 09:26 1,000 MG Aspirin (Ecotrin Tab) 81 mg QAM PO 04/10/17 09:00 05/10/17 08:59 04/26/17 09:01 81 MG Baclofen (Lioresal Tab) 40 mg QID PO 04/09/17 21:00 05/09/17 20:59 04/26/17 12:10 40 MG Ibuprofen (Advil Tab) 400 mg Q8 PRN PO 04/09/17 20:15 05/09/17 20:14 Lactobacillus Acidophilus (Floranex Tab) 4 tab 1200 PO 04/10/17 12:00 05/10/17 11:59 04/26/17 12:10 4 TAB Loratadine (Claritin Tab) 10 mg QAM PO 04/10/17 09:00 05/10/17 08:59 04/26/17 09:01 10 MG Lorazepam (Ativan Tab) 0.5 mg DAILY PRN PO 04/09/17 20:15 05/09/17 20:14 04/19/17 16:59 0.5 MG Lorazepam (Ativan Tab) 0.5 mg QAM PO 04/10/17 09:00 05/10/17 08:59 04/26/17 09:03 0.5 MG Multivitamins/ Minerals (Multivitamin W/ Minerals Tab) 1 tab 1200 PO 04/10/17 12:00 05/10/17 11:59 04/26/17 12:10 1 TAB Dantrolene Sodium (Dantrium Cap) 100 mg QPM PO 04/09/17 22:00 05/09/17 21:59 04/25/17 20:26 100 MG Ipratropium [place] (Atrovent Nasal [place] 0.06%) 2 sprays TID INH 04/09/17 22:00 05/09/17 21:59 04/26/17 09:01 2 SPRAYS Albuterol/ Ipratropium (Duoneb) 3 ml QIDR INH 04/10/17 08:00 05/10/17 07:59 04/26/17 11:08 3 ML Bisacodyl (Dulcolax Supp) 10 mg TuFr@DAILY [place] 04/18/17 09:00 05/15/17 13:44 04/25/17 08:07 10 MG Objective Vital Signs Date Time Temp Pulse Resp B/P (MAP) Pulse Ox O2 Delivery O2 Flow Rate FiO2 04/26/17 11:08 64 28 100 BiPAP/CPAP 30.0 04/26/17 09:00 99 Room Air Trach Collar 04/26/17 08:03 36.5 47 19 105/68 (80) 100 BiPAP 04/26/17 08:00 54 100 30 04/26/17 07:58 54 30 100 BiPAP/CPAP 30.0 04/26/17 00:11 36.6 47 18 93/62 (72) 99 Trach Collar 04/26/17 00:00 98 BiPAP 30.0 30 04/25/17 20:14 71 30 95 Room Air 04/25/17 20:14 76 98 30 04/25/17 16:00 97 Room Air 30.0 30 04/25/17 15:11 36.9 61 16 114/69 (84) 97 Room Air 04/25/17 14:43 71 30 96 Room Air Physical Exam General Appearance: no apparent distress, + thin Neck: supple, no adenopathy, no JVD, trachea midline Respiratory/Chest: chest non-tender, lungs clear, normal breath sounds, no respiratory distress, no accessory muscle use Cardiovascular: regular rate, rhythm, no edema, no gallop, no JVD, no murmur Abdomen: normal bowel sounds, non tender, soft, no organomegaly Extremities: non-tender, normal inspection, no pedal edema, no calf tenderness , pelvis stable Neurologic/Psychiatric: alert, normal mood/affect, oriented x 3, + motor weakness (paralysis) Skin: normal color, warm/dry, no rash Assessment and Plan 46 y/o patient s/p tracheostomy with increased secretions, found to have pseudomonas in his sputum Pseudomonas Pneumonia- RESOLVED: - ID and pulm recommended IV Cefepime x7 days- treatment completed - Continue Floranex - DuoNebs and Atrovent - IV Ativan PRN - BCx and MRSA swab negative - Pulmonary consultation, appreciate recommendations -- Vibratory vest set-up for discharge and should continue indefinitely -- chest compressions not sufficient due to patient's immobility, needs the vest to prevent further infections Mild hyponatremia at 133 on 04/19- STABLE Quadriplegia: Baclofen 40 mg QID, Dantrium 100 mg HS Chronic constipation: Continue outpatient regimen of suppository and manual disimpaction on and Fri. DVT prophylaxis: SCDs Code Status: FULL RESUSCITATION Dispo: Medically stable for discharge pending SNF placement- psych social worker consulted, looking into [facility] now, still awaiting decision, getting vibratory vest approved family cannot take patient home likely to [facility] on Friday Continued [facility] stay due to: other Discharge planning: home with home health, [facility] facility
[2017-04-26] MEDS: DANTROLENE SODIUM 25 MG CAP PO SCH (20:29)
[2017-04-27] VITALS (13 sets, daily range): BP systolic 103–128; BP diastolic 67–80; PULSE 49–74; TEMP 36.5–37; O2SAT 94–100
[2017-04-27] MEDS: ALBUT/IPRATROP 3MG/0.5MG NEB 3 ML VIAL INH SCH ×4 (07:21→19:55)
[2017-04-27] MEDS: IPRATROPIUM BROMIDE NASAL SPRAY 0.06% 15ML INH SCH ×3 (08:44→20:29)
[2017-04-27] MEDS: BACLOFEN TAB 20 MG TAB PO SCH ×4 (08:44→20:29)
[2017-04-27] MEDS: LORATADINE 10 MG TAB PO SCH (08:44)
[2017-04-27] MEDS: ASPIRIN 81 MG ECTAB PO SCH (08:44)
[2017-04-27] MEDS: LORAZEPAM 0.5 MG TAB PO SCH (08:46)
[2017-04-27] MEDS: LACTOBACILLUS ACIDOPHILUS (FLORANEX) TAB PO SCH (12:33)
[2017-04-27] MEDS: CEROVITE ADV FORMULA TAB PO SCH (12:34)
[2017-04-27] MEDS: DANTROLENE SODIUM 25 MG CAP PO SCH (20:29)
[2017-04-28] VITALS (7 sets, daily range): BP systolic 95–128; BP diastolic 60–81; PULSE 52–72; TEMP 36.2–36.8; O2SAT 95–100
--- NOTE | 2017-04-28 06:14 | Progress Note ---
Subjective Date of Service: Apr 27, 2017. Subjective Pt evaluation today including: conversation w/ patient, conversation w/ family , physical exam Patient reports doing well. Patient has no complaints today. Problem List Medical Problems: (1) Bronchitis Status: Acute (2) Hypoxemia Status: Acute (3) Hypoxia Status: Acute (4) Knee pain, acute Status: Acute (5) Mucus plugging of bronchi Status: Acute (6) Paraplegia Status: Acute (7) PNA (pneumonia) Status: Acute (8) PNA (pneumonia) Status: Acute (9) Pneumonia Status: Acute (10) Pneumonia Status: Acute (11) Pneumonia Status: Acute (12) Pneumonia Status: Acute (13) Pneumonia Status: Acute (14) Pneumonia Status: Acute (15) Productive cough Status: Acute (16) Quadriplegia Status: Acute (17) Sacral decubitus ulcer Status: Acute (18) SOB (shortness of breath) Status: Acute (19) SOB (shortness of breath) Status: Acute (20) Ulcer of right heel Status: Acute Review of Systems Constitutional: No fever, No chills Eyes: No worsening of vision, No eye pain ENT: No hearing loss, No unusual epistaxis Respiratory: No cough, No sputum Cardiac: No chest pain, No orthopnea Abdomen: No pain, No nausea Psychiatric: No depression symptoms, No anhedonism All Other Systems: Reviewed and Negative Medications Current Inpatient Medications Medications (Trade) Dose Ordered Sig/Ashanti Route Start Time Stop Time Status Last Admin Dose Admin Acetaminophen (Tylenol Tab) 650 mg Q4H PRN PO 04/09/17 20:15 05/09/17 20:14 04/15/17 21:06 650 MG Ondansetron HCl (Zofran Inj) 4 mg Q6H PRN IV 04/09/17 20:15 05/09/17 20:14 Acetaminophen (Tylenol Tab) 1,000 mg Q6H PRN PO 04/09/17 20:15 05/09/17 20:14 04/16/17 09:26 1,000 MG Aspirin (Ecotrin Tab) 81 mg QAM PO 04/10/17 09:00 05/10/17 08:59 04/27/17 08:44 81 MG Baclofen (Lioresal Tab) 40 mg QID PO 04/09/17 21:00 05/09/17 20:59 04/27/17 20:29 40 MG Ibuprofen (Advil Tab) 400 mg Q8 PRN PO 04/09/17 20:15 05/09/17 20:14 Lactobacillus Acidophilus (Floranex Tab) 4 tab 1200 PO 04/10/17 12:00 05/10/17 11:59 04/27/17 12:33 4 TAB Loratadine (Claritin Tab) 10 mg QAM PO 04/10/17 09:00 05/10/17 08:59 04/27/17 08:44 10 MG Lorazepam (Ativan Tab) 0.5 mg DAILY PRN PO 04/09/17 20:15 05/09/17 20:14 04/19/17 16:59 0.5 MG Lorazepam (Ativan Tab) 0.5 mg QAM PO 04/10/17 09:00 05/10/17 08:59 04/27/17 08:46 0.5 MG Multivitamins/ Minerals (Multivitamin W/ Minerals Tab) 1 tab 1200 PO 04/10/17 12:00 05/10/17 11:59 04/27/17 12:34 1 TAB Dantrolene Sodium (Dantrium Cap) 100 mg QPM PO 04/09/17 22:00 05/09/17 21:59 04/27/17 20:29 100 MG Ipratropium [place] (Atrovent Nasal [place] 0.06%) 2 sprays TID INH 04/09/17 22:00 05/09/17 21:59 04/27/17 20:29 2 SPRAYS Albuterol/ Ipratropium (Duoneb) 3 ml QIDR INH 04/10/17 08:00 05/10/17 07:59 04/27/17 19:55 3 ML Bisacodyl (Dulcolax Supp) 10 mg TuFr@DAILY [place] 04/18/17 09:00 05/15/17 13:44 04/25/17 08:07 10 MG Objective Vital Signs Date Time Temp Pulse Resp B/P (MAP) Pulse Ox O2 Delivery O2 Flow Rate FiO2 04/28/17 00:00 BiPAP 30.0 30 04/27/17 23:35 36.5 49 18 103/67 (79) 100 Room Air 04/27/17 21:02 71 95 30 04/27/17 19:56 74 96 30 04/27/17 19:55 74 22 96 Room Air 04/27/17 15:46 94 Room Air 30.0 30 04/27/17 15:38 37.0 64 16 105/67 (80) 94 Room Air 04/27/17 15:18 72 97 30 04/27/17 15:17 70 21 97 BiPAP/CPAP 30 04/27/17 10:55 68 98 30 04/27/17 10:53 68 32 98 BiPAP/CPAP 30 04/27/17 08:45 Room Air Trach Collar 04/27/17 08:27 36.5 60 18 128/80 (96) 96 Trach Collar 04/27/17 07:25 50 100 30 04/27/17 07:21 50 36 96 BiPAP/CPAP 30 Physical Exam Comments: General Appearance: no apparent distress, + thin Neck: supple, no adenopathy, no JVD, trachea midline Respiratory/Chest: chest non-tender, lungs clear, normal breath sounds, no respiratory distress, no accessory muscle use Cardiovascular: regular rate, rhythm, no edema, no gallop, no JVD, no murmur Abdomen: normal bowel sounds, non tender, soft, no organomegaly Extremities: non-tender, normal inspection, no pedal edema, no calf tenderness , pelvis stable Neurologic/Psychiatric: alert, normal mood/affect, oriented x 3, + motor weakness (paralysis) Skin: normal color, warm/dry, no rash Assessment and Plan 46 y/o patient s/p tracheostomy with increased secretions, found to have pseudomonas in his sputum Pseudomonas Pneumonia- RESOLVED: - ID and pulm recommended IV Cefepime x7 days- treatment completed - Continue Floranex - DuoNebs and Atrovent - IV Ativan PRN - BCx and MRSA swab negative - Pulmonary consultation, appreciate recommendations -- Vibratory vest set-up for discharge and should continue indefinitely -- chest compressions not sufficient due to patient's immobility, needs the vest to prevent further infections Mild hyponatremia at 133 on 04/19- STABLE Quadriplegia: Baclofen 40 mg QID, Dantrium 100 mg HS Chronic constipation: Continue outpatient regimen of suppository and manual disimpaction on Tu and Fri. DVT prophylaxis: SCDs Code Status: FULL RESUSCITATION Dispo: Medically stable for discharge pending SNF placement- director of social work consulted, looking into [facility] now, still awaiting decision, getting vibratory vest approved family cannot take patient home likely to [facility] on Friday Continued [facility] stay due to: other Discharge planning: home with home health, snf facility
[2017-04-28] MEDS: ALBUT/IPRATROP 3MG/0.5MG NEB 3 ML VIAL INH SCH ×4 (07:16→19:06)
[2017-04-28] MEDS: BACLOFEN TAB 20 MG TAB PO SCH ×4 (08:53→20:25)
[2017-04-28] MEDS: ASPIRIN 81 MG ECTAB PO SCH (08:53)
[2017-04-28] MEDS: LORATADINE 10 MG TAB PO SCH (08:53)
[2017-04-28] MEDS: IPRATROPIUM BROMIDE NASAL SPRAY 0.06% 15ML INH SCH ×3 (08:54→20:25)
[2017-04-28] MEDS: LORAZEPAM 0.5 MG TAB PO SCH (08:58)
[2017-04-28] MEDS: CEROVITE ADV FORMULA TAB PO SCH (12:27)
[2017-04-28] MEDS: LACTOBACILLUS ACIDOPHILUS (FLORANEX) TAB PO SCH (12:28)
[2017-04-28] MEDS: DANTROLENE SODIUM 25 MG CAP PO SCH (20:26)
[2017-04-29] VITALS (9 sets, daily range): BP systolic 104–124; BP diastolic 68–83; PULSE 18–76; TEMP 36.3–36.7; O2SAT 96–100
--- NOTE | 2017-04-29 06:20 | Progress Note ---
Subjective Date of Service: Apr 28, 2017. Subjective Pt evaluation today including: conversation w/ patient, physical exam, chart review, lab review Problem List Medical Problems: (1) Bronchitis Status: Acute (2) Hypoxemia Status: Acute (3) Hypoxia Status: Acute (4) Knee pain, acute Status: Acute (5) Mucus plugging of bronchi Status: Acute (6) Paraplegia Status: Acute (7) PNA (pneumonia) Status: Acute (8) PNA (pneumonia) Status: Acute (9) Pneumonia Status: Acute (10) Pneumonia Status: Acute (11) Pneumonia Status: Acute (12) Pneumonia Status: Acute (13) Pneumonia Status: Acute (14) Pneumonia Status: Acute (15) Productive cough Status: Acute (16) Quadriplegia Status: Acute (17) Sacral decubitus ulcer Status: Acute (18) SOB (shortness of breath) Status: Acute (19) SOB (shortness of breath) Status: Acute (20) Ulcer of right heel Status: Acute Review of Systems Eyes: No worsening of vision, No eye pain ENT: No hearing loss, No unusual epistaxis Respiratory: + cough, No sputum Cardiac: No chest pain, No orthopnea Abdomen: No pain, No nausea Musculoskeletal: No joint pain Male : No urinary frequency Neurologic: + paralysis, No memory loss Psychiatric: No depression symptoms, No anhedonism All Other Systems: Reviewed and Negative Medications Current Inpatient Medications Medications (Trade) Dose Ordered Sig/Ashanti Route Start Time Stop Time Status Last Admin Dose Admin Acetaminophen (Tylenol Tab) 650 mg Q4H PRN PO 04/09/17 20:15 05/09/17 20:14 04/15/17 21:06 650 MG Ondansetron HCl (Zofran Inj) 4 mg Q6H PRN IV 04/09/17 20:15 05/09/17 20:14 Acetaminophen (Tylenol Tab) 1,000 mg Q6H PRN PO 04/09/17 20:15 05/09/17 20:14 04/16/17 09:26 1,000 MG Aspirin (Ecotrin Tab) 81 mg QAM PO 04/10/17 09:00 05/10/17 08:59 04/28/17 08:53 81 MG Baclofen (Lioresal Tab) 40 mg QID PO 04/09/17 21:00 05/09/17 20:59 04/28/17 20:25 40 MG Ibuprofen (Advil Tab) 400 mg Q8 PRN PO 04/09/17 20:15 05/09/17 20:14 Lactobacillus Acidophilus (Floranex Tab) 4 tab 1200 PO 04/10/17 12:00 05/10/17 11:59 04/28/17 12:28 4 TAB Loratadine (Claritin Tab) 10 mg QAM PO 04/10/17 09:00 05/10/17 08:59 04/28/17 08:53 10 MG Lorazepam (Ativan Tab) 0.5 mg DAILY PRN PO 04/09/17 20:15 05/09/17 20:14 04/19/17 16:59 0.5 MG Lorazepam (Ativan Tab) 0.5 mg QAM PO 04/10/17 09:00 05/10/17 08:59 04/28/17 08:58 0.5 MG Multivitamins/ Minerals (Multivitamin W/ Minerals Tab) 1 tab 1200 PO 04/10/17 12:00 05/10/17 11:59 04/28/17 12:27 1 TAB Dantrolene Sodium (Dantrium Cap) 100 mg QPM PO 04/09/17 22:00 05/09/17 21:59 04/28/17 20:26 100 MG Ipratropium [place] (Atrovent Nasal [place] 0.06%) 2 sprays TID INH 04/09/17 22:00 05/09/17 21:59 04/28/17 20:25 2 SPRAYS Albuterol/ Ipratropium (Duoneb) 3 ml QIDR INH 04/10/17 08:00 05/10/17 07:59 04/28/17 19:06 3 ML Bisacodyl (Dulcolax Supp) 10 mg TuFr@DAILY [place] 04/18/17 09:00 05/15/17 13:44 04/25/17 08:07 10 MG Objective Vital Signs Date Time Temp Pulse Resp B/P (MAP) Pulse Ox O2 Delivery O2 Flow Rate FiO2 04/29/17 00:22 36.6 53 18 104/68 (80) 97 Room Air 04/29/17 00:00 BiPAP 30.0 30 04/28/17 21:05 72 97 30 04/28/17 20:00 Room Air 30.0 30 04/28/17 19:10 65 20 97 Room Air 04/28/17 15:50 66 26 97 Room Air 04/28/17 15:24 Room Air Trach Collar 04/28/17 15:03 36.8 66 24 95/60 (72) 95 Room Air 04/28/17 11:16 69 26 95 Room Air 04/28/17 09:00 Room Air Trach Collar 04/28/17 08:10 36.2 53 18 128/81 (97) 100 Trach Collar 04/28/17 07:16 52 30 99 Room Air Physical Exam Comments: General Appearance: no apparent distress, + thin Neck: supple, no adenopathy, no JVD, trachea midline Respiratory/Chest: chest non-tender, lungs clear, normal breath sounds, no respiratory distress, no accessory muscle use Cardiovascular: regular rate, rhythm, no edema, no gallop, no JVD, no murmur Abdomen: normal bowel sounds, non tender, soft, no organomegaly Extremities: non-tender, normal inspection, no pedal edema, no calf tenderness , pelvis stable Neurologic/Psychiatric: alert, normal mood/affect, oriented x 3, + motor weakness (paralysis) Skin: normal color, warm/dry, no rash Assessment and Plan 46 y/o patient s/p tracheostomy with increased secretions, found to have pseudomonas in his sputum Pseudomonas Pneumonia- RESOLVED: - ID and pulm recommended IV Cefepime x7 days- treatment completed - Continue Floranex - DuoNebs and Atrovent - IV Ativan PRN - BCx and MRSA swab negative - Pulmonary consultation, appreciate recommendations -- Vibratory vest set-up for discharge and should continue indefinitely -- chest compressions not sufficient due to patient's immobility, needs the vest to prevent further infections Mild hyponatremia at 133 on 04/19- STABLE Quadriplegia: Baclofen 40 mg QID, Dantrium 100 mg HS Chronic constipation: Continue outpatient regimen of suppository and manual disimpaction on and Fri. DVT prophylaxis: SCDs Code Status: FULL RESUSCITATION Dispo: Medically stable for discharge pending SNF placement- social service manager consulted, looking into [facility] now, still awaiting decision, getting vibratory vest approved family cannot take patient home Still no place has accepted patient. Continued [facility] stay due to: other Discharge planning: home with home health, care home facility
[2017-04-29] MEDS: ALBUT/IPRATROP 3MG/0.5MG NEB 3 ML VIAL INH SCH ×4 (07:41→19:05)
[2017-04-29] MEDS: LORAZEPAM 0.5 MG TAB PO SCH (08:31)
[2017-04-29] MEDS: LORATADINE 10 MG TAB PO SCH (08:31)
[2017-04-29] MEDS: BACLOFEN TAB 20 MG TAB PO SCH ×4 (08:31→21:03)
[2017-04-29] MEDS: ASPIRIN 81 MG ECTAB PO SCH (08:31)
[2017-04-29] MEDS: BISACODYL 10 MG SUPP PR SCH (08:32)
[2017-04-29] MEDS: IPRATROPIUM BROMIDE NASAL SPRAY 0.06% 15ML INH SCH ×3 (08:32→20:00)
[2017-04-29] MEDS: CEROVITE ADV FORMULA TAB PO SCH (12:54)
[2017-04-29] MEDS: LACTOBACILLUS ACIDOPHILUS (FLORANEX) TAB PO SCH (12:54)
[2017-04-29] MEDS: DANTROLENE SODIUM 25 MG CAP PO SCH (21:04)
--- NOTE | 2017-04-29 22:59 | Progress Note ---
Subjective Date of Service: Apr 29, 2017. Subjective Patient denies any complaints today. Problem List Medical Problems: (1) Bronchitis Status: Acute (2) Hypoxemia Status: Acute (3) Hypoxia Status: Acute (4) Knee pain, acute Status: Acute (5) Mucus plugging of bronchi Status: Acute (6) Paraplegia Status: Acute (7) PNA (pneumonia) Status: Acute (8) PNA (pneumonia) Status: Acute (9) Pneumonia Status: Acute (10) Pneumonia Status: Acute (11) Pneumonia Status: Acute (12) Pneumonia Status: Acute (13) Pneumonia Status: Acute (14) Pneumonia Status: Acute (15) Productive cough Status: Acute (16) Quadriplegia Status: Acute (17) Sacral decubitus ulcer Status: Acute (18) SOB (shortness of breath) Status: Acute (19) SOB (shortness of breath) Status: Acute (20) Ulcer of right heel Status: Acute Review of Systems Constitutional: No fever, No chills Eyes: No worsening of vision, No eye pain Respiratory: No cough, No sputum Cardiac: No chest pain, No orthopnea Abdomen: No pain, No nausea Musculoskeletal: No joint pain Male : No dysuria, No urinary frequency Heme: No abnormal bleeding/bruising Skin: No rash, No itch All Other Systems: Reviewed and Negative Medications Current Inpatient Medications Medications (Trade) Dose Ordered Sig/Ashanti Route Start Time Stop Time Status Last Admin Dose Admin Acetaminophen (Tylenol Tab) 650 mg Q4H PRN PO 04/09/17 20:15 05/09/17 20:14 04/15/17 21:06 650 MG Ondansetron HCl (Zofran Inj) 4 mg Q6H PRN IV 04/09/17 20:15 05/09/17 20:14 Acetaminophen (Tylenol Tab) 1,000 mg Q6H PRN PO 04/09/17 20:15 05/09/17 20:14 04/16/17 09:26 1,000 MG Aspirin (Ecotrin Tab) 81 mg QAM PO 04/10/17 09:00 05/10/17 08:59 04/29/17 08:31 81 MG Baclofen (Lioresal Tab) 40 mg QID PO 04/09/17 21:00 05/09/17 20:59 04/29/17 21:03 40 MG Ibuprofen (Advil Tab) 400 mg Q8 PRN PO 04/09/17 20:15 05/09/17 20:14 Lactobacillus Acidophilus (Floranex Tab) 4 tab 1200 PO 04/10/17 12:00 05/10/17 11:59 04/29/17 12:54 4 TAB Loratadine (Claritin Tab) 10 mg QAM PO 04/10/17 09:00 05/10/17 08:59 04/29/17 08:31 10 MG Lorazepam (Ativan Tab) 0.5 mg DAILY PRN PO 04/09/17 20:15 05/09/17 20:14 04/19/17 16:59 0.5 MG Lorazepam (Ativan Tab) 0.5 mg QAM PO 04/10/17 09:00 05/10/17 08:59 04/29/17 08:31 0.5 MG Multivitamins/ Minerals (Multivitamin W/ Minerals Tab) 1 tab 1200 PO 04/10/17 12:00 05/10/17 11:59 04/29/17 12:54 1 TAB Dantrolene Sodium (Dantrium Cap) 100 mg QPM PO 04/09/17 22:00 05/09/17 21:59 04/29/17 21:04 100 MG Ipratropium [place] (Atrovent Nasal [place] 0.06%) 2 sprays TID INH 04/09/17 22:00 05/09/17 21:59 04/29/17 12:55 2 SPRAYS Albuterol/ Ipratropium (Duoneb) 3 ml QIDR INH 04/10/17 08:00 05/10/17 07:59 04/29/17 19:05 3 ML Bisacodyl (Dulcolax Supp) 10 mg TuFr@DAILY [place] 04/18/17 09:00 05/15/17 13:44 04/29/17 08:32 10 MG Objective Vital Signs Date Time Temp Pulse Resp B/P (MAP) Pulse Ox O2 Delivery O2 Flow Rate FiO2 04/29/17 21:19 76 97 30 04/29/17 19:06 71 20 96 Room Air 04/29/17 16:00 97 Room Air 04/29/17 15:43 36.7 60 18 117/75 (89) 97 Room Air 18 04/29/17 15:28 68 20 97 Room Air 04/29/17 11:27 72 22 96 Room Air 04/29/17 09:15 Room Air 04/29/17 08:13 36.3 54 18 124/83 (97) 100 Room Air 04/29/17 07:41 55 20 97 Room Air 04/29/17 00:22 36.6 53 18 104/68 (80) 97 Room Air 04/29/17 00:00 BiPAP 30.0 30 Physical Exam Comments: General Appearance: no apparent distress, + thin Neck: supple, no adenopathy, no JVD, trachea midline Respiratory/Chest: chest non-tender, lungs clear, normal breath sounds, no respiratory distress, no accessory muscle use Cardiovascular: regular rate, rhythm, no edema, no gallop, no JVD, no murmur Abdomen: normal bowel sounds, non tender, soft, no organomegaly Extremities: non-tender, normal inspection, no pedal edema, no calf tenderness , pelvis stable Neurologic/Psychiatric: alert, normal mood/affect, oriented x 3, + motor weakness (paralysis) Skin: normal color, warm/dry, no rash Assessment and Plan 46 y/o patient s/p tracheostomy with increased secretions, found to have pseudomonas in his sputum Pseudomonas Pneumonia- RESOLVED: - ID and pulm recommended IV Cefepime x7 days- treatment completed - Continue Floranex - DuoNebs and Atrovent - IV Ativan PRN - BCx and MRSA swab negative - Pulmonary consultation, appreciate recommendations -- Vibratory vest set-up for discharge and should continue indefinitely -- chest compressions not sufficient due to patient's immobility, needs the vest to prevent further infections Mild hyponatremia at 133 on 04/19- STABLE Quadriplegia: Baclofen 40 mg QID, Dantrium 100 mg HS Chronic constipation: Continue outpatient regimen of suppository and manual disimpaction on and Fri. DVT prophylaxis: SCDs Code Status: FULL RESUSCITATION Dispo: Medically stable for discharge pending SNF placement- psychiatric social worker consulted, looking into [facility] now, still awaiting decision, getting vibratory vest approved family cannot take patient home Still no place has accepted patient. Patient may need to go home with home health care if no places accept him Continued [facility] stay due to: other Discharge planning: home with home health, senior living facility
[2017-04-30] VITALS (9 sets, daily range): BP systolic 117–125; BP diastolic 74–78; PULSE 50–77; TEMP 36.3–36.7; O2SAT 93–100
[2017-04-30] MEDS: LORAZEPAM 0.5 MG TAB PO SCH (07:53)
[2017-04-30] MEDS: ASPIRIN 81 MG ECTAB PO SCH (07:54)
[2017-04-30] MEDS: IPRATROPIUM BROMIDE NASAL SPRAY 0.06% 15ML INH SCH ×3 (07:54→19:58)
[2017-04-30] MEDS: LORATADINE 10 MG TAB PO SCH (07:54)
[2017-04-30] MEDS: BACLOFEN TAB 20 MG TAB PO SCH ×4 (07:56→19:59)
[2017-04-30] MEDS: ALBUT/IPRATROP 3MG/0.5MG NEB 3 ML VIAL INH SCH ×4 (07:57→19:17)
[2017-04-30] MEDS: CEROVITE ADV FORMULA TAB PO SCH (11:19)
[2017-04-30] MEDS: LACTOBACILLUS ACIDOPHILUS (FLORANEX) TAB PO SCH (11:19)
[2017-04-30] MEDS: DANTROLENE SODIUM 25 MG CAP PO SCH (19:59)
[2017-04-30] MEDS: ACETAMINOPHEN 325 MG TAB PO PRN (23:16)
[2017-05-01] VITALS (10 sets, daily range): BP systolic 95–137; BP diastolic 60–87; PULSE 51–84; TEMP 35.9–36.9; O2SAT 93–99
--- NOTE | 2017-05-01 06:17 | Progress Note ---
Subjective Date of Service: Apr 30, 2017. Subjective Pt evaluation today including: conversation w/ patient, conversation w/ family , physical exam Patient denies any complaints today. Problem List Medical Problems: (1) Bronchitis Status: Acute (2) Hypoxemia Status: Acute (3) Hypoxia Status: Acute (4) Knee pain, acute Status: Acute (5) Mucus plugging of bronchi Status: Acute (6) Paraplegia Status: Acute (7) PNA (pneumonia) Status: Acute (8) PNA (pneumonia) Status: Acute (9) Pneumonia Status: Acute (10) Pneumonia Status: Acute (11) Pneumonia Status: Acute (12) Pneumonia Status: Acute (13) Pneumonia Status: Acute (14) Pneumonia Status: Acute (15) Productive cough Status: Acute (16) Quadriplegia Status: Acute (17) Sacral decubitus ulcer Status: Acute (18) SOB (shortness of breath) Status: Acute (19) SOB (shortness of breath) Status: Acute (20) Ulcer of right heel Status: Acute Review of Systems Constitutional: No fever, No chills Respiratory: No cough, No sputum Cardiac: No chest pain, No orthopnea Abdomen: No pain, No nausea Neurologic: No memory loss, No paralysis Psychiatric: No depression symptoms, No anhedonism Heme: No abnormal bleeding/bruising Endo: No fatigue Skin: No rash, No itch All Other Systems: Reviewed and Negative Medications Current Inpatient Medications Medications (Trade) Dose Ordered Sig/Ashanti Route Start Time Stop Time Status Last Admin Dose Admin Acetaminophen (Tylenol Tab) 650 mg Q4H PRN PO 04/09/17 20:15 05/09/17 20:14 04/30/17 23:16 650 MG Ondansetron HCl (Zofran Inj) 4 mg Q6H PRN IV 04/09/17 20:15 05/09/17 20:14 Acetaminophen (Tylenol Tab) 1,000 mg Q6H PRN PO 04/09/17 20:15 05/09/17 20:14 04/16/17 09:26 1,000 MG Aspirin (Ecotrin Tab) 81 mg QAM PO 04/10/17 09:00 05/10/17 08:59 04/30/17 07:54 81 MG Baclofen (Lioresal Tab) 40 mg QID PO 04/09/17 21:00 05/09/17 20:59 04/30/17 19:59 40 MG Ibuprofen (Advil Tab) 400 mg Q8 PRN PO 04/09/17 20:15 05/09/17 20:14 Lactobacillus Acidophilus (Floranex Tab) 4 tab 1200 PO 04/10/17 12:00 05/10/17 11:59 04/30/17 11:19 4 TAB Loratadine (Claritin Tab) 10 mg QAM PO 04/10/17 09:00 05/10/17 08:59 04/30/17 07:54 10 MG Lorazepam (Ativan Tab) 0.5 mg DAILY PRN PO 04/09/17 20:15 05/09/17 20:14 04/19/17 16:59 0.5 MG Lorazepam (Ativan Tab) 0.5 mg QAM PO 04/10/17 09:00 05/10/17 08:59 04/30/17 07:53 0.5 MG Multivitamins/ Minerals (Multivitamin W/ Minerals Tab) 1 tab 1200 PO 04/10/17 12:00 05/10/17 11:59 04/30/17 11:19 1 TAB Dantrolene Sodium (Dantrium Cap) 100 mg QPM PO 04/09/17 22:00 05/09/17 21:59 04/30/17 19:59 100 MG Ipratropium [place] (Atrovent Nasal [place] 0.06%) 2 sprays TID INH 04/09/17 22:00 05/09/17 21:59 04/30/17 19:58 2 SPRAYS Albuterol/ Ipratropium (Duoneb) 3 ml QIDR INH 04/10/17 08:00 05/10/17 07:59 05/01/17 07:14 3 ML Bisacodyl (Dulcolax Supp) 10 mg TuFr@DAILY [place] 04/18/17 09:00 05/15/17 13:44 04/29/17 08:32 10 MG Objective Vital Signs Date Time Temp Pulse Resp B/P (MAP) Pulse Ox O2 Delivery O2 Flow Rate FiO2 05/01/17 00:43 36.5 54 18 96/60 (72) 99 Room Air 05/01/17 00:00 Room Air BiPAP Trach Collar 04/30/17 20:00 Room Air BiPAP Trach Collar 04/30/17 19:26 74 22 93 Room Air 04/30/17 19:26 70 93 30 04/30/17 16:00 Room Air 04/30/17 15:50 76 20 94 Room Air 04/30/17 14:55 36.7 77 22 125/78 (94) 96 Room Air 04/30/17 11:36 75 20 96 Room Air 04/30/17 08:00 96 Room Air 04/30/17 07:57 53 20 96 Room Air 04/30/17 07:40 36.3 50 20 117/74 (88) 100 Physical Exam General Appearance: WD/WN, no apparent distress ENT: + pertinent finding (trach noted) Neck: supple, no adenopathy Respiratory/Chest: chest non-tender, lungs clear, normal breath sounds Cardiovascular: regular rate, rhythm, no edema Abdomen: normal bowel sounds, non tender, soft Extremities: normal range of motion, non-tender Neurologic/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: 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-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 as tested Skin: normal color Lymphatic: no adenopathy Assessment and Plan 46 y/o patient s/p tracheostomy with increased secretions, found to have pseudomonas in his sputum Pseudomonas Pneumonia- RESOLVED: - ID and pulm recommended IV Cefepime x7 days- treatment completed - Continue Floranex - DuoNebs and Atrovent - IV Ativan PRN - BCx and MRSA swab negative - Pulmonary consultation, appreciate recommendations -- Vibratory vest set-up for discharge and should continue indefinitely -- chest compressions not sufficient due to patient's immobility, needs the vest to prevent further infections Mild hyponatremia at 133 on 04/19- STABLE Quadriplegia: Baclofen 40 mg QID, Dantrium 100 mg HS Chronic constipation: Continue outpatient regimen of suppository and manual disimpaction on and Fri. DVT prophylaxis: SCDs Code Status: FULL RESUSCITATION Dispo: Medically stable for discharge pending SNF placement- social work professor consulted, looking into [facility] now, still awaiting decision, getting vibratory vest approved family cannot take patient home Still no place has accepted patient. Patient may need to go home with home health care if no places accept him Continued [facility] stay due to: other Discharge planning: home with home health, long term facility
[2017-05-01] MEDS: ALBUT/IPRATROP 3MG/0.5MG NEB 3 ML VIAL INH SCH ×4 (07:14→19:23)
[2017-05-01] MEDS: ASPIRIN 81 MG ECTAB PO SCH (09:32)
[2017-05-01] MEDS: LORATADINE 10 MG TAB PO SCH (09:33)
[2017-05-01] MEDS: IPRATROPIUM BROMIDE NASAL SPRAY 0.06% 15ML INH SCH ×3 (09:34→19:20)
[2017-05-01] MEDS: BACLOFEN TAB 20 MG TAB PO SCH ×4 (09:34→19:20)
[2017-05-01] MEDS: LORAZEPAM 0.5 MG TAB PO SCH (09:36)
[2017-05-01] MEDS: LACTOBACILLUS ACIDOPHILUS (FLORANEX) TAB PO SCH (12:34)
[2017-05-01] MEDS: CEROVITE ADV FORMULA TAB PO SCH (12:34)
[2017-05-01] MEDS: DANTROLENE SODIUM 25 MG CAP PO SCH (19:21)
--- NOTE | 2017-05-01 21:44 | Progress Note ---
Subjective Date of Service: May 01, 2017. Subjective Pt evaluation today including: conversation w/ patient, physical exam Patient reports no complaints Problem List Medical Problems: (1) Bronchitis Status: Acute (2) Hypoxemia Status: Acute (3) Hypoxia Status: Acute (4) Knee pain, acute Status: Acute (5) Mucus plugging of bronchi Status: Acute (6) Paraplegia Status: Acute (7) PNA (pneumonia) Status: Acute (8) PNA (pneumonia) Status: Acute (9) Pneumonia Status: Acute (10) Pneumonia Status: Acute (11) Pneumonia Status: Acute (12) Pneumonia Status: Acute (13) Pneumonia Status: Acute (14) Pneumonia Status: Acute (15) Productive cough Status: Acute (16) Quadriplegia Status: Acute (17) Sacral decubitus ulcer Status: Acute (18) SOB (shortness of breath) Status: Acute (19) SOB (shortness of breath) Status: Acute (20) Ulcer of right heel Status: Acute Review of Systems Constitutional: No fever, No chills Cardiac: No chest pain, No orthopnea Abdomen: No pain, No nausea Musculoskeletal: No joint pain Male : No dysuria, No urinary frequency Neurologic: No memory loss, No paralysis All Other Systems: Reviewed and Negative Medications Current Inpatient Medications Medications (Trade) Dose Ordered Sig/Ashanti Route Start Time Stop Time Status Last Admin Dose Admin Acetaminophen (Tylenol Tab) 650 mg Q4H PRN PO 04/09/17 20:15 05/09/17 20:14 04/30/17 23:16 650 MG Ondansetron HCl (Zofran Inj) 4 mg Q6H PRN IV 04/09/17 20:15 05/09/17 20:14 Acetaminophen (Tylenol Tab) 1,000 mg Q6H PRN PO 04/09/17 20:15 05/09/17 20:14 04/16/17 09:26 1,000 MG Aspirin (Ecotrin Tab) 81 mg QAM PO 04/10/17 09:00 05/10/17 08:59 05/01/17 09:32 81 MG Baclofen (Lioresal Tab) 40 mg QID PO 04/09/17 21:00 05/09/17 20:59 05/01/17 19:20 40 MG Ibuprofen (Advil Tab) 400 mg Q8 PRN PO 04/09/17 20:15 05/09/17 20:14 Lactobacillus Acidophilus (Floranex Tab) 4 tab 1200 PO 04/10/17 12:00 05/10/17 11:59 05/01/17 12:34 4 TAB Loratadine (Claritin Tab) 10 mg QAM PO 04/10/17 09:00 05/10/17 08:59 05/01/17 09:33 10 MG Lorazepam (Ativan Tab) 0.5 mg DAILY PRN PO 04/09/17 20:15 05/09/17 20:14 04/19/17 16:59 0.5 MG Lorazepam (Ativan Tab) 0.5 mg QAM PO 04/10/17 09:00 05/10/17 08:59 05/01/17 09:36 0.5 MG Multivitamins/ Minerals (Multivitamin W/ Minerals Tab) 1 tab 1200 PO 04/10/17 12:00 05/10/17 11:59 05/01/17 12:34 1 TAB Dantrolene Sodium (Dantrium Cap) 100 mg QPM PO 04/09/17 22:00 05/09/17 21:59 05/01/17 19:21 100 MG Ipratropium [place] (Atrovent Nasal [place] 0.06%) 2 sprays TID INH 04/09/17 22:00 05/09/17 21:59 05/01/17 19:20 2 SPRAYS Albuterol/ Ipratropium (Duoneb) 3 ml QIDR INH 04/10/17 08:00 05/10/17 07:59 05/01/17 19:23 3 ML Bisacodyl (Dulcolax Supp) 10 mg TuFr@DAILY [place] 04/18/17 09:00 05/15/17 13:44 04/29/17 08:32 10 MG Objective Vital Signs Date Time Temp Pulse Resp B/P (MAP) Pulse Ox O2 Delivery O2 Flow Rate FiO2 05/01/17 20:00 Room Air BiPAP Trach Collar 05/01/17 19:23 68 20 98 Room Air 05/01/17 15:40 Room Air 05/01/17 15:31 36.9 84 19 117/72 (87) 95 Room Air 05/01/17 15:11 72 20 96 Room Air 05/01/17 11:52 94 Room Air Trach Collar 05/01/17 11:38 69 22 93 BiPAP/CPAP 30 05/01/17 09:30 Room Air 05/01/17 07:39 35.9 51 16 137/87 (104) 99 Room Air 05/01/17 07:18 56 22 97 BiPAP/CPAP 30 05/01/17 00:43 36.5 54 18 96/60 (72) 99 Room Air 05/01/17 00:00 Room Air BiPAP Trach Collar Physical Exam General Appearance: WD/WN, no apparent distress Neck: supple, no adenopathy Respiratory/Chest: chest non-tender, lungs clear, normal breath sounds Cardiovascular: regular rate, rhythm, no edema, no gallop Abdomen: normal bowel sounds, non tender, soft Extremities: normal range of motion, non-tender Skin: normal color, warm/dry Laboratory Results Current Inpatient Medications Medications (Trade) Dose Ordered Sig/Ashanti Route Start Time Stop Time Status Last Admin Dose Admin Acetaminophen (Tylenol Tab) 650 mg Q4H PRN PO 04/09/17 20:15 05/09/17 20:14 04/30/17 23:16 650 MG Ondansetron HCl (Zofran Inj) 4 mg Q6H PRN IV 04/09/17 20:15 05/09/17 20:14 Acetaminophen (Tylenol Tab) 1,000 mg Q6H PRN PO 04/09/17 20:15 05/09/17 20:14 04/16/17 09:26 1,000 MG Aspirin (Ecotrin Tab) 81 mg QAM PO 04/10/17 09:00 05/10/17 08:59 05/01/17 09:32 81 MG Baclofen (Lioresal Tab) 40 mg QID PO 04/09/17 21:00 05/09/17 20:59 05/01/17 19:20 40 MG Ibuprofen (Advil Tab) 400 mg Q8 PRN PO 04/09/17 20:15 05/09/17 20:14 Lactobacillus Acidophilus (Floranex Tab) 4 tab 1200 PO 04/10/17 12:00 05/10/17 11:59 05/01/17 12:34 4 TAB Loratadine (Claritin Tab) 10 mg QAM PO 04/10/17 09:00 05/10/17 08:59 05/01/17 09:33 10 MG Lorazepam (Ativan Tab) 0.5 mg DAILY PRN PO 04/09/17 20:15 05/09/17 20:14 04/19/17 16:59 0.5 MG Lorazepam (Ativan Tab) 0.5 mg QAM PO 04/10/17 09:00 05/10/17 08:59 05/01/17 09:36 0.5 MG Multivitamins/ Minerals (Multivitamin W/ Minerals Tab) 1 tab 1200 PO 04/10/17 12:00 05/10/17 11:59 05/01/17 12:34 1 TAB Dantrolene Sodium (Dantrium Cap) 100 mg QPM PO 04/09/17 22:00 05/09/17 21:59 05/01/17 19:21 100 MG Ipratropium [place] (Atrovent Nasal [place] 0.06%) 2 sprays TID INH 04/09/17 22:00 05/09/17 21:59 05/01/17 19:20 2 SPRAYS Albuterol/ Ipratropium (Duoneb) 3 ml QIDR INH 04/10/17 08:00 05/10/17 07:59 05/01/17 19:23 3 ML Bisacodyl (Dulcolax Supp) 10 mg TuFr@DAILY [place] 04/18/17 09:00 05/15/17 13:44 04/29/17 08:32 10 MG Assessment and Plan 46 y/o patient s/p tracheostomy with increased secretions, found to have pseudomonas in his sputum Pseudomonas Pneumonia- RESOLVED: - ID and pulm recommended IV Cefepime x7 days- treatment completed - Continue Floranex - DuoNebs and Atrovent - IV Ativan PRN - BCx and MRSA swab negative - Pulmonary consultation, appreciate recommendations -- Vibratory vest set-up for discharge and should continue indefinitely -- chest compressions not sufficient due to patient's immobility, needs the vest to prevent further infections Mild hyponatremia at 133 on 04/19- STABLE Quadriplegia: Baclofen 40 mg QID, Dantrium 100 mg HS Chronic constipation: Continue outpatient regimen of suppository and manual disimpaction on and Fri. DVT prophylaxis: SCDs Code Status: FULL RESUSCITATION Dispo: Medically stable for discharge pending SNF placement- mental health social worker consulted, looking into [facility] now, still awaiting decision, getting vibratory vest approved family cannot take patient home Still no place has accepted patient. Patient may need to go home with home health care if no places accept him Continued [facility] stay due to: other Discharge planning: home with home health, [facility]
[2017-05-02] VITALS (9 sets, daily range): BP systolic 112–116; BP diastolic 65–71; PULSE 55–78; TEMP 36.6–36.7; O2SAT 93–100
[2017-05-02] MEDS: ALBUT/IPRATROP 3MG/0.5MG NEB 3 ML VIAL INH SCH ×4 (07:09→19:02)
[2017-05-02] MEDS: BACLOFEN TAB 20 MG TAB PO SCH ×4 (09:32→20:51)
[2017-05-02] MEDS: BISACODYL 10 MG SUPP PR SCH (09:32)
[2017-05-02] MEDS: LORATADINE 10 MG TAB PO SCH (09:32)
[2017-05-02] MEDS: LORAZEPAM 0.5 MG TAB PO SCH (09:32)
[2017-05-02] MEDS: IPRATROPIUM BROMIDE NASAL SPRAY 0.06% 15ML INH SCH ×3 (09:33→20:00)
[2017-05-02] MEDS: ASPIRIN 81 MG ECTAB PO SCH (09:33)
[2017-05-02] MEDS: CEROVITE ADV FORMULA TAB PO SCH (12:31)
[2017-05-02] MEDS: LACTOBACILLUS ACIDOPHILUS (FLORANEX) TAB PO SCH (12:31)
[2017-05-02] MEDS: DANTROLENE SODIUM 25 MG CAP PO SCH (20:52)
[2017-05-02] MEDS: ACETAMINOPHEN 500 MG TAB PO PRN (20:54)
[2017-05-03] VITALS (11 sets, daily range): BP systolic 104–146; BP diastolic 62–95; PULSE 52–89; TEMP 36.5–36.9; O2SAT 93–98
[2017-05-03] MEDS: ALBUT/IPRATROP 3MG/0.5MG NEB 3 ML VIAL INH SCH ×4 (07:01→18:57)
[2017-05-03] MEDS: LORAZEPAM 0.5 MG TAB PO SCH (07:56)
[2017-05-03] MEDS: BACLOFEN TAB 20 MG TAB PO SCH ×4 (07:56→20:20)
[2017-05-03] MEDS: LORATADINE 10 MG TAB PO SCH (07:56)
[2017-05-03] MEDS: ASPIRIN 81 MG ECTAB PO SCH (07:56)
[2017-05-03] MEDS: IPRATROPIUM BROMIDE NASAL SPRAY 0.06% 15ML INH SCH ×3 (07:57→20:21)
--- NOTE | 2017-05-03 08:52 | Progress Note ---
Subjective Date of Service: May 02, 2017. seen at 15:30 Subjective Patient denies any complaints today. Problem List Medical Problems: (1) Bronchitis Status: Acute (2) Hypoxemia Status: Acute (3) Hypoxia Status: Acute (4) Knee pain, acute Status: Acute (5) Mucus plugging of bronchi Status: Acute (6) Paraplegia Status: Acute (7) PNA (pneumonia) Status: Acute (8) PNA (pneumonia) Status: Acute (9) Pneumonia Status: Acute (10) Pneumonia Status: Acute (11) Pneumonia Status: Acute (12) Pneumonia Status: Acute (13) Pneumonia Status: Acute (14) Pneumonia Status: Acute (15) Productive cough Status: Acute (16) Quadriplegia Status: Acute (17) Sacral decubitus ulcer Status: Acute (18) SOB (shortness of breath) Status: Acute (19) SOB (shortness of breath) Status: Acute (20) Ulcer of right heel Status: Acute Review of Systems Constitutional: No fever, No chills ENT: No hearing loss, No unusual epistaxis Respiratory: No cough, No sputum Cardiac: No chest pain, No orthopnea Abdomen: No pain, No nausea Musculoskeletal: No joint pain Neurologic: No memory loss, No paralysis Psychiatric: No depression symptoms, No anhedonism Endo: No fatigue Skin: No rash All Other Systems: Reviewed and Negative Medications Current Inpatient Medications Medications (Trade) Dose Ordered Sig/Ashanti Route Start Time Stop Time Status Last Admin Dose Admin Acetaminophen (Tylenol Tab) 650 mg Q4H PRN PO 04/09/17 20:15 05/09/17 20:14 04/30/17 23:16 650 MG Ondansetron HCl (Zofran Inj) 4 mg Q6H PRN IV 04/09/17 20:15 05/09/17 20:14 Acetaminophen (Tylenol Tab) 1,000 mg Q6H PRN PO 04/09/17 20:15 05/09/17 20:14 05/02/17 20:54 1,000 MG Aspirin (Ecotrin Tab) 81 mg QAM PO 04/10/17 09:00 05/10/17 08:59 05/03/17 07:56 81 MG Baclofen (Lioresal Tab) 40 mg QID PO 04/09/17 21:00 05/09/17 20:59 05/03/17 07:56 40 MG Ibuprofen (Advil Tab) 400 mg Q8 PRN PO 04/09/17 20:15 05/09/17 20:14 Lactobacillus Acidophilus (Floranex Tab) 4 tab 1200 PO 04/10/17 12:00 05/10/17 11:59 05/02/17 12:31 4 TAB Loratadine (Claritin Tab) 10 mg QAM PO 04/10/17 09:00 05/10/17 08:59 05/03/17 07:56 10 MG Lorazepam (Ativan Tab) 0.5 mg DAILY PRN PO 04/09/17 20:15 05/09/17 20:14 04/19/17 16:59 0.5 MG Lorazepam (Ativan Tab) 0.5 mg QAM PO 04/10/17 09:00 05/10/17 08:59 05/03/17 07:56 0.5 MG Multivitamins/ Minerals (Multivitamin W/ Minerals Tab) 1 tab 1200 PO 04/10/17 12:00 05/10/17 11:59 05/02/17 12:31 1 TAB Dantrolene Sodium (Dantrium Cap) 100 mg QPM PO 04/09/17 22:00 05/09/17 21:59 05/02/17 20:52 100 MG Ipratropium [place] (Atrovent Nasal [place] 0.06%) 2 sprays TID INH 04/09/17 22:00 05/09/17 21:59 05/03/17 07:57 2 SPRAYS Albuterol/ Ipratropium (Duoneb) 3 ml QIDR INH 04/10/17 08:00 05/10/17 07:59 05/03/17 07:01 3 ML Bisacodyl (Dulcolax Supp) 10 mg TuFr@DAILY [place] 04/18/17 09:00 05/15/17 13:44 05/02/17 09:32 10 MG Objective Vital Signs Date Time Temp Pulse Resp B/P (MAP) Pulse Ox O2 Delivery O2 Flow Rate FiO2 05/03/17 08:29 104/62 (76) 05/03/17 07:46 36.5 66 20 95 Room Air Trach Collar 05/03/17 07:06 52 97 30 05/03/17 07:05 52 28 97 BiPAP/CPAP 30 05/03/17 05:21 69 96 30 05/03/17 02:33 64 98 30 05/03/17 00:00 Room Air BiPAP 05/02/17 23:42 71 96 30 05/02/17 21:13 66 95 30 05/02/17 19:08 68 20 96 Room Air 05/02/17 16:00 Room Air 05/02/17 15:47 36.7 75 18 112/71 (85) 97 Trach Collar 05/02/17 15:19 68 20 96 Room Air 05/02/17 11:24 78 20 93 BiPAP/CPAP 05/02/17 11:24 55 100 30 05/02/17 09:30 Room Air Physical Exam Comments: General Appearance: WD/WN, no apparent distress Neck: supple, no adenopathy Respiratory/Chest: chest non-tender, lungs clear, normal breath sounds Cardiovascular: regular rate, rhythm, no edema, no gallop Abdomen: normal bowel sounds, non tender, soft Extremities: normal range of motion, non-tender Skin: normal color, warm/dry Assessment and Plan 46 y/o patient s/p tracheostomy with increased secretions, found to have pseudomonas in his sputum Pseudomonas Pneumonia- RESOLVED: - ID and pulm recommended IV Cefepime x7 days- treatment completed - Continue Floranex - DuoNebs and Atrovent - IV Ativan PRN - BCx and MRSA swab negative - Pulmonary consultation, appreciate recommendations -- Vibratory vest set-up for discharge and should continue indefinitely -- chest compressions not sufficient due to patient's immobility, needs the vest to prevent further infections Mild hyponatremia at 133 on 04/19- STABLE Quadriplegia: Baclofen 40 mg QID, Dantrium 100 mg HS Chronic constipation: Continue outpatient regimen of suppository and manual disimpaction on and Fri. DVT prophylaxis: SCDs Code Status: FULL RESUSCITATION Dispo: Medically stable for discharge pending SNF placement- aids social worker consulted, looking into [facility] now, still awaiting decision, getting vibratory vest approved family cannot take patient home Still no place has accepted patient. Patient may need to go home with home health care if no places accept him Continued [facility] stay due to: other Discharge planning: home with home health, [facility] facility
[2017-05-03] MEDS: LACTOBACILLUS ACIDOPHILUS (FLORANEX) TAB PO SCH (12:42)
[2017-05-03] MEDS: CEROVITE ADV FORMULA TAB PO SCH (12:42)
[2017-05-03] MEDS: DANTROLENE SODIUM 25 MG CAP PO SCH (20:20)
[2017-05-03] MEDS: IBUPROFEN 200 MG TAB PO PRN (20:20)
--- NOTE | 2017-05-03 23:09 | Progress Note ---
Subjective Date of Service: May 03, 2017. Subjective Pt evaluation today including: conversation w/ patient, physical exam, chart review, lab review Problem List Medical Problems: (1) Bronchitis Status: Acute (2) Hypoxemia Status: Acute (3) Hypoxia Status: Acute (4) Knee pain, acute Status: Acute (5) Mucus plugging of bronchi Status: Acute (6) Paraplegia Status: Acute (7) PNA (pneumonia) Status: Acute (8) PNA (pneumonia) Status: Acute (9) Pneumonia Status: Acute (10) Pneumonia Status: Acute (11) Pneumonia Status: Acute (12) Pneumonia Status: Acute (13) Pneumonia Status: Acute (14) Pneumonia Status: Acute (15) Productive cough Status: Acute (16) Quadriplegia Status: Acute (17) Sacral decubitus ulcer Status: Acute (18) SOB (shortness of breath) Status: Acute (19) SOB (shortness of breath) Status: Acute (20) Ulcer of right heel Status: Acute Review of Systems Constitutional: No fever, No chills ENT: No hearing loss, No unusual epistaxis Respiratory: No cough, No sputum Cardiac: No chest pain, No orthopnea Abdomen: No pain, No nausea Neurologic: No paralysis Psychiatric: No depression symptoms, No anhedonism Endo: No fatigue All Other Systems: Reviewed and Negative Objective Vital Signs Date Time Temp Pulse Resp B/P (MAP) Pulse Ox O2 Delivery O2 Flow Rate FiO2 05/03/17 21:14 72 96 30 05/03/17 19:54 Room Air 05/03/17 19:11 89 21 94 Room Air 05/03/17 16:00 Room Air 05/03/17 15:30 80 21 95 Room Air 05/03/17 15:29 36.9 73 22 146/95 (112) 95 Room Air 05/03/17 11:11 71 21 93 Room Air 05/03/17 08:29 104/62 (76) 05/03/17 08:00 Room Air 05/03/17 07:46 36.5 66 20 95 Room Air Trach Collar 05/03/17 07:06 52 97 30 05/03/17 07:05 52 28 97 BiPAP/CPAP 30 05/03/17 05:21 69 96 30 05/03/17 02:33 64 98 30 05/03/17 00:00 Room Air BiPAP 05/02/17 23:42 71 96 30 Physical Exam General Appearance: WD/WN, no apparent distress Neck: supple, no adenopathy, thyroid normal, + pertinent finding (trach) Respiratory/Chest: chest non-tender, lungs clear, normal breath sounds Cardiovascular: regular rate, rhythm, no edema, no gallop Abdomen: normal bowel sounds, non tender, soft Extremities: normal range of motion, non-tender Skin: normal color Assessment and Plan 46 y/o patient s/p tracheostomy with increased secretions, found to have pseudomonas in his sputum Pseudomonas Pneumonia- RESOLVED: - ID and pulm recommended IV Cefepime x7 days- treatment completed - Continue Floranex - DuoNebs and Atrovent - IV Ativan PRN - BCx and MRSA swab negative - Pulmonary consultation, appreciate recommendations -- Vibratory vest set-up for discharge and should continue indefinitely -- chest compressions not sufficient due to patient's immobility, needs the vest to prevent further infections Mild hyponatremia at 133 on 04/19- STABLE Quadriplegia: Baclofen 40 mg QID, Dantrium 100 mg HS Chronic constipation: Continue outpatient regimen of suppository and manual disimpaction on and Fri. DVT prophylaxis: SCDs Code Status: FULL RESUSCITATION Dispo: Medically stable for discharge pending SNF placement- social service liaison consulted, has vibratory vest family does not want to take patient home Still no place has accepted patient. Patient may need to go home with home health care if no places accept him Case management continues to work on this case Continued [facility] stay due to: other Discharge planning: home with home health, alf facility
[2017-05-04] VITALS (12 sets, daily range): BP systolic 98–129; BP diastolic 66–83; PULSE 51–78; TEMP 36.5–36.6; O2SAT 94–100
[2017-05-04] MEDS: ALBUT/IPRATROP 3MG/0.5MG NEB 3 ML VIAL INH SCH ×4 (07:08→18:54)
[2017-05-04] MEDS: IPRATROPIUM BROMIDE NASAL SPRAY 0.06% 15ML INH SCH ×3 (08:32→20:18)
[2017-05-04] MEDS: LORAZEPAM 0.5 MG TAB PO SCH (08:32)
[2017-05-04] MEDS: LORATADINE 10 MG TAB PO SCH (08:32)
[2017-05-04] MEDS: ASPIRIN 81 MG ECTAB PO SCH (08:33)
[2017-05-04] MEDS: BACLOFEN TAB 20 MG TAB PO SCH ×4 (08:33→20:18)
--- NOTE | 2017-05-04 09:31 | Progress Note ---
Subjective Date of Service: May 04, 2017. Subjective Pt evaluation today including: conversation w/ patient, physical exam, review of inpatient medication list Pain: no pain PO Intake: adequate Voiding: knott catheter in place patient feeling well, no new issues Problem List Medical Problems: (1) Bronchitis Status: Acute (2) Hypoxemia Status: Acute (3) Hypoxia Status: Acute (4) Knee pain, acute Status: Acute (5) Mucus plugging of bronchi Status: Acute (6) Paraplegia Status: Acute (7) PNA (pneumonia) Status: Acute (8) PNA (pneumonia) Status: Acute (9) Pneumonia Status: Acute (10) Pneumonia Status: Acute (11) Pneumonia Status: Acute (12) Pneumonia Status: Acute (13) Pneumonia Status: Acute (14) Pneumonia Status: Acute (15) Productive cough Status: Acute (16) Quadriplegia Status: Acute (17) Sacral decubitus ulcer Status: Acute (18) SOB (shortness of breath) Status: Acute (19) SOB (shortness of breath) Status: Acute (20) Ulcer of right heel Status: Acute Review of Systems All Other Systems: Reviewed and Negative Medications Current Inpatient Medications Medications (Trade) Dose Ordered Sig/Ashanti Route Start Time Stop Time Status Last Admin Dose Admin Acetaminophen (Tylenol Tab) 650 mg Q4H PRN PO 04/09/17 20:15 05/09/17 20:14 04/30/17 23:16 650 MG Ondansetron HCl (Zofran Inj) 4 mg Q6H PRN IV 04/09/17 20:15 05/09/17 20:14 Acetaminophen (Tylenol Tab) 1,000 mg Q6H PRN PO 04/09/17 20:15 05/09/17 20:14 05/02/17 20:54 1,000 MG Aspirin (Ecotrin Tab) 81 mg QAM PO 04/10/17 09:00 05/10/17 08:59 05/04/17 08:33 81 MG Baclofen (Lioresal Tab) 40 mg QID PO 04/09/17 21:00 05/09/17 20:59 05/04/17 08:33 40 MG Ibuprofen (Advil Tab) 400 mg Q8 PRN PO 04/09/17 20:15 05/09/17 20:14 05/03/17 20:20 400 MG Lactobacillus Acidophilus (Floranex Tab) 4 tab 1200 PO 04/10/17 12:00 05/10/17 11:59 05/03/17 12:42 4 TAB Loratadine (Claritin Tab) 10 mg QAM PO 04/10/17 09:00 05/10/17 08:59 05/04/17 08:32 10 MG Lorazepam (Ativan Tab) 0.5 mg DAILY PRN PO 04/09/17 20:15 05/09/17 20:14 04/19/17 16:59 0.5 MG Lorazepam (Ativan Tab) 0.5 mg QAM PO 04/10/17 09:00 05/10/17 08:59 05/04/17 08:32 0.5 MG Multivitamins/ Minerals (Multivitamin W/ Minerals Tab) 1 tab 1200 PO 04/10/17 12:00 05/10/17 11:59 05/03/17 12:42 1 TAB Dantrolene Sodium (Dantrium Cap) 100 mg QPM PO 04/09/17 22:00 05/09/17 21:59 05/03/17 20:20 100 MG Ipratropium [place] (Atrovent Nasal [place] 0.06%) 2 sprays TID INH 04/09/17 22:00 05/09/17 21:59 05/04/17 08:32 2 SPRAYS Albuterol/ Ipratropium (Duoneb) 3 ml QIDR INH 04/10/17 08:00 05/10/17 07:59 05/04/17 07:08 3 ML Bisacodyl (Dulcolax Supp) 10 mg TuFr@DAILY [place] 04/18/17 09:00 05/15/17 13:44 05/02/17 09:32 10 MG Objective Vital Signs Date Time Temp Pulse Resp B/P (MAP) Pulse Ox O2 Delivery O2 Flow Rate FiO2 05/04/17 07:30 36.6 51 16 129/83 (98) 100 BiPAP Trach Collar 05/04/17 07:13 51 100 30 05/04/17 07:11 51 24 100 BiPAP/CPAP 30 05/04/17 06:00 70 96 30 05/04/17 03:19 70 96 30 05/04/17 00:18 Room Air 05/04/17 00:15 70 96 30 05/03/17 21:14 72 96 30 05/03/17 19:54 Room Air 05/03/17 19:11 89 21 94 Room Air 05/03/17 16:00 Room Air 05/03/17 15:30 80 21 95 Room Air 05/03/17 15:29 36.9 73 22 146/95 (112) 95 Room Air 05/03/17 11:11 71 21 93 Room Air Physical Exam General Appearance: WD/WN, no apparent distress ENT: normal ENT inspection, hearing grossly normal, pharynx normal Neck: supple, no adenopathy, no JVD, trachea midline, + pertinent finding ( tracheostomy in good position) Respiratory/Chest: chest non-tender, lungs clear, normal breath sounds, no respiratory distress, no accessory muscle use Cardiovascular: regular rate, rhythm, no edema, no gallop, no JVD, no murmur Abdomen: normal bowel sounds, non tender, soft, no organomegaly Extremities: normal range of motion, non-tender, normal inspection, no pedal edema, no calf tenderness, pelvis stable Neurologic/Psychiatric: dinkey engineer II-XII nml as tested, alert, normal mood/affect, oriented x 3, + motor weakness (paralysis) Skin: normal color, warm/dry, no rash Lymphatic: no adenopathy Assessment and Plan 46 y/o patient s/p tracheostomy with increased secretions, found to have pseudomonas in his sputum Pseudomonas Pneumonia- RESOLVED: - ID and pulm recommended IV Cefepime x7 days- treatment completed 3 weeks ago - Continue Floranex - DuoNebs and Atrovent - IV Ativan PRN - BCx and MRSA swab negative - Pulmonary consultation, appreciate recommendations -- Vibratory vest set-up for discharge and should continue indefinitely -- chest compressions not sufficient due to patient's immobility, needs the vest to prevent further infections Mild hyponatremia at 133 on 04/19- STABLE Quadriplegia: Baclofen 40 mg QID, Dantrium 100 mg HS Chronic constipation: Continue outpatient regimen of suppository and manual disimpaction on and Fri. DVT prophylaxis: SCDs Code Status: FULL RESUSCITATION Dispo: Medically stable for discharge pending SNF placement most recent meeting with case management and sisters, discussed new SNF's or apartment issue is with back up care givers nothing planned for today Continued [facility] stay due to: other Discharge planning: home with home health, snf facility
[2017-05-04] MEDS: CEROVITE ADV FORMULA TAB PO SCH (13:40)
[2017-05-04] MEDS: LACTOBACILLUS ACIDOPHILUS (FLORANEX) TAB PO SCH (13:40)
[2017-05-04] MEDS: DANTROLENE SODIUM 25 MG CAP PO SCH (20:18)
[2017-05-05] VITALS (11 sets, daily range): BP systolic 99–125; BP diastolic 64–81; PULSE 50–86; TEMP 36.3–36.8; O2SAT 94–100
[2017-05-05] MEDS: ALBUT/IPRATROP 3MG/0.5MG NEB 3 ML VIAL INH SCH ×4 (07:00→19:14)
[2017-05-05] MEDS: LORATADINE 10 MG TAB PO SCH (08:06)
[2017-05-05] MEDS: ASPIRIN 81 MG ECTAB PO SCH (08:06)
[2017-05-05] MEDS: BACLOFEN TAB 20 MG TAB PO SCH ×4 (08:07→20:42)
[2017-05-05] MEDS: IPRATROPIUM BROMIDE NASAL SPRAY 0.06% 15ML INH SCH ×3 (08:07→20:42)
[2017-05-05] MEDS: LORAZEPAM 0.5 MG TAB PO SCH (08:10)
[2017-05-05] MEDS: LACTOBACILLUS ACIDOPHILUS (FLORANEX) TAB PO SCH (12:27)
[2017-05-05] MEDS: CEROVITE ADV FORMULA TAB PO SCH (12:28)
[2017-05-05] MEDS: ACETAMINOPHEN 325 MG TAB PO PRN (15:58)
--- NOTE | 2017-05-05 16:22 | Progress Note ---
Subjective Date of Service: May 05, 2017. Subjective Pt evaluation today including: conversation w/ patient, physical exam, review of inpatient medication list Pain: no pain PO Intake: adequate Voiding: knott catheter in place no new changes d/w CM, still looking for placement Problem List Medical Problems: (1) Bronchitis Status: Acute (2) Hypoxemia Status: Acute (3) Hypoxia Status: Acute (4) Knee pain, acute Status: Acute (5) Mucus plugging of bronchi Status: Acute (6) Paraplegia Status: Acute (7) PNA (pneumonia) Status: Acute (8) PNA (pneumonia) Status: Acute (9) Pneumonia Status: Acute (10) Pneumonia Status: Acute (11) Pneumonia Status: Acute (12) Pneumonia Status: Acute (13) Pneumonia Status: Acute (14) Pneumonia Status: Acute (15) Productive cough Status: Acute (16) Quadriplegia Status: Acute (17) Sacral decubitus ulcer Status: Acute (18) SOB (shortness of breath) Status: Acute (19) SOB (shortness of breath) Status: Acute (20) Ulcer of right heel Status: Acute Review of Systems All Other Systems: Reviewed and Negative Medications Current Inpatient Medications Medications (Trade) Dose Ordered Sig/Ashanti Route Start Time Stop Time Status Last Admin Dose Admin Acetaminophen (Tylenol Tab) 650 mg Q4H PRN PO 04/09/17 20:15 05/09/17 20:14 05/05/17 15:58 650 MG Ondansetron HCl (Zofran Inj) 4 mg Q6H PRN IV 04/09/17 20:15 05/09/17 20:14 Acetaminophen (Tylenol Tab) 1,000 mg Q6H PRN PO 04/09/17 20:15 05/09/17 20:14 05/02/17 20:54 1,000 MG Aspirin (Ecotrin Tab) 81 mg QAM PO 04/10/17 09:00 05/10/17 08:59 05/05/17 08:06 81 MG Baclofen (Lioresal Tab) 40 mg QID PO 04/09/17 21:00 05/09/17 20:59 05/05/17 12:27 40 MG Ibuprofen (Advil Tab) 400 mg Q8 PRN PO 04/09/17 20:15 05/09/17 20:14 05/03/17 20:20 400 MG Lactobacillus Acidophilus (Floranex Tab) 4 tab 1200 PO 04/10/17 12:00 05/10/17 11:59 05/05/17 12:27 4 TAB Loratadine (Claritin Tab) 10 mg QAM PO 04/10/17 09:00 05/10/17 08:59 05/05/17 08:06 10 MG Lorazepam (Ativan Tab) 0.5 mg DAILY PRN PO 04/09/17 20:15 05/09/17 20:14 04/19/17 16:59 0.5 MG Lorazepam (Ativan Tab) 0.5 mg QAM PO 04/10/17 09:00 05/10/17 08:59 05/05/17 08:10 0.5 MG Multivitamins/ Minerals (Multivitamin W/ Minerals Tab) 1 tab 1200 PO 04/10/17 12:00 05/10/17 11:59 05/05/17 12:28 1 TAB Dantrolene Sodium (Dantrium Cap) 100 mg QPM PO 04/09/17 22:00 05/09/17 21:59 05/04/17 20:18 100 MG Ipratropium [place] (Atrovent Nasal [place] 0.06%) 2 sprays TID INH 04/09/17 22:00 05/09/17 21:59 05/05/17 15:06 2 SPRAYS Albuterol/ Ipratropium (Duoneb) 3 ml QIDR INH 04/10/17 08:00 05/10/17 07:59 05/05/17 15:35 3 ML Bisacodyl (Dulcolax Supp) 10 mg TuFr@DAILY [place] 04/18/17 09:00 05/15/17 13:44 05/02/17 09:32 10 MG Objective Vital Signs Date Time Temp Pulse Resp B/P (MAP) Pulse Ox O2 Delivery O2 Flow Rate FiO2 05/05/17 15:40 75 25 94 Room Air 05/05/17 11:00 52 94 30 05/05/17 11:00 52 30 94 Room Air 30 05/05/17 09:00 Room Air 05/05/17 07:44 36.6 64 16 119/68 (85) 94 Trach Collar 05/05/17 07:00 52 100 30 05/05/17 07:00 52 31 100 BiPAP/CPAP 30 10/16/17 05:56 60 98 30 05/05/17 03:13 50 99 30 05/05/17 00:40 Room Air 05/05/17 00:13 50 99 30 05/04/17 23:05 36.6 52 24 98/66 (77) 99 BiPAP 05/04/17 21:15 64 95 30 05/04/17 20:45 Room Air 05/04/17 18:57 64 24 97 Room Air Physical Exam General Appearance: no apparent distress, + thin Neck: supple, no adenopathy, no JVD, trachea midline, + pertinent finding ( tracheostomy in place) Respiratory/Chest: chest non-tender, lungs clear, normal breath sounds, no respiratory distress, no accessory muscle use Cardiovascular: regular rate, rhythm, no edema, no gallop, no JVD, no murmur Abdomen: normal bowel sounds, non tender, soft, no organomegaly Extremities: normal range of motion, non-tender, normal inspection, no pedal edema, no calf tenderness Neurologic/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: 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, no motor/sensory deficits, alert, normal mood/affect, oriented x 3 Skin: normal color, warm/dry, no rash Lymphatic: no adenopathy Assessment and Plan 46 y/o patient s/p tracheostomy with increased secretions, found to have pseudomonas in his sputum Pseudomonas Pneumonia- RESOLVED: - ID and pulm recommended IV Cefepime x7 days- treatment completed 3 weeks ago - Continue Floranex - DuoNebs and Atrovent - IV Ativan PRN - BCx and MRSA swab negative - Pulmonary consultation, appreciate recommendations -- Vibratory vest set-up for discharge and should continue indefinitely -- chest compressions not sufficient due to patient's immobility, needs the vest to prevent further infections Mild hyponatremia at 133 on 04/19- STABLE Quadriplegia: Baclofen 40 mg QID, Dantrium 100 mg HS Chronic constipation: Continue outpatient regimen of suppository and manual disimpaction on and Fri. DVT prophylaxis: SCDs Code Status: FULL RESUSCITATION Dispo: Medically stable for discharge pending SNF placement most recent meeting with case management and sisters, discussed new SNF's or apartment issue is with back up care givers d/w [place] with [facility], still searching for accepting facility Continued [facility] stay due to: other Discharge planning: home with home health, residential facility
[2017-05-05] MEDS: DANTROLENE SODIUM 25 MG CAP PO SCH (20:43)
[2017-05-06] VITALS (10 sets, daily range): BP systolic 97–152; BP diastolic 62–97; PULSE 50–77; TEMP 36.4–36.6; O2SAT 93–100
[2017-05-06] MEDS: ALBUT/IPRATROP 3MG/0.5MG NEB 3 ML VIAL INH SCH ×4 (07:18→18:58)
[2017-05-06] MEDS: IPRATROPIUM BROMIDE NASAL SPRAY 0.06% 15ML INH SCH ×3 (08:17→20:50)
[2017-05-06] MEDS: LORAZEPAM 0.5 MG TAB PO SCH (08:17)
[2017-05-06] MEDS: BISACODYL 10 MG SUPP PR SCH (08:17)
[2017-05-06] MEDS: ASPIRIN 81 MG ECTAB PO SCH (08:17)
[2017-05-06] MEDS: BACLOFEN TAB 20 MG TAB PO SCH ×4 (08:18→20:49)
[2017-05-06] MEDS: LORATADINE 10 MG TAB PO SCH (08:18)
[2017-05-06] MEDS: CEROVITE ADV FORMULA TAB PO SCH (12:55)
[2017-05-06] MEDS: LACTOBACILLUS ACIDOPHILUS (FLORANEX) TAB PO SCH (12:55)
[2017-05-06] MEDS ORDERED: SOD PHOSPHATE/SOD BIPHOSPHATE ENEMA 132 ML BTL PR PRN (16:00)
[2017-05-06] MEDS: DANTROLENE SODIUM 25 MG CAP PO SCH (20:50)
[2017-05-06] MEDS: IBUPROFEN 200 MG TAB PO PRN (20:51)
[2017-05-07] VITALS (10 sets, daily range): BP systolic 104–105; BP diastolic 63–67; PULSE 52–77; TEMP 36.4–36.9; O2SAT 95–100
[2017-05-07] MEDS: ALBUT/IPRATROP 3MG/0.5MG NEB 3 ML VIAL INH SCH ×4 (07:00→19:05)
[2017-05-07] MEDS: IPRATROPIUM BROMIDE NASAL SPRAY 0.06% 15ML INH SCH ×3 (08:08→20:39)
[2017-05-07] MEDS: LORAZEPAM 0.5 MG TAB PO SCH (08:08)
[2017-05-07] MEDS: LORATADINE 10 MG TAB PO SCH (08:09)
[2017-05-07] MEDS: ASPIRIN 81 MG ECTAB PO SCH (08:09)
[2017-05-07] MEDS: BACLOFEN TAB 20 MG TAB PO SCH ×4 (08:09→20:39)
[2017-05-07] MEDS: CEROVITE ADV FORMULA TAB PO SCH (12:52)
[2017-05-07] MEDS: LACTOBACILLUS ACIDOPHILUS (FLORANEX) TAB PO SCH (12:52)
[2017-05-07] MEDS: DANTROLENE SODIUM 25 MG CAP PO SCH (20:39)
[2017-05-08] VITALS (13 sets, daily range): BP systolic 88–118; BP diastolic 63–76; PULSE 50–89; TEMP 36.5–36.8; O2SAT 93–99
[2017-05-08] MEDS: ALBUT/IPRATROP 3MG/0.5MG NEB 3 ML VIAL INH SCH ×4 (07:06→19:16)
[2017-05-08] MEDS: IPRATROPIUM BROMIDE NASAL SPRAY 0.06% 15ML INH SCH ×3 (09:24→20:41)
[2017-05-08] MEDS: LORAZEPAM 0.5 MG TAB PO SCH (09:24)
[2017-05-08] MEDS: LORATADINE 10 MG TAB PO SCH (09:24)
[2017-05-08] MEDS: ASPIRIN 81 MG ECTAB PO SCH (09:24)
[2017-05-08] MEDS: BACLOFEN TAB 20 MG TAB PO SCH ×4 (09:25→20:41)
--- NOTE | 2017-05-08 12:36 | Progress Note ---
Subjective Date of Service: May 08, 2017. Subjective Pt evaluation today including: conversation w/ patient, physical exam, review of inpatient medication list Pain: no pain PO Intake: adequate Voiding: knott catheter in place had some constipation, relieved with enema Problem List Medical Problems: (1) Bronchitis Status: Acute (2) Hypoxemia Status: Acute (3) Hypoxia Status: Acute (4) Knee pain, acute Status: Acute (5) Mucus plugging of bronchi Status: Acute (6) Paraplegia Status: Acute (7) PNA (pneumonia) Status: Acute (8) PNA (pneumonia) Status: Acute (9) Pneumonia Status: Acute (10) Pneumonia Status: Acute (11) Pneumonia Status: Acute (12) Pneumonia Status: Acute (13) Pneumonia Status: Acute (14) Pneumonia Status: Acute (15) Productive cough Status: Acute (16) Quadriplegia Status: Acute (17) Sacral decubitus ulcer Status: Acute (18) SOB (shortness of breath) Status: Acute (19) SOB (shortness of breath) Status: Acute (20) Ulcer of right heel Status: Acute Review of Systems Abdomen: + constipation All Other Systems: Reviewed and Negative Medications Current Inpatient Medications Medications (Trade) Dose Ordered Sig/Ashanti Route Start Time Stop Time Status Last Admin Dose Admin Acetaminophen (Tylenol Tab) 650 mg Q4H PRN PO 04/09/17 20:15 06/07/17 20:14 05/05/17 15:58 650 MG Ondansetron HCl (Zofran Inj) 4 mg Q6H PRN IV 04/09/17 20:15 06/07/17 20:14 Acetaminophen (Tylenol Tab) 1,000 mg Q6H PRN PO 04/09/17 20:15 06/07/17 20:14 05/02/17 20:54 1,000 MG Aspirin (Ecotrin Tab) 81 mg QAM PO 04/10/17 09:00 06/07/17 08:59 05/08/17 09:24 81 MG Baclofen (Lioresal Tab) 40 mg QID PO 04/09/17 21:00 06/07/17 20:59 05/08/17 09:25 40 MG Ibuprofen (Advil Tab) 400 mg Q8 PRN PO 04/09/17 20:15 06/07/17 20:14 05/06/17 20:51 400 MG Lactobacillus Acidophilus (Floranex Tab) 4 tab 1200 PO 04/10/17 12:00 06/07/17 11:59 05/07/17 12:52 4 TAB Loratadine (Claritin Tab) 10 mg QAM PO 04/10/17 09:00 06/07/17 08:59 05/08/17 09:24 10 MG Lorazepam (Ativan Tab) 0.5 mg DAILY PRN PO 04/09/17 20:15 06/07/17 20:14 04/19/17 16:59 0.5 MG Lorazepam (Ativan Tab) 0.5 mg QAM PO 04/10/17 09:00 06/07/17 08:59 05/08/17 09:24 0.5 MG Multivitamins/ Minerals (Multivitamin W/ Minerals Tab) 1 tab 1200 PO 04/10/17 12:00 06/07/17 11:59 05/07/17 12:52 1 TAB Dantrolene Sodium (Dantrium Cap) 100 mg QPM PO 04/09/17 22:00 06/07/17 21:59 05/07/17 20:39 100 MG Ipratropium [place] (Atrovent Nasal [place] 0.06%) 2 sprays TID INH 04/09/17 22:00 06/07/17 21:59 05/08/17 09:24 2 SPRAYS Albuterol/ Ipratropium (Duoneb) 3 ml QIDR INH 04/10/17 08:00 06/07/17 07:59 05/08/17 07:06 3 ML Bisacodyl (Dulcolax Supp) 10 mg TuFr@DAILY [place] 04/18/17 09:00 06/07/17 08:59 05/06/17 08:17 10 MG Sodium Biphosphate/ Sodium Phosphate (Fleet Enema) 132 ml DAILY PRN [place] 05/06/17 16:00 06/05/17 15:59 Objective Vital Signs Date Time Temp Pulse Resp B/P (MAP) Pulse Ox O2 Delivery O2 Flow Rate FiO2 05/08/17 11:44 36.5 76 22 97/64 (75) 94 Room Air 05/08/17 10:15 Room Air 05/08/17 07:56 36.6 63 18 118/76 (90) 95 Room Air 05/08/17 07:08 52 98 30 05/08/17 07:07 52 20 99 BiPAP/CPAP 30 05/08/17 05:27 50 98 30 05/08/17 01:59 67 96 30 05/08/17 00:15 Room Air 05/08/17 00:11 36.6 51 18 99/65 (76) 99 Room Air 05/07/17 22:01 71 97 30 05/07/17 19:49 Room Air 05/07/17 19:01 77 20 96 Room Air 05/07/17 16:00 97 Room Air 05/07/17 15:28 71 20 97 Room Air 05/07/17 14:36 36.9 60 16 104/63 (77) 98 Room Air Physical Exam General Appearance: no apparent distress, + thin Eyes: normal inspection, EOMI, sclerae normal Neck: supple, no adenopathy, no JVD, trachea midline, + pertinent finding ( tracheostomy in good position) Respiratory/Chest: chest non-tender, lungs clear, normal breath sounds, no respiratory distress, no accessory muscle use Cardiovascular: regular rate, rhythm, no edema, no gallop, no JVD, no murmur Abdomen: normal bowel sounds, non tender, soft, no organomegaly Extremities: non-tender, normal inspection, no pedal edema, no calf tenderness , pelvis stable Neurologic/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: 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, alert, normal mood/affect, oriented x 3, + motor weakness (paralyzed) Skin: normal color, warm/dry, no rash Assessment and Plan 46 y/o patient s/p tracheostomy with increased secretions, found to have pseudomonas in his sputum Pseudomonas Pneumonia- RESOLVED: - ID and pulm recommended IV Cefepime x7 days- treatment completed 3 weeks ago - Continue Floranex - DuoNebs and Atrovent - IV Ativan PRN - BCx and MRSA swab negative - Pulmonary consultation, appreciate recommendations -- Vibratory vest set-up for discharge and should continue indefinitely -- chest compressions not sufficient due to patient's immobility, needs the vest to prevent further infections Quadriplegia: Baclofen 40 mg QID, Dantrium 100 mg HS Chronic constipation: Continue outpatient regimen of suppository and manual disimpaction on and Fri. required an enema on 05/07 DVT prophylaxis: SCDs Code Status: FULL RESUSCITATION Dispo: Medically stable for discharge pending SNF placement d/w CM, looking into a facility outside of [facility] that can take tracheostomy patients Continued [facility] stay due to: other Discharge planning: home with home health, senior living facility
[2017-05-08] MEDS: CEROVITE ADV FORMULA TAB PO SCH (12:45)
[2017-05-08] MEDS: LACTOBACILLUS ACIDOPHILUS (FLORANEX) TAB PO SCH (12:45)
[2017-05-08] MEDS: DANTROLENE SODIUM 25 MG CAP PO SCH (20:43)
[2017-05-09] VITALS (11 sets, daily range): BP systolic 97–129; BP diastolic 64–84; PULSE 50–70; TEMP 36.3–36.7; O2SAT 95–100
[2017-05-09] MEDS: ALBUT/IPRATROP 3MG/0.5MG NEB 3 ML VIAL INH SCH ×4 (07:08→18:53)
[2017-05-09] MEDS: BACLOFEN TAB 20 MG TAB PO SCH ×3 (09:01→17:32)
[2017-05-09] MEDS: IPRATROPIUM BROMIDE NASAL SPRAY 0.06% 15ML INH SCH ×2 (09:01→12:34)
[2017-05-09] MEDS: LORATADINE 10 MG TAB PO SCH (09:01)
[2017-05-09] MEDS: ASPIRIN 81 MG ECTAB PO SCH (09:02)
[2017-05-09] MEDS: BISACODYL 10 MG SUPP PR SCH (09:04)
[2017-05-09] MEDS: LORAZEPAM 0.5 MG TAB PO SCH (09:04)
--- NOTE | 2017-05-09 10:00 | Progress Note ---
Subjective Date of Service: May 09, 2017. Subjective Pt evaluation today including: conversation w/ patient, physical exam, review of inpatient medication list Pain: no pain PO Intake: adequate Voiding: knott catheter in place no new issues, waiting on placement Problem List Medical Problems: (1) Bronchitis Status: Acute (2) Hypoxemia Status: Acute (3) Hypoxia Status: Acute (4) Knee pain, acute Status: Acute (5) Mucus plugging of bronchi Status: Acute (6) Paraplegia Status: Acute (7) PNA (pneumonia) Status: Acute (8) PNA (pneumonia) Status: Acute (9) Pneumonia Status: Acute (10) Pneumonia Status: Acute (11) Pneumonia Status: Acute (12) Pneumonia Status: Acute (13) Pneumonia Status: Acute (14) Pneumonia Status: Acute (15) Productive cough Status: Acute (16) Quadriplegia Status: Acute (17) Sacral decubitus ulcer Status: Acute (18) SOB (shortness of breath) Status: Acute (19) SOB (shortness of breath) Status: Acute (20) Ulcer of right heel Status: Acute Review of Systems Neurologic: + paralysis All Other Systems: Reviewed and Negative Medications Current Inpatient Medications Medications (Trade) Dose Ordered Sig/Ashanti Route Start Time Stop Time Status Last Admin Dose Admin Acetaminophen (Tylenol Tab) 650 mg Q4H PRN PO 04/09/17 20:15 06/07/17 20:14 05/05/17 15:58 650 MG Ondansetron HCl (Zofran Inj) 4 mg Q6H PRN IV 04/09/17 20:15 06/07/17 20:14 Acetaminophen (Tylenol Tab) 1,000 mg Q6H PRN PO 04/09/17 20:15 06/07/17 20:14 05/02/17 20:54 1,000 MG Aspirin (Ecotrin Tab) 81 mg QAM PO 04/10/17 09:00 06/07/17 08:59 05/09/17 09:02 81 MG Baclofen (Lioresal Tab) 40 mg QID PO 04/09/17 21:00 06/07/17 20:59 05/09/17 09:01 40 MG Ibuprofen (Advil Tab) 400 mg Q8 PRN PO 04/09/17 20:15 06/07/17 20:14 05/06/17 20:51 400 MG Lactobacillus Acidophilus (Floranex Tab) 4 tab 1200 PO 04/10/17 12:00 06/07/17 11:59 05/08/17 12:45 4 TAB Loratadine (Claritin Tab) 10 mg QAM PO 04/10/17 09:00 06/07/17 08:59 05/09/17 09:01 10 MG Lorazepam (Ativan Tab) 0.5 mg DAILY PRN PO 04/09/17 20:15 06/07/17 20:14 04/19/17 16:59 0.5 MG Lorazepam (Ativan Tab) 0.5 mg QAM PO 04/10/17 09:00 06/07/17 08:59 05/09/17 09:04 0.5 MG Multivitamins/ Minerals (Multivitamin W/ Minerals Tab) 1 tab 1200 PO 04/10/17 12:00 06/07/17 11:59 05/08/17 12:45 1 TAB Dantrolene Sodium (Dantrium Cap) 100 mg QPM PO 04/09/17 22:00 06/07/17 21:59 05/08/17 20:43 100 MG Ipratropium [place] (Atrovent Nasal [place] 0.06%) 2 sprays TID INH 04/09/17 22:00 06/07/17 21:59 05/09/17 09:01 2 SPRAYS Albuterol/ Ipratropium (Duoneb) 3 ml QIDR INH 04/10/17 08:00 06/07/17 07:59 05/09/17 07:08 3 ML Bisacodyl (Dulcolax Supp) 10 mg TuFr@DAILY [place] 04/18/17 09:00 06/07/17 08:59 05/09/17 09:04 10 MG Sodium Biphosphate/ Sodium Phosphate (Fleet Enema) 132 ml DAILY PRN [place] 05/06/17 16:00 06/05/17 15:59 Objective Vital Signs Date Time Temp Pulse Resp B/P (MAP) Pulse Ox O2 Delivery O2 Flow Rate FiO2 05/09/17 07:33 36.5 56 20 129/84 (99) 100 Room Air 05/09/17 07:08 56 100 24 05/09/17 07:08 56 31 100 BiPAP/CPAP 24 05/09/17 05:15 58 98 24 05/09/17 02:22 50 97 24 05/09/17 00:17 36.6 53 18 111/77 (88) 98 05/09/17 00:13 Room Air 05/08/17 23:17 53 98 24 05/08/17 21:22 66 95 24 05/08/17 19:20 73 30 96 BiPAP/CPAP 30 05/08/17 16:00 95 Room Air 05/08/17 15:48 36.8 85 20 88/63 (71) 93 Room Air 05/08/17 15:30 89 30 93 BiPAP/CPAP 30 05/08/17 11:44 36.5 76 22 97/64 (75) 94 Room Air 05/08/17 10:15 Room Air Physical Exam General Appearance: no apparent distress, + thin Neck: supple, no adenopathy, no JVD, trachea midline, + pertinent finding ( tracheostomy in place) Respiratory/Chest: chest non-tender, lungs clear, normal breath sounds, no respiratory distress, no accessory muscle use Cardiovascular: regular rate, rhythm, no edema, no gallop, no JVD, no murmur Abdomen: normal bowel sounds, non tender, soft, no organomegaly Extremities: normal range of motion, non-tender, normal inspection, no pedal edema, no calf tenderness, pelvis stable 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, alert, normal mood/affect, oriented x 3, + motor weakness (paralysis, quadriplegia) Skin: normal color, warm/dry, no rash Lymphatic: no adenopathy Assessment and Plan 46 y/o patient s/p tracheostomy with increased secretions, found to have pseudomonas in his sputum Pseudomonas Pneumonia- RESOLVED: - ID and pulm recommended IV Cefepime x7 days- treatment completed 3 weeks ago - Continue Floranex - DuoNebs and Atrovent - IV Ativan PRN - BCx and MRSA swab negative - Pulmonary consultation, appreciate recommendations -- Vibratory vest set-up for discharge and should continue indefinitely -- chest compressions not sufficient due to patient's immobility, needs the vest to prevent further infections Quadriplegia: Baclofen 40 mg QID, Dantrium 100 mg HS Chronic constipation: Continue outpatient regimen of suppository and manual disimpaction on and Fri. required an enema on 05/07 DVT prophylaxis: SCDs Code Status: FULL RESUSCITATION Dispo: Medically stable for discharge pending SNF placement still awaiting answer on placement, ready for discharge Continued [facility] stay due to: other Discharge planning: home with home health, [facility]pc facility
[2017-05-09] MEDS: CEROVITE ADV FORMULA TAB PO SCH (12:33)
[2017-05-09] MEDS: LACTOBACILLUS ACIDOPHILUS (FLORANEX) TAB PO SCH (12:33)
[2017-05-09] MEDS: DANTROLENE SODIUM 25 MG CAP PO SCH (21:00)
[2017-05-10] VITALS (10 sets, daily range): BP systolic 99–121; BP diastolic 65–68; PULSE 57–87; TEMP 36.5–36.7; O2SAT 93–98
[2017-05-10] MEDS: ALBUT/IPRATROP 3MG/0.5MG NEB 3 ML VIAL INH SCH ×4 (07:00→19:26)
[2017-05-10] MEDS: IPRATROPIUM BROMIDE NASAL SPRAY 0.06% 15ML INH SCH ×2 (08:11→20:27)
[2017-05-10] MEDS: ASPIRIN 81 MG ECTAB PO SCH (08:12)
[2017-05-10] MEDS: LORATADINE 10 MG TAB PO SCH (08:12)
[2017-05-10] MEDS: BACLOFEN TAB 20 MG TAB PO SCH ×3 (08:13→20:27)
[2017-05-10] MEDS: LORAZEPAM 0.5 MG TAB PO SCH (08:15)
[2017-05-10] MEDS: CEROVITE ADV FORMULA TAB PO SCH (12:26)
[2017-05-10] MEDS: LACTOBACILLUS ACIDOPHILUS (FLORANEX) TAB PO SCH (12:26)
[2017-05-10] MEDS: DANTROLENE SODIUM 25 MG CAP PO SCH (20:28)
[2017-05-10] MEDS ORDERED: NURSING DECISION MEDICATION ORDER SCH (21:30)
[2017-05-10] MEDS ORDERED: ARTIFICIAL TEARS OP SOLN OPB PRN ×2 (21:45)
[2017-05-11] VITALS (13 sets, daily range): BP systolic 114–167; BP diastolic 65–102; PULSE 54–82; TEMP 36.4–36.6; O2SAT 93–99
[2017-05-11] MEDS: ALBUT/IPRATROP 3MG/0.5MG NEB 3 ML VIAL INH SCH ×4 (07:10→19:06)
[2017-05-11] MEDS: ASPIRIN 81 MG ECTAB PO SCH (08:13)
[2017-05-11] MEDS: LORATADINE 10 MG TAB PO SCH (08:13)
[2017-05-11] MEDS: BACLOFEN TAB 20 MG TAB PO SCH ×4 (08:14→20:24)
[2017-05-11] MEDS: IPRATROPIUM BROMIDE NASAL SPRAY 0.06% 15ML INH SCH ×3 (08:14→20:24)
[2017-05-11] MEDS: LORAZEPAM 0.5 MG TAB PO SCH (08:17)
[2017-05-11] MEDS: CEROVITE ADV FORMULA TAB PO SCH (13:02)
[2017-05-11] MEDS: LACTOBACILLUS ACIDOPHILUS (FLORANEX) TAB PO SCH (13:02)
--- NOTE | 2017-05-11 13:06 | Progress Note ---
Subjective Date of Service: May 11, 2017. Subjective Pt evaluation today including: conversation w/ patient, physical exam, review of inpatient medication list Pain: no pain PO Intake: eating well Voiding: knott catheter in place no new issues patient looking forward to [employer] today Problem List Medical Problems: (1) Bronchitis Status: Acute (2) Hypoxemia Status: Acute (3) Hypoxia Status: Acute (4) Knee pain, acute Status: Acute (5) Mucus plugging of bronchi Status: Acute (6) Paraplegia Status: Acute (7) PNA (pneumonia) Status: Acute (8) PNA (pneumonia) Status: Acute (9) Pneumonia Status: Acute (10) Pneumonia Status: Acute (11) Pneumonia Status: Acute (12) Pneumonia Status: Acute (13) Pneumonia Status: Acute (14) Pneumonia Status: Acute (15) Productive cough Status: Acute (16) Quadriplegia Status: Acute (17) Sacral decubitus ulcer Status: Acute (18) SOB (shortness of breath) Status: Acute (19) SOB (shortness of breath) Status: Acute (20) Ulcer of right heel Status: Acute Review of Systems Neurologic: + paralysis All Other Systems: Reviewed and Negative Medications Current Inpatient Medications Medications (Trade) Dose Ordered Sig/Ashanti Route Start Time Stop Time Status Last Admin Dose Admin Acetaminophen (Tylenol Tab) 650 mg Q4H PRN PO 04/09/17 20:15 06/07/17 20:14 05/05/17 15:58 650 MG Ondansetron HCl (Zofran Inj) 4 mg Q6H PRN IV 04/09/17 20:15 06/07/17 20:14 Acetaminophen (Tylenol Tab) 1,000 mg Q6H PRN PO 04/09/17 20:15 06/07/17 20:14 05/02/17 20:54 1,000 MG Aspirin (Ecotrin Tab) 81 mg QAM PO 04/10/17 09:00 06/07/17 08:59 05/11/17 08:13 81 MG Baclofen (Lioresal Tab) 40 mg QID PO 04/09/17 21:00 06/07/17 20:59 05/11/17 13:02 40 MG Ibuprofen (Advil Tab) 400 mg Q8 PRN PO 04/09/17 20:15 06/07/17 20:14 05/06/17 20:51 400 MG Lactobacillus Acidophilus (Floranex Tab) 4 tab 1200 PO 04/10/17 12:00 06/07/17 11:59 05/11/17 13:02 4 TAB Loratadine (Claritin Tab) 10 mg QAM PO 04/10/17 09:00 06/07/17 08:59 05/11/17 08:13 10 MG Lorazepam (Ativan Tab) 0.5 mg DAILY PRN PO 04/09/17 20:15 06/07/17 20:14 04/19/17 16:59 0.5 MG Lorazepam (Ativan Tab) 0.5 mg QAM PO 04/10/17 09:00 06/07/17 08:59 05/11/17 08:17 0.5 MG Multivitamins/ Minerals (Multivitamin W/ Minerals Tab) 1 tab 1200 PO 04/10/17 12:00 06/07/17 11:59 05/11/17 13:02 1 TAB Dantrolene Sodium (Dantrium Cap) 100 mg QPM PO 04/09/17 22:00 06/07/17 21:59 05/10/17 20:28 100 MG Ipratropium [place] (Atrovent Nasal [place] 0.06%) 2 sprays TID INH 04/09/17 22:00 06/07/17 21:59 05/11/17 08:14 2 SPRAYS Albuterol/ Ipratropium (Duoneb) 3 ml QIDR INH 04/10/17 08:00 06/07/17 07:59 05/11/17 11:10 3 ML Bisacodyl (Dulcolax Supp) 10 mg TuFr@DAILY [place] 04/18/17 09:00 06/07/17 08:59 05/09/17 09:04 10 MG Sodium Biphosphate/ Sodium Phosphate (Fleet Enema) 132 ml DAILY PRN [place] 05/06/17 16:00 06/05/17 15:59 Artificial Tears (Artificial Tears) 1 drops PRN PRN OPB 05/10/17 21:45 06/09/17 21:44 Objective Vital Signs Date Time Temp Pulse Resp B/P (MAP) Pulse Ox O2 Delivery O2 Flow Rate FiO2 05/11/17 11:10 66 22 98 Room Air 05/11/17 08:30 98 Room Air 05/11/17 08:15 68 124/78 (93) 05/11/17 07:13 57 24 99 Room Air 05/11/17 07:09 36.6 54 18 167/102 (123) 98 Room Air 05/11/17 00:19 36.6 62 18 128/65 (86) 95 Room Air 05/11/17 00:00 95 BiPAP 05/10/17 19:28 72 24 95 Room Air 05/10/17 19:27 66 95 24 05/10/17 17:37 Room Air 05/10/17 16:00 96 Room Air 05/10/17 15:37 36.7 87 16 99/65 (76) 96 Room Air 05/10/17 15:19 72 24 95 Room Air Physical Exam General Appearance: no apparent distress, + thin ENT: normal ENT inspection, hearing grossly normal, pharynx normal Neck: supple, no adenopathy, no JVD, trachea midline, + pertinent finding ( tracheostomy in good position) Respiratory/Chest: chest non-tender, lungs clear, normal breath sounds, no respiratory distress, no accessory muscle use Cardiovascular: regular rate, rhythm, no edema, no gallop, no JVD, no murmur Abdomen: normal bowel sounds, non tender, soft, no organomegaly Extremities: normal inspection, no pedal edema, no calf tenderness, normal capillary refill, pelvis stable 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, alert, normal mood/affect, oriented x 3, + motor weakness (quadriplegic) Skin: normal color, warm/dry, no rash Assessment and Plan 46 y/o patient s/p tracheostomy with increased secretions, found to have pseudomonas in his sputum Pseudomonas Pneumonia- RESOLVED: - ID and pulm recommended IV Cefepime x7 days- treatment completed 4 weeks ago - Continue Floranex - DuoNebs and Atrovent - IV Ativan PRN - BCx and MRSA swab negative - Pulmonary consultation, appreciate recommendations -- Vibratory vest set-up for discharge and should continue indefinitely -- chest compressions not sufficient due to patient's immobility, needs the vest to prevent further infections Quadriplegia: Baclofen 40 mg QID, Dantrium 100 mg HS Chronic constipation: Continue outpatient regimen of suppository and manual disimpaction on and Fri. required an enema on 05/07 DVT prophylaxis: SCDs Code Status: FULL RESUSCITATION Dispo: Medically stable for discharge pending SNF placement still awaiting answer on placement, ready for discharge Continued [facility] stay due to: other Discharge planning: home with home health, halfway facility
[2017-05-11] MEDS: DANTROLENE SODIUM 25 MG CAP PO SCH (20:24)
[2017-05-12] VITALS (14 sets, daily range): BP systolic 118–164; BP diastolic 78–98; PULSE 54–72; TEMP 36.6–37; O2SAT 94–99
[2017-05-12] MEDS: ALBUT/IPRATROP 3MG/0.5MG NEB 3 ML VIAL INH SCH ×4 (07:16→19:29)
[2017-05-12] MEDS: LORAZEPAM 0.5 MG TAB PO SCH (08:46)
[2017-05-12] MEDS: ASPIRIN 81 MG ECTAB PO SCH (08:47)
[2017-05-12] MEDS: BACLOFEN TAB 20 MG TAB PO SCH ×4 (08:47→22:32)
[2017-05-12] MEDS: LORATADINE 10 MG TAB PO SCH (08:47)
[2017-05-12] MEDS: IPRATROPIUM BROMIDE NASAL SPRAY 0.06% 15ML INH SCH ×3 (08:48→22:33)
[2017-05-12] MEDS: CEROVITE ADV FORMULA TAB PO SCH (12:49)
[2017-05-12] MEDS: LACTOBACILLUS ACIDOPHILUS (FLORANEX) TAB PO SCH (12:49)
--- NOTE | 2017-05-12 13:14 | Hospitalist Progress Note ---
Hospitalist Progress Note Date of Service May 12, 2017. (Lainey Ray .JITENDRA) Subjective Pt evaluation today including: conversation w/ patient, physical exam, chart review, review of inpatient medication list Pain: None PO Intake: Tolerating PO diet Voiding: knott catheter in place Patient reports feeling well. He denies any complaints today. The patient denies fevers, chills, sweats, chest pain, palpitations, claudication, cough, wheezing, shortness of breath, nausea, vomiting, abdominal pain, dysuria, hematuria, urinary retention, weakness, numbness and tingling. Additional Comments: See HPI for pertinent positives and negatives. All other systems reviewed and negative. (Lainey Ray PA-C) Objective Vital Signs Date Time Temp Pulse Resp B/P (MAP) Pulse Ox O2 Delivery O2 Flow Rate FiO2 05/12/17 11:22 66 20 94 Room Air 05/12/17 11:22 66 94 28 05/12/17 08:45 97 Room Air 05/12/17 08:30 66 20 118/78 (91) 96 Room Air 05/12/17 07:36 55 97 28 05/12/17 07:36 55 28 97 BiPAP/CPAP 05/12/17 06:53 36.6 54 20 149/89 (109) 99 BiPAP 05/12/17 05:16 68 98 24 05/12/17 01:51 72 99 24 05/12/17 00:00 95 BiPAP 05/11/17 23:04 36.4 58 18 132/85 (101) 99 Room Air 05/11/17 21:14 68 95 24 05/11/17 19:11 68 22 94 Room Air 05/11/17 16:00 94 Room Air 05/11/17 15:46 36.4 82 20 114/73 (87) 94 Room Air 05/11/17 15:10 61 22 93 Room Air (Lainey Ray PA-C) Physical Exam Notes: General appearance: +Thin. Well-developed, well-nourished, no apparent distress Head: Normocephalic, atraumatic Eyes: Normal inspection, PERRL, EOMI ENT: +Tracheostomy. Normal ENT inspection, hearing grossly normal, pharynx normal Neck: Supple, no JVD, trachea midline Respiratory/Chest: Lungs clear to auscultation, normal breath sounds, no respiratory distress Cardiovascular: Regular rate & rhythm, no gallop, no murmur Abdomen/GI: +Distended. Normal bowel sounds, non-tender Extremities/Musculoskeletal: +Quadriplegic. Normal inspection, no calf tenderness, no pedal edema Neurological/Psych: Alert, normal mood/affect, oriented x 3 Skin: Normal color, warm/dry, no rash (Lainey Ray ., PA-C) Assessment and Plan 46 y/o patient with a history of quadriplegia s/p tracheostomy with increased secretions, found to have pseudomonas in his sputum. Pseudomonas Pneumonia- RESOLVED - ID and pulm recommended IV Cefepime x7 days- treatment completed 4 weeks ago - Continue Floranex - DuoNebs and Atrovent QIDR - IV Ativan PRN - BCx and MRSA swab negative - Pulmonary consultation, appreciate recommendations: Vibratory vest set-up for discharge and should continue indefinitely. Chest compressions not sufficient due to patient's immobility, needs the vest to prevent further infections Quadriplegia -Continue Baclofen 40 mg QID, Dantrium 100 mg HS Chronic constipation -Continue outpatient regimen of suppository and manual disimpaction on and Fri. -Required an enema on 05/07 -Abdomen feels distended, last BM Friday. Pt has scheduled disimpaction tomorrow DVT prophylaxis -SCDs Code Status -Level I, FULL RESUSCITATION STATUS Dispo -Medically stable for discharge pending SNF placement -Waiting to hear decision from [facility] (Lainey Ray ., PA-C) I agree with PA assessment and plan and have seen and examined pt myself Resting comfortably in bed Denies any worsening secretions or sob VSS Labs reviewed Admitted with pseudomonas PNA, has hx of quadriplegia Will be dced on vibratory vest Finished antibiotics Awaiting placement (Ole Foster, Herbert.O.)
[2017-05-12] MEDS: DANTROLENE SODIUM 25 MG CAP PO SCH (22:32)
[2017-05-13] VITALS (11 sets, daily range): BP systolic 125–143; BP diastolic 83–92; PULSE 50–81; TEMP 36.6–36.8; O2SAT 94–97
[2017-05-13] MEDS: ALBUT/IPRATROP 3MG/0.5MG NEB 3 ML VIAL INH SCH ×4 (07:22→19:54)
[2017-05-13] MEDS: LORAZEPAM 0.5 MG TAB PO SCH (08:15)
[2017-05-13] MEDS: ASPIRIN 81 MG ECTAB PO SCH (08:15)
[2017-05-13] MEDS: BACLOFEN TAB 20 MG TAB PO SCH ×4 (08:15→19:41)
[2017-05-13] MEDS: LORATADINE 10 MG TAB PO SCH (08:16)
[2017-05-13] MEDS: IPRATROPIUM BROMIDE NASAL SPRAY 0.06% 15ML INH SCH ×3 (08:16→19:41)
[2017-05-13] MEDS: BISACODYL 10 MG SUPP PR SCH (08:18)
--- NOTE | 2017-05-13 10:53 | Hospitalist Progress Note ---
Hospitalist Progress Note Date of Service May 13, 2017. (Lainey Ray ., APOLLOC) Subjective Pt evaluation today including: conversation w/ patient, physical exam, chart review, review of inpatient medication list Pain: None PO Intake: Tolerating PO diet Voiding: knott catheter in place Patient reports feeling better after scheduled disimpaction today. He currently denies any complaints. He would like his wheelchair from home to be brought in so he can get out of bed and maybe get out of the room. He states that he wants to go home with a home health nursing agency and wants to talk to one of his previous nurses, Rigoberto, although he is aware that she did have to take another job while he was here in the hospital. The patient denies fevers, chills, sweats, chest pain, palpitations, claudication, cough, wheezing, shortness of breath, nausea, vomiting, abdominal pain, dysuria, hematuria, urinary retention, weakness, numbness and tingling. Additional Comments: See HPI for pertinent positives and negatives. All other systems reviewed and negative. (Lainey Ray ., CAROLYN-C) Objective Vital Signs Date Time Temp Pulse Resp B/P (MAP) Pulse Ox O2 Delivery O2 Flow Rate FiO2 05/13/17 07:36 36.7 65 18 143/92 (109) 96 Room Air 05/13/17 07:24 66 18 97 BiPAP/CPAP 24 05/13/17 01:55 66 97 24 05/13/17 00:12 36.6 50 18 134/91 (105) 97 Room Air 05/13/17 00:10 Room Air 05/12/17 21:45 67 97 24 05/12/17 19:30 72 96 24 05/12/17 19:29 68 18 95 BiPAP/CPAP 24 05/12/17 16:30 95 Room Air 05/12/17 15:57 65 22 95 Room Air 05/12/17 15:01 37.0 68 20 164/98 (120) 96 05/12/17 11:22 66 20 94 Room Air 05/12/17 11:22 66 94 28 (Lainey Ray, CAROLYN-C) Physical Exam Notes: General appearance: +Thin. Well-developed, well-nourished, no apparent distress Head: Normocephalic, atraumatic Eyes: Normal inspection, PERRL, EOMI ENT: +Tracheostomy. Normal ENT inspection, hearing grossly normal, pharynx normal Neck: Supple, no JVD, trachea midline Respiratory/Chest: Lungs clear to auscultation, normal breath sounds, no respiratory distress Cardiovascular: Regular rate & rhythm, no gallop, no murmur Abdomen/GI: +Less distended than yesterday. Normal bowel sounds, non-tender Extremities/Musculoskeletal: +Quadriplegic. Normal inspection, no calf tenderness, no pedal edema Neurological/Psych: Alert, normal mood/affect, oriented x 3 Skin: Normal color, warm/dry, no rash (Lainey Ray ., PA-C) Assessment and Plan 46 y/o patient with a history of quadriplegia s/p tracheostomy with increased secretions, found to have pseudomonas in his sputum. Pseudomonas Pneumonia- RESOLVED - ID and pulm recommended IV Cefepime x7 days- treatment completed 4 weeks ago - Continue Floranex - DuoNebs and Atrovent QIDR - IV Ativan PRN - BCx and MRSA swab negative - Pulmonary consultation, appreciate recommendations: Vibratory vest set-up for discharge and should continue indefinitely. Chest compressions not sufficient due to patient's immobility, needs the vest to prevent further infections Quadriplegia -Continue Baclofen 40 mg QID, Dantrium 100 mg HS Chronic constipation -Continue outpatient regimen of suppository and manual disimpaction on and Fri. -Required an enema on 05/07 -Distention improved DVT prophylaxis -SCDs Code Status -Level I, FULL RESUSCITATION STATUS Dispo -Medically stable for discharge pending SNF placement -Waiting to hear decision from [facility], as well as [facility] which was placed yesterday (Lainey Rya ., PA-C) I agree with PA assessment and plan and have seen and examined pt myself Resting comfortably in bed Denies any worsening secretions or sob VSS Labs reviewed Admitted with pseudomonas PNA, has hx of quadriplegia Will be dced on vibratory vest Finished antibiotics cefepime x 7 days Awaiting placement, unlikely to have home health to to severity of illness and extent of care needed (Ole Foster, D.O.)
[2017-05-13] MEDS: CEROVITE ADV FORMULA TAB PO SCH (12:25)
[2017-05-13] MEDS: LACTOBACILLUS ACIDOPHILUS (FLORANEX) TAB PO SCH (12:25)
[2017-05-13] MEDS: DANTROLENE SODIUM 25 MG CAP PO SCH (19:41)
[2017-05-13] MEDS: ACETAMINOPHEN 325 MG TAB PO PRN (23:25)
[2017-05-14] VITALS (8 sets, daily range): BP systolic 120–132; BP diastolic 82–85; PULSE 69–88; TEMP 36.5–36.9; O2SAT 91–96
[2017-05-14] MEDS: ALBUT/IPRATROP 3MG/0.5MG NEB 3 ML VIAL INH SCH ×4 (07:21→19:19)
[2017-05-14] MEDS: ASPIRIN 81 MG ECTAB PO SCH (07:55)
[2017-05-14] MEDS: LORATADINE 10 MG TAB PO SCH (07:55)
[2017-05-14] MEDS: BACLOFEN TAB 20 MG TAB PO SCH ×4 (07:56→20:21)
[2017-05-14] MEDS: IPRATROPIUM BROMIDE NASAL SPRAY 0.06% 15ML INH SCH ×3 (07:56→20:21)
[2017-05-14] MEDS: LORAZEPAM 0.5 MG TAB PO SCH (07:59)
[2017-05-14] MEDS: LACTOBACILLUS ACIDOPHILUS (FLORANEX) TAB PO SCH (11:44)
[2017-05-14] MEDS: CEROVITE ADV FORMULA TAB PO SCH (11:44)
--- NOTE | 2017-05-14 13:39 | Hospitalist Progress Note ---
Hospitalist Progress Note Date of Service May 14, 2017. (Lainey Ray .JITENDRA) Subjective Pt evaluation today including: conversation w/ patient, physical exam, chart review, review of inpatient medication list Pain: None PO Intake: Tolerating PO diet Voiding: knott catheter in place Patient states he feels "rattly" in his chest but denies any shortness of breath. He otherwise denies any complaints. The patient denies fevers, chills , sweats, chest pain, palpitations, claudication, cough, wheezing, shortness of breath, nausea, vomiting, abdominal pain, dysuria, hematuria, urinary retention , paralysis, weakness, numbness and tingling. Additional Comments: See HPI for pertinent positives and negatives. All other systems reviewed and negative. (Lainey Ray PA-C) Objective Vital Signs Date Time Temp Pulse Resp B/P (MAP) Pulse Ox O2 Delivery O2 Flow Rate FiO2 05/14/17 11:20 72 20 93 Room Air 05/14/17 08:45 36.5 76 22 127/84 (98) 92 Room Air 05/14/17 08:10 Room Air 05/14/17 07:26 73 20 94 Room Air 05/14/17 01:00 36.8 88 24 132/82 (99) 96 BiPAP Trach Collar 05/14/17 00:03 Room Air 05/13/17 21:22 64 97 24 05/13/17 20:53 Room Air 05/13/17 20:04 73 20 94 Room Air 05/13/17 16:00 96 Room Air 05/13/17 15:35 63 20 95 Room Air 05/13/17 14:59 36.8 81 18 125/83 (97) 96 Room Air (Lainey Ray PA-C) Physical Exam Notes: General appearance: +Thin. Well-developed, well-nourished, no apparent distress Head: Normocephalic, atraumatic Eyes: Normal inspection, PERRL, EOMI ENT: +Tracheostomy. Normal ENT inspection, hearing grossly normal, pharynx normal Neck: Supple, no JVD, trachea midline Respiratory/Chest: Lungs clear to auscultation, normal breath sounds, no respiratory distress Cardiovascular: Regular rate & rhythm, no gallop, no murmur Abdomen/GI: +Less distended. Normal bowel sounds, non-tender Extremities/Musculoskeletal: +Quadriplegic. Normal inspection, no calf tenderness, no pedal edema Neurological/Psych: Alert, normal mood/affect, oriented x 3 Skin: Normal color, warm/dry, no rash (Lainey Ray ., PA-C) Assessment and Plan 46 y/o patient with a history of quadriplegia s/p tracheostomy with increased secretions, found to have pseudomonas in his sputum. Pseudomonas Pneumonia- RESOLVED - ID and pulm recommended IV Cefepime x7 days- treatment completed 4 weeks ago - Continue Floranex - DuoNebs and Atrovent QIDR - IV Ativan PRN - BCx and MRSA swab negative - Pulmonary consultation, appreciate recommendations: Vibratory vest set-up for discharge and should continue indefinitely. Chest compressions not sufficient due to patient's immobility, needs the vest to prevent further infections Quadriplegia -Continue Baclofen 40 mg QID, Dantrium 100 mg HS Chronic constipation -Continue outpatient regimen of suppository and manual disimpaction on and Fri. Refuses further bowel regimen options -Required an enema on 05/07 -Distention improved DVT prophylaxis -SCDs Code Status -Level I, FULL RESUSCITATION STATUS Dispo -Medically stable for discharge pending SNF placement -Pt accepted to both [facility] and [facility]. Sister is going to visit [facility] today and discuss with family. (Lainey Ray ., PA-C) I agree with PA assessment and plan and have seen and examined pt myself Resting comfortably in bed Denies any worsening secretions or sob VSS Labs reviewed Admitted with pseudomonas PNA, has hx of quadriplegia Will be dced on vibratory vest Finished antibiotics cefepime x 7 days Awaiting placement, unlikely to have home health to to severity of illness and extent of care needed (Ole Foster D.O.)
[2017-05-14] MEDS: DANTROLENE SODIUM 25 MG CAP PO SCH (20:21)
[2017-05-15] VITALS (8 sets, daily range): BP systolic 107–133; BP diastolic 72–87; PULSE 70–86; TEMP 36.3–36.5; O2SAT 94–98
[2017-05-15] MEDS: ALBUT/IPRATROP 3MG/0.5MG NEB 3 ML VIAL INH SCH ×4 (07:16→20:00)
[2017-05-15] MEDS: ASPIRIN 81 MG ECTAB PO SCH (08:24)
[2017-05-15] MEDS: LORAZEPAM 0.5 MG TAB PO SCH (08:24)
[2017-05-15] MEDS: BACLOFEN TAB 20 MG TAB PO SCH ×4 (08:25→20:07)
[2017-05-15] MEDS: LORATADINE 10 MG TAB PO SCH (08:25)
[2017-05-15] MEDS: IPRATROPIUM BROMIDE NASAL SPRAY 0.06% 15ML INH SCH ×3 (08:25→20:07)
--- NOTE | 2017-05-15 12:20 | Hospitalist Progress Note ---
Hospitalist Progress Note Date of Service May 15, 2017. (Lainey Ray ., APOLLOC) Subjective Pt evaluation today including: conversation w/ patient, physical exam, chart review, review of inpatient medication list Pain: None PO Intake: Tolerating PO diet Voiding: knott catheter in place Received page this morning from nursing stating that pt's abdomen felt distended and he was having some discomfort. Instructed to give fleet enema. Per pt, he had expelled a large amount of gas which then resolved his distention and discomfort. He had been feeling some shortness of breath earlier and was saturating around 90% on room air. He was placed on 1L NC, now saturating 97% and feeling better. He denies other complaints. The patient denies fevers, chills, sweats, chest pain, palpitations, claudication, cough, wheezing, nausea, vomiting, dysuria, hematuria, urinary retention, paralysis, weakness, numbness and tingling. Additional Comments: See HPI for pertinent positives and negatives. All other systems reviewed and negative. (Lainey Ray ., APOLLOC) Objective Vital Signs Date Time Temp Pulse Resp B/P (MAP) Pulse Ox O2 Delivery O2 Flow Rate FiO2 05/15/17 11:06 86 21 96 Nasal Cannula 1.0 05/15/17 08:00 Room Air 05/15/17 07:43 36.3 73 20 127/87 (100) 97 05/15/17 07:20 70 20 97 BiPAP/CPAP 24 05/15/17 00:43 Nasal Cannula 05/15/17 00:00 36.3 73 18 107/72 (84) 96 05/14/17 22:35 71 95 24 05/14/17 19:19 71 18 95 Room Air 05/14/17 16:00 Nasal Cannula 1.0 05/14/17 15:23 69 22 92 Room Air 05/14/17 14:50 36.9 86 20 120/85 (97) 91 Room Air (Lainey Ray PA-C) Physical Exam Notes: General appearance: +Thin. Well-developed, well-nourished, no apparent distress Head: Normocephalic, atraumatic Eyes: Normal inspection, PERRL, EOMI ENT: +Tracheostomy. Normal ENT inspection, hearing grossly normal, pharynx normal Neck: Supple, no JVD, trachea midline Respiratory/Chest: Lungs clear to auscultation, normal breath sounds, no respiratory distress Cardiovascular: Regular rate & rhythm, no gallop, no murmur Abdomen/GI: Normal bowel sounds, non-tender, soft Extremities/Musculoskeletal: +Quadriplegic. Normal inspection, no calf tenderness, no pedal edema Neurological/Psych: Alert, normal mood/affect, oriented x 3 Skin: Normal color, warm/dry, no rash (Lainey Ray ., PA-C) Assessment and Plan 46 y/o patient with a history of quadriplegia s/p tracheostomy with increased secretions, found to have pseudomonas in his sputum. Pseudomonas Pneumonia- RESOLVED - ID and pulm recommended IV Cefepime x7 days- treatment completed 4 weeks ago - Continue Floranex - DuoNebs and Atrovent QIDR - IV Ativan PRN - BCx and MRSA swab negative - Pulmonary consultation, appreciate recommendations: Vibratory vest set-up for discharge and should continue indefinitely. Chest compressions not sufficient due to patient's immobility, needs the vest to prevent further infections Quadriplegia -Continue Baclofen 40 mg QID, Dantrium 100 mg HS Chronic constipation -Continue outpatient regimen of suppository and manual disimpaction on and Fri. Refuses further bowel regimen options -Required an enema on 05/07 -Fleet enema 05/15 -Abdomen now soft DVT prophylaxis -SCDs Code Status -Level I, FULL RESUSCITATION STATUS Dispo -Medically stable for discharge pending SNF placement -Pt accepted to both [facility] and [facility]. Waiting to hear family decision on facility. Pt will need to go through [facility]. (Lainey Ray ., PA-C) feeling ok no new complaints. family present discussing facilities asked to speak w case managmeent - i d/w case management who noted they would come to talk w pt/family pneumonia resolved placement issues ongoing - appearing more likely facility near [facility] will be only viable option otherwise as above (Leodan Sanchez DPatricia.)
[2017-05-15] MEDS: LACTOBACILLUS ACIDOPHILUS (FLORANEX) TAB PO SCH (12:48)
[2017-05-15] MEDS: CEROVITE ADV FORMULA TAB PO SCH (12:48)
[2017-05-15] MEDS: DANTROLENE SODIUM 25 MG CAP PO SCH (20:07)
[2017-05-16] VITALS (9 sets, daily range): BP systolic 91–134; BP diastolic 61–92; PULSE 60–134; TEMP 36.5–36.6; O2SAT 90–99
[2017-05-16] MEDS: BISACODYL 10 MG SUPP PR SCH (07:01)
[2017-05-16] MEDS: ALBUT/IPRATROP 3MG/0.5MG NEB 3 ML VIAL INH SCH ×4 (07:19→19:07)
[2017-05-16] MEDS: BACLOFEN TAB 20 MG TAB PO SCH ×4 (08:17→20:20)
[2017-05-16] MEDS: LACTOBACILLUS ACIDOPHILUS (FLORANEX) TAB PO SCH (08:17)
[2017-05-16] MEDS: LORATADINE 10 MG TAB PO SCH (08:17)
[2017-05-16] MEDS: CEROVITE ADV FORMULA TAB PO SCH (08:17)
[2017-05-16] MEDS: ASPIRIN 81 MG ECTAB PO SCH (08:17)
[2017-05-16] MEDS: IPRATROPIUM BROMIDE NASAL SPRAY 0.06% 15ML INH SCH ×3 (08:18→20:19)
[2017-05-16] MEDS: LORAZEPAM 0.5 MG TAB PO SCH (08:20)
--- NOTE | 2017-05-16 13:22 | Hospitalist Progress Note ---
Hospitalist Progress Note Date of Service May 16, 2017. (Lainey Ray ., APOLLOC) Subjective Pt evaluation today including: conversation w/ patient, physical exam, chart review, lab review, review of inpatient medication list Pain: None PO Intake: Tolerating PO diet Voiding: knott catheter in place The patient reports feeling slightly short of breath. He states he has had more secretions today and has been getting oral suction throughout the day. He also had bowel movement today. Otherwise feeling well. The patient denies fevers, chills, sweats, chest pain, palpitations, claudication, cough, wheezing , nausea, vomiting, abdominal pain, dysuria, hematuria, urinary retention, paralysis, weakness, numbness and tingling. Additional Comments: See HPI for pertinent positives and negatives. All other systems reviewed and negative. (Lainey Ray ., CAROLYN-C) Objective Vital Signs Date Time Temp Pulse Resp B/P (MAP) Pulse Ox O2 Delivery O2 Flow Rate FiO2 05/16/17 11:29 68 28 91 Room Air 05/16/17 09:21 Room Air Trach Collar 05/16/17 07:26 36.5 60 20 116/74 (88) 97 05/16/17 07:19 61 22 97 Room Air 05/16/17 00:05 36.6 65 18 91/61 (71) 99 BiPAP Trach Collar 05/16/17 00:00 Room Air 05/15/17 21:28 84 95 24 05/15/17 21:26 84 37 95 Room Air 05/15/17 16:00 Room Air 05/15/17 15:19 36.5 79 20 133/85 (101) 98 Room Air 05/15/17 15:09 86 21 94 Room Air (Lainey Ray ., CAROLYN-C) Physical Exam Notes: General appearance: +Thin. Well-developed, well-nourished, no apparent distress Head: Normocephalic, atraumatic Eyes: Normal inspection, PERRL, EOMI ENT: +Tracheostomy. Normal ENT inspection, hearing grossly normal, pharynx normal Neck: Supple, no JVD, trachea midline Respiratory/Chest: +Coarse breath sounds. Lungs clear to auscultation, no respiratory distress Cardiovascular: Regular rate & rhythm, no gallop, no murmur Abdomen/GI: Normal bowel sounds, non-tender, soft Extremities/Musculoskeletal: +Quadriplegic. Normal inspection, no calf tenderness, no pedal edema Neurological/Psych: Alert, normal mood/affect, oriented x 3 Skin: Normal color, warm/dry, no rash (Lainey Ray ., PA-C) Assessment and Plan 46 y/o patient with a history of quadriplegia s/p tracheostomy with increased secretions, found to have pseudomonas in his sputum. Pseudomonas Pneumonia- RESOLVED - ID and pulm recommended IV Cefepime x7 days- treatment completed 4 weeks ago - Continue Floranex - DuoNebs and Atrovent QIDR - IV Ativan PRN - BCx and MRSA swab negative - Pulmonary consultation, appreciate recommendations: Vibratory vest set-up for discharge and should continue indefinitely. Chest compressions not sufficient due to patient's immobility, needs the vest to prevent further infections Quadriplegia -Continue Baclofen 40 mg QID, Dantrium 100 mg HS Chronic constipation -Continue outpatient regimen of suppository and manual disimpaction on and Fri. Refuses further bowel regimen options -Required an enema on 05/07 -Fleet enema 05/15 -Abdomen now soft DVT prophylaxis -SCDs Code Status -Level I, FULL RESUSCITATION STATUS Dispo -Medically stable for discharge pending SNF placement -[facility] not do pt's disimpactions. Family to see [facility] over weekend. [facility] assessing pt for [facility]. Pt cannot return home due to not enough support. (Lainey Ray ., PA-C)
[2017-05-16] MEDS: LORAZEPAM 0.5 MG TAB PO PRN (17:06)
[2017-05-16] MEDS: DANTROLENE SODIUM 25 MG CAP PO SCH (20:20)
[2017-05-16] MEDS: ACETAMINOPHEN 325 MG TAB PO PRN (20:22)
[2017-05-17] VITALS (9 sets, daily range): BP systolic 97–136; BP diastolic 64–77; PULSE 53–81; TEMP 36.3–37.1; O2SAT 91–100
[2017-05-17] MEDS: ALBUT/IPRATROP 3MG/0.5MG NEB 3 ML VIAL INH SCH ×4 (07:04→19:31)
[2017-05-17] MEDS: IPRATROPIUM BROMIDE NASAL SPRAY 0.06% 15ML INH SCH ×3 (08:00→20:17)
[2017-05-17] MEDS: LORAZEPAM 0.5 MG TAB PO SCH (08:05)
[2017-05-17] MEDS: ASPIRIN 81 MG ECTAB PO SCH (08:05)
[2017-05-17] MEDS: LORATADINE 10 MG TAB PO SCH (08:05)
[2017-05-17] MEDS: BACLOFEN TAB 20 MG TAB PO SCH ×4 (08:06→20:16)
[2017-05-17] MEDS ORDERED: FLUTICASONE PROPIONATE NA SPR 16 GM BTL ONE (10:10)
[2017-05-17] MEDS ORDERED: OXYMETAZOLINE HCL 0.05% NA SPR 15 ML BTL ONE (10:15)
[2017-05-17] MEDS: LACTOBACILLUS ACIDOPHILUS (FLORANEX) TAB PO SCH (11:53)
[2017-05-17] MEDS: CEROVITE ADV FORMULA TAB PO SCH (11:54)
--- NOTE | 2017-05-17 17:28 | Progress Note ---
Subjective Date of Service: May 17, 2017. Subjective Pt evaluation today including: conversation w/ patient, physical exam cough and mucous - thinks relates to PND otherwise no new complaints no sob no other new complaints family supposed to be checking out facility in [place] Problem List Medical Problems: (1) Bronchitis Status: Acute (2) Hypoxemia Status: Acute (3) Hypoxia Status: Acute (4) Knee pain, acute Status: Acute (5) Mucus plugging of bronchi Status: Acute (6) Paraplegia Status: Acute (7) PNA (pneumonia) Status: Acute (8) PNA (pneumonia) Status: Acute (9) Pneumonia Status: Acute (10) Pneumonia Status: Acute (11) Pneumonia Status: Acute (12) Pneumonia Status: Acute (13) Pneumonia Status: Acute (14) Pneumonia Status: Acute (15) Productive cough Status: Acute (16) Quadriplegia Status: Acute (17) Sacral decubitus ulcer Status: Acute (18) SOB (shortness of breath) Status: Acute (19) SOB (shortness of breath) Status: Acute (20) Ulcer of right heel Status: Acute Review of Systems all other ROS otherwise negative except for as above Objective Vital Signs Date Time Temp Pulse Resp B/P (MAP) Pulse Ox O2 Delivery O2 Flow Rate FiO2 05/17/17 15:56 Room Air 05/17/17 15:21 75 28 92 Room Air 05/17/17 15:04 37.1 80 20 117/77 (90) 92 Room Air Trach Collar 05/17/17 11:20 81 30 95 Nasal Cannula 1.0 05/17/17 08:00 Room Air 05/17/17 07:25 81 30 100 BiPAP/CPAP 24 05/17/17 07:19 36.3 53 20 136/77 (96) 99 Room Air 05/17/17 02:21 56 97 24 05/17/17 00:00 97 BiPAP 05/16/17 21:20 72 94 24 05/16/17 20:00 90 Room Air 05/16/17 19:17 77 32 96 Nasal Cannula 1.0 Physical Exam General Appearance: no apparent distress Eyes: EOMI ENT: hearing grossly normal Neck: trachea midline Respiratory/Chest: no respiratory distress, no accessory muscle use, + pertinent finding (diffuse scattered rhonchi but sound to be upper airway sounds ) 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 Chest compressions not sufficient due to patient's immobility, needs the vest to prevent further infections congestion and rhonchi -agree w pt's assessment that PND most likely culprit -add flonase, limited run of afrin Quadriplegia -Continue Baclofen 40 mg QID, Dantrium 100 mg HS Chronic constipation -Continue outpatient regimen of suppository and manual disimpaction on and Fri. Refuses further bowel regimen options -Required an enema on 05/07 -Fleet enema 05/15 -Abdomen now soft DVT prophylaxis -SCDs Code Status -Level I, FULL RESUSCITATION STATUS Dispo -Medically stable for discharge pending SNF placement -[facility] not do pt's disimpactions. Family to see [facility] over weekend. [facility] A[facility] assessing pt for [facility]. Pt cannot return home due to not enough support. Continued [facility] stay due to: other Discharge planning: home with home health, [facility]
[2017-05-17] MEDS: DANTROLENE SODIUM 25 MG CAP PO SCH (20:16)
[2017-05-17] MEDS: OXYMETAZOLINE HCL 0.05% NA SPR 15 ML BTL SCH (20:17)
[2017-05-17] MEDS: FLUTICASONE PROPIONATE NA SPR 16 GM BTL SCH (20:17)
[2017-05-18] VITALS (9 sets, daily range): BP systolic 121–156; BP diastolic 79–99; PULSE 57–84; TEMP 36.4–37; O2SAT 92–98
[2017-05-18] MEDS: ALBUT/IPRATROP 3MG/0.5MG NEB 3 ML VIAL INH SCH ×4 (07:23→19:11)
[2017-05-18] MEDS: CEROVITE ADV FORMULA TAB PO SCH (08:43)
[2017-05-18] MEDS: ASPIRIN 81 MG ECTAB PO SCH (08:43)
[2017-05-18] MEDS: BACLOFEN TAB 20 MG TAB PO SCH ×4 (08:43→21:34)
[2017-05-18] MEDS: LORATADINE 10 MG TAB PO SCH (08:43)
[2017-05-18] MEDS: FLUTICASONE PROPIONATE NA SPR 16 GM BTL SCH ×2 (08:44→21:35)
[2017-05-18] MEDS: OXYMETAZOLINE HCL 0.05% NA SPR 15 ML BTL SCH ×2 (08:44→21:36)
[2017-05-18] MEDS: IPRATROPIUM BROMIDE NASAL SPRAY 0.06% 15ML INH SCH ×3 (08:44→21:35)
[2017-05-18] MEDS: LORAZEPAM 0.5 MG TAB PO SCH (08:46)
[2017-05-18] MEDS: LACTOBACILLUS ACIDOPHILUS (FLORANEX) TAB PO SCH (12:29)
--- NOTE | 2017-05-18 15:40 | Progress Note ---
Subjective Date of Service: May 18, 2017. Subjective Pt evaluation today including: conversation w/ patient, physical exam, chart review, lab review, review of inpatient medication list feeling better thinks that nasal sprays are helping w mucous/secretions, not feeling as sob. respiratory therapy and nursing do note that he's still often asking for suction every 15mins no other new complaints Problem List Medical Problems: (1) Bronchitis Status: Acute (2) Hypoxemia Status: Acute (3) Hypoxia Status: Acute (4) Knee pain, acute Status: Acute (5) Mucus plugging of bronchi Status: Acute (6) Paraplegia Status: Acute (7) PNA (pneumonia) Status: Acute (8) PNA (pneumonia) Status: Acute (9) Pneumonia Status: Acute (10) Pneumonia Status: Acute (11) Pneumonia Status: Acute (12) Pneumonia Status: Acute (13) Pneumonia Status: Acute (14) Pneumonia Status: Acute (15) Productive cough Status: Acute (16) Quadriplegia Status: Acute (17) Sacral decubitus ulcer Status: Acute (18) SOB (shortness of breath) Status: Acute (19) SOB (shortness of breath) Status: Acute (20) Ulcer of right heel Status: Acute Review of Systems all other ROS otherwise negative except for as above Objective Vital Signs Date Time Temp Pulse Resp B/P (MAP) Pulse Ox O2 Delivery O2 Flow Rate FiO2 05/18/17 15:25 Room Air 05/18/17 15:16 84 26 93 Room Air 05/18/17 15:11 37.0 84 20 121/79 (93) 93 Room Air 05/18/17 11:36 71 28 92 Room Air 05/18/17 08:45 Room Air 05/18/17 07:28 58 30 96 BiPAP/CPAP 24 05/18/17 07:27 36.7 57 20 156/99 (118) 98 05/18/17 02:14 95 24 05/18/17 00:00 BiPAP 05/17/17 23:39 36.5 64 20 97/64 (75) 94 Trach Collar 05/17/17 20:00 BiPAP 05/17/17 19:31 81 30 91 Nasal Cannula 1.0 05/17/17 15:56 Room Air Physical Exam General Appearance: no apparent distress Eyes: EOMI ENT: hearing grossly normal Neck: trachea midline Respiratory/Chest: lungs clear, normal breath sounds, no respiratory distress, no accessory muscle use Extremities: normal range of motion 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 Chest compressions not sufficient due to patient's immobility, needs the vest to prevent further infections congestion and rhonchi -agree w pt's assessment that PND most likely culprit -added flonase, limited run of afrin - has helped Quadriplegia -Continue Baclofen 40 mg QID, Dantrium 100 mg HS Chronic constipation -Continue outpatient regimen of suppository and manual disimpaction on and Fri. Refuses further bowel regimen options -Required an enema on 05/07 -Fleet enema 05/15 -Abdomen now soft DVT prophylaxis -SCDs Code Status -Level I, FULL RESUSCITATION STATUS Dispo -Medically stable for discharge pending SNF placement -[facility] will not do pt's disimpactions. Family to see [facility] over weekend. [facility] assessing pt for target process. Pt cannot return home due to not enough support. Continued [facility] stay due to: other Discharge planning: home with home health, nursing home facility
[2017-05-18] MEDS: DANTROLENE SODIUM 25 MG CAP PO SCH (21:34)
[2017-05-19] VITALS (10 sets, daily range): BP systolic 108–115; BP diastolic 70–76; PULSE 57–77; TEMP 36.5–36.8; O2SAT 91–100
[2017-05-19] MEDS: ALBUT/IPRATROP 3MG/0.5MG NEB 3 ML VIAL INH SCH ×4 (07:04→19:28)
[2017-05-19] MEDS: FLUTICASONE PROPIONATE NA SPR 16 GM BTL SCH ×2 (08:13→19:51)
[2017-05-19] MEDS: LORATADINE 10 MG TAB PO SCH (08:13)
[2017-05-19] MEDS: LORAZEPAM 0.5 MG TAB PO SCH (08:13)
[2017-05-19] MEDS: OXYMETAZOLINE HCL 0.05% NA SPR 15 ML BTL SCH ×2 (08:13→19:51)
[2017-05-19] MEDS: IPRATROPIUM BROMIDE NASAL SPRAY 0.06% 15ML INH SCH ×3 (08:13→19:51)
[2017-05-19] MEDS: ASPIRIN 81 MG ECTAB PO SCH (08:13)
[2017-05-19] MEDS: BACLOFEN TAB 20 MG TAB PO SCH ×4 (08:14→19:50)
--- NOTE | 2017-05-19 11:17 | Progress Note ---
Subjective Date of Service: May 19, 2017. Subjective Pt evaluation today including: conversation w/ patient, physical exam, review of inpatient medication list Pain: no pain PO Intake: adequate Voiding: knott catheter in place patient doing well, still c/o some nasal congestion but better minimal cough eating well discussed the [employer] game, made him happy to hear they won Problem List Medical Problems: (1) Bronchitis Status: Acute (2) Hypoxemia Status: Acute (3) Hypoxia Status: Acute (4) Knee pain, acute Status: Acute (5) Mucus plugging of bronchi Status: Acute (6) Paraplegia Status: Acute (7) PNA (pneumonia) Status: Acute (8) PNA (pneumonia) Status: Acute (9) Pneumonia Status: Acute (10) Pneumonia Status: Acute (11) Pneumonia Status: Acute (12) Pneumonia Status: Acute (13) Pneumonia Status: Acute (14) Pneumonia Status: Acute (15) Productive cough Status: Acute (16) Quadriplegia Status: Acute (17) Sacral decubitus ulcer Status: Acute (18) SOB (shortness of breath) Status: Acute (19) SOB (shortness of breath) Status: Acute (20) Ulcer of right heel Status: Acute Review of Systems ENT: + nasal symptoms Neurologic: + paralysis All Other Systems: Reviewed and Negative Medications Current Inpatient Medications Medications (Trade) Dose Ordered Sig/Ashanti Route Start Time Stop Time Status Last Admin Dose Admin Acetaminophen (Tylenol Tab) 650 mg Q4H PRN PO 04/09/17 20:15 06/07/17 20:14 05/16/17 20:22 650 MG Ondansetron HCl (Zofran Inj) 4 mg Q6H PRN IV 04/09/17 20:15 06/07/17 20:14 Acetaminophen (Tylenol Tab) 1,000 mg Q6H PRN PO 04/09/17 20:15 06/07/17 20:14 05/02/17 20:54 1,000 MG Aspirin (Ecotrin Tab) 81 mg QAM PO 04/10/17 09:00 06/07/17 08:59 05/19/17 08:13 81 MG Baclofen (Lioresal Tab) 40 mg QID PO 04/09/17 21:00 06/07/17 20:59 05/19/17 08:14 40 MG Ibuprofen (Advil Tab) 400 mg Q8 PRN PO 04/09/17 20:15 06/07/17 20:14 05/06/17 20:51 400 MG Lactobacillus Acidophilus (Floranex Tab) 4 tab 1200 PO 04/10/17 12:00 06/07/17 11:59 05/18/17 12:29 4 TAB Loratadine (Claritin Tab) 10 mg QAM PO 04/10/17 09:00 06/07/17 08:59 05/19/17 08:13 10 MG Lorazepam (Ativan Tab) 0.5 mg DAILY PRN PO 04/09/17 20:15 06/07/17 20:14 05/16/17 17:06 0.5 MG Lorazepam (Ativan Tab) 0.5 mg QAM PO 04/10/17 09:00 06/07/17 08:59 05/19/17 08:13 0.5 MG Multivitamins/ Minerals (Multivitamin W/ Minerals Tab) 1 tab 1200 PO 04/10/17 12:00 06/07/17 11:59 05/18/17 08:43 1 TAB Dantrolene Sodium (Dantrium Cap) 100 mg QPM PO 04/09/17 22:00 06/07/17 21:59 05/18/17 21:34 100 MG Ipratropium [place] (Atrovent Nasal [place] 0.06%) 2 sprays TID INH 04/09/17 22:00 06/07/17 21:59 05/19/17 08:13 2 SPRAYS Albuterol/ Ipratropium (Duoneb) 3 ml QIDR INH 04/10/17 08:00 06/07/17 07:59 05/19/17 07:04 3 ML Bisacodyl (Dulcolax Supp) 10 mg TuFr@DAILY CT 04/18/17 09:00 06/07/17 08:59 05/13/17 08:18 10 MG Sodium Biphosphate/ Sodium Phosphate (Fleet Enema) [address] 05/06/17 16:00 06/05/17 15:59 05/15/17 09:32 132 ML Artificial Tears (Artificial Tears) 1 drops PRN PRN OPB 05/10/17 21:45 06/09/17 21:44 05/11/17 20:24 1 DROPS Fluticasone Propionate (Flonase Nasal [place]) 1 sprays BID NA 05/17/17 20:00 06/16/17 19:59 05/19/17 08:13 1 SPRAYS Oxymetazoline HCl (Afrin 0.05% Nasal [place]) 1 sprays BID NA 05/17/17 20:00 05/19/17 20:01 05/19/17 08:13 1 SPRAYS Objective Vital Signs Date Time Temp Pulse Resp B/P (MAP) Pulse Ox O2 Delivery O2 Flow Rate FiO2 05/19/17 07:51 36.5 57 16 115/76 (89) 100 Room Air 05/19/17 07:07 60 30 96 BiPAP/CPAP 24 05/19/17 02:58 96 24 05/19/17 00:00 Room Air 05/18/17 23:17 36.4 63 20 150/91 (110) 98 BiPAP Trach Collar 05/18/17 21:17 94 24 05/18/17 20:00 Room Air 05/18/17 19:15 77 26 94 Room Air 05/18/17 15:25 Room Air 05/18/17 15:16 84 26 93 Room Air 05/18/17 15:11 37.0 84 20 121/79 (93) 93 Room Air 05/18/17 11:36 71 28 92 Room Air Physical Exam General Appearance: WD/WN, no apparent distress Eyes: normal inspection, EOMI, sclerae normal ENT: normal ENT inspection, hearing grossly normal, pharynx normal Neck: supple, no adenopathy, no JVD, trachea midline Respiratory/Chest: chest non-tender, lungs clear, normal breath sounds, no respiratory distress, no accessory muscle use Cardiovascular: regular rate, rhythm, no edema, no gallop, no JVD, no murmur Abdomen: normal bowel sounds, non tender, soft, no organomegaly Extremities: non-tender, normal inspection, no pedal edema, no calf tenderness , pelvis stable 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 Chest compressions not sufficient due to patient's immobility, needs the vest to prevent further infections congestion and rhonchi -agree w pt's assessment that PND most likely culprit - upper airways clear today -added flonase, limited run of afrin, improving slowly Quadriplegia -Continue Baclofen 40 mg QID, Dantrium 100 mg HS Chronic constipation -Continue outpatient regimen of suppository and manual disimpaction on and Fri. Refuses further bowel regimen options -Required an enema on 05/07 -Fleet enema 05/15 -Abdomen now soft DVT prophylaxis -SCDs Code Status -Level I, FULL RESUSCITATION STATUS Dispo -Medically stable for discharge pending SNF placement, looking into [facility] Continued [facility] stay due to: other Discharge planning: home with home health, shelter facility
[2017-05-19] MEDS: CEROVITE ADV FORMULA TAB PO SCH (12:18)
[2017-05-19] MEDS: LACTOBACILLUS ACIDOPHILUS (FLORANEX) TAB PO SCH (12:18)
[2017-05-19] MEDS: DANTROLENE SODIUM 25 MG CAP PO SCH (19:50)
[2017-05-20] VITALS (13 sets, daily range): BP systolic 111–174; BP diastolic 77–93; PULSE 50–83; TEMP 36.3–36.7; O2SAT 91–100
[2017-05-20] MEDS: ALBUT/IPRATROP 3MG/0.5MG NEB 3 ML VIAL INH SCH ×4 (07:03→19:21)
[2017-05-20] MEDS: BISACODYL 10 MG SUPP PR SCH ×2 (08:00→08:32)
[2017-05-20] MEDS: IPRATROPIUM BROMIDE NASAL SPRAY 0.06% 15ML INH SCH ×3 (08:03→20:36)
[2017-05-20] MEDS: LORATADINE 10 MG TAB PO SCH (08:05)
[2017-05-20] MEDS: BACLOFEN TAB 20 MG TAB PO SCH ×4 (08:05→20:36)
[2017-05-20] MEDS: ASPIRIN 81 MG ECTAB PO SCH (08:06)
[2017-05-20] MEDS: FLUTICASONE PROPIONATE NA SPR 16 GM BTL SCH ×2 (08:06→20:36)
[2017-05-20] MEDS: LORAZEPAM 0.5 MG TAB PO SCH (08:08)
[2017-05-20] MEDS: CEROVITE ADV FORMULA TAB PO SCH (13:02)
[2017-05-20] MEDS: LACTOBACILLUS ACIDOPHILUS (FLORANEX) TAB PO SCH (13:02)
--- NOTE | 2017-05-20 15:01 | Progress Note ---
Subjective Date of Service: May 20, 2017. Subjective Pt evaluation today including: conversation w/ patient, physical exam, review of inpatient medication list Pain: no pain PO Intake: adequate Voiding: knott catheter in place patient feeling well, less nasal congestion today breathing well eating well talked about [place] again Problem List Medical Problems: (1) Bronchitis Status: Acute (2) Hypoxemia Status: Acute (3) Hypoxia Status: Acute (4) Knee pain, acute Status: Acute (5) Mucus plugging of bronchi Status: Acute (6) Paraplegia Status: Acute (7) PNA (pneumonia) Status: Acute (8) PNA (pneumonia) Status: Acute (9) Pneumonia Status: Acute (10) Pneumonia Status: Acute (11) Pneumonia Status: Acute (12) Pneumonia Status: Acute (13) Pneumonia Status: Acute (14) Pneumonia Status: Acute (15) Productive cough Status: Acute (16) Quadriplegia Status: Acute (17) Sacral decubitus ulcer Status: Acute (18) SOB (shortness of breath) Status: Acute (19) SOB (shortness of breath) Status: Acute (20) Ulcer of right heel Status: Acute Review of Systems All Other Systems: Reviewed and Negative Medications Current Inpatient Medications Medications (Trade) Dose Ordered Sig/Ashanti Route Start Time Stop Time Status Last Admin Dose Admin Acetaminophen (Tylenol Tab) 650 mg Q4H PRN PO 04/09/17 20:15 06/07/17 20:14 05/16/17 20:22 650 MG Ondansetron HCl (Zofran Inj) 4 mg Q6H PRN IV 04/09/17 20:15 06/07/17 20:14 Acetaminophen (Tylenol Tab) 1,000 mg Q6H PRN PO 04/09/17 20:15 06/07/17 20:14 05/02/17 20:54 1,000 MG Aspirin (Ecotrin Tab) 81 mg QAM PO 04/10/17 09:00 06/07/17 08:59 05/20/17 08:06 81 MG Baclofen (Lioresal Tab) 40 mg QID PO 04/09/17 21:00 06/07/17 20:59 05/20/17 13:02 40 MG Ibuprofen (Advil Tab) 400 mg Q8 PRN PO 04/09/17 20:15 06/07/17 20:14 05/06/17 20:51 400 MG Lactobacillus Acidophilus (Floranex Tab) 4 tab 1200 PO 04/10/17 12:00 06/07/17 11:59 05/20/17 13:02 4 TAB Loratadine (Claritin Tab) 10 mg QAM PO 04/10/17 09:00 06/07/17 08:59 05/20/17 08:05 10 MG Lorazepam (Ativan Tab) 0.5 mg DAILY PRN PO 04/09/17 20:15 06/07/17 20:14 05/16/17 17:06 0.5 MG Lorazepam (Ativan Tab) 0.5 mg QAM PO 04/10/17 09:00 06/07/17 08:59 05/20/17 08:08 0.5 MG Multivitamins/ Minerals (Multivitamin W/ Minerals Tab) 1 tab 1200 PO 04/10/17 12:00 06/07/17 11:59 05/20/17 13:02 1 TAB Dantrolene Sodium (Dantrium Cap) 100 mg QPM PO 04/09/17 22:00 06/07/17 21:59 05/19/17 19:50 100 MG Ipratropium [place] (Atrovent Nasal [place] 0.06%) 2 sprays TID INH 04/09/17 22:00 06/07/17 21:59 05/20/17 13:03 2 SPRAYS Albuterol/ Ipratropium (Duoneb) 3 ml QIDR INH 04/10/17 08:00 06/07/17 07:59 05/20/17 11:26 3 ML Bisacodyl (Dulcolax Supp) 10 mg TuFr@DAILY [place] 04/18/17 09:00 06/07/17 08:59 05/13/17 08:18 10 MG Sodium Biphosphate/ Sodium Phosphate (Fleet Enema) 132 ml DAILY PRN [place] 05/06/17 16:00 06/05/17 15:59 05/15/17 09:32 132 ML Artificial Tears (Artificial Tears) 1 drops PRN PRN OPB 05/10/17 21:45 06/09/17 21:44 05/11/17 20:24 1 DROPS Fluticasone Propionate (Flonase Nasal [place]) 1 sprays BID NA 05/17/17 20:00 06/16/17 19:59 05/20/17 08:06 1 SPRAYS Objective Vital Signs Date Time Temp Pulse Resp B/P (MAP) Pulse Ox O2 Delivery O2 Flow Rate FiO2 05/20/17 13:00 94 Room Air 05/20/17 11:26 82 26 91 Room Air 05/20/17 10:03 94 Room Air 05/20/17 10:02 Room Air 05/20/17 10:00 66 05/20/17 08:00 Room Air 05/20/17 07:13 36.5 54 18 127/86 (100) 100 05/20/17 07:05 63 26 98 Room Air 05/20/17 00:13 36.3 50 18 111/77 (88) 97 BiPAP Trach Collar 05/19/17 20:00 95 Room Air 05/19/17 19:29 77 24 95 Room Air 05/19/17 19:28 95 24 05/19/17 16:00 97 Nasal Cannula 1.0 05/19/17 15:26 68 24 97 Nasal Cannula 1.0 Physical Exam General Appearance: WD/WN, no apparent distress Eyes: normal inspection, EOMI, sclerae normal ENT: normal ENT inspection, hearing grossly normal, pharynx normal Neck: supple, no adenopathy, no JVD, trachea midline Respiratory/Chest: chest non-tender, lungs clear, no respiratory distress, no accessory muscle use, + decreased breath sounds (bases) Cardiovascular: regular rate, rhythm, no edema, no gallop, no JVD, no murmur Abdomen: normal bowel sounds, non tender, soft, no organomegaly Extremities: normal range of motion, non-tender, normal inspection, no pedal edema, no calf tenderness, pelvis stable 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 Chest compressions not sufficient due to patient's immobility, needs the vest to prevent further infections congestion and rhonchi - improving today, less PND with flonase, off of oxygen Quadriplegia -Continue Baclofen 40 mg QID, Dantrium 100 mg HS Chronic constipation -Continue outpatient regimen of suppository and manual disimpaction on and Fri. Refuses further bowel regimen options -Required an enema on 05/07 -Fleet enema 05/15 -Abdomen now soft DVT prophylaxis -SCDs Code Status -Level I, FULL RESUSCITATION STATUS Dispo -Medically stable for discharge pending SNF placement, looking into [facility] outside of [place] Continued [facility] stay due to: other Discharge planning: home with home health, assisted facility
[2017-05-20] MEDS: DANTROLENE SODIUM 25 MG CAP PO SCH (20:36)
[2017-05-21] VITALS (12 sets, daily range): BP systolic 92–115; BP diastolic 56–78; PULSE 61–78; TEMP 36.6–36.7; O2SAT 93–100
[2017-05-21] MEDS: ALBUT/IPRATROP 3MG/0.5MG NEB 3 ML VIAL INH SCH ×4 (06:53→19:16)
[2017-05-21] MEDS: FLUTICASONE PROPIONATE NA SPR 16 GM BTL SCH ×2 (08:48→20:50)
[2017-05-21] MEDS: ASPIRIN 81 MG ECTAB PO SCH (08:48)
[2017-05-21] MEDS: BACLOFEN TAB 20 MG TAB PO SCH ×4 (08:48→20:49)
[2017-05-21] MEDS: LORATADINE 10 MG TAB PO SCH (08:48)
[2017-05-21] MEDS: IPRATROPIUM BROMIDE NASAL SPRAY 0.06% 15ML INH SCH ×3 (08:49→20:50)
[2017-05-21] MEDS: LORAZEPAM 0.5 MG TAB PO SCH (08:50)
--- NOTE | 2017-05-21 12:37 | Progress Note ---
Subjective Date of Service: May 21, 2017. Subjective Pt evaluation today including: conversation w/ patient, physical exam, review of inpatient medication list Pain: no pain PO Intake: adequate Voiding: knott catheter in place more post nasal drip again today, clearing throat a lot suctioned a lot this morning by respiratory care, has some bleeding, no further suctioning this morning Problem List Medical Problems: (1) Bronchitis Status: Acute (2) Hypoxemia Status: Acute (3) Hypoxia Status: Acute (4) Knee pain, acute Status: Acute (5) Mucus plugging of bronchi Status: Acute (6) Paraplegia Status: Acute (7) PNA (pneumonia) Status: Acute (8) PNA (pneumonia) Status: Acute (9) Pneumonia Status: Acute (10) Pneumonia Status: Acute (11) Pneumonia Status: Acute (12) Pneumonia Status: Acute (13) Pneumonia Status: Acute (14) Pneumonia Status: Acute (15) Productive cough Status: Acute (16) Quadriplegia Status: Acute (17) Sacral decubitus ulcer Status: Acute (18) SOB (shortness of breath) Status: Acute (19) SOB (shortness of breath) Status: Acute (20) Ulcer of right heel Status: Acute Review of Systems ENT: + nasal symptoms Respiratory: + cough All Other Systems: Reviewed and Negative Medications Current Inpatient Medications Medications (Trade) Dose Ordered Sig/Ashanti Route Start Time Stop Time Status Last Admin Dose Admin Acetaminophen (Tylenol Tab) 650 mg Q4H PRN PO 04/09/17 20:15 06/07/17 20:14 05/16/17 20:22 650 MG Ondansetron HCl (Zofran Inj) 4 mg Q6H PRN IV 04/09/17 20:15 06/07/17 20:14 Acetaminophen (Tylenol Tab) 1,000 mg Q6H PRN PO 04/09/17 20:15 06/07/17 20:14 05/02/17 20:54 1,000 MG Aspirin (Ecotrin Tab) 81 mg QAM PO 04/10/17 09:00 06/07/17 08:59 05/21/17 08:48 81 MG Baclofen (Lioresal Tab) 40 mg QID PO 04/09/17 21:00 06/07/17 20:59 05/21/17 08:48 40 MG Ibuprofen (Advil Tab) 400 mg Q8 PRN PO 04/09/17 20:15 06/07/17 20:14 05/06/17 20:51 400 MG Lactobacillus Acidophilus (Floranex Tab) 4 tab 1200 PO 04/10/17 12:00 06/07/17 11:59 05/20/17 13:02 4 TAB Loratadine (Claritin Tab) 10 mg QAM PO 04/10/17 09:00 06/07/17 08:59 05/21/17 08:48 10 MG Lorazepam (Ativan Tab) 0.5 mg DAILY PRN PO 04/09/17 20:15 06/07/17 20:14 05/16/17 17:06 0.5 MG Lorazepam (Ativan Tab) 0.5 mg QAM PO 04/10/17 09:00 06/07/17 08:59 05/21/17 08:50 0.5 MG Multivitamins/ Minerals (Multivitamin W/ Minerals Tab) 1 tab 1200 PO 04/10/17 12:00 06/07/17 11:59 05/20/17 13:02 1 TAB Dantrolene Sodium (Dantrium Cap) 100 mg QPM PO 04/09/17 22:00 06/07/17 21:59 05/20/17 20:36 100 MG Ipratropium [place] (Atrovent Nasal [place] 0.06%) 2 sprays TID INH 04/09/17 22:00 06/07/17 21:59 05/21/17 08:49 2 SPRAYS Albuterol/ Ipratropium (Duoneb) 3 ml QIDR INH 04/10/17 08:00 06/07/17 07:59 05/21/17 11:23 3 ML Bisacodyl (Dulcolax Supp) 10 mg TuFr@DAILY [place] 04/18/17 09:00 06/07/17 08:59 05/13/17 08:18 10 MG Sodium Biphosphate/ Sodium Phosphate (Fleet Enema) 132 ml DAILY PRN [place] 05/06/17 16:00 06/05/17 15:59 05/15/17 09:32 132 ML Artificial Tears (Artificial Tears) 1 drops PRN PRN OPB 05/10/17 21:45 06/09/17 21:44 05/11/17 20:24 1 DROPS Fluticasone Propionate (Flonase Nasal [place]) 1 sprays BID NA 05/17/17 20:00 06/16/17 19:59 05/21/17 08:48 1 SPRAYS Objective Vital Signs Date Time Temp Pulse Resp B/P (MAP) Pulse Ox O2 Delivery O2 Flow Rate FiO2 05/21/17 11:23 76 24 97 Room Air 05/21/17 08:45 100 Room Air 05/21/17 07:15 36.6 61 18 115/78 (90) 100 Room Air 05/21/17 06:57 75 24 95 Room Air 05/21/17 05:29 77 97 24 05/21/17 02:21 68 95 24 05/21/17 00:05 Room Air 05/20/17 23:57 36.7 63 19 174/93 (120) 94 Room Air 05/20/17 23:41 74 96 24 05/20/17 21:16 94 24 05/20/17 19:22 79 26 95 Room Air 05/20/17 16:00 Room Air 05/20/17 15:47 83 26 93 Room Air 05/20/17 15:18 36.6 76 20 119/78 (92) 93 05/20/17 13:00 94 Room Air Physical Exam General Appearance: WD/WN, no apparent distress Eyes: normal inspection, EOMI, sclerae normal ENT: hearing grossly normal, TMs normal, pharynx normal, + nasal congestion, + nasal drainage Neck: supple, no adenopathy, no JVD, trachea midline Respiratory/Chest: chest non-tender, no respiratory distress, no accessory muscle use, + decreased breath sounds Cardiovascular: regular rate, rhythm, no edema, no gallop, no JVD, no murmur Abdomen: normal bowel sounds, non tender, soft, no organomegaly Extremities: normal inspection, no pedal edema, no calf tenderness, normal capillary refill, pelvis stable 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 Chest compressions not sufficient due to patient's immobility, needs the vest to prevent further infections Nasal congestion, post nasal drip - continue Flonase, will give another dose of Afrin today - add antihistamine Quadriplegia -Continue Baclofen 40 mg QID, Dantrium 100 mg HS Chronic constipation -Continue outpatient regimen of suppository and manual disimpaction on and Fri. Refuses further bowel regimen options -Required an enema on 05/07 -Fleet enema 05/15 -Abdomen now soft DVT prophylaxis -SCDs Code Status -Level I, FULL RESUSCITATION STATUS Dispo -Medically stable for discharge pending SNF placement, looking into [facility] outside of [place] Continued [facility] stay due to: other Discharge planning: home with home health, shelter facility
[2017-05-21] MEDS ORDERED: CETIRIZINE HCL 10 MG TAB PO ONE (12:45)
[2017-05-21] MEDS ORDERED: OXYMETAZOLINE HCL 0.05% NA SPR 15 ML BTL ONE (12:45)
[2017-05-21] MEDS: CEROVITE ADV FORMULA TAB PO SCH (12:51)
[2017-05-21] MEDS: LACTOBACILLUS ACIDOPHILUS (FLORANEX) TAB PO SCH (12:51)
[2017-05-21] MEDS: DANTROLENE SODIUM 25 MG CAP PO SCH (20:48)
[2017-05-22] VITALS (12 sets, daily range): BP systolic 127; BP diastolic 81; PULSE 57–95; TEMP 36.3–36.8; O2SAT 90–100
[2017-05-22] MEDS: ALBUT/IPRATROP 3MG/0.5MG NEB 3 ML VIAL INH SCH ×3 (07:06→19:00)
[2017-05-22] MEDS: BACLOFEN TAB 20 MG TAB PO SCH ×4 (08:57→20:34)
[2017-05-22] MEDS: ASPIRIN 81 MG ECTAB PO SCH (08:58)
[2017-05-22] MEDS: CETIRIZINE HCL 10 MG TAB PO SCH (08:58)
[2017-05-22] MEDS: LORATADINE 10 MG TAB PO SCH (08:58)
[2017-05-22] MEDS: FLUTICASONE PROPIONATE NA SPR 16 GM BTL SCH ×2 (08:59→20:34)
[2017-05-22] MEDS: IPRATROPIUM BROMIDE NASAL SPRAY 0.06% 15ML INH SCH ×3 (08:59→20:34)
[2017-05-22] MEDS: LORAZEPAM 0.5 MG TAB PO SCH (09:00)
[2017-05-22] MEDS: LACTOBACILLUS ACIDOPHILUS (FLORANEX) TAB PO SCH (11:43)
[2017-05-22] MEDS: CEROVITE ADV FORMULA TAB PO SCH (11:43)
[2017-05-22] MEDS: IBUPROFEN 200 MG TAB PO PRN (11:45)
--- NOTE | 2017-05-22 15:23 | Progress Note ---
Subjective Date of Service: May 22, 2017. Subjective Pt evaluation today including: conversation w/ patient, conversation w/ family , physical exam, review of inpatient medication list Pain: no pain PO Intake: adequate Voiding: no voiding problems patient doing well, less nasal congestion updated family at the bedside Problem List Medical Problems: (1) Bronchitis Status: Acute (2) Hypoxemia Status: Acute (3) Hypoxia Status: Acute (4) Knee pain, acute Status: Acute (5) Mucus plugging of bronchi Status: Acute (6) Paraplegia Status: Acute (7) PNA (pneumonia) Status: Acute (8) PNA (pneumonia) Status: Acute (9) Pneumonia Status: Acute (10) Pneumonia Status: Acute (11) Pneumonia Status: Acute (12) Pneumonia Status: Acute (13) Pneumonia Status: Acute (14) Pneumonia Status: Acute (15) Productive cough Status: Acute (16) Quadriplegia Status: Acute (17) Sacral decubitus ulcer Status: Acute (18) SOB (shortness of breath) Status: Acute (19) SOB (shortness of breath) Status: Acute (20) Ulcer of right heel Status: Acute Review of Systems ENT: + nasal symptoms Neurologic: + paralysis All Other Systems: Reviewed and Negative Medications Current Inpatient Medications Medications (Trade) Dose Ordered Sig/Ashanti Route Start Time Stop Time Status Last Admin Dose Admin Acetaminophen (Tylenol Tab) 650 mg Q4H PRN PO 04/09/17 20:15 06/07/17 20:14 05/16/17 20:22 650 MG Ondansetron HCl (Zofran Inj) 4 mg Q6H PRN IV 04/09/17 20:15 06/07/17 20:14 Acetaminophen (Tylenol Tab) 1,000 mg Q6H PRN PO 04/09/17 20:15 06/07/17 20:14 05/02/17 20:54 1,000 MG Aspirin (Ecotrin Tab) 81 mg QAM PO 04/10/17 09:00 06/07/17 08:59 05/22/17 08:58 81 MG Baclofen (Lioresal Tab) 40 mg QID PO 04/09/17 21:00 06/07/17 20:59 05/22/17 11:43 40 MG Ibuprofen (Advil Tab) 400 mg Q8 PRN PO 04/09/17 20:15 06/07/17 20:14 05/22/17 11:45 400 MG Lactobacillus Acidophilus (Floranex Tab) 4 tab 1200 PO 04/10/17 12:00 06/07/17 11:59 05/22/17 11:43 4 TAB Loratadine (Claritin Tab) 10 mg QAM PO 04/10/17 09:00 06/07/17 08:59 05/22/17 08:58 10 MG Lorazepam (Ativan Tab) 0.5 mg DAILY PRN PO 04/09/17 20:15 06/07/17 20:14 05/16/17 17:06 0.5 MG Lorazepam (Ativan Tab) 0.5 mg QAM PO 04/10/17 09:00 06/07/17 08:59 05/22/17 09:00 0.5 MG Multivitamins/ Minerals (Multivitamin W/ Minerals Tab) 1 tab 1200 PO 04/10/17 12:00 06/07/17 11:59 05/22/17 11:43 1 TAB Dantrolene Sodium (Dantrium Cap) 100 mg QPM PO 04/09/17 22:00 06/07/17 21:59 05/21/17 20:48 100 MG Ipratropium [place] (Atrovent Nasal [place] 0.06%) 2 sprays TID INH 04/09/17 22:00 06/07/17 21:59 05/22/17 14:08 2 SPRAYS Albuterol/ Ipratropium (Duoneb) 3 ml QIDR INH 04/10/17 08:00 06/07/17 07:59 05/08/17 11:24 3 ML Bisacodyl (Dulcolax Supp) 10 mg TuFr@DAILY [place] 04/18/17 09:00 06/07/17 08:59 05/13/17 08:18 10 MG Sodium Biphosphate/ Sodium Phosphate (Fleet Enema) 132 ml DAILY PRN ID 05/06/17 16:00 06/05/17 15:59 05/15/17 09:32 132 ML Artificial Tears (Artificial Tears) 1 drops PRN PRN OPB 05/10/17 21:45 06/09/17 21:44 05/11/17 20:24 1 DROPS Fluticasone Propionate (Flonase Nasal [place]) 1 sprays BID NA 05/17/17 20:00 06/16/17 19:59 05/22/17 08:59 1 SPRAYS Cetirizine HCl (zyrTEC TAB) 10 mg QAM PO 05/22/17 08:00 06/21/17 07:59 05/22/17 08:58 10 MG Objective Vital Signs Date Time Temp Pulse Resp B/P (MAP) Pulse Ox O2 Delivery O2 Flow Rate FiO2 05/22/17 11:24 78 25 90 Room Air 05/22/17 11:24 79 97 24 05/22/17 08:00 Room Air 05/22/17 07:41 36.3 57 18 127/81 (96) 100 Room Air 05/22/17 07:24 63 29 97 Room Air 05/22/17 07:23 63 97 24 05/22/17 05:03 68 96 24 05/22/17 02:08 71 94 24 05/22/17 00:00 Room Air 05/21/17 23:06 65 96 24 05/21/17 21:16 78 94 24 05/21/17 20:00 Room Air 05/21/17 19:21 77 24 94 Room Air 05/21/17 15:27 76 24 93 Room Air 05/21/17 15:21 36.7 75 18 92/56 (68) 96 Room Air Physical Exam General Appearance: WD/WN, no apparent distress Eyes: normal inspection, EOMI, sclerae normal ENT: hearing grossly normal, pharynx normal, + nasal congestion, + nasal drainage Neck: supple, no adenopathy, no JVD, trachea midline Respiratory/Chest: chest non-tender, lungs clear, normal breath sounds, no respiratory distress, no accessory muscle use Cardiovascular: regular rate, rhythm, no edema, no gallop, no JVD, no murmur Abdomen: normal bowel sounds, non tender, soft, no organomegaly Extremities: normal range of motion, non-tender, normal inspection, no pedal edema, no calf tenderness, pelvis stable 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 Chest compressions not sufficient due to patient's immobility, needs the vest to prevent further infections Nasal congestion, post nasal drip - continue Flonase - added Zyrtec yesterday - less symptoms today Quadriplegia -Continue Baclofen 40 mg QID, Dantrium 100 mg HS Chronic constipation -Continue outpatient regimen of suppository and manual disimpaction on and Fri. Refuses further bowel regimen options -Required an enema on 05/07 -Fleet enema 05/15 -Abdomen now soft DVT prophylaxis -SCDs Code Status -Level I, FULL RESUSCITATION STATUS Dispo -Medically stable for discharge pending SNF placement, looking into [facility] outside of [place] Continued [facility] stay due to: other Discharge planning: home with home health, halfway facility
[2017-05-22] MEDS: DANTROLENE SODIUM 25 MG CAP PO SCH (20:35)
[2017-05-23] VITALS (12 sets, daily range): BP systolic 97–163; BP diastolic 54–98; PULSE 61–88; TEMP 36.3–37.1; O2SAT 91–97
[2017-05-23] MEDS: ALBUT/IPRATROP 3MG/0.5MG NEB 3 ML VIAL INH SCH ×4 (07:29→18:23)
[2017-05-23] MEDS: BISACODYL 10 MG SUPP PR SCH (09:10)
[2017-05-23] MEDS: LORAZEPAM 0.5 MG TAB PO SCH (09:10)
[2017-05-23] MEDS: CETIRIZINE HCL 10 MG TAB PO SCH (09:11)
[2017-05-23] MEDS: BACLOFEN TAB 20 MG TAB PO SCH ×4 (09:11→20:16)
[2017-05-23] MEDS: ASPIRIN 81 MG ECTAB PO SCH (09:11)
[2017-05-23] MEDS: LORATADINE 10 MG TAB PO SCH (09:11)
[2017-05-23] MEDS: IPRATROPIUM BROMIDE NASAL SPRAY 0.06% 15ML INH SCH ×3 (09:12→20:14)
[2017-05-23] MEDS: FLUTICASONE PROPIONATE NA SPR 16 GM BTL SCH ×2 (09:12→20:15)
[2017-05-23 09:22] LABS: BASO % 0.1 %; BASO ABS # 0.01 K/uL (0-0.2); COMPLETE YES; EOS % 2.4 %; HEMATOCRIT 43.1 % (42-52); IG% 0.1 %; LYMPH % 7.4 %; MEAN CELL VOLUME 94.1 fL (80-100); MEAN CORPUSCULAR HEMOGLOBIN 29.9 pg (25-34); MEAN CORPUSCULAR HGB CONC 31.8 g/dl (32-36); MEAN PLATELET VOLUME 9.7 fL (7.4-10.4); MONO % 4.8 %; NEUT % 85.2 %; PLATELET COUNT 203 K/uL (130-400); RED BLOOD COUNT 4.58 M/uL (4.7-6.1); WHITE BLOOD COUNT 9.41 K/uL (4.8-10.8)
[2017-05-23 09:52] LABS: BLOOD UREA NITROGEN 15 mg/dl (7-18); BUN/CREATININE RATIO 32.8 (10-20); CALCIUM 8.7 mg/dl (8.5-10.1); CARBON DIOXIDE 34 mmol/L (21-32); CHLORIDE 98 mmol/L (98-107); CREATININE 0.46 mg/dl (0.60-1.40); GLUCOSE 125 mg/dl (70-99); SODIUM 135 mmol/L (136-145)
[2017-05-23] MEDS: LACTOBACILLUS ACIDOPHILUS (FLORANEX) TAB PO SCH (12:25)
[2017-05-23] MEDS: CEROVITE ADV FORMULA TAB PO SCH (12:25)
--- NOTE | 2017-05-23 12:43 | DIAGNOSTIC IMAGING REPORT ---
CHEST ONE VIEW PORTABLE HISTORY: 46 years-old Male Hypoxia, cough acute cough COMPARISON: Chest radiograph 04/09/2017 and 03/26/2017 TECHNIQUE: Portable semiupright AP view of the chest FINDINGS: Cardiac silhouette is mildly enlarged. Tracheostomy cannula is again seen at the level the clavicular heads overlying the midline. Pulmonary vascular congestion without overt pulmonary edema. Left basilar opacities are again seen. No large pleural effusion. Opacity of the right lung base and right cardiophrenic angle is new from prior exam. Advanced degenerative changes of the shoulders. Degenerative changes also seen throughout the spine. IMPRESSION: 1. Marginated opacity of the right cardiophrenic angle suspicious for possible right lower lobe atelectasis/volume loss. 2. Pulmonary vascular congestion without overt pulmonary edema. 3. Persistent left basilar opacities suggesting atelectasis or pneumonia. The above report was generated using voice recognition software. It may contain grammatical, syntax or spelling errors. Electronically signed by: Eddie Lee M.D. 05/23/2017 12:41 PM Dictated Date/Time: 05/23/2017 12:37 PM
--- NOTE | 2017-05-23 14:06 | Progress Note ---
Subjective Date of Service: May 23, 2017. Subjective Pt evaluation today including: conversation w/ patient, physical exam, lab review, review of studies, review of inpatient medication list Pain: no pain PO Intake: adequate Voiding: knott catheter in place patient more short of breath this AM had rhonchi when RN listened to him had nebulizer, vibration and felt slightly better checked CBC, no leukocytosis, BMP also normal CXR portable: chronic changes, nothing new otherwise patient is the same will check sputum cultures Problem List Medical Problems: (1) Bronchitis Status: Acute (2) Hypoxemia Status: Acute (3) Hypoxia Status: Acute (4) Knee pain, acute Status: Acute (5) Mucus plugging of bronchi Status: Acute (6) Paraplegia Status: Acute (7) PNA (pneumonia) Status: Acute (8) PNA (pneumonia) Status: Acute (9) Pneumonia Status: Acute (10) Pneumonia Status: Acute (11) Pneumonia Status: Acute (12) Pneumonia Status: Acute (13) Pneumonia Status: Acute (14) Pneumonia Status: Acute (15) Productive cough Status: Acute (16) Quadriplegia Status: Acute (17) Sacral decubitus ulcer Status: Acute (18) SOB (shortness of breath) Status: Acute (19) SOB (shortness of breath) Status: Acute (20) Ulcer of right heel Status: Acute Review of Systems Constitutional: + weakness Respiratory: + cough, + shortness of breath All Other Systems: Reviewed and Negative Medications Current Inpatient Medications Medications (Trade) Dose Ordered Sig/Ashanti Route Start Time Stop Time Status Last Admin Dose Admin Acetaminophen (Tylenol Tab) 650 mg Q4H PRN PO 04/09/17 20:15 06/07/17 20:14 05/16/17 20:22 650 MG Ondansetron HCl (Zofran Inj) 4 mg Q6H PRN IV 04/09/17 20:15 06/07/17 20:14 Acetaminophen (Tylenol Tab) 1,000 mg Q6H PRN PO 04/09/17 20:15 06/07/17 20:14 05/02/17 20:54 1,000 MG Aspirin (Ecotrin Tab) 81 mg QAM PO 04/10/17 09:00 06/07/17 08:59 05/23/17 09:11 81 MG Baclofen (Lioresal Tab) 40 mg QID PO 04/09/17 21:00 06/07/17 20:59 05/23/17 12:25 40 MG Ibuprofen (Advil Tab) 400 mg Q8 PRN PO 04/09/17 20:15 06/07/17 20:14 05/22/17 11:45 400 MG Lactobacillus Acidophilus (Floranex Tab) 4 tab 1200 PO 04/10/17 12:00 06/07/17 11:59 05/23/17 12:25 4 TAB Loratadine (Claritin Tab) 10 mg QAM PO 04/10/17 09:00 06/07/17 08:59 05/23/17 09:11 10 MG Lorazepam (Ativan Tab) 0.5 mg DAILY PRN PO 04/09/17 20:15 06/07/17 20:14 05/16/17 17:06 0.5 MG Lorazepam (Ativan Tab) 0.5 mg QAM PO 04/10/17 09:00 06/07/17 08:59 05/23/17 09:10 0.5 MG Multivitamins/ Minerals (Multivitamin W/ Minerals Tab) 1 tab 1200 PO 04/10/17 12:00 06/07/17 11:59 05/23/17 12:25 1 TAB Dantrolene Sodium (Dantrium Cap) 100 mg QPM PO 04/09/17 22:00 06/07/17 21:59 05/22/17 20:35 100 MG Ipratropium [place] (Atrovent Nasal [place] 0.06%) 2 sprays TID INH 04/09/17 22:00 06/07/17 21:59 05/23/17 13:19 2 SPRAYS Albuterol/ Ipratropium (Duoneb) 3 ml QIDR INH 04/10/17 08:00 06/07/17 07:59 05/23/17 11:15 3 ML Bisacodyl (Dulcolax Supp) 10 mg TuFr@DAILY [place] 04/18/17 09:00 06/07/17 08:59 05/23/17 09:10 10 MG Sodium Biphosphate/ Sodium Phosphate (Fleet Enema) 132 ml DAILY PRN [place] 05/06/17 16:00 06/05/17 15:59 05/15/17 09:32 132 ML Artificial Tears (Artificial Tears) 1 drops PRN PRN OPB 05/10/17 21:45 06/09/17 21:44 05/11/17 20:24 1 DROPS Fluticasone Propionate (Flonase Nasal [place]) 1 sprays BID NA 05/17/17 20:00 06/16/17 19:59 05/23/17 09:12 1 SPRAYS Cetirizine HCl (zyrTEC TAB) 10 mg QAM PO 05/22/17 08:00 06/21/17 07:59 05/23/17 09:11 10 MG Objective Vital Signs Date Time Temp Pulse Resp B/P (MAP) Pulse Ox O2 Delivery O2 Flow Rate FiO2 05/23/17 11:15 74 97 24 05/23/17 11:15 70 25 95 Nasal Cannula 1.0 05/23/17 09:00 Room Air 05/23/17 07:35 36.6 61 22 163/98 (119) 97 Room Air 05/23/17 07:29 67 31 96 BiPAP/CPAP 24 05/23/17 07:29 67 96 24 05/23/17 00:00 36.4 70 18 118/78 (91) 96 BiPAP Trach Collar 05/23/17 00:00 BiPAP 05/22/17 21:09 74 95 24 05/22/17 19:00 79 24 96 BiPAP/CPAP 05/22/17 17:55 75 93 24 05/22/17 16:00 94 Room Air 24 BiPAP 05/22/17 15:59 36.8 95 24 94 Room Air 05/22/17 15:22 75 24 93 Room Air Physical Exam General Appearance: WD/WN, no apparent distress Eyes: normal inspection, EOMI, sclerae normal Respiratory/Chest: chest non-tender, no respiratory distress, no accessory muscle use, + rhonchi (bilaterally) Cardiovascular: regular rate, rhythm, no edema, no gallop, no JVD, no murmur Abdomen: normal bowel sounds, non tender, soft, no organomegaly Extremities: normal range of motion, non-tender, normal inspection, no pedal edema, no calf tenderness, pelvis stable 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, no motor/sensory deficits, alert, normal mood/affect, oriented x 3 Skin: normal color, warm/dry, no rash Laboratory Results Last 24 Hours Test 05/23/17 09:06 White Blood Count 9.41 K/uL Red Blood Count 4.58 M/uL Hemoglobin 13.7 g/dL Hematocrit 43.1 % Mean Corpuscular Volume 94.1 fL Mean Corpuscular Hemoglobin 29.9 pg Mean Corpuscular Hemoglobin Concent 31.8 g/dl Platelet Count 203 K/uL Mean Platelet Volume 9.7 fL Neutrophils (%) (Auto) 85.2 % Lymphocytes (%) (Auto) 7.4 % Monocytes (%) (Auto) 4.8 % Eosinophils (%) (Auto) 2.4 % Basophils (%) (Auto) 0.1 % Neutrophils # (Auto) 8.01 K/uL Lymphocytes # (Auto) 0.70 K/uL Monocytes # (Auto) 0.45 K/uL Eosinophils # (Auto) 0.23 K/uL Basophils # (Auto) 0.01 K/uL RDW Standard Deviation 46.9 fL RDW Coefficient of Variation 13.6 % Immature Granulocyte % (Auto) 0.1 % Immature Granulocyte # (Auto) 0.01 K/uL Sodium Level 135 mmol/L Potassium Level 4.0 mmol/L Chloride Level 98 mmol/L Carbon Dioxide Level 34 mmol/L Anion Gap 3.0 mmol/L Blood Urea Nitrogen 15 mg/dl Creatinine 0.46 mg/dl Est Creatinine Clear Calc Drug Dose 169.4 ml/min Estimated GFR () > 150.0 Estimated GFR (Non- 132.6 BUN/Creatinine Ratio 32.8 Random Glucose 125 mg/dl Calcium Level 8.7 mg/dl Procalcitonin < 0.05 ng/ml Assessment and Plan Pseudomonas Pneumonia at time of initial admission- RESOLVED - ID and pulm recommended IV Cefepime x7 days- treatment completed 5 weeks ago - Continue Floranex - DuoNebs and Atrovent QIDR - IV Ativan PRN - BCx and MRSA swab negative - Pulmonary consultation, appreciate recommendations: Vibratory vest set-up for discharge and should continue indefinitely. Chest compressions not sufficient due to patient's immobility, needs the vest to prevent further infections Dyspnea: no acute findings on CXR no leukocytosis will watch for fever, check tracheal aspirate culture today Quadriplegia -Continue Baclofen 40 mg QID, Dantrium 100 mg HS Chronic constipation -Continue outpatient regimen of suppository and manual disimpaction on and Fri. Refuses further bowel regimen options -Required an enema on 05/07 -Fleet enema 05/15 -Abdomen now soft DVT prophylaxis -SCDs Code Status -Level I, FULL RESUSCITATION STATUS Dispo -Medically stable for discharge pending SNF placement, looking into [facility] outside of [place] Continued [facility] stay due to: other Discharge planning: home with home health, correction facility
[2017-05-23] MEDS: DANTROLENE SODIUM 25 MG CAP PO SCH (20:18)
[2017-05-24] VITALS (13 sets, daily range): BP systolic 101–124; BP diastolic 66–81; PULSE 62–88; TEMP 36.4–36.5; O2SAT 97–100
[2017-05-24] MEDS: ALBUT/IPRATROP 3MG/0.5MG NEB 3 ML VIAL INH SCH ×4 (07:20→19:09)
[2017-05-24] MEDS: LORATADINE 10 MG TAB PO SCH (08:22)
[2017-05-24] MEDS: ASPIRIN 81 MG ECTAB PO SCH (08:22)
[2017-05-24] MEDS: CETIRIZINE HCL 10 MG TAB PO SCH (08:22)
[2017-05-24] MEDS: BACLOFEN TAB 20 MG TAB PO SCH ×4 (08:34→21:19)
[2017-05-24] MEDS ORDERED: MoRPHine SULFATE 2 MG/ML CARP IV STA (08:39)
[2017-05-24] MEDS: FLUTICASONE PROPIONATE NA SPR 16 GM BTL SCH ×2 (08:43→21:21)
[2017-05-24] MEDS: IPRATROPIUM BROMIDE NASAL SPRAY 0.06% 15ML INH SCH ×3 (08:44→21:21)
[2017-05-24] MEDS ORDERED: NURSING VERBAL MED ORDER ONE (08:45)
[2017-05-24] MEDS ORDERED: METHYLPREDNISOLONE 125 MG in SYRINGE 0 ML IV ONE (08:45)
[2017-05-24] MEDS: LORAZEPAM 0.5 MG TAB PO SCH (08:47)
--- NOTE | 2017-05-24 09:20 | DIAGNOSTIC IMAGING REPORT ---
ADDENDUM Addendum: The chest x-ray is compared to a prior CT scan performed March 2007. On this study, there are severe emphysematous changes at the right lung base anteriorly. This explains the hyperlucent area on the current chest x-ray. The findings are therefore not felt to be secondary to a loculated pneumothorax. AMENDED IMPRESSION #4: Hyperlucent right lung base, which is felt to be secondary to focal emphysema as was visualized on a prior March 2007 chest x-ray. Electronically signed by: Austin Bhatt M.D. 05/24/2017 8:07 PM Dictated Date/Time: 05/24/2017 8:04 PM ORIGINAL REPORT CHEST ONE VIEW PORTABLE CLINICAL HISTORY: Hypoxia COMPARISON STUDY: 05/23/2017 FINDINGS: The heart is at the upper limits of normal in size. A tracheostomy tube is again visualized. There is central vascular prominence without evidence of overt failure. Increased density of the right hilum persists. Small pleural effusions are suspected. Minimal left basal airspace opacities persist. The right lung base remains hyperlucent.[ While likely secondary to a bulla or focal emphysema, a loculated pneumothorax cannot be excluded with certainty. IMPRESSION: 1. Mild central vascular prominence, without evidence of overt failure 2. Small pleural effusions. Stable minor left basilar airspace opacities 3. Stable increased density of the right hilum 4. Hyperlucent right lung base Electronically signed by: Austin Bhatt M.D. 05/24/2017 9:18 AM Dictated Date/Time: 05/24/2017 9:15 AM
[2017-05-24] MEDS ORDERED: CEFAZOLIN IV 1,000 MG in SYRINGE 0 ML IV SCH (10:00)
[2017-05-24] MEDS: CEFEPIME IV 1,000 MG in SYRINGE 0 ML IV SCH ×2 (10:14→21:25)
[2017-05-24] MEDS ORDERED: OPTIRAY 320 IV PRN (11:00)
[2017-05-24] MEDS: LACTOBACILLUS ACIDOPHILUS (FLORANEX) TAB PO SCH (12:28)
[2017-05-24] MEDS: CEROVITE ADV FORMULA TAB PO SCH (12:28)
--- NOTE | 2017-05-24 13:45 | Progress Note ---
Subjective Date of Service: May 24, 2017. Subjective Pt evaluation today including: conversation w/ patient, physical exam, review of studies, review of inpatient medication list Pain: no pain PO Intake: adequate Voiding: knott catheter in place code cristine called this AM due to hypoxia patient was being suctioned, became very distressed BIPAP connected, saturations dropped to 50% briefly patient was in distress and not taking deep breaths relief with Duoneb treatment and Morphine IV lungs clear, moving air, no wheezing On BIPAP with higher IPAP, 90% FiO2 his saturations were stable, felt much better reviewed sputum culture, growing GNR, will start Cefepime CXR obtained, increased right base lucency, cannot exclude pneumothorax Problem List Medical Problems: (1) Bronchitis Status: Acute (2) Hypoxemia Status: Acute (3) Hypoxia Status: Acute (4) Knee pain, acute Status: Acute (5) Mucus plugging of bronchi Status: Acute (6) Paraplegia Status: Acute (7) PNA (pneumonia) Status: Acute (8) PNA (pneumonia) Status: Acute (9) Pneumonia Status: Acute (10) Pneumonia Status: Acute (11) Pneumonia Status: Acute (12) Pneumonia Status: Acute (13) Pneumonia Status: Acute (14) Pneumonia Status: Acute (15) Productive cough Status: Acute (16) Quadriplegia Status: Acute (17) Sacral decubitus ulcer Status: Acute (18) SOB (shortness of breath) Status: Acute (19) SOB (shortness of breath) Status: Acute (20) Ulcer of right heel Status: Acute Review of Systems Constitutional: + weakness, + fatigue Respiratory: + cough, + sputum, + shortness of breath Psychiatric: + anxiety All Other Systems: Reviewed and Negative Medications Current Inpatient Medications Medications (Trade) Dose Ordered Sig/Ashanti Route Start Time Stop Time Status Last Admin Dose Admin Acetaminophen (Tylenol Tab) 650 mg Q4H PRN PO 04/09/17 20:15 06/07/17 20:14 05/16/17 20:22 650 MG Ondansetron HCl (Zofran Inj) 4 mg Q6H PRN IV 04/09/17 20:15 06/07/17 20:14 Acetaminophen (Tylenol Tab) 1,000 mg Q6H PRN PO 04/09/17 20:15 06/07/17 20:14 05/02/17 20:54 1,000 MG Aspirin (Ecotrin Tab) 81 mg QAM PO 04/10/17 09:00 06/07/17 08:59 05/24/17 08:22 81 MG Baclofen (Lioresal Tab) 40 mg QID PO 04/09/17 21:00 06/07/17 20:59 05/24/17 12:28 40 MG Ibuprofen (Advil Tab) 400 mg Q8 PRN PO 04/09/17 20:15 06/07/17 20:14 05/22/17 11:45 400 MG Lactobacillus Acidophilus (Floranex Tab) 4 tab 1200 PO 04/10/17 12:00 06/07/17 11:59 05/24/17 12:28 4 TAB Loratadine (Claritin Tab) 10 mg QAM PO 04/10/17 09:00 06/07/17 08:59 05/24/17 08:22 10 MG Lorazepam (Ativan Tab) 0.5 mg DAILY PRN PO 04/09/17 20:15 06/07/17 20:14 05/16/17 17:06 0.5 MG Lorazepam (Ativan Tab) 0.5 mg QAM PO 04/10/17 09:00 06/07/17 08:59 05/24/17 08:47 0.5 MG Multivitamins/ Minerals (Multivitamin W/ Minerals Tab) 1 tab 1200 PO 04/10/17 12:00 06/07/17 11:59 05/24/17 12:28 1 TAB Dantrolene Sodium (Dantrium Cap) 100 mg QPM PO 04/09/17 22:00 06/07/17 21:59 05/23/17 20:18 100 MG Ipratropium [place] (Atrovent Nasal [place] 0.06%) 2 sprays TID INH 04/09/17 22:00 06/07/17 21:59 05/24/17 08:44 2 SPRAYS Albuterol/ Ipratropium (Duoneb) 3 ml QIDR INH 04/10/17 08:00 06/07/17 07:59 05/24/17 11:21 3 ML Bisacodyl (Dulcolax Supp) 10 mg TuFr@DAILY [place] 04/18/17 09:00 06/07/17 08:59 05/23/17 09:10 10 MG Sodium Biphosphate/ Sodium Phosphate (Fleet Enema) 132 ml DAILY PRN [place] 05/06/17 16:00 06/05/17 15:59 05/15/17 09:32 132 ML Artificial Tears (Artificial Tears) 1 drops PRN PRN OPB 05/10/17 21:45 06/09/17 21:44 05/11/17 20:24 1 DROPS Fluticasone Propionate (Flonase Nasal [place]) 1 sprays BID NA 05/17/17 20:00 06/16/17 19:59 05/24/17 08:43 1 SPRAYS Cetirizine HCl (zyrTEC TAB) 10 mg QAM PO 05/22/17 08:00 06/21/17 07:59 05/24/17 08:22 10 MG Cefepime HCl 1000 mg/Syringe 11 ml @ 5.5 mls/min Q12H IV 05/24/17 10:00 05/31/17 09:59 05/24/17 10:14 5.5 MLS/MIN Ioversol (Optiray 320) 100 ml UD PRN IV 05/24/17 11:00 05/28/17 10:59 Objective Vital Signs Date Time Temp Pulse Resp B/P (MAP) Pulse Ox O2 Delivery O2 Flow Rate FiO2 05/24/17 11:21 82 34 100 BiPAP/CPAP 90 05/24/17 11:15 82 100 90 05/24/17 10:15 71 24 118/67 (84) 100 BiPAP 05/24/17 07:32 36.4 62 16 116/77 (90) 97 Room Air 05/24/17 07:20 62 24 97 BiPAP/CPAP 24 05/24/17 03:59 BiPAP 05/23/17 23:20 36.3 80 20 119/54 (75) 93 BiPAP 05/23/17 21:15 81 92 24 05/23/17 21:00 Room Air 05/23/17 20:10 37.0 88 24 138/78 (98) 91 Room Air 05/23/17 18:26 78 96 24 05/23/17 18:23 78 26 96 BiPAP/CPAP 24 05/23/17 16:20 Room Air 05/23/17 15:46 68 92 24 05/23/17 15:45 68 32 92 BiPAP/CPAP 24 05/23/17 15:34 37.1 72 16 97/69 (78) 93 Physical Exam General Appearance: no apparent distress, + thin Neck: supple, no adenopathy, no JVD, trachea midline Respiratory/Chest: chest non-tender, + decreased breath sounds, + accessory muscle use, + pertinent finding (tachypnea) Cardiovascular: regular rate, rhythm, no edema, no gallop, no JVD, no murmur Abdomen: normal bowel sounds, non tender, soft, no organomegaly 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 will try to obtain CT chest once breathing better possible recurrent pneumonia, GNR in sputum culture, start Cefepime IV today vibratory treatments nebulizers Pseudomonas Pneumonia at time of initial admission- RESOLVED - ID and pulm recommended IV Cefepime x7 days- treatment completed 5 weeks ago - Continue Floranex - DuoNebs and Atrovent QIDR - IV Ativan PRN - BCx and MRSA swab negative - Pulmonary consultation, appreciate recommendations: Vibratory vest set-up for discharge and should continue indefinitely. Chest compressions not sufficient due to patient's immobility, needs the vest to prevent further infections Dyspnea: no acute findings on CXR no leukocytosis will watch for fever, check tracheal aspirate culture today Quadriplegia -Continue Baclofen 40 mg QID, Dantrium 100 mg HS Chronic constipation -Continue outpatient regimen of suppository and manual disimpaction on and Fri. Refuses further bowel regimen options -Required an enema on 05/07 -Fleet enema 05/15 -Abdomen now soft DVT prophylaxis -SCDs Code Status -Level I, FULL RESUSCITATION STATUS Dispo -Medically stable for discharge pending SNF placement, looking into [facility] outside of [place] Continued [facility] stay due to: other Discharge planning: home with home health, snf facility
[2017-05-24] MEDS ORDERED: CEFEPIME IV 1,000 MG in DEXTROSE 5% 100ML 100 ML IV SCH (21:00)
[2017-05-24] MEDS: DANTROLENE SODIUM 25 MG CAP PO SCH (21:20)
[2017-05-25] VITALS (12 sets, daily range): BP systolic 109–146; BP diastolic 70–88; PULSE 68–74; TEMP 36.5–36.9; O2SAT 97–100
[2017-05-25] MEDS: ALBUT/IPRATROP 3MG/0.5MG NEB 3 ML VIAL INH SCH ×4 (07:09→19:38)
[2017-05-25] MEDS: CETIRIZINE HCL 10 MG TAB PO SCH (08:40)
[2017-05-25] MEDS: ASPIRIN 81 MG ECTAB PO SCH (08:40)
[2017-05-25] MEDS: LORATADINE 10 MG TAB PO SCH (08:40)
[2017-05-25] MEDS: LORAZEPAM 0.5 MG TAB PO SCH (08:40)
[2017-05-25] MEDS: BACLOFEN TAB 20 MG TAB PO SCH ×4 (08:41→20:33)
[2017-05-25] MEDS: FLUTICASONE PROPIONATE NA SPR 16 GM BTL SCH ×2 (08:41→20:32)
[2017-05-25] MEDS: IPRATROPIUM BROMIDE NASAL SPRAY 0.06% 15ML INH SCH ×3 (08:41→20:33)
[2017-05-25] MEDS: CEFEPIME IV 1,000 MG in SYRINGE 0 ML IV SCH ×2 (08:54→21:46)
[2017-05-25] MEDS: CEROVITE ADV FORMULA TAB PO SCH (13:04)
[2017-05-25] MEDS: LACTOBACILLUS ACIDOPHILUS (FLORANEX) TAB PO SCH (13:05)
[2017-05-25] MEDS: DANTROLENE SODIUM 25 MG CAP PO SCH (20:33)
--- NOTE | 2017-05-25 21:08 | Progress Note ---
Subjective Date of Service: May 25, 2017. Subjective Pt evaluation today including: conversation w/ patient, physical exam, lab review, review of inpatient medication list Pain: no pain PO Intake: eating well every day Voiding: knott catheter in place patient's breathing feels a lot better compared to yesterday eating well BiPAP at 15/5 with only 30% FiO2 try to titrate off of bipap Problem List Medical Problems: (1) Bronchitis Status: Acute (2) Hypoxemia Status: Acute (3) Hypoxia Status: Acute (4) Knee pain, acute Status: Acute (5) Mucus plugging of bronchi Status: Acute (6) Paraplegia Status: Acute (7) PNA (pneumonia) Status: Acute (8) PNA (pneumonia) Status: Acute (9) Pneumonia Status: Acute (10) Pneumonia Status: Acute (11) Pneumonia Status: Acute (12) Pneumonia Status: Acute (13) Pneumonia Status: Acute (14) Pneumonia Status: Acute (15) Productive cough Status: Acute (16) Quadriplegia Status: Acute (17) Sacral decubitus ulcer Status: Acute (18) SOB (shortness of breath) Status: Acute (19) SOB (shortness of breath) Status: Acute (20) Ulcer of right heel Status: Acute Review of Systems Respiratory: + sputum, + shortness of breath All Other Systems: Reviewed and Negative Medications Current Inpatient Medications Medications (Trade) Dose Ordered Sig/Ashanti Route Start Time Stop Time Status Last Admin Dose Admin Acetaminophen (Tylenol Tab) 650 mg Q4H PRN PO 04/09/17 20:15 06/07/17 20:14 05/16/17 20:22 650 MG Ondansetron HCl (Zofran Inj) 4 mg Q6H PRN IV 04/09/17 20:15 06/07/17 20:14 Acetaminophen (Tylenol Tab) 1,000 mg Q6H PRN PO 04/09/17 20:15 06/07/17 20:14 05/02/17 20:54 1,000 MG Aspirin (Ecotrin Tab) 81 mg QAM PO 04/10/17 09:00 06/07/17 08:59 05/25/17 08:40 81 MG Baclofen (Lioresal Tab) 40 mg QID PO 04/09/17 21:00 06/07/17 20:59 05/25/17 20:33 40 MG Ibuprofen (Advil Tab) 400 mg Q8 PRN PO 04/09/17 20:15 06/07/17 20:14 05/22/17 11:45 400 MG Lactobacillus Acidophilus (Floranex Tab) 4 tab 1200 PO 04/10/17 12:00 06/07/17 11:59 05/25/17 13:05 4 TAB Loratadine (Claritin Tab) 10 mg QAM PO 04/10/17 09:00 06/07/17 08:59 05/25/17 08:40 10 MG Lorazepam (Ativan Tab) 0.5 mg DAILY PRN PO 04/09/17 20:15 06/07/17 20:14 05/16/17 17:06 0.5 MG Lorazepam (Ativan Tab) 0.5 mg QAM PO 04/10/17 09:00 06/07/17 08:59 05/25/17 08:40 0.5 MG Multivitamins/ Minerals (Multivitamin W/ Minerals Tab) 1 tab 1200 PO 04/10/17 12:00 06/07/17 11:59 05/25/17 13:04 1 TAB Dantrolene Sodium (Dantrium Cap) 100 mg QPM PO 04/09/17 22:00 06/07/17 21:59 05/25/17 20:33 100 MG Ipratropium [place] (Atrovent Nasal [place] 0.06%) 2 sprays TID INH 04/09/17 22:00 06/07/17 21:59 05/25/17 20:33 2 SPRAYS Albuterol/ Ipratropium (Duoneb) 3 ml QIDR INH 04/10/17 08:00 06/07/17 07:59 05/25/17 19:38 3 ML Bisacodyl (Dulcolax Supp) 10 mg TuFr@DAILY [place] 04/18/17 09:00 06/07/17 08:59 05/23/17 09:10 10 MG Sodium Biphosphate/ Sodium Phosphate (Fleet Enema) 132 ml DAILY PRN [place] 05/06/17 16:00 06/05/17 15:59 05/15/17 09:32 132 ML Artificial Tears (Artificial Tears) 1 drops PRN PRN OPB 05/10/17 21:45 06/09/17 21:44 05/11/17 20:24 1 DROPS Fluticasone Propionate (Flonase Nasal [place]) 1 sprays BID NA 05/17/17 20:00 06/16/17 19:59 05/25/17 20:32 1 SPRAYS Cetirizine HCl (zyrTEC TAB) 10 mg QAM PO 05/22/17 08:00 06/21/17 07:59 05/25/17 08:40 10 MG Cefepime HCl 1000 mg/Syringe 11 ml @ 5.5 mls/min Q12H IV 05/24/17 10:00 05/31/17 09:59 05/25/17 08:54 5.5 MLS/MIN Ioversol (Optiray 320) 100 ml UD PRN IV 05/24/17 11:00 05/28/17 10:59 Objective Vital Signs Date Time Temp Pulse Resp B/P (MAP) Pulse Ox O2 Delivery O2 Flow Rate FiO2 05/25/17 19:40 BiPAP 05/25/17 19:39 74 30 98 BiPAP/CPAP 30 05/25/17 19:39 72 98 30 05/25/17 15:18 99 BiPAP 05/25/17 15:06 71 98 30 05/25/17 15:05 71 30 98 BiPAP/CPAP 30 05/25/17 14:51 36.9 70 20 110/70 (83) 100 05/25/17 11:16 68 34 100 BiPAP/CPAP 30 05/25/17 11:15 68 100 30 05/25/17 08:45 99 BiPAP 05/25/17 07:47 72 98 30 05/25/17 07:23 36.5 69 22 146/88 (107) 99 CPAP 05/25/17 07:14 68 28 98 BiPAP/CPAP 30 05/24/17 23:34 BiPAP 30 05/24/17 22:45 36.4 69 19 124/81 (95) 100 Room Air Physical Exam General Appearance: no apparent distress, + thin Eyes: normal inspection, EOMI, sclerae normal ENT: normal ENT inspection, hearing grossly normal, pharynx normal Neck: supple, no adenopathy, no JVD, trachea midline, + pertinent finding ( tracheostomy in good pisition) Respiratory/Chest: chest non-tender, no respiratory distress, no accessory muscle use, + decreased breath sounds Cardiovascular: regular rate, rhythm, no edema, no gallop, no JVD, no murmur Abdomen: normal bowel sounds, non tender, soft, no organomegaly Extremities: non-tender, no pedal edema, no calf tenderness, pelvis stable Neurologic/Psychiatric: bpm developer II-XII nml as tested, alert, normal mood/affect, oriented x 3, + motor weakness (quadriplegia) Skin: normal color, warm/dry, no rash Assessment and Plan Acute hypoxic respiratory failure on 05/24 still on BiPAP fut FiO2 down to 30% so improvement from yesterday CXR questions a pneumothorax in right base? will try to obtain CT chest once breathing better, not able to do today possible recurrent pneumonia, E coli growing? from tracheal culture, continue Cefepime IV today vibratory treatments nebulizers Pseudomonas Pneumonia at time of initial admission- RESOLVED - ID and pulm recommended IV Cefepime x7 days- treatment completed 5 weeks ago - Continue Floranex - DuoNebs and Atrovent QIDR - IV Ativan PRN - BCx and MRSA swab negative - Pulmonary consultation, appreciate recommendations: Vibratory vest set-up for discharge and should continue indefinitely. Chest compressions not sufficient due to patient's immobility, needs the vest to prevent further infections Dyspnea: no acute findings on CXR no leukocytosis will watch for fever, check tracheal aspirate culture today Quadriplegia -Continue Baclofen 40 mg QID, Dantrium 100 mg HS Chronic constipation -Continue outpatient regimen of suppository and manual disimpaction on and Fri. Refuses further bowel regimen options -Required an enema on 05/07 -Fleet enema 05/15 -Abdomen now soft DVT prophylaxis -SCDs Code Status -Level I, FULL RESUSCITATION STATUS Dispo -Medically stable for discharge pending SNF placement, looking into [facility] outside of [place] Continued [facility] stay due to: other Discharge planning: home with home health, alf facility
[2017-05-26] VITALS (10 sets, daily range): BP systolic 124; BP diastolic 75; PULSE 68–84; TEMP 37.1; O2SAT 95–100
[2017-05-26 05:54] LABS: BASO % 0.2 %; BASO ABS # 0.02 K/uL (0-0.2); COMPLETE YES; EOS % 1.8 %; IG% 0.2 %; MEAN CELL VOLUME 95.1 fL (80-100); MEAN CORPUSCULAR HEMOGLOBIN 29.6 pg (25-34); MEAN CORPUSCULAR HGB CONC 31.1 g/dl (32-36); MEAN PLATELET VOLUME 10.1 fL (7.4-10.4); NEUT % 65.8 %; PLATELET COUNT 189 K/uL (130-400); RED BLOOD COUNT 3.89 M/uL (4.7-6.1)
[2017-05-26 06:26] LABS: BLOOD UREA NITROGEN 20 mg/dl (7-18); BUN/CREATININE RATIO 70.1 (10-20); CALCIUM 8.6 mg/dl (8.5-10.1); CARBON DIOXIDE 33 mmol/L (21-32); CHLORIDE 99 mmol/L (98-107); CREATININE 0.28 mg/dl (0.60-1.40); GLUCOSE 85 mg/dl (70-99); POTASSIUM 4.1 mmol/L (3.5-5.1); SODIUM 136 mmol/L (136-145)
[2017-05-26] MEDS: ALBUT/IPRATROP 3MG/0.5MG NEB 3 ML VIAL INH SCH ×4 (07:10→19:56)
[2017-05-26] MEDS: ASPIRIN 81 MG ECTAB PO SCH (09:17)
[2017-05-26] MEDS: IPRATROPIUM BROMIDE NASAL SPRAY 0.06% 15ML INH SCH ×3 (09:17→20:44)
[2017-05-26] MEDS: FLUTICASONE PROPIONATE NA SPR 16 GM BTL SCH ×2 (09:17→20:44)
[2017-05-26] MEDS: LORATADINE 10 MG TAB PO SCH (09:17)
[2017-05-26] MEDS: LORAZEPAM 0.5 MG TAB PO SCH (09:19)
[2017-05-26] MEDS: CETIRIZINE HCL 10 MG TAB PO SCH (09:19)
[2017-05-26] MEDS: BACLOFEN TAB 20 MG TAB PO SCH ×4 (09:19→20:45)
[2017-05-26] MEDS: CEFEPIME IV 1,000 MG in SYRINGE 0 ML IV SCH ×2 (10:41→22:15)
--- NOTE | 2017-05-26 11:12 | Hospitalist Progress Note ---
Hospitalist Progress Note Date of Service May 26, 2017. Subjective Pt evaluation today including: conversation w/ patient, physical exam, lab review, review of studies, review of inpatient medication list Voiding: knott catheter in place Patient states he is feeling well. Eating and drinking OK. Feels breathing is continuing to improve. Less secretions. Currently on O2 2L NC. Patient denies any fever, chills, sweats, lightheadedness, dizziness, vision changes, CP, palpitations, edema, SOB, wheezing, cough, abdominal pain, nausea, vomiting, diarrhea, urinary symptoms, melena, numbness/tingling, weakness, muscle/joint pain, anxiety/depression, active bleeding, or new skin discoloration/changes. Medications Current Inpatient Medications Medications (Trade) Dose Ordered Sig/Ashanti Route Start Time Stop Time Status Last Admin Dose Admin Acetaminophen (Tylenol Tab) 650 mg Q4H PRN PO 04/09/17 20:15 06/07/17 20:14 05/16/17 20:22 650 MG Ondansetron HCl (Zofran Inj) 4 mg Q6H PRN IV 04/09/17 20:15 06/07/17 20:14 Acetaminophen (Tylenol Tab) 1,000 mg Q6H PRN PO 04/09/17 20:15 06/07/17 20:14 05/02/17 20:54 1,000 MG Aspirin (Ecotrin Tab) 81 mg QAM PO 04/10/17 09:00 06/07/17 08:59 05/26/17 09:17 81 MG Baclofen (Lioresal Tab) 40 mg QID PO 04/09/17 21:00 06/07/17 20:59 05/26/17 09:19 40 MG Ibuprofen (Advil Tab) 400 mg Q8 PRN PO 04/09/17 20:15 06/07/17 20:14 05/22/17 11:45 400 MG Lactobacillus Acidophilus (Floranex Tab) 4 tab 1200 PO 04/10/17 12:00 06/07/17 11:59 05/25/17 13:05 4 TAB Loratadine (Claritin Tab) 10 mg QAM PO 04/10/17 09:00 06/07/17 08:59 05/26/17 09:17 10 MG Lorazepam (Ativan Tab) 0.5 mg DAILY PRN PO 04/09/17 20:15 06/07/17 20:14 05/16/17 17:06 0.5 MG Lorazepam (Ativan Tab) 0.5 mg QAM PO 04/10/17 09:00 06/07/17 08:59 05/26/17 09:19 0.5 MG Multivitamins/ Minerals (Multivitamin W/ Minerals Tab) 1 tab 1200 PO 04/10/17 12:00 06/07/17 11:59 05/25/17 13:04 1 TAB Dantrolene Sodium (Dantrium Cap) 100 mg QPM PO 04/09/17 22:00 06/07/17 21:59 05/25/17 20:33 100 MG Ipratropium [place] (Atrovent Nasal [place] 0.06%) 2 sprays TID INH 04/09/17 22:00 06/07/17 21:59 05/26/17 09:17 2 SPRAYS Albuterol/ Ipratropium (Duoneb) 3 ml QIDR INH 04/10/17 08:00 06/07/17 07:59 05/26/17 07:10 3 ML Bisacodyl (Dulcolax Supp) 10 mg TuFr@DAILY [place] 04/18/17 09:00 06/07/17 08:59 05/23/17 09:10 10 MG Sodium Biphosphate/ Sodium Phosphate (Fleet Enema) 132 ml DAILY PRN [place] 05/06/17 16:00 06/05/17 15:59 05/15/17 09:32 132 ML Artificial Tears (Artificial Tears) 1 drops PRN PRN OPB 05/10/17 21:45 06/09/17 21:44 05/11/17 20:24 1 DROPS Fluticasone Propionate (Flonase Nasal [place]) 1 sprays BID NA 05/17/17 20:00 06/16/17 19:59 05/26/17 09:17 1 SPRAYS Cetirizine HCl (zyrTEC TAB) 10 mg QAM PO 05/22/17 08:00 06/21/17 07:59 05/26/17 09:19 10 MG Cefepime HCl 1000 mg/Syringe 11 ml @ 5.5 mls/min Q12H IV 05/24/17 10:00 05/31/17 09:59 05/26/17 10:41 5.5 MLS/MIN Ioversol (Optiray 320) 100 ml UD PRN IV 05/24/17 11:00 05/28/17 10:59 Objective Vital Signs Date Time Temp Pulse Resp B/P (MAP) Pulse Ox O2 Delivery O2 Flow Rate FiO2 05/26/17 09:00 95 Nasal Cannula 2.0 05/26/17 07:10 77 28 97 BiPAP/CPAP 30 05/26/17 00:10 BiPAP 05/25/17 22:44 70 21 109/70 (83) 97 Room Air 05/25/17 19:40 BiPAP 05/25/17 19:39 74 30 98 BiPAP/CPAP 30 05/25/17 19:39 72 98 30 05/25/17 15:18 99 BiPAP 05/25/17 15:06 71 98 30 05/25/17 15:05 71 30 98 BiPAP/CPAP 30 05/25/17 14:51 36.9 70 20 110/70 (83) 100 05/25/17 11:16 68 34 100 BiPAP/CPAP 30 05/25/17 11:15 68 100 30 Physical Exam General Appearance: no apparent distress, + pertinent finding (O2 2L NC) Eyes: normal inspection, PERRL ENT: hearing grossly normal Neck: supple, + pertinent finding (+trach site ) Respiratory/Chest: no respiratory distress, no accessory muscle use, + crackles (bilateral lungs) Cardiovascular: regular rate, rhythm Abdomen: normal bowel sounds, non tender, soft Extremities: no pedal edema Neurologic/Psychiatric: alert, normal mood/affect, oriented x 3 Skin: normal color, warm/dry, no rash Laboratory Results Last 24 Hours Test 05/26/17 05:36 White Blood Count 9.10 K/uL Red Blood Count 3.89 M/uL Hemoglobin 11.5 g/dL Hematocrit 37.0 % Mean Corpuscular Volume 95.1 fL Mean Corpuscular Hemoglobin 29.6 pg Mean Corpuscular Hemoglobin Concent 31.1 g/dl Platelet Count 189 K/uL Mean Platelet Volume 10.1 fL Neutrophils (%) (Auto) 65.8 % Lymphocytes (%) (Auto) 22.0 % Monocytes (%) (Auto) 10.0 % Eosinophils (%) (Auto) 1.8 % Basophils (%) (Auto) 0.2 % Neutrophils # (Auto) 5.99 K/uL Lymphocytes # (Auto) 2.00 K/uL Monocytes # (Auto) 0.91 K/uL Eosinophils # (Auto) 0.16 K/uL Basophils # (Auto) 0.02 K/uL RDW Standard Deviation 47.9 fL RDW Coefficient of Variation 13.8 % Immature Granulocyte % (Auto) 0.2 % Immature Granulocyte # (Auto) 0.02 K/uL Sodium Level 136 mmol/L Potassium Level 4.1 mmol/L Chloride Level 99 mmol/L Carbon Dioxide Level 33 mmol/L Anion Gap 4.0 mmol/L Blood Urea Nitrogen 20 mg/dl Creatinine 0.28 mg/dl Est Creatinine Clear Calc Drug Dose 278.4 ml/min Estimated GFR () > 150.0 Estimated GFR (Non- > 150.0 BUN/Creatinine Ratio 70.1 Random Glucose 85 mg/dl Calcium Level 8.6 mg/dl Magnesium Level 2.0 mg/dl Assessment and Plan 46 y/o patient s/p tracheostomy with increased secretions, found to have pseudomonas in his sputum Acute hypoxic respiratory failure on 05/24- IMPROVING: - BiPAP- weaned to O2 NC supplement - Trach culture growing E.coli- IV Cefepime started on 05/24 - Continue vibratory treatments - Continue nebulizers Pseudomonas Pneumonia on 04/13- RESOLVED: - ID and pulm recommended IV Cefepime x7 days- treatment completed - Continue Floranex - DuoNebs and Atrovent - IV Ativan PRN - BCx and MRSA swab negative - Pulmonary consultation, appreciate recommendations -- Vibratory vest set-up for discharge and should continue indefinitely- chest compressions not sufficient to prevent infections Mild hyponatremia at 133- STABLE: Follow PRP Quadriplegia: Baclofen 40 mg QID, Dantrium 100 mg HS Chronic constipation: Continue outpatient regimen of suppository and manual disimpaction on and Fri. DVT prophylaxis: SCDs Code Status: LEVEL I, FULL Dispo: Pending placement- CM following
[2017-05-26] MEDS: LACTOBACILLUS ACIDOPHILUS (FLORANEX) TAB PO SCH (11:58)
[2017-05-26] MEDS: CEROVITE ADV FORMULA TAB PO SCH (11:59)
[2017-05-26] MEDS: DANTROLENE SODIUM 25 MG CAP PO SCH (20:45)
[2017-05-27] VITALS (14 sets, daily range): BP systolic 114–126; BP diastolic 70–82; PULSE 50–84; TEMP 35–36.9; O2SAT 93–100
[2017-05-27] MEDS: ALBUT/IPRATROP 3MG/0.5MG NEB 3 ML VIAL INH SCH ×4 (07:15→19:11)
[2017-05-27] MEDS: LORAZEPAM 0.5 MG TAB PO SCH (08:29)
[2017-05-27] MEDS: CETIRIZINE HCL 10 MG TAB PO SCH (08:29)
[2017-05-27] MEDS: LORATADINE 10 MG TAB PO SCH (08:29)
[2017-05-27] MEDS: FLUTICASONE PROPIONATE NA SPR 16 GM BTL SCH ×2 (08:29→20:19)
[2017-05-27] MEDS: ASPIRIN 81 MG ECTAB PO SCH (08:29)
[2017-05-27] MEDS: IPRATROPIUM BROMIDE NASAL SPRAY 0.06% 15ML INH SCH ×3 (08:29→20:00)
[2017-05-27] MEDS: BACLOFEN TAB 20 MG TAB PO SCH ×4 (08:30→20:21)
[2017-05-27] MEDS: BISACODYL 10 MG SUPP PR SCH (09:18)
[2017-05-27] MEDS: CEFEPIME IV 1,000 MG in SYRINGE 0 ML IV SCH (10:14)
[2017-05-27 12:19] LABS: ARTERIAL BLOOD GAS BASE EXCESS 10.1 mEq/L (-9-1.8); ARTERIAL BLOOD GAS HCO3 38 mmol/L (19-24); ARTERIAL BLOOD GAS PO2 95 mm/Hg (80-95); ARTERIAL BLOOD GAS pH 7.39 (7.35-7.45)
[2017-05-27 12:21] LABS: ALLEN TEST POS (POS); O2 ADMINISTRATION ROOM AIR
--- NOTE | 2017-05-27 12:26 | Hospitalist Progress Note ---
Hospitalist Progress Note Date of Service May 27, 2017. Subjective Pt evaluation today including: conversation w/ patient, physical exam, review of inpatient medication list Voiding: knott catheter in place Patient feeling better. States he feels "a lot" better than yesterday. Eating and drinking OK. Less secretions. Patient denies any fever, chills, sweats, lightheadedness, dizziness, vision changes, CP, palpitations, edema, SOB, wheezing, cough, abdominal pain, nausea, vomiting, diarrhea, urinary symptoms, melena, numbness/tingling, weakness, muscle/joint pain, anxiety/depression, active bleeding, or new skin discoloration/changes. Medications Current Inpatient Medications Medications (Trade) Dose Ordered Sig/Ashanti Route Start Time Stop Time Status Last Admin Dose Admin Acetaminophen (Tylenol Tab) 650 mg Q4H PRN PO 04/09/17 20:15 06/07/17 20:14 05/16/17 20:22 650 MG Ondansetron HCl (Zofran Inj) 4 mg Q6H PRN IV 04/09/17 20:15 06/07/17 20:14 Acetaminophen (Tylenol Tab) 1,000 mg Q6H PRN PO 04/09/17 20:15 06/07/17 20:14 05/02/17 20:54 1,000 MG Aspirin (Ecotrin Tab) 81 mg QAM PO 04/10/17 09:00 06/07/17 08:59 05/27/17 08:29 81 MG Baclofen (Lioresal Tab) 40 mg QID PO 04/09/17 21:00 06/07/17 20:59 05/27/17 08:30 40 MG Ibuprofen (Advil Tab) 400 mg Q8 PRN PO 04/09/17 20:15 06/07/17 20:14 05/22/17 11:45 400 MG Lactobacillus Acidophilus (Floranex Tab) 4 tab 1200 PO 04/10/17 12:00 06/07/17 11:59 05/26/17 11:58 4 TAB Loratadine (Claritin Tab) 10 mg QAM PO 04/10/17 09:00 06/07/17 08:59 05/27/17 08:29 10 MG Lorazepam (Ativan Tab) 0.5 mg DAILY PRN PO 04/09/17 20:15 06/07/17 20:14 05/16/17 17:06 0.5 MG Lorazepam (Ativan Tab) 0.5 mg QAM PO 04/10/17 09:00 06/07/17 08:59 05/27/17 08:29 0.5 MG Multivitamins/ Minerals (Multivitamin W/ Minerals Tab) 1 tab 1200 PO 04/10/17 12:00 06/07/17 11:59 05/26/17 11:59 1 TAB Dantrolene Sodium (Dantrium Cap) 100 mg QPM PO 04/09/17 22:00 06/07/17 21:59 05/26/17 20:45 100 MG Ipratropium [place] (Atrovent Nasal [place] 0.06%) 2 sprays TID INH 04/09/17 22:00 06/07/17 21:59 05/27/17 08:29 2 SPRAYS Albuterol/ Ipratropium (Duoneb) 3 ml QIDR INH 04/10/17 08:00 06/07/17 07:59 05/27/17 12:08 3 ML Bisacodyl (Dulcolax Supp) 10 mg TuFr@DAILY [place] 04/18/17 09:00 06/07/17 08:59 05/27/17 09:18 10 MG Sodium Biphosphate/ Sodium Phosphate (Fleet Enema) 132 ml DAILY PRN [place] 05/06/17 16:00 06/05/17 15:59 05/15/17 09:32 132 ML Artificial Tears (Artificial Tears) 1 drops PRN PRN OPB 05/10/17 21:45 06/09/17 21:44 05/11/17 20:24 1 DROPS Fluticasone Propionate (Flonase Nasal [place]) 1 sprays BID NA 05/17/17 20:00 06/16/17 19:59 05/27/17 08:29 1 SPRAYS Cetirizine HCl (zyrTEC TAB) 10 mg QAM PO 05/22/17 08:00 06/21/17 07:59 05/27/17 08:29 10 MG Ioversol (Optiray 320) 100 ml UD PRN IV 05/24/17 11:00 05/28/17 10:59 Cephalexin Monohydrate (Keflex Cap) 500 mg BID PO 05/27/17 20:00 06/03/17 19:59 UNV Cephalexin Monohydrate (Keflex Cap) 500 mg 1219 ONCE PO 05/27/17 12:19 05/27/17 12:20 UNV Objective Vital Signs Date Time Temp Pulse Resp B/P (MAP) Pulse Ox O2 Delivery O2 Flow Rate FiO2 05/27/17 12:12 72 24 96 Room Air 05/27/17 11:38 84 16 120/70 (87) 93 Nasal Cannula 1.0 05/27/17 08:46 99 Nasal Cannula 1.0 05/27/17 08:35 36.9 74 16 114/76 (89) 97 Nasal Cannula 1.0 05/27/17 08:00 100 Nasal Cannula 2.0 05/27/17 07:37 35.0 50 16 114/76 (89) 100 05/27/17 07:15 55 24 98 BiPAP/CPAP 30 05/27/17 01:53 72 100 30 05/27/17 00:44 36.5 52 20 126/81 (96) 100 Trach Collar 05/27/17 00:00 BiPAP 05/26/17 23:50 68 100 30 05/26/17 20:32 72 100 30 05/26/17 20:01 81 22 100 BiPAP/CPAP 30 05/26/17 20:00 BiPAP 05/26/17 16:30 97 BiPAP 05/26/17 16:19 75 97 30 05/26/17 15:58 75 20 97 Nasal Cannula 2.0 05/26/17 15:06 37.1 82 18 124/75 (91) 98 Nasal Cannula 2.0 Physical Exam General Appearance: no apparent distress Eyes: normal inspection, PERRL ENT: hearing grossly normal Neck: supple, + pertinent finding (+trach site ) Respiratory/Chest: no respiratory distress, no accessory muscle use, + pertinent finding (course breath sounds throughout ) Cardiovascular: regular rate, rhythm Abdomen: normal bowel sounds, non tender, soft Extremities: no pedal edema Neurologic/Psychiatric: alert, normal mood/affect, oriented x 3 Skin: normal color, warm/dry, no rash Laboratory Results Last 24 Hours Test 05/27/17 12:08 Arterial Blood pH 7.39 Arterial Blood Partial Pressure CO2 63 mmHg Arterial Blood Partial Pressure O2 95 mm/Hg Arterial Blood HCO3 38 mmol/L Arterial Blood Oxygen Saturation 97.0 % Arterial Blood Base Excess 10.1 mEq/L Arterial Blood Gas Delivery ROOM AIR Robel Test POS Assessment and Plan 46 y/o patient s/p tracheostomy with increased secretions, found to have pseudomonas in his sputum Acute hypoxic respiratory failure on 05/24- IMPROVING: - BiPAP- weaned to O2 NC supplement - Trach culture growing E.coli- IV Cefepime started on 05/24- transitioned to Keflex 500 mg BID on 05/27 - Continue vibratory treatments - Continue nebulizers Pseudomonas Pneumonia on 04/13- RESOLVED: - ID and pulm recommended IV Cefepime x7 days- treatment completed - Continue Floranex - DuoNebs and Atrovent - IV Ativan PRN - BCx and MRSA swab negative - Pulmonary consultation, appreciate recommendations -- Vibratory vest set-up for discharge and should continue indefinitely- chest compressions not sufficient to prevent infections Mild hyponatremia at 133- RESOLVED: Follow PRP Quadriplegia: Baclofen 40 mg QID, Dantrium 100 mg HS Chronic constipation: Continue outpatient regimen of suppository and manual disimpaction on and Fri. DVT prophylaxis: SCDs Code Status: LEVEL I, FULL Dispo: Pending placement- CM following- hopeful discharge in the next 1-2 days
[2017-05-27] MEDS ORDERED: CEPHALEXIN MONOHYDRATE 500 MG CAP PO ONE (12:45)
[2017-05-27] MEDS: LACTOBACILLUS ACIDOPHILUS (FLORANEX) TAB PO SCH (13:04)
[2017-05-27] MEDS: CEROVITE ADV FORMULA TAB PO SCH (13:04)
[2017-05-27] MEDS: CEPHALEXIN MONOHYDRATE 500 MG CAP PO SCH (20:20)
[2017-05-27] MEDS: DANTROLENE SODIUM 25 MG CAP PO SCH (20:58)
[2017-05-28] VITALS (12 sets, daily range): BP systolic 92–113; BP diastolic 58–75; PULSE 54–90; TEMP 36.3–36.9; O2SAT 94–100
[2017-05-28] MEDS: ALBUT/IPRATROP 3MG/0.5MG NEB 3 ML VIAL INH SCH ×4 (07:21→20:00)
[2017-05-28] MEDS: IPRATROPIUM BROMIDE NASAL SPRAY 0.06% 15ML INH SCH ×3 (07:51→21:16)
[2017-05-28] MEDS: FLUTICASONE PROPIONATE NA SPR 16 GM BTL SCH ×2 (07:51→21:16)
[2017-05-28] MEDS: BACLOFEN TAB 20 MG TAB PO SCH ×4 (07:52→21:16)
[2017-05-28] MEDS: CETIRIZINE HCL 10 MG TAB PO SCH (07:52)
[2017-05-28] MEDS: LORATADINE 10 MG TAB PO SCH (07:52)
[2017-05-28] MEDS: ASPIRIN 81 MG ECTAB PO SCH (07:52)
[2017-05-28] MEDS: CEPHALEXIN MONOHYDRATE 500 MG CAP PO SCH ×2 (07:52→21:17)
[2017-05-28] MEDS: LORAZEPAM 0.5 MG TAB PO SCH (07:55)
[2017-05-28] MEDS: LACTOBACILLUS ACIDOPHILUS (FLORANEX) TAB PO SCH (12:26)
[2017-05-28] MEDS: CEROVITE ADV FORMULA TAB PO SCH (12:26)
--- NOTE | 2017-05-28 13:26 | Progress Note ---
Subjective Date of Service: May 28, 2017. Subjective Pt evaluation today including: conversation w/ patient, physical exam, chart review, lab review, review of inpatient medication list feeling better breathing good again. doesn't have any awareness of dispo plan at this time no other new complaints Problem List Medical Problems: (1) Bronchitis Status: Acute (2) Hypoxemia Status: Acute (3) Hypoxia Status: Acute (4) Knee pain, acute Status: Acute (5) Mucus plugging of bronchi Status: Acute (6) Paraplegia Status: Acute (7) PNA (pneumonia) Status: Acute (8) PNA (pneumonia) Status: Acute (9) Pneumonia Status: Acute (10) Pneumonia Status: Acute (11) Pneumonia Status: Acute (12) Pneumonia Status: Acute (13) Pneumonia Status: Acute (14) Pneumonia Status: Acute (15) Productive cough Status: Acute (16) Quadriplegia Status: Acute (17) Sacral decubitus ulcer Status: Acute (18) SOB (shortness of breath) Status: Acute (19) SOB (shortness of breath) Status: Acute (20) Ulcer of right heel Status: Acute Review of Systems all other ROS otherwise negative except for as above Objective Vital Signs Date Time Temp Pulse Resp B/P (MAP) Pulse Ox O2 Delivery O2 Flow Rate FiO2 05/28/17 11:28 69 20 97 Room Air 05/28/17 08:00 94 Room Air 05/28/17 07:25 60 27 100 Room Air 05/28/17 07:14 36.4 54 24 113/75 (88) 100 BiPAP 05/28/17 00:10 36.9 56 18 92/58 (69) 99 Room Air 05/28/17 00:00 98 Room Air BiPAP 05/27/17 22:03 77 98 30 05/27/17 19:11 84 20 96 Room Air 05/27/17 18:00 Room Air 05/27/17 15:48 78 22 95 Room Air 05/27/17 15:28 125/82 (96) 05/27/17 15:04 36.9 77 26 93 Room Air 77 Physical Exam General Appearance: no apparent distress Eyes: EOMI ENT: hearing grossly normal Neck: trachea midline Respiratory/Chest: lungs clear, normal breath sounds, no respiratory distress, no accessory muscle use Neurologic/Psychiatric: mainframe developer II-XII nml as tested Skin: normal color, warm/dry Assessment and Plan Acute hypoxic respiratory failure on 05/24- related to HCAP - IMPROVING: - O2/supportive care - Trach culture growing E.coli- IV Cefepime started on 05/24- transitioned to Keflex 500 mg BID on 05/27 -- continue ~7 days depending on ongoing progress - Continue vibratory treatments - Continue nebulizers Pseudomonas Pneumonia on 04/13- RESOLVED: - ID and pulm recommended IV Cefepime x7 days- treatment completed - Continue Floranex - DuoNebs and Atrovent - IV Ativan PRN - BCx and MRSA swab negative - Pulmonary consultation, appreciate recommendations -- Vibratory vest set-up for discharge and should continue indefinitely- chest compressions not sufficient to prevent infections Mild hyponatremia at 133- RESOLVED: Follow BMP occasionally Quadriplegia: Baclofen 40 mg QID, Dantrium 100 mg HS Chronic constipation: Continue outpatient regimen of suppository and manual disimpaction on and Fri. DVT prophylaxis: SCDs Code Status: LEVEL I, FULL Dispo: Pending placement- CM following Continued [facility] stay due to: other Discharge planning: home with home health, halfway facility
[2017-05-28] MEDS: LORAZEPAM 0.5 MG TAB PO PRN (17:13)
[2017-05-28] MEDS: DANTROLENE SODIUM 25 MG CAP PO SCH (21:17)
[2017-05-29] VITALS (17 sets, daily range): BP systolic 84–129; BP diastolic 50–76; PULSE 45–82; TEMP 36.4–36.9; O2SAT 93–100
[2017-05-29] MEDS: ALBUT/IPRATROP 3MG/0.5MG NEB 3 ML VIAL INH SCH ×4 (07:04→19:47)
[2017-05-29] MEDS: IPRATROPIUM BROMIDE NASAL SPRAY 0.06% 15ML INH SCH ×3 (08:10→20:55)
[2017-05-29] MEDS: LORAZEPAM 0.5 MG TAB PO SCH (08:10)
[2017-05-29] MEDS: FLUTICASONE PROPIONATE NA SPR 16 GM BTL SCH ×2 (08:10→20:55)
[2017-05-29] MEDS: BACLOFEN TAB 20 MG TAB PO SCH ×4 (08:11→20:55)
[2017-05-29] MEDS: CEPHALEXIN MONOHYDRATE 500 MG CAP PO SCH ×2 (08:11→20:55)
[2017-05-29] MEDS: CETIRIZINE HCL 10 MG TAB PO SCH (08:11)
[2017-05-29] MEDS: LORATADINE 10 MG TAB PO SCH (08:11)
[2017-05-29] MEDS: ASPIRIN 81 MG ECTAB PO SCH (08:11)
--- NOTE | 2017-05-29 11:34 | Hospitalist Progress Note ---
Hospitalist Progress Note Date of Service May 29, 2017. Subjective Pt evaluation today including: conversation w/ patient, physical exam, lab review, review of studies, conversation w/ job service consultant (Sue Lawernce PA-C ), review of inpatient medication list Voiding: knott catheter in place Patient states he is feeling well. States he feels improved since yesterday. Eating and drinking OK. Denies SOB. Less secretions. Patient denies any fever, chills, sweats, lightheadedness, dizziness, vision changes, CP, palpitations, edema, SOB, wheezing, cough, abdominal pain, nausea, vomiting, diarrhea, urinary symptoms, melena, numbness/tingling, weakness, muscle/joint pain, anxiety/depression, active bleeding, or new skin discoloration/changes. Spoke w/ Pulmonary- Dr. Goode to replace trach today. Medications Current Inpatient Medications Medications (Trade) Dose Ordered Sig/Ashanti Route Start Time Stop Time Status Last Admin Dose Admin Acetaminophen (Tylenol Tab) 650 mg Q4H PRN PO 04/09/17 20:15 06/07/17 20:14 05/16/17 20:22 650 MG Ondansetron HCl (Zofran Inj) 4 mg Q6H PRN IV 04/09/17 20:15 06/07/17 20:14 Acetaminophen (Tylenol Tab) 1,000 mg Q6H PRN PO 04/09/17 20:15 06/07/17 20:14 05/02/17 20:54 1,000 MG Aspirin (Ecotrin Tab) 81 mg QAM PO 04/10/17 09:00 06/07/17 08:59 05/29/17 08:11 81 MG Baclofen (Lioresal Tab) 40 mg QID PO 04/09/17 21:00 06/07/17 20:59 05/29/17 08:11 40 MG Ibuprofen (Advil Tab) 400 mg Q8 PRN PO 04/09/17 20:15 06/07/17 20:14 05/22/17 11:45 400 MG Lactobacillus Acidophilus (Floranex Tab) 4 tab 1200 PO 04/10/17 12:00 06/07/17 11:59 05/28/17 12:26 4 TAB Loratadine (Claritin Tab) 10 mg QAM PO 04/10/17 09:00 06/07/17 08:59 11/9/17 08:11 10 MG Lorazepam (Ativan Tab) 0.5 mg DAILY PRN PO 04/09/17 20:15 06/07/17 20:14 05/28/17 17:13 0.5 MG Lorazepam (Ativan Tab) 0.5 mg QAM PO 04/10/17 09:00 06/07/17 08:59 05/29/17 08:10 0.5 MG Multivitamins/ Minerals (Multivitamin W/ Minerals Tab) 1 tab 1200 PO 04/10/17 12:00 06/07/17 11:59 05/28/17 12:26 1 TAB Dantrolene Sodium (Dantrium Cap) 100 mg QPM PO 04/09/17 22:00 06/07/17 21:59 05/28/17 21:17 100 MG Ipratropium [place] (Atrovent Nasal [place] 0.06%) 2 sprays TID INH 04/09/17 22:00 06/07/17 21:59 05/29/17 08:10 2 SPRAYS Albuterol/ Ipratropium (Duoneb) 3 ml QIDR INH 04/10/17 08:00 06/07/17 07:59 05/29/17 11:17 3 ML Bisacodyl (Dulcolax Supp) 10 mg TuFr@DAILY CT 04/18/17 09:00 06/07/17 08:59 05/27/17 09:18 10 MG Sodium Biphosphate/ Sodium Phosphate (Fleet Enema) [address] 05/06/17 16:00 06/05/17 15:59 05/15/17 09:32 132 ML Artificial Tears (Artificial Tears) 1 drops PRN PRN OPB 05/10/17 21:45 06/09/17 21:44 05/11/17 20:24 1 DROPS Fluticasone Propionate (Flonase Nasal [place]) 1 sprays BID NA 05/17/17 20:00 06/16/17 19:59 05/29/17 08:10 1 SPRAYS Cetirizine HCl (zyrTEC TAB) 10 mg QAM PO 05/22/17 08:00 06/21/17 07:59 05/29/17 08:11 10 MG Cephalexin Monohydrate (Keflex Cap) 500 mg BID PO 05/27/17 20:00 06/03/17 07:59 05/29/17 08:11 500 MG Objective Vital Signs Date Time Temp Pulse Resp B/P (MAP) Pulse Ox O2 Delivery O2 Flow Rate FiO2 05/29/17 11:18 50 94 30 05/29/17 11:17 68 20 94 BiPAP/CPAP 30 05/29/17 11:00 36.6 72 24 110/70 (83) 94 Room Air 05/29/17 10:32 94 Room Air 05/29/17 09:03 36.4 67 24 129/74 (92) 93 Room Air 05/29/17 08:00 100 BiPAP 30 05/29/17 07:09 50 100 30 05/29/17 07:07 50 20 100 BiPAP/CPAP 30 05/29/17 03:10 36.6 45 20 114/76 (89) 100 Trach Collar 05/29/17 00:00 100 BiPAP 30 05/28/17 20:39 68 100 30 05/28/17 20:38 68 20 100 Room Air 05/28/17 20:00 100 BiPAP 30 05/28/17 15:50 80 100 30 05/28/17 15:35 Room Air 05/28/17 15:20 70 20 97 Room Air 05/28/17 15:06 36.3 90 24 104/66 (79) 95 Room Air Physical Exam General Appearance: no apparent distress Eyes: normal inspection, PERRL ENT: hearing grossly normal Neck: supple, + pertinent finding (+trach) Respiratory/Chest: no respiratory distress, no accessory muscle use, + rhonchi (mild, diffuse ) Cardiovascular: regular rate, rhythm Abdomen: normal bowel sounds, non tender, soft Extremities: no pedal edema Neurologic/Psychiatric: alert, normal mood/affect, oriented x 3 Skin: normal color, warm/dry, no rash Assessment and Plan 46 y/o patient s/p tracheostomy with increased secretions, found to have pseudomonas in his sputum Acute hypoxic respiratory failure on 05/24- IMPROVING: - BiPAP- weaned to O2 NC supplement - Trach culture growing E.coli- IV Cefepime started on 05/24- transitioned to Keflex 500 mg BID on 05/27- last day for 10 days of treatment on 05/30 - Continue vibratory treatments - Continue nebulizers Pseudomonas Pneumonia on 04/13- RESOLVED: - ID and pulm recommended IV Cefepime x7 days- treatment completed - Continue Floranex - DuoNebs and Atrovent - IV Ativan PRN - BCx and MRSA swab negative - Pulmonary consultation, appreciate recommendations -- Vibratory vest set-up for discharge and should continue indefinitely- chest compressions not sufficient to prevent infections Mild hyponatremia at 133- RESOLVED: Follow PRP Quadriplegia: Baclofen 40 mg QID, Dantrium 100 mg HS Chronic constipation: Continue outpatient regimen of suppository and manual disimpaction on and Fri. DVT prophylaxis: SCDs Code Status: LEVEL I, FULL Dispo: Pending placement- CM following- hopeful discharge tomorrow
[2017-05-29] MEDS: LACTOBACILLUS ACIDOPHILUS (FLORANEX) TAB PO SCH (12:21)
[2017-05-29] MEDS: CEROVITE ADV FORMULA TAB PO SCH (12:21)
--- NOTE | 2017-05-29 15:28 | Pulmonology Progress Note ---
Pulmonary Progress Note Date of Service May 29, 2017. Attending Dr. West Subjective Pulmonary was asked see patient for tracheostomy change to facilitate discharge to subacute facility. Patient denies any fever, chills, chest pain, shortness of breath. According to respiratory and nursing staff he's had minimal secretions. He does have periods of anxiety associated with tachypnea. Currently, uses BiPAP at night. Objective Vital signs reviewed. General Appearance: thin, other (quadriplegic) Head: Normocephalic, atraumatic Eyes: NO DISCHARGE, EOMI, SCLERAE NORMAL ENT: other (hearing intact) Neck: other (tracheostomy site), supple, nontender Lungs: Decreased breath sounds bilaterally Lower Extremities: NO EDEMA bilaterally, no cyanosis, no clubbing Neuro: ALERT, ORIENTED x 3 Psychiatric: NORMAL AFFECT Laboratory data reviewed. Chemistry from 05/26/2017-3136, potassium 4.1, chloride 99, bicarbonate 33, BUN 20, creatinine 0.28. ABG from 05/27/2017--7.39/63/25/38/27% on room air Sputum culture from tracheostomy 04/13/2017-pseudomonas aeruginosa and Serratia Sputum culture from tracheal 10/07/2016-E coli Imaging reviewed and reviewed by me. Medications reviewed. Assessment & Plan Quadriplegia Chronic hypercapnic respiratory failure status post tracheostomy Patient has improved since admission. Has less secretions and stable for discharge to the acute care facility. Facility is requesting tracheostomy be changed to a fenestrated, cuffed tracheostomy tube. He currently has a non- coughed nonfenestrated tube. Tube changes to facilitate speaking as well as mechanical ventilation while sleeping. Recommendations Tube changed at bedside with Dr. Goode and respiratory therapy at bedside. Doug tolerated the procedure well. No complications. Good air entry auscultated bilaterally. Tracheostomy sputum sent for culture. He should follow up with Dr. Goode post hospital discharge. Data Medications: Current Inpatient Medications Medications (Trade) Dose Ordered Sig/Ashanti Route Start Time Stop Time Status Last Admin Dose Admin Acetaminophen (Tylenol Tab) 650 mg Q4H PRN PO 04/09/17 20:15 06/07/17 20:14 05/16/17 20:22 650 MG Ondansetron HCl (Zofran Inj) 4 mg Q6H PRN IV 04/09/17 20:15 06/07/17 20:14 Acetaminophen (Tylenol Tab) 1,000 mg Q6H PRN PO 04/09/17 20:15 06/07/17 20:14 05/02/17 20:54 1,000 MG Aspirin (Ecotrin Tab) 81 mg QAM PO 04/10/17 09:00 06/07/17 08:59 05/29/17 08:11 81 MG Baclofen (Lioresal Tab) 40 mg QID PO 04/09/17 21:00 06/07/17 20:59 05/29/17 12:21 40 MG Ibuprofen (Advil Tab) 400 mg Q8 PRN PO 04/09/17 20:15 06/07/17 20:14 05/22/17 11:45 400 MG Lactobacillus Acidophilus (Floranex Tab) 4 tab 1200 PO 04/10/17 12:00 06/07/17 11:59 05/29/17 12:21 4 TAB Loratadine (Claritin Tab) 10 mg QAM PO 04/10/17 09:00 06/07/17 08:59 05/29/17 08:11 10 MG Lorazepam (Ativan Tab) 0.5 mg DAILY PRN PO 04/09/17 20:15 06/07/17 20:14 05/28/17 17:13 0.5 MG Lorazepam (Ativan Tab) 0.5 mg QAM PO 04/10/17 09:00 06/07/17 08:59 05/29/17 08:10 0.5 MG Multivitamins/ Minerals (Multivitamin W/ Minerals Tab) 1 tab 1200 PO 04/10/17 12:00 06/07/17 11:59 05/29/17 12:21 1 TAB Dantrolene Sodium (Dantrium Cap) 100 mg QPM PO 04/09/17 22:00 06/07/17 21:59 05/28/17 21:17 100 MG Ipratropium [place] (Atrovent Nasal [place] 0.06%) 2 sprays TID INH 04/09/17 22:00 06/07/17 21:59 05/29/17 14:43 2 SPRAYS Albuterol/ Ipratropium (Duoneb) 3 ml QIDR INH 04/10/17 08:00 06/07/17 07:59 05/29/17 11:17 3 ML Bisacodyl (Dulcolax Supp) 10 mg TuFr@DAILY [place] 04/18/17 09:00 06/07/17 08:59 05/27/17 09:18 10 MG Sodium Biphosphate/ Sodium Phosphate (Fleet Enema) 132 ml DAILY PRN [place] 05/06/17 16:00 06/05/17 15:59 05/15/17 09:32 132 ML Artificial Tears (Artificial Tears) 1 drops PRN PRN OPB 05/10/17 21:45 06/09/17 21:44 05/11/17 20:24 1 DROPS Fluticasone Propionate (Flonase Nasal [place]) 1 sprays BID NA 05/17/17 20:00 06/16/17 19:59 05/29/17 08:10 1 SPRAYS Cetirizine HCl (zyrTEC TAB) 10 mg QAM PO 05/22/17 08:00 06/21/17 07:59 05/29/17 08:11 10 MG Cephalexin Monohydrate (Keflex Cap) 500 mg BID PO 05/27/17 20:00 06/03/17 07:59 05/29/17 08:11 500 MG I & O: 24-Hour Column 05/30/17 07:59 Intake Total 560 ml Output Total 625 ml Balance -65 ml Vital Signs: Date Time Temp Pulse Resp B/P (MAP) Pulse Ox O2 Delivery O2 Flow Rate FiO2 05/29/17 11:18 50 94 30 05/29/17 11:17 68 20 94 BiPAP/CPAP 30 05/29/17 11:00 36.6 72 24 110/70 (83) 94 Room Air 05/29/17 10:32 94 Room Air 05/29/17 09:03 36.4 67 24 129/74 (92) 93 Room Air 05/29/17 08:00 100 BiPAP 30 05/29/17 07:09 50 100 30 05/29/17 07:07 50 20 100 BiPAP/CPAP 30 05/29/17 03:10 36.6 45 20 114/76 (89) 100 Trach Collar 05/29/17 00:00 100 BiPAP 30 05/28/17 20:39 68 100 30 05/28/17 20:38 68 20 100 Room Air 05/28/17 20:00 100 BiPAP 30 05/28/17 15:50 80 100 30 05/28/17 15:35 Room Air 05/28/17 15:20 70 20 97 Room Air
[2017-05-29] MEDS: DANTROLENE SODIUM 25 MG CAP PO SCH (20:55)
[2017-05-30] VITALS (11 sets, daily range): BP systolic 103–106; BP diastolic 57–68; PULSE 56–79; TEMP 36.5; O2SAT 94–100
[2017-05-30] MEDS: ALBUT/IPRATROP 3MG/0.5MG NEB 3 ML VIAL INH SCH ×4 (07:37→19:41)
[2017-05-30] MEDS: BISACODYL 10 MG SUPP PR SCH (08:12)
[2017-05-30] MEDS: BACLOFEN TAB 20 MG TAB PO SCH ×4 (08:15→20:58)
[2017-05-30] MEDS: IPRATROPIUM BROMIDE NASAL SPRAY 0.06% 15ML INH SCH ×3 (08:15→20:59)
[2017-05-30] MEDS: LORATADINE 10 MG TAB PO SCH (08:16)
[2017-05-30] MEDS: CETIRIZINE HCL 10 MG TAB PO SCH (08:16)
[2017-05-30] MEDS: ASPIRIN 81 MG ECTAB PO SCH (08:16)
[2017-05-30] MEDS: CEPHALEXIN MONOHYDRATE 500 MG CAP PO SCH ×2 (08:17→20:58)
[2017-05-30] MEDS: FLUTICASONE PROPIONATE NA SPR 16 GM BTL SCH ×2 (08:17→20:59)
[2017-05-30] MEDS: LORAZEPAM 0.5 MG TAB PO SCH (08:21)
[2017-05-30] MEDS ORDERED: ZYR10 PO (09:04)
[2017-05-30] MEDS ORDERED: KFL500 PO (09:04)
[2017-05-30] MEDS ORDERED: Artificial Tears OPB (09:04)
[2017-05-30] MEDS ORDERED: FLNIN (09:04)
--- NOTE | 2017-05-30 09:12 | Discharge Instructions ---
Discharge Instructions Date of Service May 30, 2017. Admission Reason for Admission: Bacterial Infection Due To Pseudomonas Discharge Discharge Diagnosis / Problem: PNA Discharge Goals Goal(s): Decrease discomfort, Improve function, Increase independence, Improve disease control, Learn about illness, Diagnostic testing, Therapeutic intervention, Prevent Disease Progression Activity Recommendations Activity Level: Assistance Required . Additional Information Patient informed of condition: Yes Advance Directives: No DNR: No Level of Care: Skilled Communicable Disease: No Prognosis: Stable Oxygen at (LPM): by protocol [place] Catheter: Yes Instructions / Follow-Up Instructions / Follow-Up Acute hypoxic respiratory failure on 05/24- IMPROVING: - BiPAP- weaned to O2 NC supplement - Trach culture growing E.coli- IV Cefepime started on 05/24- transitioned to Keflex 500 mg BID on 05/27- last day for 10 days of treatment on 05/30 - Continue vibratory treatments - Continue nebulizers Chronic hypercapnic respiratory failure s/p tracheostomy: - Pulmonary consulted- trach changed on 05/29 - Sputum culture pending - Continue BiPAP HS - Pulmonary recommends follow-up after discharge Pseudomonas Pneumonia on 04/13- RESOLVED: - ID and pulm recommended IV Cefepime x7 days- treatment completed - Continue Floranex - DuoNebs and Atrovent - IV Ativan PRN - BCx and MRSA swab negative - Pulmonary consultation, appreciate recommendations -- Vibratory vest set-up for discharge and should continue indefinitely- chest compressions not sufficient to prevent infections Nasal congestion, post nasal drip: Continue Flonase and Zyrtec Mild hyponatremia at 133- RESOLVED Quadriplegia: Baclofen 40 mg QID, Dantrium 100 mg HS Chronic constipation: Continue outpatient regimen of suppository and manual disimpaction on and Fri. DVT prophylaxis: SCDs Code Status: LEVEL I, FULL Dispo: Discharge to [facility] Skilled FOLLOW-UPS: Please follow-up with [facility] Skilled provider within 24-48 hours Please follow-up with Pulmonary- Dr. Batres within 2-3 weeks Please follow-up/keep all of your subspecialty appointments Current Hospital Diet Patient's current hospital diet: Regular Diet Discharge Diet Recommended Diet: Regular Diet Pending Studies Studies pending at discharge: yes List of pending studies: Sputum culture on 05/29 Physician Orders On Transfer Dressing Changes: None IV Therapy: None Vital Signs: Routine POLST Discussion: without POLST completion Medical Emergencies . Who to Call and When: Medical Emergencies: If at any time you feel your situation is an emergency, please call 911 immediately. . Non-Emergent Contact Non-Emergency issues call your: Primary Care Provider . . "Provider Documentation" section prepared by Zahra Godoy. . Core Measure Problem Core Measures: None
--- NOTE | 2017-05-30 09:25 | Discharge Summary ---
Discharge Summary Date of Service May 30, 2017. Discharge Summary Admission Date: Apr 09, 2017 at 20:20 Discharge Date: May 30, 2017 [facility] Principal Diagnosis: PNA Problems/Secondary Diagnoses: Acute hypoxic respiratory failure Chronic hypercapnic respiratory failure s/p tracheostomy Pseudomonas Pneumonia Nasal congestion, post nasal drip Mild hyponatremia Quadriplegia Chronic constipation Immunizations: Have You Had Influenza Vaccine: Yes Influenza Vaccine Date: May 03, 2010 History of Tetanus Vaccine?: No History of Pneumococcal: YES 1998 History of Hepatitis B Vaccine: No Procedures: CHEST ONE VIEW PORTABLE CLINICAL HISTORY: Respiratory failure. Purulent sputum. COMPARISON STUDY: 03/26/2017 FINDINGS: The heart is borderline enlarged. A tracheostomy tube is again visualized. There is no overt failure. There are left basal airspace opacities, possibly representing a pneumonitis.[ No pleural effusions are visualized. IMPRESSION: Left basilar airspace opacities, possibly representing a pneumonitis. Electronically signed by: Austin Bhatt M.D. 04/09/2017 7:18 PM Dictated Date/Time: 04/09/2017 7:17 PM The status of this report is Signed. Draft = Not yet reviewed or approved by Radiologist. Signed = Reviewed and approved by Radiologist. CHEST ONE VIEW PORTABLE HISTORY: 46 years-old Male Hypoxia, cough acute cough COMPARISON: Chest radiograph 04/09/2017 and 03/26/2017 TECHNIQUE: Portable semiupright AP view of the chest FINDINGS: Cardiac silhouette is mildly enlarged. Tracheostomy cannula is again seen at the level the clavicular heads overlying the midline. Pulmonary vascular congestion without overt pulmonary edema. Left basilar opacities are again seen. No large pleural effusion. Opacity of the right lung base and right cardiophrenic angle is new from prior exam. Advanced degenerative changes of the shoulders. Degenerative changes also seen throughout the spine. IMPRESSION: 1. Marginated opacity of the right cardiophrenic angle suspicious for possible right lower lobe atelectasis/volume loss. 2. Pulmonary vascular congestion without overt pulmonary edema. 3. Persistent left basilar opacities suggesting atelectasis or pneumonia. The above report was generated using voice recognition software. It may contain grammatical, syntax or spelling errors. Electronically signed by: Eddie Lee M.D. 05/23/2017 12:41 PM Dictated Date/Time: 05/23/2017 12:37 PM The status of this report is Signed. Draft = Not yet reviewed or approved by Radiologist. Signed = Reviewed and approved by Radiologist. ADDENDUM Addendum: The chest x-ray is compared to a prior CT scan performed March 2007. On this study, there are severe emphysematous changes at the right lung base anteriorly. This explains the hyperlucent area on the current chest x-ray. The findings are therefore not felt to be secondary to a loculated pneumothorax. AMENDED IMPRESSION #4: Hyperlucent right lung base, which is felt to be secondary to focal emphysema as was visualized on a prior March 2007 chest x-ray. Electronically signed by: Austin Bhatt M.D. 05/24/2017 8:07 PM Dictated Date/Time: 05/24/2017 8:04 PM ORIGINAL REPORT CHEST ONE VIEW PORTABLE CLINICAL HISTORY: Hypoxia COMPARISON STUDY: 05/23/2017 FINDINGS: The heart is at the upper limits of normal in size. A tracheostomy tube is again visualized. There is central vascular prominence without evidence of overt failure. Increased density of the right hilum persists. Small pleural effusions are suspected. Minimal left basal airspace opacities persist. The right lung base remains hyperlucent.[ While likely secondary to a bulla or focal emphysema, a loculated pneumothorax cannot be excluded with certainty. IMPRESSION: 1. Mild central vascular prominence, without evidence of overt failure 2. Small pleural effusions. Stable minor left basilar airspace opacities 3. Stable increased density of the right hilum 4. Hyperlucent right lung base Electronically signed by: Austin Bhatt M.D. 05/24/2017 9:18 AM Dictated Date/Time: 05/24/2017 9:15 AM The status of this report is Signed. Draft = Not yet reviewed or approved by Radiologist. Signed = Reviewed and approved by Radiologist. Consultations: Pulmonary Medication Reconciliation New Medications: Cephalexin Monohydrate (Cephalexin) 500 Mg Cap 500 MG PO BID for 1 Day, #1 CAP Cetirizine HCl (All Day Allergy) 10 Mg Tab 10 MG PO QAM for 30 Days, TAB Fluticasone Propionate (Fluticasone Propionate) 50 Mcg/Act Spr 1 SPRAYS NA BID for 30 Days [Artificial Tears] () 225 DROPS/15 ML SOLN 1 DROPS OPB PRN PRN for DRY EYES for 30 Days Continued Medications: Acetaminophen (Tylenol) 500 Mg Tab 1000 MG PO Q6H PRN for Pain DO NOT EXCEED 3000 MG/DAY Albuterol Sulf (Proventil 0.083% 2.5MG/3ML) 2.5 Mg/3 Ml Nebu 2.5 MG NEB QID PRN for Wheezing Alendronate Sodium (Fosamax) 70 Mg Tab 70 MG PO WK TAKE THIS MEDICATION EVERY FRIDAY Ascorbic Acid (Vitamin C 500 mg) 1 Chw Chw 1000 MG PO 1600 Aspirin (Aspirin Ec) 81 Mg Tab 81 MG PO QAM Baclofen (Lioresal) 20 Mg Tab 40 MG PO QID Bisacodyl (Dulcolax) 10 Mg Sup 1 SUPP SC 2XWK ADMINISTER EVERY FRIDAY AND FRIDAY Calcium Carbonate-Vitamin D (Caltrate 600+D 600-400 mg-Unit) 1 Chw Chw 1 TAB PO BID Dantrolene Sodium (Dantrolene Sodium) 100 Mg Cap 100 MG PO QPM Ibuprofen (Advil) 200 Mg Tab 400-600 MG PO Q8 PRN for Pain or Fever Ipratropium [place] (Nasal) (Ipratropium [place]) 0.03 % Spr 2 SPRAYS URBAN TID Lactobacillus (Acidophilus) 1 Tab Tab 1 TAB PO 1200 Loratadine (Claritin) 10 Mg Tab 10 MG PO QAM Lorazepam (Ativan) 0.5 Mg Tab 0.5 MG PO QAM Lorazepam (Ativan) 0.5 Mg Tab 0.5 MG PO DAILY PRN for Anxiety, TAB Multiple Vitamins W/ Minerals (Multivitamin Adults) 1 Tab Tab 1 TAB PO 1200 Discontinued Medications: Amoxicillin & Pot Clavulanate (Augmentin 875-125 mg) 1 Tab Tab 1 TAB PO BID, #14 TAB Discharge Exam Review of Systems: Constitutional: No fever, No chills, No sweats, No fatigue Eyes: No worsening of vision ENT: No hearing loss Respiratory: No cough, No shortness of breath, No hemoptysis Cardiovascular: No chest pain, No edema, No palpitations Abdomen: No pain, No nausea, No vomiting, No diarrhea, No constipation Musculoskeletal: No joint pain, No muscle pain, No swelling, No calf pain Genitourinary - Male: No hematuria, No dysuria Neurologic: + weakness, No numbness/tingling Psychiatric: No depression symptoms, No anxiety Hematologic / Lymphatic: No abnormal bleeding/bruising Integumentary: No rash, No itch, No new/changing skin lesions Physical Exam: General Appearance: no apparent distress Eyes: normal inspection, PERRL ENT: hearing grossly normal Neck: supple, + pertinent finding (+trach site ) Respiratory/Chest: no respiratory distress, no accessory muscle use, + rhonchi (mild, diffuse ) Cardiovascular: regular rate, rhythm Abdomen / GI: normal bowel sounds, non tender, soft Extremities: no pedal edema Neurologic/Psychiatric: alert, normal mood/affect, oriented x 3 Skin: normal color, warm/dry, no rash Hospital Course Admission H&P: Mr Patrick is a 46 yo M with C2 quadriplegia and diaphragmatic paralysis with a tracheostomy, who presents with increased secretions from his tracheostomy, and was told by his finance professor he has Pseudomonas in a sputum culture. He was having increased secretions over the last week, saw his Child Welfare Specialist Dr Goode, and was placed on Augmentin. He felt somewhat better, but still has lots of secretions. He denies fevers, chest pain, or worsening shortness of breath. He wears BiPAP at nighttime and uses nebulizers frequently. He is coping at home ok, but his sister requests extra help from home health nurses to evaluate his lung status more often. Physical Exam Vital Signs Date Time Temp Pulse Resp B/P (MAP) Pulse Ox O2 Delivery O2 Flow Rate FiO2 04/09/17 20:11 71 21 135/98 96 Room Air 04/09/17 18:58 81 14 124/76 95 Room Air 04/09/17 17:36 37.1 78 14 147/92 93 Room Air General Appearance: WD/WN, no apparent distress, + thin Head: normocephalic, atraumatic Eyes: normal inspection ENT: hearing grossly normal Neck: supple, no JVD Respiratory/Chest: + accessory muscle use, + pertinent finding (tracheostomy in place. able to speak in full sentences. intermittent wheeze.) Cardiovascular: regular rate, rhythm, no murmur, normal peripheral pulses Abdomen/GI: non tender, soft Back: no CVA tenderness, no muscle spasm Extremities/Musculoskelatal: no calf tenderness, no pedal edema, + pertinent finding (legs thin, flexed ) Neurologic/Psych: alert, normal mood/affect Hospital Course: 46 y/o patient s/p tracheostomy with increased secretions, found to have pseudomonas in his sputum Acute hypoxic respiratory failure on 05/24- IMPROVING: - BiPAP- weaned to O2 NC supplement - Trach culture growing E.coli- IV Cefepime started on 05/24- transitioned to Keflex 500 mg BID on 05/27- last day for 10 days of treatment on 05/30 - Continue vibratory treatments - Continue nebulizers Chronic hypercapnic respiratory failure s/p tracheostomy: - Pulmonary consulted- trach changed on 05/29 - Sputum culture pending - Continue BiPAP HS - Pulmonary recommends follow-up after discharge Pseudomonas Pneumonia on 04/13- RESOLVED: - ID and pulm recommended IV Cefepime x7 days- treatment completed - Continue Floranex - DuoNebs and Atrovent - IV Ativan PRN - BCx and MRSA swab negative - Pulmonary consultation, appreciate recommendations -- Vibratory vest set-up for discharge and should continue indefinitely- chest compressions not sufficient to prevent infections Nasal congestion, post nasal drip: Continue Flonase and Zyrtec Mild hyponatremia at 133- RESOLVED Quadriplegia: Baclofen 40 mg QID, Dantrium 100 mg HS Chronic constipation: Continue outpatient regimen of suppository and manual disimpaction on and Fri. DVT prophylaxis: SCDs Code Status: LEVEL I, FULL Dispo: Discharge to [facility] SUMMARY: Patient was admitted to [facility] on 04/09/17 due to Pseudomonas PNA. He was treated with IV Cefepime x7 days per pulmonary recommendations. Due to concerns of family for patient returning home, placement options were sought out which prolonged patient's stay. He then experienced acute hypoxic respiratory failure on 05/24. He was placed on BiPAP and eventually weaned off O2 supplement. Additionally, he was treated with IV Cefepime with transition to PO Keflex x10 days- sputum culture grew out E.coli. Placement was found at [facility]- per their recommendations, cuffed and fenestrated trach was placed by pulmonary team on 05/29. Sputum cultures were obtained- still pending. He tolerated BiPAP overnight without difficulty per placement requirement. Total Time Spent: Greater than 30 minutes This includes examination of the patient, discharge planning, medication reconciliation, and communication with other providers. Discharge Instructions Please refer to the electronic Patient Visit Report (Discharge Instructions) for additional information. Follow-Up Please follow-up with [facility] Skilled provider within 24-48 hours Please follow-up with Pulmonary- Dr. Goode within 23 weeks Please follow-up/keep all of your subspecialty appointments Additional Copies To Anna Blake MD
[2017-05-30] MEDS: CEROVITE ADV FORMULA TAB PO SCH (12:30)
[2017-05-30] MEDS: LACTOBACILLUS ACIDOPHILUS (FLORANEX) TAB PO SCH (12:31)
[2017-05-30] MEDS: LORAZEPAM 0.5 MG TAB PO PRN (14:14)
[2017-05-30] MEDS: DANTROLENE SODIUM 25 MG CAP PO SCH (20:59)
[2017-05-31] VITALS (9 sets, daily range): BP systolic 102–129; BP diastolic 63–81; PULSE 51–78; TEMP 36.4–36.6; O2SAT 94–100
[2017-05-31] MEDS: ALBUT/IPRATROP 3MG/0.5MG NEB 3 ML VIAL INH SCH ×4 (07:24→18:54)
--- NOTE | 2017-05-31 08:31 | Progress Note ---
Subjective Date of Service: May 31, 2017. Subjective Pt evaluation today including: conversation w/ patient, physical exam, chart review, lab review, review of inpatient medication list Report doing wonderful, getting oral suctioning by RT, no special complaining, feeding well, no fever and chill Problem List Medical Problems: (1) Bronchitis Status: Acute (2) Hypoxemia Status: Acute (3) Hypoxia Status: Acute (4) Knee pain, acute Status: Acute (5) Mucus plugging of bronchi Status: Acute (6) Paraplegia Status: Acute (7) PNA (pneumonia) Status: Acute (8) PNA (pneumonia) Status: Acute (9) Pneumonia Status: Acute (10) Pneumonia Status: Acute (11) Pneumonia Status: Acute (12) Pneumonia Status: Acute (13) Pneumonia Status: Acute (14) Pneumonia Status: Acute (15) Productive cough Status: Acute (16) Quadriplegia Status: Acute (17) Sacral decubitus ulcer Status: Acute (18) SOB (shortness of breath) Status: Acute (19) SOB (shortness of breath) Status: Acute (20) Ulcer of right heel Status: Acute Review of Systems Constitutional: No see HPI, No fever, No chills, No sweats, No weight loss, No weakness, No fatigue, No problem reported Eyes: No see HPI, No worsening of vision, No eye pain, No redness, No discharge , No diplopia, No problem reported ENT: No see HPI, No hearing loss, No unusual epistaxis, No nasal symptoms, No sore throat, No tinnitus, No dental problems, No trouble swallowing, No problem reported Respiratory: No cough, No sputum Cardiac: No chest pain Abdomen: No pain, No nausea, No vomiting Musculoskeletal: No see HPI, No joint pain, No muscle pain, No swelling, No calf pain, No problem reported Male : + problem reported (tolerating place with clean urine) Neurologic: No see HPI, No memory loss, No paralysis, No weakness, No numbness/ tingling, No vertigo, No balance problems, No problem reported Psychiatric: No see HPI, No depression symptoms, No anhedonism, No anxiety, No insomnia, No substance abuse, No problem reported Heme: No see HPI, No abnormal bleeding/bruising, No clotting problems, No swollen lymph nodes, No night sweats, No problem reported Skin: No rash Objective Vital Signs Date Time Temp Pulse Resp B/P (MAP) Pulse Ox O2 Delivery O2 Flow Rate FiO2 05/31/17 07:41 36.6 53 20 129/81 (97) 100 Room Air 05/31/17 07:24 76 22 98 BiPAP/CPAP 30 05/31/17 04:45 BiPAP 05/30/17 23:38 64 99 30 05/30/17 20:25 72 97 30 05/30/17 20:00 79 24 94 Room Air 05/30/17 16:00 94 Room Air 05/30/17 16:00 78 20 103/57 (72) 94 Room Air 05/30/17 15:21 78 20 98 Room Air 05/30/17 11:16 70 20 94 Room Air 05/30/17 10:43 36.5 65 20 99 Room Air 05/30/17 08:30 99 Room Air 1.0 30 Physical Exam General Appearance: WD/WN, no apparent distress, + thin, + pertinent finding ( frail, chronically ill-looking, but in baseline) Eyes: normal inspection, PERRL, EOMI, sclerae normal ENT: normal ENT inspection, hearing grossly normal, pharynx normal Neck: supple, no adenopathy, thyroid normal, no JVD, + pertinent finding (SP trach) Respiratory/Chest: chest non-tender, normal breath sounds, no respiratory distress, no accessory muscle use, + decreased breath sounds Cardiovascular: regular rate, rhythm, no edema, no gallop, no JVD, no murmur Abdomen: normal bowel sounds, non tender, soft, no organomegaly, no pulsatile mass Extremities: normal capillary refill, pelvis stable, + pertinent finding ( bilateral upper extremity contracted) Neurologic/Psychiatric: 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 Additionally, he was treated with IV Cefepime with transition to PO Keflex x10 days- sputum culture grew out E.coli. Quadriplegia: Baclofen 40 mg QID, Dantrium 100 mg HS Chronic constipation: Continue outpatient regimen of suppository and manual disimpaction on and Fri. DVT prophylaxis: SCDs Code Status: LEVEL I, FULL Patient's discharge to shelter with cuffed and fenestrated trach was placed by pulmonary team on 05/29. Sputum cultures were obtained- still pending. Has been continue tolerate tolerated BiPAP overnight for tonight without difficulty per placement requirement. Need to follow-up PCP and transportation analyst Per report patient will discharge [facility] on Friday Continued [facility] stay due to: other Discharge planning: home with home health, [facility] facility
[2017-05-31] MEDS: LORAZEPAM 0.5 MG TAB PO SCH (09:19)
[2017-05-31] MEDS: FLUTICASONE PROPIONATE NA SPR 16 GM BTL SCH ×2 (09:20→19:45)
[2017-05-31] MEDS: ASPIRIN 81 MG ECTAB PO SCH (09:20)
[2017-05-31] MEDS: IPRATROPIUM BROMIDE NASAL SPRAY 0.06% 15ML INH SCH ×3 (09:20→19:45)
[2017-05-31] MEDS: LORATADINE 10 MG TAB PO SCH (09:21)
[2017-05-31] MEDS: CETIRIZINE HCL 10 MG TAB PO SCH (09:21)
[2017-05-31] MEDS: BACLOFEN TAB 20 MG TAB PO SCH ×4 (09:22→19:46)
[2017-05-31] MEDS: CEPHALEXIN MONOHYDRATE 500 MG CAP PO SCH ×2 (09:22→19:46)
[2017-05-31] MEDS: CEROVITE ADV FORMULA TAB PO SCH (12:49)
[2017-05-31] MEDS: LACTOBACILLUS ACIDOPHILUS (FLORANEX) TAB PO SCH (12:49)
[2017-05-31] MEDS: DANTROLENE SODIUM 25 MG CAP PO SCH (19:47)
[2017-06-01] VITALS (14 sets, daily range): BP systolic 96–99; BP diastolic 60–63; PULSE 55–80; TEMP 36.5–36.8; O2SAT 94–100
[2017-06-01] MEDS: ALBUT/IPRATROP 3MG/0.5MG NEB 3 ML VIAL INH SCH ×4 (07:15→19:16)
[2017-06-01] MEDS: FLUTICASONE PROPIONATE NA SPR 16 GM BTL SCH ×3 (08:00→20:00)
[2017-06-01] MEDS: IPRATROPIUM BROMIDE NASAL SPRAY 0.06% 15ML INH SCH ×4 (08:00→20:00)
[2017-06-01] MEDS: LORAZEPAM 0.5 MG TAB PO SCH (08:10)
[2017-06-01] MEDS: LORATADINE 10 MG TAB PO SCH (08:11)
[2017-06-01] MEDS: BACLOFEN TAB 20 MG TAB PO SCH ×4 (08:11→20:47)
[2017-06-01] MEDS: CETIRIZINE HCL 10 MG TAB PO SCH (08:11)
[2017-06-01] MEDS: CEPHALEXIN MONOHYDRATE 500 MG CAP PO SCH ×2 (08:11→20:48)
[2017-06-01] MEDS: ASPIRIN 81 MG ECTAB PO SCH (08:11)
[2017-06-01] MEDS: IBUPROFEN 200 MG TAB PO PRN (08:12)
--- NOTE | 2017-06-01 10:17 | Progress Note ---
Subjective Date of Service: Jun 01, 2017. Subjective Pt evaluation today including: conversation w/ patient, physical exam, chart review, lab review, review of studies, review of inpatient medication list Doing the same, patient requesting more frequent oral suctioning, however per nursing staff reports, and my personal observation he seems has no obvious oral secretions Problem List Medical Problems: (1) Bronchitis Status: Acute (2) Hypoxemia Status: Acute (3) Hypoxia Status: Acute (4) Knee pain, acute Status: Acute (5) Mucus plugging of bronchi Status: Acute (6) Paraplegia Status: Acute (7) PNA (pneumonia) Status: Acute (8) PNA (pneumonia) Status: Acute (9) Pneumonia Status: Acute (10) Pneumonia Status: Acute (11) Pneumonia Status: Acute (12) Pneumonia Status: Acute (13) Pneumonia Status: Acute (14) Pneumonia Status: Acute (15) Productive cough Status: Acute (16) Quadriplegia Status: Acute (17) Sacral decubitus ulcer Status: Acute (18) SOB (shortness of breath) Status: Acute (19) SOB (shortness of breath) Status: Acute (20) Ulcer of right heel Status: Acute Review of Systems Constitutional: No fever, No chills Eyes: No worsening of vision ENT: No hearing loss, No unusual epistaxis Respiratory: + cough, + shortness of breath, + dyspnea at rest (this is not new , it is his baseline) Cardiac: No see HPI, No chest pain, No orthopnea, No PND, No edema, No claudication, No palpitations, No problem reported Breast: No see HPI, No breast lump, No change in shape, No nipple discharge, No breast pain, No problem reported Abdomen: No see HPI, No pain, No nausea, No vomiting, No diarrhea, No constipation, No GI bleeding, No problem reported Musculoskeletal: + problem reported (contracture of extremity is not new), No see HPI, No joint pain, No muscle pain, No swelling, No calf pain Psychiatric: + anxiety Skin: No rash Objective Vital Signs Date Time Temp Pulse Resp B/P (MAP) Pulse Ox O2 Delivery O2 Flow Rate FiO2 06/01/17 08:25 95 Room Air 06/01/17 07:50 36.5 55 18 99/63 (75) 99 06/01/17 07:23 55 22 100 Room Air 06/01/17 05:33 BiPAP 06/01/17 05:14 79 98 30 06/01/17 02:30 74 95 30 05/31/17 23:30 36.5 51 18 105/67 (80) 100 05/31/17 23:23 71 97 30 05/31/17 20:00 Room Air 05/31/17 19:00 74 99 30 05/31/17 18:59 74 20 96 Room Air 05/31/17 16:00 Room Air 05/31/17 15:45 36.4 78 18 102/63 (76) 94 Room Air 05/31/17 15:40 70 20 96 Room Air 05/31/17 11:15 76 95 30 05/31/17 11:15 76 27 95 BiPAP/CPAP Physical Exam General Appearance: WD/WN, no apparent distress, + thin Eyes: normal inspection, PERRL ENT: normal ENT inspection, hearing grossly normal Neck: supple, no adenopathy Respiratory/Chest: + decreased breath sounds, + pertinent finding (trach in place and capped) Cardiovascular: regular rate, rhythm, no edema, no gallop, no JVD, no murmur Abdomen: normal bowel sounds, non tender, soft, no organomegaly, no pulsatile mass Extremities: + pertinent finding (bilateral upper extremity is contracture) Neurologic/Psychiatric: wildlife 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 Additionally, he was treated with IV Cefepime with transition to PO Keflex x10 days- sputum culture grew out E.coli. Repeated Sputum cultures grew Pseudomonas, believe it is colonization, patient does not look toxic, there is no any signs of infection for now, continue observation Not necessarily any further antibiotic for now Quadriplegia: Stable, continue Baclofen 40 mg QID, Dantrium 100 mg HS Chronic constipation: Continue outpatient regimen of suppository and manual disimpaction on Tu and Fri. DVT prophylaxis: SCDs Code Status: LEVEL I, FULL Patient was planned [facility] to [facility] ago, he was cancelled because not able to arrange the transportation Has been continue tolerate tolerated BiPAP without difficulty per placement requirement. Need to follow-up PCP and resource conservation specialist Per report patient will discharge [facility] tomorrow Continued [facility] stay due to: other Discharge planning: home with home health, [facility] facility
[2017-06-01] MEDS: LACTOBACILLUS ACIDOPHILUS (FLORANEX) TAB PO SCH (12:11)
[2017-06-01] MEDS: CEROVITE ADV FORMULA TAB PO SCH (12:11)
[2017-06-01] MEDS ORDERED: NURSING DECISION MEDICATION ORDER SCH (20:00)
[2017-06-01] MEDS ORDERED: MICONAZOLE NITRATE POWDER 43 GM EXT PRN (20:15)
[2017-06-01] MEDS: DANTROLENE SODIUM 25 MG CAP PO SCH (20:48)
[2017-06-02] VITALS: O2SAT 98
[2017-06-02 02:12] VITALS: PULSE 68; O2SAT 96
[2017-06-02 04:57] VITALS: PULSE 75; O2SAT 97
[2017-06-02 07:19] VITALS: BP 111/72; PULSE 52; TEMP 36.7; O2SAT 100
[2017-06-02] MEDS: ALBUT/IPRATROP 3MG/0.5MG NEB 3 ML VIAL INH SCH (07:27)
[2017-06-02 07:30] VITALS: PULSE 52; O2SAT 100
[2017-06-02] MEDS: ASPIRIN 81 MG ECTAB PO SCH (07:47)
[2017-06-02] MEDS: LORATADINE 10 MG TAB PO SCH (07:47)
[2017-06-02] MEDS: LORAZEPAM 0.5 MG TAB PO SCH (07:47)
[2017-06-02] MEDS: IBUPROFEN 200 MG TAB PO PRN (07:48)
[2017-06-02] MEDS: CETIRIZINE HCL 10 MG TAB PO SCH (07:48)
[2017-06-02] MEDS: BACLOFEN TAB 20 MG TAB PO SCH (07:48)
[2017-06-02] MEDS: CEPHALEXIN MONOHYDRATE 500 MG CAP PO SCH (07:48)
[2017-06-02] MEDS: IPRATROPIUM BROMIDE NASAL SPRAY 0.06% 15ML INH SCH ×2 (07:49→07:58)
[2017-06-02] MEDS: FLUTICASONE PROPIONATE NA SPR 16 GM BTL SCH ×2 (07:49→07:58)
--- NOTE | 2017-06-02 09:43 | Progress Note ---
Progress Note Date of Service Jun 02, 2017. Progress Note chart reviewed, pt ready for discharge. all discharge work was done previously by Chel SAGE and Dr Gómez. Pt already discharged by the time of my arrival.
== END 2017-06-02 09:15 | DRG 177 ==
LOC: EDBD 17:27 → C.EDC 17:28 → C.2T 20:20 → ENRESERV 20:28 → C.4E 04-10 14:47
PROVIDERS: ADMIT Hospitalist; ATTEND Family Medicine
PROC: 0B21XFZ Change Tracheostomy Device in Trachea, External Approach (ICD-10-PCS; principal; 2017-05-29)
DX: J15.1 Pneumonia due to Pseudomonas (principal); G82.50 Quadriplegia, unspecified; J96.01 Acute respiratory failure with hypoxia; N13.30 Unspecified hydronephrosis; J96.12 Chronic respiratory failure with hypercapnia; E87.1 Hypo-osmolality and hyponatremia; T17.800A Unspecified foreign body in other parts of respiratory tract causing asphyxiation, initial encounter; L89.159 Pressure ulcer of sacral region, unspecified stage; Z87.01 Personal history of pneumonia (recurrent); Z93.0 Tracheostomy status; Z88.2 Allergy status to sulfonamides; J98.6 Disorders of diaphragm; K59.00 Constipation, unspecified; J20.9 Acute bronchitis, unspecified; V89.2XXS Person injured in unspecified motor-vehicle accident, traffic, sequela; X58.XXXA Exposure to other specified factors, initial encounter